=== PATIENT | female | born 1960 ===

== ENCOUNTER 2020-11-20 12:46 | Emergency (ER) | payer MEDICARE, OTHER, SELFPAY ==
[2020-11-20 12:55] VITALS: BP 138/43; PULSE 64; RESP 20; TEMP 36.6; O2SAT 98
--- NOTE | 2020-11-20 12:55 | ED.EXTPRO ---
HPI - Extremity Problem General Chief complaint: Extremity Problem,Nontraumatic Stated complaint: Left calf pain Time Seen by Provider: 11/20/20 12:56 Source: patient and RN notes reviewed Mode of arrival: ambulatory Limitations: no limitations History of Present Illness HPI Narrative: 60-year-old female presents to the [facility] with left calf pain for 3-4 days. Patient denies any injury. No swelling. No change in color. Tenderness to medial lower calf to palpation. No bony tenderness throughout the lower leg. Has been taking Ferguson for her chronic back pain and states not getting any better. Currently on Eliquis due to bypass surgery, states they changed her about a year ago off of Plavix. Walks with a limp favoring the left leg. Related Data Home Medications Medication Instructions Recorded Confirmed allopurinol 200 mg PO DAILY 11/20/20 11/20/20 amlodipine 5 mg PO DAILY 11/20/20 11/20/20 apixaban [Eliquis] 5 mg PO BID 11/20/20 11/20/20 ergocalciferol (vitamin D2) 1,250 mcg PO DAILY 11/20/20 11/20/20 ezetimibe 10 mg PO DAILY 11/20/20 11/20/20 furosemide 40 mg PO BID 11/20/20 11/20/20 gabapentin 300 mg PO BID 11/20/20 11/20/20 hydrocodone-acetaminophen 325 tablet PO DIRECTED 11/20/20 11/20/20 insulin lispro 100 unit SUBCUT DIRECTED 11/20/20 11/20/20 isosorbide mononitrate 120 mg PO DAILY 11/20/20 11/20/20 metoprolol tartrate 100 mg PO DAILY 11/20/20 11/20/20 ranolazine 1,000 mg PO DAILY 11/20/20 11/20/20 sertraline 100 mg PO DAILY 11/20/20 11/20/20 Allergies Allergy/AdvReac Type Severity Reaction Status Date / Time codeine Allergy Unknown Unknown Verified 11/20/20 13:02 meperidine AdvReac Mild NAUSEA/VOMI Verified 06/14/18 07:54 TING oxycodone AdvReac Mild Nausea and Verified 06/14/18 07:54 Vomiting Review of Systems Review of Systems: Narrative: CONSTITUTIONAL: Denies fever, chills, or sweats. CARDIOVASCULAR: Denies chest pain, palpitations, or edema. RESPIRATORY: Denies cough or dyspnea. SKIN: Denies rash or itching. No signs of infection MUSCULOSKELETAL: Denies new back pain or joint pain. Left calf pain. NEUROLOGIC: Denies headache, numbness, or weakness. PSYCHIATRIC: Denies anxiety or depression. All other systems reviewed are negative, except as documented in HPI. [facility] Family History Family History Sibling Family history of diabetes mellitus in first degree relative Social History Social History Smoking status: Never smoker Alcohol intake: never Gender identity (if verbalized by the patient): Female Comments At the time of my signature, I reviewed and agree with the nursing past medical, surgical, social, and family history. There is no relevant family history pertinent to the patient complaint. Exam Narrative: Exam Narrative: GENERAL: This is a well-nourished, well-developed patient, in no apparent distress. Morbidly obese HEAD: normocephalic, atraumatic. EYES: PERRL. Sclera clear/white. Vision is grossly intact. EARS: External ears normal CARDIOVASCULAR: Regular rate and rhythm without murmurs, gallops, or rubs. RESPIRATORY: Clear to auscultation. SKIN: warm, Dry, intact with no suspicious lesions or rash, good texture and turgor. NEURO: awake, alert, and oriented to person, place and time. There were no obvious focal neurologic abnormalities. EXTREMITIES: No joint tenderness, effusion, or edema noted. Left medial and posterior calf tenderness. Negative Homans sign bilaterally. Right lower leg measures 30 cm mid calf, left lower leg measures 27 cm mid calf. No edema noted. Course Course Emergency Course: Discussed with patient after exam of lower leg, no signs of a DVT, patient already on Eliquis and there is no edema, redness. Concern for electrolyte issues, patient states that she had blood drawn on 18 November with follow-up with her kidney doctor on the and
== END 2020-11-20 13:13 | disposition home or self-care (01) ==
PROVIDERS: Emergency Provider Nurse Practitioner; PCP Internal Medicine
DX: S86.112A Strain of other muscle(s) and tendon(s) of posterior muscle group at lower leg level, left leg, initial encounter (principal); X58.XXXA Exposure to other specified factors, initial encounter; I25.110 Atherosclerotic heart disease of native coronary artery with unstable angina pectoris; E11.42 Type 2 diabetes mellitus with diabetic polyneuropathy; I13.10 Hypertensive heart and chronic kidney disease without heart failure, with stage 1 through stage 4 chronic kidney disease, or unspecified chronic kidney disease; E11.22 Type 2 diabetes mellitus with diabetic chronic kidney disease; N18.4 Chronic kidney disease, stage 4 (severe); Z95.1 Presence of aortocoronary bypass graft; E78.00 Pure hypercholesterolemia, unspecified; F41.9 Anxiety disorder, unspecified; F32.9 Major depressive disorder, single episode, unspecified
CPT/HCPCS: 99213; G0463

== ENCOUNTER 2023-03-22 18:26 | Emergency (ER) | payer MEDICARE, OTHER, SELFPAY ==
[2023-03-22 18:32] VITALS: BP 155/45; PULSE 63; RESP 20; TEMP 36.4; O2SAT 96
--- NOTE | 2023-03-22 18:57 | ED.FEMALEGU ---
HPI - Female Genitourinary General Chief complaint: Urogenital-Female Stated complaint: Urinary Problem Time Seen by Provider: 03/22/23 18:58 Source: patient, RN notes reviewed and old records reviewed Mode of arrival: ambulatory Limitations: no limitations History of Present Illness HPI Narrative: 63 year old female who presents to express care with complaints of burning and pain with urination starting today with noted hematuria. Patient reports history of UTI's states urinary pressure and burning with urination, urgency and frequency, reports suprapubic pain/pressure, states some right flank discomfort also.. Patient reports that she had a dose of Bactrim at home and she took it before coming to clinic. Patient reports that she does not have history of kidney stones, has obvious blood visible in urine. Patient denies any fevers, chills or sweats, denies any nausea or vomiting.Patient is uncomfortable recommended going to ED for further evaluation reports that she does not want to go to ED if not better will go later this evening or tomorrow, adamant. MD elicited complaint: UTI Pertinent past history: recurrent UTIs Onset (ago): day(s) (1) Location of symptoms: perineum, suprapubic and flank (right) Severity scale (1-10): 9 Quality of pain: sharp and burning Urinary symptoms: Dysuria, Urgency, Frequency and Hematuria Related Data Home Medications Medication Instructions Recorded Confirmed allopurinol 100 mg tablet 200 mg PO DAILY 11/20/20 11/20/20 amlodipine 5 mg tablet 5 mg PO DAILY 11/20/20 11/20/20 apixaban 5 mg tablet (Eliquis) 5 mg PO BID 11/20/20 11/20/20 ergocalciferol (vitamin D2) 1,250 1,250 mcg PO DAILY 11/20/20 11/20/20 mcg (50,000 unit) capsule ezetimibe 10 mg tablet 10 mg PO DAILY 11/20/20 11/20/20 furosemide 40 mg tablet 40 mg PO BID 11/20/20 11/20/20 gabapentin 300 mg capsule 300 mg PO BID 11/20/20 11/20/20 hydrocodone 5 mg-acetaminophen 325 325 tablet PO DIRECTED 11/20/20 11/20/20 mg tablet insulin lispro 100 unit/mL 100 unit subcut DIRECTED 04/23/21 04/23/21 subcutaneous solution isosorbide mononitrate 120 mg 120 mg PO DAILY 11/20/20 11/20/20 tablet,extended release 24 hr metoprolol tartrate 100 mg tablet 100 mg PO DAILY 11/20/20 11/20/20 ranolazine 1,000 mg 1,000 mg PO DAILY 11/20/20 11/20/20 tablet,extended release,12 hr sertraline 100 mg tablet 100 mg PO DAILY 11/20/20 11/20/20 Allergies Allergy/AdvReac Type Severity Reaction Status Date / Time codeine Allergy Unknown Unknown Verified 11/20/20 13:02 meperidine AdvReac Mild NAUSEA/VOMI Verified 06/14/18 07:54 TING oxycodone AdvReac Mild Nausea and Verified 06/14/18 07:54 Vomiting Review of Systems Review of Systems: CONSTITUTIONAL: Denies fever, chills, or sweats. CARDIOVASCULAR: Denies chest pain, palpitations, or edema. RESPIRATORY: Denies cough or dyspnea. GASTROINTESTINAL: Reports suprapubic abdominal pain/pressure,denies nausea, vomiting, or diarrhea. GENITOURINARY: Reports dysuria, frequency, urgency. reports some right flank pain and hematuria. SKIN: Denies rash or itching. MUSCULOSKELETAL: Denies lower back pain or myalgia. Some right CVA tenderness NEUROLOGIC: Denies headache All systems reviewed & are unremarkable except as noted in HPI and below PMFSH Past Medical History Medical History Asthma Bronchitis Diabetes Heart attack Hyperlipidemia Hypertension Sleep apnea treated with continuous positive airway pressure (CPAP) Urinary tract infection Surgical History Surgical History (Updated 03/23/23 @ 15:40 by Imelda Gomes NP) History of bilateral carpal tunnel release History of cholecystectomy History of hysterectomy History of open heart surgery 5 vessel bypass S/P cubital tunnel release S/P trigger finger release Family History Family History Sibling Family history of diab
[2023-03-22] MEDS: cefTRIAXone 1 GM, LIDOCAINE HCL 1% LOCAL INJ 2.1 ML IM (19:13)
== END 2023-03-22 19:38 | disposition home or self-care (01) ==
PROVIDERS: Emergency Provider Registered Nurse
DX: N39.0 Urinary tract infection, site not specified (principal); R31.9 Hematuria, unspecified; J45.909 Unspecified asthma, uncomplicated; E11.9 Type 2 diabetes mellitus without complications; E78.5 Hyperlipidemia, unspecified; I10 Essential (primary) hypertension; I25.2 Old myocardial infarction; Z95.1 Presence of aortocoronary bypass graft; Z79.4 Long term (current) use of insulin; G47.30 Sleep apnea, unspecified
CPT/HCPCS: 81003; 87077; 87086; 87186; 96372; 99213; G0463; J0696

== ENCOUNTER 2023-07-09 10:14 | Emergency (ER) | payer MEDICARE, OTHER, SELFPAY ==
[2023-07-09 10:22] VITALS: BP 130/48; PULSE 63; RESP 16; TEMP 36.5; O2SAT 93
--- NOTE | 2023-07-09 10:35 | ED.FEMALEGU ---
HPI - Female Genitourinary General Chief complaint: Urogenital-Female Stated complaint: Urinary Problem History of Present Illness HPI Narrative: Patient presents for intermittent low abdominal pain. Patient denies with any burning with urination denies any flank pain no back pain no gross hematuria. Patient denies any vaginal discharge no concern for STIs. Related Data Home Medications Medication Instructions Recorded Confirmed allopurinol 100 mg tablet 200 mg PO DAILY 11/20/20 11/20/20 amlodipine 5 mg tablet 5 mg PO DAILY 11/20/20 11/20/20 apixaban 5 mg tablet (Eliquis) 5 mg PO BID 11/20/20 11/20/20 ergocalciferol (vitamin D2) 1,250 1,250 mcg PO DAILY 11/20/20 11/20/20 mcg (50,000 unit) capsule ezetimibe 10 mg tablet 10 mg PO DAILY 11/20/20 11/20/20 furosemide 40 mg tablet 40 mg PO BID 11/20/20 11/20/20 gabapentin 300 mg capsule 300 mg PO BID 11/20/20 11/20/20 hydrocodone 5 mg-acetaminophen 325 325 tablet PO DIRECTED 11/20/20 11/20/20 mg tablet insulin lispro 100 unit/mL 100 unit subcut DIRECTED 11/20/20 11/20/20 subcutaneous solution isosorbide mononitrate 120 mg 120 mg PO DAILY 11/20/20 11/20/20 tablet,extended release 24 hr metoprolol tartrate 100 mg tablet 100 mg PO DAILY 11/20/20 11/20/20 ranolazine 1,000 mg 1,000 mg PO DAILY 11/20/20 11/20/20 tablet,extended release,12 hr sertraline 100 mg tablet 100 mg PO DAILY 11/20/20 11/20/20 calcitriol 0.25 mcg capsule mcg 07/09/23 clopidogrel 75 mg tablet mg 07/09/23 fluticasone 250 mcg-salmeterol 50 inhalation 07/09/23 mcg/dose blistr powdr for inhalation (Advair Diskus) letrozole 2.5 mg tablet mg 07/09/23 losartan 25 mg tablet mg 07/09/23 tiotropium bromide 1.25 inhalation 07/09/23 mcg/actuation mist for inhalation (Spiriva Respimat) tobramycin 0.3 %-dexamethasone 0.1 drp 07/09/23 % eye drops,suspension trazodone 50 mg tablet mg 07/09/23 Allergies Allergy/AdvReac Type Severity Reaction Status Date / Time codeine Allergy Unknown Unknown Verified 07/09/23 10:30 meperidine AdvReac Mild NAUSEA/VOMI Verified 07/09/23 10:30 TING oxycodone AdvReac Mild Nausea and Verified 07/09/23 10:30 Vomiting Review of Systems Review of Systems: CONSTITUTIONAL: Denies fever, chills, or sweats. EYES: Denies visual changes, redness, or discharge. ENT: Denies rhinorrhea, congestion, sore throat, or otalgia. CARDIOVASCULAR: Denies chest pain, palpitations, or edema. RESPIRATORY: Denies cough or dyspnea. GASTROINTESTINAL: Denies abdominal pain, nausea, vomiting, or diarrhea. GENITOURINARY: Denies dysuria or hematuria. SKIN: Denies rash or itching. MUSCULOSKELETAL: Denies back pain, joint pain, or myalgia. NEUROLOGIC: Denies headache, numbness, or weakness. PSYCHIATRIC: Denies anxiety or depression. PMFSH Past Medical History Medical History Asthma Bronchitis Diabetes Heart attack Hyperlipidemia Hypertension Sleep apnea treated with continuous positive airway pressure (CPAP) Urinary tract infection Surgical History Surgical History (Updated 03/23/23 @ 15:40 by Imelda Gomes NP) History of bilateral carpal tunnel release History of cholecystectomy History of hysterectomy History of open heart surgery 5 vessel bypass S/P cubital tunnel release S/P trigger finger release Family History Family History Sibling Family history of diabetes mellitus in first degree relative Social History Social History Smoking status: Never smoker Alcohol intake: never Gender identity (if verbalized by the patient): Female Comments At time of signature, agree with nursing past medical, surgical, social and family history. There is no relevant family history pertinent to the presenting complaint Exam Narrative: GENERAL: Well-appearing, well-nourished, and i
== END 2023-07-09 10:48 | disposition home or self-care (01) ==
PROVIDERS: Emergency Provider Nurse Practitioner Family
DX: R10.30 Lower abdominal pain, unspecified (principal); J45.909 Unspecified asthma, uncomplicated; E11.9 Type 2 diabetes mellitus without complications; E78.5 Hyperlipidemia, unspecified; I10 Essential (primary) hypertension; G47.30 Sleep apnea, unspecified; I25.2 Old myocardial infarction; Z95.1 Presence of aortocoronary bypass graft
CPT/HCPCS: 81003; 87086; 87088; 99213; G0463

== ENCOUNTER 2023-12-13 14:05 | Emergency (ER) | payer MEDICARE, OTHER, SELFPAY ==
[2023-12-13 14:20] VITALS: BP 128/46; PULSE 61; RESP 16; TEMP 36.4; O2SAT 93
--- NOTE | 2023-12-13 14:35 | ED.ABDPAIN ---
HPI - Abdominal Pain General Chief Complaint: Abdominal Pain Stated Complaint: Abdominal Pain Source: patient and RN notes reviewed Mode of arrival: ambulatory Limitations: no limitations History of Present Illness HPI narrative: 63-year-old female with a history of diabetes and CAD presented for complaint right lower quadrant pain . Onset yesterday. She endorses pain is sharp and stabbing, worse with walking or bending. States she feels pressure sensation after urination. Rates pain 8/10. denies nausea, vomiting, diarrhea, constipation, decreased appetite, fevers or chills. History of cholecystectomy. Related Data Home Medications Medication Instructions Recorded Confirmed allopurinol 100 mg tablet 200 mg PO DAILY 11/20/20 12/13/23 amlodipine 5 mg tablet 5 mg PO DAILY 11/20/20 12/13/23 ergocalciferol (vitamin D2) 1,250 1,250 mcg PO DAILY 11/20/20 12/13/23 mcg (50,000 unit) capsule ezetimibe 10 mg tablet 10 mg PO DAILY 11/20/20 12/13/23 furosemide 40 mg tablet 40 mg PO BID 11/20/20 12/13/23 gabapentin 300 mg capsule 300 mg PO BID 11/20/20 12/13/23 hydrocodone 5 mg-acetaminophen 325 325 tablet PO DIRECTED 11/20/20 12/13/23 mg tablet insulin lispro 100 unit/mL 100 unit subcut DIRECTED 11/20/20 12/13/23 subcutaneous solution isosorbide mononitrate 120 mg 120 mg PO DAILY 11/20/20 12/13/23 tablet,extended release 24 hr metoprolol tartrate 100 mg tablet 100 mg PO DAILY 11/20/20 12/13/23 sertraline 100 mg tablet 100 mg PO DAILY 11/20/20 12/13/23 calcitriol 0.25 mcg capsule 0.25 mcg PO DAILY 07/09/23 12/13/23 clopidogrel 75 mg tablet 75 mg PO DAILY 07/09/23 12/13/23 fluticasone 250 mcg-salmeterol 50 2 inh inhalation DAILY 07/09/23 12/13/23 mcg/dose blistr powdr for inhalation (Advair Diskus) letrozole 2.5 mg tablet 2.5 mg PO DAILY 07/09/23 12/13/23 losartan 25 mg tablet 25 mg PO DAILY 07/09/23 12/13/23 tiotropium bromide 1.25 1.25 puff inhalation DAILY 07/09/23 12/13/23 mcg/actuation mist for inhalation (Spiriva Respimat) trazodone 50 mg tablet 50 mg PO PRN 07/09/23 12/13/23 Allergies Allergy/AdvReac Type Severity Reaction Status Date / Time codeine Allergy Unknown Unknown Verified 12/13/23 14:23 meperidine AdvReac Mild NAUSEA/VOMI Verified 12/13/23 14:23 TING oxycodone AdvReac Mild Nausea and Verified 12/13/23 14:23 Vomiting Review of Systems Review of Systems: CONSTITUTIONAL: Denies body aches, fever, chills ENT: Denies rhinorrhea, congestion CARDIOVASCULAR: Denies chest pain, palpitations, or edema. RESPIRATORY: Denies cough or dyspnea. GASTROINTESTINAL: Endorses RLQ abdominal pain, Denies nausea, vomiting, diarrhea, hematochezia, melena, hematemesis GENITOURINARY: Denies dysuria, hematuria, or CVA tenderness. SKIN: Denies rash, itching, or wounds. MUSCULOSKELETAL: Denies back pain, joint pain, or myalgia. NEUROLOGIC: Denies headache All systems reviewed & are unremarkable except as noted in HPI and below PMFSH Past Medical History Medical History Asthma Bronchitis Diabetes Heart attack Hyperlipidemia Hypertension Sleep apnea treated with continuous positive airway pressure (CPAP) Urinary tract infection Surgical History Surgical History History of bilateral carpal tunnel release History of cholecystectomy History of hysterectomy History of open heart surgery 5 vessel bypass S/P cubital tunnel release S/P trigger finger release Family History Family History Sibling Family history of diabetes mellitus in first degree relative Social History Social History Smoking status: Never smoker Alcohol intake: never Gender identity (if verbalized by the patient): Female Comments At time of signature, I have reviewed and agree with nursing p
== END 2023-12-13 14:45 | disposition short-term general hospital (02) ==
PROVIDERS: Emergency Provider Nurse Practitioner Family; PCP Family Medicine
DX: R10.31 Right lower quadrant pain (principal); J45.909 Unspecified asthma, uncomplicated; E11.9 Type 2 diabetes mellitus without complications; Z79.4 Long term (current) use of insulin; E78.5 Hyperlipidemia, unspecified; I10 Essential (primary) hypertension; G47.30 Sleep apnea, unspecified; I25.2 Old myocardial infarction; I25.10 Atherosclerotic heart disease of native coronary artery without angina pectoris; Z95.5 Presence of coronary angioplasty implant and graft
CPT/HCPCS: 81003; 87077; 87086; 87088; 87147; 87181; 87186; 99213; G0463

== ENCOUNTER 2025-03-09 13:04 | Emergency (ER) | payer OTHER, MEDICARE, SELFPAY ==
--- OUTSIDE RECORDS SUMMARY | 2025-03-09 13:06 | XMS_ITS | Continuity of Care Document ---
Author Organization [facility] Address [address] [place] [address] [address] [place] [address] Phone Care Team Providers Care Interface Developer Name Role Phone Alexander PT, LARISSAT, Leobardo [...] Diagnoses Date Provider Providers Copied on Encounter [facility], [id number], tel:[phone] Eduardo Pain in left shoulderStiffnes s of left shoulder, not elsewhere classifiedOther specified extrapyramidal and movement disordersOth specific arthropathies, NEC, left shoulder Apr-1 6-201 8 Alexander Booth. [address], [facility], [place]. tel:[phone] Referring Provider: Akin Baird, [address] [place] [address] [address] [place], [address]. tel:[phone] [facility], [id number], tel:[phone] Eduardo Pain in left shoulderStiffnes s of left shoulder, not elsewhere classifiedOther specified extrapyramidal and movement disordersOth specific arthropathies, NEC, left shoulder Apr-0 9-201 8 Alexander Booth. [address] [facility], [facility] [address], [place], [facility], [place]. tel:[phone] Referring Provider: Akin Baird, [address] [facility] [address] [facility], [place], [address]. tel:[phone] [facility] [address], [place], [place], [address], [place] tel:[phone] Eduardo Pain in left shoulderStiffnes s of left shoulder, not elsewhere classifiedOther specified extrapyramidal and movement disordersOth specific arthropathies, NEC, left shoulder Mar-2 6-201 8 Lujan-Downey Leobardo. [address] [facility], [address], [place], [place], [facility], [place]. tel:[phone] Referring Provider: Akin Baird, [address] [facility] [address] [facility] [place], [address]. tel:[phone] [facility] [address] [facility], [place], [place], [id number], [place] tel:[phone] [place] Pain in left shoulderStiffnes s of left shoulder, not elsewhere classifiedOther specified extrapyramidal and movement disordersOth specific arthropathies, NEC, left shoulder Mar-2 3-201 8 Lujan-Downey Leobardo. [address] [place] [address], [address], [place], [place], [facility], [place]. tel:[phone] Referring Provider: Akin Baird, [address] [facility] [address] [place], [address]. tel:[phone] [facility] [address] [facility], [place], [place], [id number], [place] tel:[phone] [place] Pain in left shoulderStiffnes s of left shoulder, not elsewhere classifiedOther specified extrapyramidal and movement disordersOth specific arthropathies, NEC, left shoulder Mar-1 9-201 8 Lujan-Downey Leobardo. [address] [facility], [address], [place], [address], [place]. tel:[phone] Referring Provider: Akin Baird, [address] [facility] [address] [facility] [address], [place], [address]. tel:[phone] [facility] [address], [place], [place], [address], [place] tel:[phone] [place] No Information 8 Tai-Shayan Leobardo. [address] [facility], [address], [place], [address], [place]. tel:[phone] Referring Provider: Akin Baird, [address] [place] [address] [address] [facility] [place], [address]. tel:[phone] [facility] [address] [place], [place] [address], [place], [place], [address], [place] tel:[phone] [place] No Information 8 Tai-Shayan Leobardo. [address] [place] [address], [address], [place], [facility], [place]. tel:[phone] Referring Provider: Akin Baird, [address] [place] [address] [address] [facility] [place], [address]. tel:[phone] [address], [place], [place], [address], [place] tel:[phone] [place] No Information 8 Tai-Shayan Leobardo. [address] [place] [address], [address], [place], [address], [place]. tel:[phone] Referring Provider: Akin Baird, [address] [place] [address] [address] [place], [address]. tel:[phone] [facility] [address] [place], [place] [address], [place], [place], [address], [place] tel:[phone] Eduardo No Information 8 Tai-Shayan Leobardo. [address] [place] [address], [address], [place], [address], [place]. tel:[phone] Referring Provider: Akin Baird, [address] [place] [address] [address], [place], [address]. tel:[phone] [facility] [address], [place], [place], [address], [place] tel:[phone] [place] No Information 8 Alexander Booth. [address] [facility], [address], [place], [address], [place]. tel:[phone] Referring Provider: Akin Baird, [address] [place] [address] [address], [place], [address]. tel:[phone] [facility], [id number], [place] tel:[phone] [place] No Information 8 Alexander Booth. [address] [place] [address], [address], [place], [address], [place]. tel:[phone] Referring Provider: Akin Baird, [address] [place] [address] [address], [place], [address]. tel:[phone] [facility] [address], [place], [place], [id number], [place] tel:[phone] [place] Pain in left shoulderStiffnes s of left shoulder, not elsewhere classifiedOther specified extrapyramidal and movement disordersOth specific arthropathies, NEC, left shoulder 8 Sandip Arora. . Referring Provider: Akin Baird, [address] [place] [address] [address], [place], [address]. tel:[phone] [facility] [address], [place], [place], [address], [place] tel:[phone] [place] No Information 8 Alexander Booth. [address] [facility], [address], [place], [address], [place]. tel:[phone] Referring Provider: Janice Goldsmith, [address] [facility] [address], [place], [address]. tel:[phone] [facility], [id number], tel:[phone] [place] No Information 8 Alexander Booth. [address] [place] [address], [address], [place], [facility], . tel:[phone] Referring Provider: Janice Goldsmith [facility] [address], [place], [address]. tel:[phone], [id number], tel:[phone] Eduardo No Information 8 Alexander Booth. [address] [place] [address], [address], [place], [facility], . tel:[phone] Referring Provider: Janice Goldsmith [address] [place] [address] [address], [place], [address]. tel:[phone], [id number], tel:[phone] [place] No Information 8 Alexander Booth. [address] [place] [address], [address], [place], [facility], . tel:[phone] Referring Provider: Janice Goldsmith [facility] [address], [place], [address]. tel:[phone], [address], tel:[phone] [place] No Information 7 Alexander Booth. [address] [place] [address], [address], [place], [facility], . tel:[phone] Referring Provider: Janice Goldsmith [facility] [address], [place], [address]. tel:[phone] [address], [place], [place], [address], tel:[phone] [place] No Information Alexander Booth. [address] [place] [address], [address], [place], [facility], . tel:[phone] Referring Provider: Janice Goldsmith [facility] [address], [place], [address]. tel:[phone] [facility] [address] [place] [address], [id number], tel:[phone] [place] No Information 7 Gary Gramajo. [address] [place] [address], [address], [place], [facility], . tel:[phone] Referring Provider: Janice Goldsmith [address] [place] [address] [address] [place], [address]. tel:[phone] [facility] [address], [id number], tel:[phone] [place] No Information Alexander Booth. [address] [place] [address], [address], [place], [facility], [place]. tel:[phone] Referring Provider: Janice Goldsmith [address] [place] [address] [address] [place], [address]. tel:[phone] [place] [address], [id number], tel:[phone] [place] Lumbago with sciatica, left sideStiffness of unspecified joint, not elsewhere classifiedMuscle weakness (generalized)Sti ffness of right hip, not elsewhere classifiedOther intervertebral disc degeneration, lumbar region Alexander Booth. [address] [place] [address], [address], [place], [facility], . tel:[phone] Referring Provider: Russel Eldridge1 [facility] [address], [place], [address]. tel:[phone] [address], [place], [place], [address], tel:[phone] [place] No Information 0 7 Alexander Booth. [address] [place] [address], [address], [place], [facility], . tel:[phone] Referring Provider: Austen Gannon, [address] [place] [address] [address], [place], [address]. tel:[phone] [address], [place], [place], [address], [place] tel:[phone] Eduardo No Information 7 Gary Gramajo. [address] [place] [address], [address], [place], [facility], [place]. tel:[phone] Referring Provider: Austen Gannon, [address] [place] [address] [address], [place], [address]. tel:[phone], [place], [address], [place] tel:[phone] [place] No Information 7 Gary Gramajo. [address] [place] [address], [address], [place], [address], [place]. tel:[phone] Referring Provider: Austen Gannon, [address] [facility] [address], [place], [address]. tel:[phone] [address], [place], [id number], [place] tel:[phone] Eduardo No Information 7 Gary Gramajo. [address] [place] [address], [address], [place], [address], [place]. tel:[phone] Referring Provider: Austen Gannon [address] [facility] [address], [place], [address]. tel:[phone], [id number], [place] tel:[phone] [place] No Information Sep-2 Alexander Booth. [address] [place] [address], [address], [facility], [place]. tel:[phone] Referring Provider: Corinna [place] [address], [address]. tel:[phone], [id number], tel:[phone] [place] No Information Sep- Alexander Booth. [address] [place] [address], [address], [facility], [place]. tel:[phone] Referring Provider: Corinna [place] [address], [address]. tel:[phone], [id number], [place] tel:[phone] Eduardo No Information Sep- Alexander Booth. [address] [place] [address], [address], [facility], [place]. tel:[phone] Referring Provider: Corinna [place] [address], [address]. tel:[phone], [id number], [place] tel:[phone] Eduardo Pain in left footOth symptoms and signs involving the musculoskeletal systemUnspecifie d abnormalities of gait and mobilityMyalgiaP lantar fascial fibromatosis Sep-1 Alexander Booth. [address] [place] [address], [facility] [address], [place], [facility], [place]. tel:[phone] Referring Provider: Corinna [place] [address], [address]. tel:[phone] Family History Family Member Type Diagnosis Age At Onset No Information Payers Payer name Insurance type Covered democrat ID Authoriza timichael(s) [place] [id number] [facility] [id number] Social History Type Description Quantity Date Captured [...]
--- OUTSIDE RECORDS SUMMARY | 2025-03-09 13:06 | XMS_ITS ---
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 :1960 A ge:64 Y S ex:Female Date:11/07/2024 Address:[address] [place] [address] Subjective: * Chief Complaints: Objective: Assessment: * [...] Plan: * Billing Information: * Visit Code: 21821 Office Visit, Est Pt., Level 5. * Procedure Codes: * Electronic signature of Raphael Avelar MD on 03/09/2025 at 01:06 PM CDT Sign off status: Pending * Provider: Rusty JIN MD, F.A.C.P, F.A.S.N. Date: 0 11/07/2024 Generated for Printing/Faxing/eTransmitting on: 0 03/09/2025 01:06 PM CDT
--- OUTSIDE RECORDS SUMMARY | 2025-03-09 13:07 | XMS_ITS | Clinical Summary ---
Author Organization [facility] Address [address], [place] [address] Phone Care Team Providers Care Risk Management Specialist Name Role Phone Unavailable Primary Care Provider Unavailabl e Medications HYDROcodone-judie taminophen (Kensett) 5-325 MG TabletIndicatio ns:Other chronic pain Take 1 Tablet by mouth every 12 hours as needed for Moderate or more severe pain or Severe pain. 60 Tablet 09/06/2023 Active Social History Tobacco Use Types Packs/Day Years Used Date Smoking Tobacco: Never Assessed Comments Unknown Sex and Gender Information Value Date Recorded Sex Assigned at Not on file Legal Sex Female 9:24 PM CDT Gender Identity Not on file Sexual Orientation Not on file Plan of Treatment Health Maintenance Due Date Last Done Comments Hepatitis C Virus (HCV) Screening 1960 Pap Smear 1982 Cervical Cancer Screening (CCS) 1991 HPV/Cotest 1991 Cologuard 2006 Colonoscopy 2006 Colorectal Cancer Screening 2006 Immunochemical Fecal Occult Blood 2006 Zoster Immunization (1 of 2) 2011 Mammogram 09/06/2023 09/06/2022, 09/01, 07/27/2020, Additional history exists SARS-COV-2 Immunization ( season) 2024 05/29/2021, 11/23/2020, 10/26/2020 Influenza Immunization (#1) 2025 10/0 08/2022, 04/26/2022, 05/18/2021, Additional history exists Respiratory Syncytial Virus (RSV) Immunization (Adult) (1 - 1-dose 75+ series) 01/12/2036 Pneumococcal Immunization (50+ years) Completed 04/19/2021, 04/03/2014, 02/16/2010, Additional history exists Pneumococcal Immunization Combined Discontinued 04/19/2021, 04/03/2014, 02/16/2010, Additional history exists DTaP/Tdap/Td Immunization Discontinued 2022, 12/13/2020, 09/02/2009 TdaP Immunization Completed 02/27/2023, , 09/02/2009 Hepatitis B Immunization Aged Out No longer eligible based on patient's age to complete this topic Human Papillomavirus (HPV) Immunization Aged Out No longer eligible based on patient's age to complete this topic Meningococcal Immunization (ACWY) Aged Out No longer eligible based on patient's age to complete this topic Rotavirus Immunization Aged Out No lo nger eligible based on patient's age to complete [place] [address] MEDICARE
--- OUTSIDE RECORDS SUMMARY | 2025-03-09 13:07 | XMS_ITS ---
Author Organization [facility] Address [address] [facility] [address] [facility] [address] [place] [address] Care Team Providers Care Field Laboratory Operator Name Role Phone Avelar Teo Unavailable [phone] Problems Problem Type SNOMED Code ICD Code Onset Dates Problem Status W/U Status Risk Notes Problem Hyperlipidemia (59591413) Hyperlipidemia, unspecified (E78.5) Active confirmed Problem CAD (coronary artery disease) (I25.10) Active confirmed Encounters Encounter Location Date Provider Diagnosis Nathan Sheppard [address] [place] [address] 01/16/2025 Teo Avelar Chronic kidney disea se, [...] Provider Name:Teo Avelar , 03/27/2025 03:00:00 PM, [id number] [place] [address], [place], [address], Progress Notes * JUDY TORIBIOIDOB:1960 (65 yo F)Acc No.[id number]:01/16/2025 Progress Notes Patient: LOU RINCON Provider: Rusty JIN MD, F.A.C.P, F.A.S.N. :1960 A ge:65 Y S ex:Female Date:01/16/2025 Address:[address] [place] [address] Subjective: * Chief Complaints: * * Medical [...] Treatment: * Billing Information: * Visit Code: 55314 Office Visit, Est Pt., Level 4. * Procedure Codes: * Electronic signature of Raphael Avelar MD on 03/09/2025 at 01:07 PM CDT Sign off status: Pending * Provider: Rusty JIN MD, F.A.C.P, F.A.S.N. Date: 0 01/16/2025 Generated for Printing/Faxing/eTransmitting on: 0 03/09/2025 01:07 PM CDT
--- OUTSIDE RECORDS SUMMARY | 2025-03-09 13:07 | XMS_ITS | Clinical Summary ---
Author Organization [facility] Address [address] [place] [address] Phone Care Team Providers Care Service Bar Cashier Name Role Phone Avila Torres MD Primary Care Provider Unavailabl e Allergies Active Allergy Reactions Criticality Noted Date Comments Oxycodone-Acetaminophen Nausea and Vomiting Low Medications clopidogrel (PLAVIX) 75 mg Oral Tab Take 75 mg by mouth daily. Active sertraline (ZOLOFT) 100 mg Oral tablet Take 150 mg by mouth daily. Active ranolazine SR 12 hour (RANEXA) 1,000 mg Oral tablet Take 1,000 mg by mouth every 12 hours. Active esomeprazole (NEXIUM) 20 mg Oral CpDR Take 40 mg by mouth Daily LATE. Active isosorbide mononitrate SR 24 hour (IMDUR) 120 mg Oral tablet Take 120 mg by mouth daily helpdesk analyst. Active amLODIPine (NORVASC) 10 mg Oral tablet Take 10 mg by mouth daily. Active atenolol (TENORMIN) 100 mg Oral tablet Take 100 mg by mouth 2 times daily. Active irbesartan (AVAPRO) 150 mg Oral tablet Take 150 mg by mouth daily. Active rosuvastatin (CRESTOR) 40 mg Oral tablet Take 40 mg by mouth daily at bedtime. Active ezetimibe (ZETIA) 10 mg Oral tablet Take 10 mg by mouth Daily LATE. Active fluticasone-papi meterol (ADVAIR DISKUS) 500-50 mcg/dose Inhalation DsDv Take 1 Puff by inhalation 2 times daily. Active aspirin (DOUG) 81 mg Oral Tab Take by mouth. Active insulin aspart (NOVOLOG) 100 unit/mL Injection Soln Inject by subcutaneous injection. Active COLESEVELAM HCL (WELCHOL ORAL) Take by mouth 2 times daily. Active albuterol 90 mcg/Actuation Inhalation HFAA inhaler Take 2 Puffs by inhalation every 6 hours as needed. Active HYDROcodone-judie taminophen (NORCO) 10-325 mg Oral Tab Take 1 Tab by mouth every 4 hours as needed for Pain, Severe (For Pain Scale 7-10). 30 Tab 0 3 Active traMADol (ULTRAM) 50 mg Oral tablet Take 2 Tabs by mouth every 6 hours as needed for Pain. 25 Tab 0 3 Active Active Problems Problem Noted Date Diagnosed Date Pain 01/23/2013 HTN (hypertension) 01/23/2013 JESSA (obstructive sleep apnea) 01/23/2013 Obesity 01/23/2013 Hyperglycemia 01/23/2013 Social History Tobacco Use Types Packs/Day Years Used Date Smoking Tobacco: Never Alcohol Use Standard Drinks/Week Comments No 0 (1 standard drink = 0.6 oz pur e alcohol) Comments No Sex and Gender Information Value Date Recorded Sex Assigned at Not on file Legal Sex Female 2:08 PM CDT Gender Identity Not on file Sexual Orientation Not on file Last Filed Vital Signs Vital Sign Reading Time Taken Comments Blood Pressure 138/68 01/24/2013 8:54 AM CDT Pulse 71 01/24/2013 8:09 AM CDT Temperature 36.6 C (97.8 F) 01/24/2013 8:09 AM CDT Respiratory Rate 18 01/24/2013 8:09 AM CDT Oxygen Saturation 93% 01/24/2013 8:09 AM CDT Inhaled Oxygen Concentration - - Weight 103.4 kg (228 lb) 01/22/2013 3:30 PM CDT Height 167.6 cm (5' 6) 01/22/2013 3:30 PM CDT Body Mass Index 36.8 01/22/2013 3:30 PM CDT Plan of Treatment Health Maintenance Due Date Last Done Comments DTAP/TDAP/TD VACCINES (1 - Tdap) 01/12/1980 BREAST CANCER SCREENING 2001 COLORECTAL SCREENING 2006 Colorectal Cancer Screening 2006 FIT-DNA Q 3 years 2006 FIT/FOBT Q 1 year 2006 Flex Sig/CT Colonography Q 5 years 2006 ZOSTER VACCINE (1 of 2) 2011 INFLUENZA VACCINE (#1) 2025 RSV VACCINE (60+ or ) (1 - 1-dose 75+ series) 01/12/[address] [place] [address] MEDICARE PART A AND B [facility] [employer] ACCESS O Advance Directives For more information, please contact: [phone] * Full Code (Latest Code Status on File) Date Activated Date Inactivated Comments 01/22/2013 10:23 AM 01/24/2013 3:17 PM * Full Code Date Activated Date Inactivated Comments 01/22/2013 6:04 AM 01/22/2013 10:23 AM Care Teams Service Bar Cashier Relationship Specialty Start Date End Date Avila Torres MD PCP - General Internal Medicine 12/20/12
--- OUTSIDE RECORDS SUMMARY | 2025-03-09 13:07 | XMS_ITS | Encounter Summary ---
Author Organization [facility] Address [address] [address] Phone Care Team Providers Care Coil Connector Repairer Name Role Phone Unavailable Primary Care Provider Unavailabl e Encounter Details Date Type Department Care Team (Late st Contact Info) Description 09/11/2023 Nursing Facility [facility] [address] [place] [phone] Jh Corral, PAC [address] [place] [address] Social History Tobacco Use Types Packs/Day Years Used Date Smoking Tobacco: Never Assessed Comments Unknown Sex and Gender Information Value Date Recorded Sex Assigned at Not on file Legal Sex Female 9:24 PM CDT Gender Identity Not on file Sexual Orientation Not on file documented as of this encounter Progress Notes * Jh Corral, MEGHA - 09/11/2023 2:25 PM CST [facility] PROGRESS NOTE Jennifer Howard is a 63 y.o. female at [facility] for rehabilitation. Prior to coming to rehabilitation facility patient was hospitalized at [facility] from09/01/2023 through 09/05/2023 for acute respiratory failure with hypoxia, GUZMAN, with numerous near syncopal events. Pacemaker interrogation to that show any abnormalities. It was thought that these near syncopal events could have been from deconditioning verses vasovagal versus falling asleep. Subjective: Interval History: I am seeing patient for a skilled encounter. She is sitting comfortably in her wheelchair. Says she feels ???alright. No acute symptoms or concerns. Currently not wearing oxygen at rest and oxygen level is 95% during my exam. During therapy oxygen level dropped to as low as 83%. Compliant with her BiPAP at night. Will check labs tomorrow. Review of Systems: A 14 point comprehensive review of systems was negative except what is documented in interval history above. Objective: Exam: Vital Signs: Recent vital signs were reviewed in the electronic medical records at nursing facility and are unremarkable. General: Well developed, well nourished, in no distress Skin: Normal appearance, normal turgor, no rashes HEENT: Normocephalic, atraumatic, no flaring - poor dentition, tooth # 9 Is broken Eyes: nonicteric, intact extra occular movement, PERRL Neck: normal, supple, no lymphadenopathy Heart: regular rate and rhythm, S1, S2 normal, no murmur, click, rub or gallop Lungs: clear to ausculation, normal respirations with no accessory muscle use, normal rate Abdominal: soft, non-tender; bowel sounds normal; no masses, no organomegaly Extremities: no deformities, joint mobility appears intact, no clubbing Neuro: Non-focal, CN intact, sensory and motor intact Psychological: alert and oriented X3, appropriate mood and affect, Intact judgement and memory Lab Results: 09/05/2023 upon discharge from hospital, CBC with WBC of 11.4, hemoglobin 10.5 otherwise unremarkable. CMP with creatinine 2.3, BUN 53, alk-phos 380, ALT 63, AST 54 otherwise unremarkable. Imaging: none Assessment/Plan: Generalized weakness and deconditioning Receiving retirement care and physical therapy rehabilitation 09/11/2023 improving Chronic kidney disease stage 3 Creatinine of 2.39 upon discharge from hospital. This may be due to baseline. Repeat BMP soon. Avoid nephrotoxic agents Acute respiratory failure Requiring some oxygen which is new since hospitalization Wean as tolerated. If not able to be weaned prior to discharge that will have to send home with oxygen. 09/11 - today requiring oxygen with exertion but not at rest. Type 1 diabetes mellitus on insulin pump A1c 7.2 on 07/14/2023 Chronic diastolic congestive heart failure Followed by cardiology at [facility] on 09/02/2023 with diastolic dysfunction grade 2 and ejection fraction of 62% Continue Lasix, metoprolol , Imdur 09/11/2023 well controlled Hypertension Continue current regimen Monitor blood pressures 09/11/2023 well controlled Diabetic gastroparesis and chronic constipation Continue scheduled MiraLax Had Reglan during hospitalization Dental pain Secondary to dental injury/dental david with resultant pulpitis Oragel ordered Halina p.r.n.. She has that follow-up with her dentist. Other chronic medical conditions include coronary artery disease status post CABG and stent placement, peripheral vascular disease, hyperlipidemia, sick sinus syndrome status post pacemaker implantation, previous TIA, diabetic peripheral neuropathy, history of breast cancer, obstructive sleep apnea VTE Prophylaxis: Activity I discussed advanced care planning with this patient. Disposition: Patient planning on going home where she lives with her blood completion of skilled therapy This note was dictated using [employer] fluency dictation system and there may be errors in block breaker operator. Despite proof reading the note, there may be mistakes and I apologize for those. By: Jh Corral, MEGHA, 09/11/2023 2:26 PM WEIGHER PACKING HER PACKING documented in this encounter Plan of Treatment Not on file documented as of this encounter Visit Diagnoses Not on filedocumented in this encounter
--- OUTSIDE RECORDS SUMMARY | 2025-03-09 13:07 | XMS_ITS | Encounter Summary ---
Author Organization [facility] Address [address] [place] [address] Phone Care Team Providers Care Templer Head Name Role Phone Unavailable Primary Care Provider Unavailabl e Encounter Details Date Type Department Care Team (Late st Contact Info) Description 09/14/2023 Nursing Facility [facility] [address] [place] [phone] Jh Corral, PAC [address] [place] [address] Social History Tobacco Use Types Packs/Day Years Used Date Smoking Tobacco: Never Assessed Comments Unknown Sex and Gender Information Value Date Recorded Sex Assigned at Not on file Legal Sex Female 9:24 PM CDT Gender Identity Not on file Sexual Orientation Not on file documented as of this encounter Progress Notes * Jh Corral, MEGHA - 09/14/2023 12:48 PM CST [facility] PROGRESS NOTE Jennifer Howard is a 63 y.o. female at [facility] for rehabilitation. Prior to coming to rehabilitation facility patient was hospitalized at [facility] from09/01/2023 through 09/05/2023 for acute respiratory failure with hypoxia, GUZMAN, with numerous near syncopal events. Pacemaker interrogation to that show any abnormalities. It was thought that these near syncopal events could have been from deconditioning verses vasovagal versus falling asleep. Subjective: Interval History: I am seeing patient for a skilled encounter. She is sitting comfortably in her chair. Says she feels ???good. No acute symptoms or concerns. Has not needed oxygen for the last couple days. Her O2 saturations have been above 90. Compliant with her BiPAP at night. Therapy is going well and she has regained a lot of strength. Planning for discharge on 07/19/2024 back to home. Review of Systems: A 14 point comprehensive [...] Receiving retirement care and physical therapy rehabilitation 09/14/2023 improving Chronic kidney disease stage 3 Creatinine of 2.39 upon discharge from hospital. This may be her new baseline. Avoid nephrotoxic agents Acute respiratory failure Requiring some oxygen which is new since hospitalization Wean as tolerated. If not able to be weaned prior to discharge that will have to send home with oxygen. 09/11 - today requiring oxygen with exertion but not at rest. 09/14: Has been successfully weaned off of oxygen over the last couple days Type 1 diabetes mellitus on insulin pump A1c 7.2 on 07/14/2023 Chronic diastolic congestive heart failure Followed by cardiology at [facility] on 09/02/2023 with diastolic dysfunction grade 2 and ejection fraction of 62% Continue Lasix, metoprolol , Imdur 09/14/2023 well controlled Hypertension Continue current regimen Monitor blood pressures 09/14/2023 well controlled Diabetic gastroparesis and chronic constipation Continue scheduled Alice Busch during hospitalization Dental pain Secondary to dental injury/dental david with resultant pulpitis Oragel ordered Perthes p.r.n.. She has that follow-up with her [...] lives with her blood completion of skilled therapy. Planning for discharge on 09/19/2023 This note was dictated using [employer] fluency dictation system and there may be errors in splunk consultant. Despite proof reading the note, there may be mistakes and I apologize for those. By: MEGHA Patel, 09/14/2023 12:48 PM INFORMATION TECH RMATION TECH documented in this encounter Plan of Treatment Not on file documented as of this encounter Visit Diagnoses Not on filedocumented in this encounter
--- OUTSIDE RECORDS SUMMARY | 2025-03-09 13:07 | XMS_ITS | Encounter Summary ---
Author Organization [facility] Address [address] [place] [address] Phone Care Team Providers Care Sack Department Supervisor Name Role Phone Unavailable Primary Care Provider Unavailabl e Encounter Details Date Type Department Care Team (Late st Contact Info) Description 09/06/2023 Nursing Facility [facility] [address] [place] [address] Jh Corral, PAC [address] [place] [address] Other chronic pain (Primary Dx) Social History Tobacco Use Types Packs/Day Years Used Date Smoking Tobacco: Never Assessed Comments Unknown Sex and Gender Information Value Date Recorded Sex Assigned at Not on file Legal Sex Female 9:24 PM CDT Gender Identity Not on file Sexual Orientation Not on file documented as of this encounter Progress Notes * Jh Corral, PAC - 09/06/2023 12:29 PM CST [facility] PROGRESS NOTE Jennifer Howard is a 63 y.o. female at [facility] for rehabilitation. Prior to coming to rehabilitation facility patient was hospitalized at [facility] from09/01/2023 through 09/05/2023 for acute respiratory failure with hypoxia, GUZMAN, with numerous near syncopal events. Pacemaker interrogation to that show any abnormalities. It was thought that these near syncopal events could have been from deconditioning verses vasovagal versus falling asleep. Subjective: Interval History: I am seeing patient for a skilled encounter/initial visit. Just admitted to the rehabilitation facility yesterday. See above for brief summarization. She is sitting comfortably on the edge of her bed. Says she feels ???alright. Makes note of a cough that has been present for about a week now that is nonproductive. Feels like her breathing is at his baseline. Wearing supplemental oxygen which is new since hospitalization. Also complaining of dental pain. Says that part of her front tooth broke off a while ago and she has been meaning to get into a dentist. This tooth is very sensitive and painful. No gingival edema. Review of Systems: A 14 point comprehensive [...] none Assessment/Plan: Generalized weakness and deconditioning Receiving residential care and physical therapy rehabilitation Chronic kidney disease stage 3 Creatinine of 2.39 upon discharge from hospital. This may be due to baseline. Repeat BMP soon. Avoid nephrotoxic agents Acute respiratory failure Requiring some oxygen which is new since hospitalization Wean as tolerated. If not able to be weaned prior to discharge that will have to send home with oxygen. Type 1 diabetes mellitus on insulin pump A1c 7.2 on 07/14/2023 Chronic diastolic congestive heart failure Followed by cardiology at [facility] on 09/02/2023 with diastolic dysfunction grade 2 and ejection fraction of 62% Continue Lasix, metoprolol , Imdur 09/06/2023 well controlled Hypertension Continue current regimen Monitor blood pressures Diabetic gastroparesis and chronic constipation Continue scheduled MiraLax Had Regmanuel during hospitalization Dental pain Secondary to dental [...] skilled therapy This note was dictated using [employer] fluency dictation system and there may be errors in environmental air specialist. Despite proof reading the note, there may be mistakes and I apologize for those. By: MEGHA Patel, 09/06/2023 12:45 PM PRINTING TABLE WORKER TING TABLE WORKER documented in this encounter Plan of Treatment Not on file documented as of this encounter Visit Diagnoses Diagnosis Other chronic pain- Primary documented in this encounter
--- OUTSIDE RECORDS SUMMARY | 2025-03-09 13:07 | XMS_ITS | Encounter Summary ---
Author Organization [facility] Address [address] [facility] [place] [address] Phone Care Team Providers Care Funeral Service Licensee Name Role Phone Unavailable Primary Care Provider Unavailabl e Encounter Details Date Type Department Care Team (Late st Contact Info) Description 09/08/2023 Nursing Facility [facility] [address] [place] [phone] Johnny Toth MD [address] [place] [address] Social History Tobacco Use Types Packs/Day Years Used Date Smoking Tobacco: Never Assessed Comments Unknown Sex and Gender Information Value Date Recorded Sex Assigned at Not on file Legal Sex Female 9:24 PM CDT Gender Identity Not on file Sexual Orientation Not on file documented as of this encounter Plan of Treatment Not on file documented as of this encounter Visit Diagnoses Not on filedocumented in this encounter
--- OUTSIDE RECORDS SUMMARY | 2025-03-09 13:07 | XMS_ITS ---
Author Organization [facility] Address [address] [place] [address] Care Team Providers Care Small Wind Energy Installer Name Role Phone Teo Avelar Unavailable [phone] Encounters Encounter [place] [address] [place] [address] 01/09/2025 Rusty Avelar Plan Of Treatment Next Appt Details Provider Name:Teo Valentino , 03/27/2025 03:00:00 PM, [address] , [place], [address], Progress Notes * JUDY TORIBIOYUEB:1960 (65 yo F)Acc No.[id number]:01/09/2025 Progress Notes Patient: LOU RINCON Provider: Rusty JIN MD, F.Ian.C.P, F.A.S.N. :1960 A ge:64 Y S ex:Female Date:01/09/2025 Address:[address] [place], [place] [id number] Subjective: * Chief Complaints: * * Medical History: Objective: * Vitals: Assessment: Plan: * Treatment: * Billing Information: * Visit Code: * Procedure Codes: * Electronic signature of Raphael Avelar MD on 03/09/2025 at 01:07 PM CDT Sign off status: Pending * Provider: Rusty JIN MD, F.Ian.C.P, F.A.S.N. Date: 01/09/2025 Generated for Printing/Faxing/eTransmitting on: 03/09/2025 01:07 PM CDT
--- OUTSIDE RECORDS SUMMARY | 2025-03-09 13:07 | XMS_ITS | Patient Health Record ---
Author Organization [facility] Office Address [address] [facility] [address] [place] [address] Care Team Providers Care Laser Printing Operator Name Role Phone Teo Avelar Unavailable [phone] Reason For Referral No Information Medications Medication SIG (Take, Route, Frequency, Duration) Notes Start Date End Date Status Allopurinol 200 MG 1 tablet Orally Once a day; Duration: 90 days 01/16/2025 2026 Active Farxiga 10 MG 1 tablet Orally Once a day; Duration: 90 days 01/16/2025 2026 Active Losartan Potassium 25 MG TAKE 1 TABLET B Y MOUTH EVERY DAY; Duration: 90 Active Allopurinol 100 MG 1 tablet Orally twic e a day; Duration: 90 days 01/16/2025 Active Vitamin D (Ergocalciferol) 1.25 MG (17433 UT) TAKE ONE CAPSULE BY MOUTH WEEKLY; Duration: 91 Active Calcitriol 0.25 MCG TAKE 1 CAPSULE BY MO UTH TWICE DAILY; Duration: 90 Active Problems Problem Type SNOMED Code ICD Code Onset Dates Problem Status W/U Status Risk Notes Problem Malignant neoplasm o f nipple and areola of female breast (924090225) Malignant neoplasm of nipple and areola, 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.019) Active confirmed Problem Hyperglycemia due to type 2 diabetes mellitus (396003913601060) Type 2 diabetes mellitus with hyperglycemia (E11.65) Active confirmed Problem Secondary hyperparathyroidism (25321873) Secondary hyperparathyroid ism, not elsewhere classified (E21.1) Active confirmed Problem Vitamin D deficiency (20299294) Vitamin D deficiency, unspecified (E55.9) Active confirmed Problem Hyperlipidemia (19197458) Hyperlipidemia, unspecified (E78.5) Active confirmed Problem Hyperuricemia withou t signs of inflammatory arthritis and tophaceous disease (512121136) Hyperuricemia without signs of inflammatory arthritis and tophaceous disease (E79.0) Active confirmed Problem Essential hypertension (95331891) Essential (primary) hypertension (I10) Active confirmed Problem Acute sinusitis (57801856) Acute sinusitis, unspecified (J01.90) Active confirmed Problem Gastro-esophageal reflux disease without esophagitis (916975801) Gastro-esophagea l reflux disease without esophagitis (K21.9) Active confirmed Problem Chronic kidney disease stage 4 (077253425) Chronic kidney disease, stage 4 (severe) (N18.4) Active confirmed Problem Renal osteodystrophy (56532487) Renal osteodystrophy (N25.0) Active confirmed Problem Proteinuria (04716360) Proteinuria, unspecified (R80.9) Active confirmed Problem Coronary artery disease (08238149) CAD (coronary artery disease) (I25.10) Active confirmed Encounters Encounter Location Date Provider Diagnosis [address] [place] [address] 05/16/2024 Teo Avelar Chronic kidney disea se, stage 3b N18.32 ; Essential (primary) hypertension I10 ; Renal osteodystrophy N25.0 ; Secondary hyperparathyroidism, not elsewhere classified E21.1 ; Type 2 diabetes mellitus with hyperglycemia E11.65 ; Vitamin D deficiency, unspecified E55.9 ; Acute sinusitis, unspecified J01.90 and Malignant neoplasm of nipple and areola, 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 C50.019 [address] [place] [address] 06/06/2024 Teo Avelar Chronic kidney disea se, stage 3b N18.32 ; Essential (primary) hypertension I10 ; Renal osteodystrophy N25.0 ; Secondary hyperparathyroidism, not elsewhere classified E21.1 ; Type 2 diabetes mellitus with hyperglycemia E11.65 ; Vitamin D deficiency, unspecified E55.9 ; Acute sinusitis, unspecified J01.90 and Malignant neoplasm of nipple and areola, 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 C50.019 [address] [address] [place] [address] 07/18/2024 Teo Avelar Chronic kidney disea se, stage 4 (severe) N18.4 ; Essential (primary) hypertension I10 ; Renal osteodystrophy N25.0 ; Secondary hyperparathyroidism, not elsewhere classified E21.1 ; Type 2 diabetes mellitus with hyperglycemia E11.65 ; Vitamin D deficiency, unspecified E55.9 ; Acute sinusitis, unspecified J01.90 and Malignant neoplasm of nipple and areola, 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 C50.019 Nathan [address]pp[address] [place] [address] 11/07/2024 Teo Avelar Chronic kidney disea se, [...] and Gastro-esophageal reflux disease without esophagitis K21.9 [address] [address] [place] [address] 01/16/2025 Teo Avelar Chronic kidney disea se, [...] E78.5 and CAD (coronary artery disease) I25.10 [facility] [address] [facility] [address] [place] [address] 09/05/2024 Teo Sheppard [address] [place] [address] 01/16/2025 To[address] [place] [address] 01/16/2025 Teo Avelar [facility] [place] [facility] [address] [place] [address] 05/30/2024 Teo Avelar Assessments Encounter Date Diagnosis (ICD Code) Assessment Notes Treatment Notes Treatment Clinical Notes Section Notes 05/16/2024 Chronic kidney disease, stage 3b (ICD-10 - N18.32) 06/06/2024 Chronic kidney disease, stage 3b (ICD-10 - N18.32) 07/18/2024 Chronic kidney disease, stage 4 (severe) (ICD-10 - N18.4) 11/07/2024 Chronic kidney disease, stage 4 (severe) (ICD-10 - N18.4) 01/16/2025 Chronic kidney disease, stage 4 (severe) (ICD-10 - N18.4) 11/07/2024 Essential (primary) hypertension (ICD-10 - I10) 07/18/2024 Essential (primary) hypertension (ICD-10 - I10) 06/06/2024 Essential (primary) hypertension (ICD-10 - I10) 05/16/2024 Essential (primary) hypertension (ICD-10 - I10) 01/16/2025 Essential (primary) hypertension (ICD-10 - I10) 05/16/2024 Renal osteodystrophy (ICD-10 - N25.0) 07/18/2024 Renal osteodystrophy (ICD-10 - N25.0) 06/06/2024 Renal osteodystrophy (ICD-10 - N25.0) 11/07/2024 Renal osteodystrophy (ICD-10 - N25.0) 01/16/2025 Renal osteodystrophy (ICD-10 - N25.0) 01/16/2025 Secondary hyperparathyroidism , not elsewhere classified (ICD-10 - E21.1) 11/07/2024 Secondary hyperparathyroidism , not elsewhere classified (ICD-10 - E21.1) 07/18/2024 Secondary hyperparathyroidism , not elsewhere classified (ICD-10 - E21.1) 06/06/2024 Secondary hyperparathyroidism , not elsewhere classified (ICD-10 - E21.1) 05/16/2024 Secondary hyperparathyroidism , not elsewhere classified (ICD-10 - E21.1) 05/16/2024 Type 2 diabetes mellitus with hyperglycemia (ICD-10 - E11.65) 06/06/2024 Type 2 diabetes mellitus with hyperglycemia (ICD-10 - E11.65) 07/18/2024 Type 2 diabetes mellitus with hyperglycemia (ICD-10 - E11.65) 11/07/2024 Type 2 diabetes mellitus with hyperglycemia (ICD-10 - E11.65) 01/16/2025 Type 2 diabetes mellitus with hyperglycemia (ICD-10 - E11.65) 01/16/2025 Vitamin D deficiency, unspecified (ICD-10 - E55.9) 11/07/2024 Vitamin D deficiency, unspecified (ICD-10 - E55.9) 07/18/2024 Vitamin D deficiency, unspecified (ICD-10 - E55.9) 06/06/2024 Vitamin D deficiency, unspecified (ICD-10 - E55.9) 05/16/2024 Vitamin D deficiency, unspecified (ICD-10 - E55.9) 05/16/2024 Acute sinusitis, unspecified (ICD-10 - J01.90) 06/06/2024 Acute sinusitis, unspecified (ICD-10 - J01.90) 07/18/2024 Acute sinusitis, unspecified (ICD-10 - J01.90) 11/07/2024 Acute sinusitis, unspecified (ICD-10 - J01.90) 01/16/2025 Acute sinusitis, unspecified (ICD-10 - J01.90) 01/16/2025 Malignant neoplasm of nipple and areola, 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) 11/07/2024 Malignant neoplasm of nipple and areola, 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) 07/18/2024 Malignant neoplasm of nipple and areola, 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) 06/06/2024 Malignant neoplasm of nipple and areola, 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) 05/16/2024 Malignant neoplasm of nipple and areola, 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) 11/07/2024 Proteinuria, unspecified (ICD-10 - R80.9) 01/16/2025 Proteinuria, unspecified (ICD-10 - R80.9) 01/16/2025 Hyperuricemia without signs of inflammatory arthritis and tophaceous disease (ICD-10 - E79.0) 11/07/2024 Hyperuricemia without signs of inflammatory arthritis and tophaceous disease (ICD-10 - E79.0) 11/07/2024 Gastro-esophageal reflux disease without esophagitis (ICD-10 - K21.9) 01/16/2025 Gastro-esophageal reflux disease without esophagitis (ICD-10 - K21.9) 01/16/2025 Hyperlipidemia, unspecified (ICD-10 - E78.5) 01/16/2025 CAD (coronary artery disease) (ICD-10 - I25.10) Plan Of Treatment Next Appt Details Provider Name:Teo Avelar , 03/27/2025 03:00:00 PM, [address] [facility], [place], [address],
--- OUTSIDE RECORDS SUMMARY | 2025-03-09 13:12 | XMS_ITS | Clinical Summary ---
Author Organization [facility] Address [address] [place] [address] Care Team Providers Care Sales Attendant Name Role Phone Servando Tsai MD Unavailable Zulema Soto MD Primary Care Provide r Dejan Beauchamp MD Unavailable Fernandez Garcia MD PhD Unavailable [phone] Akin Baird MD Unavailable Austen Gannon DPM Unavailable [phone] Shreyas Astorga MD Unavailable [phone] Felicia Vargas MD Unavailable [phone] Teo Avelar MD Unavailable [phone] Juliana King NP Unavailable Allergies Active Allergy Reactions Criticality Noted Date Comments Fentanyl Dizziness,Nausea only Low 01/24/2023 Medications aspirin 81 mg enteric coated tablet Take 1 tablet (81 mg total) by mouth daily Active subcutaneous insulin pump misc 3.95 Units/hr by subcutaneous (via wearable injector) route [id number]- 3.95units, 0249-1591-4.5uni ts, 4676-3068-5 units Sliding scale bolus 4times a day-100-200 blood sugar-3units bolus 200-300 blood sugar-5units bolus, 300 and over-10units bolus Active calcitRIOL (ROCALTROL) 0.25 mcg capsule Take 1 capsule (0.25 mcg total) by mouth 2 (two) times a day 11/21/19 20 Active fluticasone propion-salmeteroL (ADVAIR DISKUS) 250-50 mcg/dose diskus inhaler Inhale 1 puff 2 (two) times a day Active albuterol 2.5 mg /3 mL (0.083 %) nebulizer solution Take 3 mL (2.5 mg total) by nebulization as needed 02/18/20 23 Active losartan (COZAAR) 25 mg tablet Take 1 tablet (25 mg total) by mouth daily 09/20/19 24 Active ondansetron ODT (ZOFRAN-ODT) 8 mg disintegrating tablet Take 1 tablet (8 mg total) by mouth every 8 (eight) hours as needed for nausea or vomiting 12 tablet 1 11/14/19 24 Active ergocalciferol (VITAMIN D) 50,000 unit capsule Take 1 capsule (50,000 Units total) by mouth once a week Take on Mondays11/15/19 24 Active letrozole (FEMARA) 2.5 mg tabletIndications: Malignant neoplasm of breast in female, estrogen receptor positive, unspecified laterality, unspecified site of breast (HCC) Take 1 tablet (2.5 mg total) by mouth daily 90 tablet 3 02/05/20 24 Active cyclobenzaprine (FLEXERIL) 5 mg tablet Take 1 tablet (5 mg total) by mouth 3 (three) times a day as needed for muscle spasms 30 tablet 03/01/20 24 Active OneTouch Ultra Test strip USE TO TEST THREE TIMES DAILY 03/13/20 24 Active blood-glucose sensor (DEXCOM G7 SENSOR [facility]) Active nitroglycerin (NITROSTAT) 0.4 mg SL tablet DISSOLVE 1 TABLET UNDER THE TONGUE EVERY 5 MINUTES NEEDED FOR CHEST PAIN 100 tablet 1 04/22/20 24 Active metoprolol (LOPRESSOR) 100 mg tablet TAKE 1 TABLET(100 MG) BY MOUTH TWICE DAILY 180 tablet 3 06/24/20 24 Active insulin syringe-needle U-100 1 mL 31 gauge x 16 syringeIndications :Type 1 diabetes mellitus with hyperglycemia (HCC) Use up to 4 times daily if pump failure 50 each 11 07/17/20 24 Active ezetimibe (ZETIA) 10 mg tablet TAKE 1 TABLET(10 MG) BY MOUTH DAILY 100 tablet 1 08/05/19 25 Active Additional Information Patient taking differently: 10 mgoralNightly, Informant: Self, Reported on 02/04/2025 furosemide (LASIX) 80 mg tablet TAKE 1 TABLET(80 MG) BY MOUTH DAILY 90 tablet 1 10/03/19 25 Active amLODIPine (NORVASC) 10 mg tablet Take 1 tablet (10 mg total) by mouth daily 90 tablet 3 10/04/19 25 Active rosuvastatin (CRESTOR) 10 mg tablet TAKE 1 TABLET(10 MG) BY MOUTH EVERY NIGHT 90 tablet 3 10/16/19 25 Active traZODone (DESYREL) 100 mg tablet Take 1 tablet (100 mg total) by mouth nightly Active HYDROcodone-acetam inophen (NORCO) 5-325 mg per tabletIndications: Pain Take 1 tablet by mouth every 6 (six) hours as needed for pain 10 tablet 12/10/19 25 Active isosorbide mononitrate ER (IMDUR) 120 mg 24 hr tablet TAKE 1 TABLET(120 MG) BY MOUTH DAILY 90 tablet 3 12/12/19 25 Active sertraline (ZOLOFT) 100 mg tablet TAKE 1 TABLET(100 MG) BY MOUTH DAILY 90 tablet 1 12/25/19 25 Active clopidogreL (PLAVIX) 75 mg tablet TAKE 1 TABLET(75 MG) BY MOUTH DAILY 90 tablet 1 01/15/20 25 Active dapagliflozin propanediol (FARXIGA) 10 mg tablet Take 1 tablet (10 mg total) by mouth daily 01/22/20 25 Active allopurinoL 200 mg tablet daily 01/17/20 25 026 Active insulin lispro (HumaLOG) 100 unit/mL vial for injectionIndicatio ns:Type 1 diabetes mellitus with hyperglycemia (HCC) INJECT UP TO 200 UNITS VIA PUMP DAILY 200 mL 1 01/23/20 25 Active metoprolol tartrate (LOPRESSOR) 25 mg immediate release tablet TAKE 1 TABLET(25 MG) BY MOUTH TWICE DAILY 90 tablet 3 02/04/20 25 Active omeprazole (PriLOSEC) 40 mg capsule TAKE 1 CAPSULE(40 MG) BY MOUTH DAILY 90 capsule 3 02/05/20 25 Active gabapentin (NEURONTIN) 300 mg capsule Take 2 capsules (600 mg total) by mouth nightly 180 capsule 02/05/20 25 026 Active dulaglutide (TRULICITY) 0.75 mg/0.5 mL pen injectorIndication s:type 2 diabetes mellitus Inject 0.5 mL (0.75 mg total) under the skin every 7 days 2 mL 02/06/20 25 Active Active Problems Problem Noted Date Diagnosed Date Injury of collateral ligament of finger of right hand 11/11/2024 Closed injury of digital nerve of finger 025 Acute chest pain 10/19/2024 Assessment & Plan (10/31/2024 9:38 AM CDT): Admitted and recently treated for erosive gastritis Cont ppi bid for 1 month then daily for 6 months EKG in the office with not much change to previous EKG She refuses to go back to the ED but is willing to have her drive her to [place] where her websphere portal architect is located. She is also going to call her websphere portal architect after this visit as I recommend for further recommendation for possible cardiac cath Can consider adding pepcid to her regimen which she states she will get otc F/u at next appt Norovirus 10/17/2024 Assessment & Plan (10/17/2024 10:01 AM CDT): improved Gastroenteritis 10/08/2024 Assessment & Plan (10/08/2024 2:53 PM CDT): Patient presenting for acute nausea, vomiting, and diarrhea. Improved with Zofran. Seems most likely viral in nature. No sign of dehydration or electrolyte derangement. C diff negative, stool culture pending. CT CAP shows liquid stool in the colon. - Continue Zofran p.r.n. for symptomatic management - Starting loperamide for frequent diarrhea - Monitor electrolytes and replenish as necessary Chest pain, unspecified type 10/07/2024 Assessment & Plan (10/08/2024 2:52 PM CDT): CAD s/p stents SSS s/p pacemaker CHF HTN HLD Left-sided chest pain with no exacerbating or alleviating factors, feels similar to previous cardiac chest pain per patient. Differentials include unstable angina, costochondritis, pulled muscle secondary to vomiting. Previous stress test in 05/2024 was negative for ischemic changes. Echo in 05/2024 showed EF 60-65%, diastolic dysfunction of LV, and mild pulmonary HTN. EKG in the ED unchanged from previous. Troponins marginally elevated with insignificant delta. BNP mildly elevated at 336. Patient does not appear fluid overloaded on exam, does not seem like CHF exacerbation. Plan: - Cardiology consulted from ED, recommend repeat stress test, avoiding cardiac cath due to prevent worsening kidney function - Continuous telemetry - Continue nitroglycerin ointment for symptomatic management - Continue home BP meds (amlodipine, lasix, losartan, metoprolol), hold isosorbide while using nitroglycerin as above History of colon polyps 08/13/2024 CKD stage 4 due to type 1 diabetes mellitus 06/30 Assessment & Plan (01/22/2025 2:19 PM CDT): Chronic problem, managed by Dr Rusty Avelar TOBY 01/16/25. Dr Castro stopped her Farxiga, Allopurinol & decreased Gabapentin 300mg daily (from TID) while hospitalized 05/2024. Dr Rusty Avelar restarted her Farxiga, resumed allopurinol & increase Gabapentin from daily to BID. Saw Dr Rusty Avelar 01/16/25: increased gabapentin 300mg to BID Nephropathy: On DEEDEE-I / ARB s : Yes. Losartan 25mg. Last MA: 01/15/25 (118). Last creat/GFR: 01/15/25 GFR=25, CR=2.18. Assessment & Plan (07/17/2024 9:48 AM SOAKING ROOM OPERATOR): Chronic problem, managed by Dr Rusty Avelar. At [facility] 05/31/24-06/05/24: for CP but neg assessment. Found to be in kidney failure. Dr Castro took her off of farxiga & allopurinol. Gabapentin cut back to 300mg daily. Continues on lasix 80mg. Has appt w/her quiller runner (Dr Rusty Avelar) 07/18/24 at [facility]. Nephropathy: On DEEDEE-I / ARB s : Yes. Losartan 25mg. Last MA: 07/10/24 (159). Last creat/GFR: 07/10/24 GFR=26, CR=2.07. Chest pain 05/31/2024 Major depressive disorder in full remission, unspecified whether recurrent 05/12/2024 Flank pain, acute 02/29/2024 Assessment & Plan (03/01/2024 11:19 AM CDT): New concern Not at goal Muscle spasm Sent flexeril 5mg prn. Instructed not to operate heavy machinery Lidocaine patch sent Declines PT for now F/u prn RLQ abdominal pain 01/09/2024 Assessment & Plan (01/09/2024 11:55 AM CDT): Improving CT scan and urinalysis was unremarkable Will hold off on referral to GI given symptoms are improving F/u for worsening symptoms Hypoxemia 11/30/2023 Trigger finger, left index finger 11/19/2023 Angina pectoris 11/02/2023 Constipation 09/05/2023 Hepatic steatosis 09/03/2023 Normocytic anemia 09/03/2023 Diabetic gastroparesis assoc iated with type 2 diabetes mellitus 09/02/2023 Syncope, unspecified syncope type 09/01/2023 Assessment & Plan (09/27/2023 9:37 AM SOAKING ROOM OPERATOR): Possibly from malfunctioning pacemaker Saw cardio yesterday and they ordered V/Q scan and chest xray for the hypoxemia Pulse ox 92% in the office today Will hold off on pulmonary referral Neurology signed off in the hospital Continue with work up as per cardio Going for stress test as well Declines physical therapy Encourage to use walker as fall prevention Acute respiratory failure with hypoxia Trigger index finger of right hand 08/07/2023 Personal history of colonic polyps 07/11/2023 Diabetic peripheral neuropathy 06/29/2023 Assessment & Plan (01/22/2025 1:59 PM CDT): Chronic problem. Currently taking gabapentin 300mg daily. Reviewed foot care; needs to lotion daily. Aware to check feet nightly, not to go barefoot. Assessment & Plan (07/17/2024 8:48 AM SOAKING ROOM OPERATOR): Chronic problem. Currently taking gabapentin 300mg tid. Reviewed foot care; needs to lotion daily. Aware to check feet nightly, not to go barefoot. Assessment & Plan (04/03/2024 8:44 AM CDT): Chronic problem. Currently taking gabapentin 300mg tid. Reviewed foot care; needs to lotion daily. Aware to check feet nightly, not to go barefoot. Assessment & Plan (01/16/2024 9:32 AM CDT): Chronic problem. Currently taking gabapentin 300mg tid. Reviewed foot care; needs to lotion daily. Aware to check feet nightly, not to go barefoot. Assessment & Plan (10/17/2023 9:46 AM CDT): Chronic problem. Currently taking gabapentin 300mg tid. Reviewed foot care; needs to lotion daily. Aware to check feet nightly, not to go barefoot. Assessment & Plan (06/29/2023 10:16 AM SOAKING ROOM OPERATOR): Chronic problem. Currently taking Gabapentin 300mg tid. Aware to check feet & not go barefoot. Hypertension associated with type 1 diabetes keiko litus 06/28/2023 Assessment & Plan (02/04/2025 11:45 AM CDT): Bp in the office today BP Readings from Last 1 Encounters: 02/04/25 130/68 Continue current regimen of amlodipine 10mg daily losartan 25mg daily metoprolol 25mg bid Recommend DASH diet, heart-healthy lifestyle, exercise. Discussed the risks of hypertension. Assessment & Plan (01/22/2025 2:00 PM CDT): Chronic problem. Currently taking Losartan 25mg daily, metoprolol tartrate 125 mg bid, amlodipine 10mg daily, lasix 80mg bid. Assessment & Plan (07/18/2024 10:16 AM SOAKING ROOM OPERATOR): Bp in the office today BP Readings from Last 1 Encounters: 07/18/24 126/62 Continue current regimen of amlodipine 10mg daily losartan 25mg daily metoprolol 25mg bid Recommend DASH diet, heart-healthy lifestyle, exercise. Discussed the risks of hypertension. F/u in 6 months Assessment & Plan (07/17/2024 8:48 AM SOAKING ROOM OPERATOR): Chronic problem. Currently taking Losartan 25mg daily, metoprolol tartrate 125mg bid, amlodipine 10mg daily, lasix 80mg bid. Assessment & Plan (06/11/2024 12:38 PM SOAKING ROOM OPERATOR): Continue current regimen: Lasix 80 mg daily Losartan 25 mg daily Amlodipine 10 mg daily Assessment & Plan (04/03/2024 8:44 AM CDT): Chronic problem. Currently taking Losartan 25mg daily, metoprolol tartrate 125mg bid, amlodipine 10mg daily, lasix 80mg bid. Assessment & Plan (01/16/2024 9:32 AM CDT): Chronic problem. Currently taking Losartan 25mg daily, metoprolol tartrate 125mg bid, amlodipine 10mg daily, lasix 80mg bid. Assessment & Plan (10/17/2023 9:06 AM CDT): Chronic problem. Currently taking Losartan 25mg daily, metoprolol tartrate 125mg bid, amlodipine 10mg daily, lasix 80mg bid. Assessment & Plan (06/29/2023 9:53 AM SOAKING ROOM OPERATOR): Chronic problem. Not at goal upon arrival. Currently taking Losartan 25mg daily, metoprolol tartrate 125mg bid, amlodipine 10mg daily, lasix 80mg bid. Atrial tachycardia 06/13/2023 Dupuytren's contracture 05/03/2023 Knee pain, left 03/08/2023 Assessment & Plan (03/16/2023 1:55 PM CDT): Stable Saw ortho today and they started her on doxy She was referred to [facility] for drainage of the hematoma Continue with recommendations by ortho Assessment & Plan (03/08/2023 3:21 PM CDT): Pt fell prior to admission (02/27) -she presented to the ED after her fall due to left knee and right ankle pain. She was referred to ortho (Dr. Phillips). She did not have any fractures but had significant pain and a large left prepatellar hematoma. She was provided a right foot Aircast stirrup brace. Per ortho, she is to use the brace for the next couple weeks and then gradually wean out. She is encouraged to start gentle ankle range of motion and rehab exercises in the next 1-2 weeks as pain improves. -aspiration of the hematoma was not attempted by ortho due to the presence of significant abrasions and minimal liquid component on ultrasound. -She has a follow up appointment 03/29 -PT/OT Chronic musculoskeletal pain 03/04/2023 Assessment & Plan (12/08/2023 10:07 AM CDT): Chronic Referral to pain management given to take over the norco prescription Assessment & Plan (03/07/2023 3:07 PM CDT): Multiple joint pains including back pain, knee pain, hip pain. Continue home baclofen BID, gabapentin TID, [place] Assessment & Plan (03/04/2023 6:29 AM CDT): Multiple joint pains including back pain, knee pain, hip pain. Continue home baclofen BID, gabapentin TID, [place] Hospital discharge follow-up 02/20/2023 Assessment & Plan (10/31/2024 9:39 AM CDT): Med list reviewed and discussed Imaging reviewed Follow up appointments discussed Assessment & Plan (10/17/2024 10:01 AM CDT): Med list reviewed and discussed Imaging reviewed Follow up appointments discussed Assessment & Plan (09/27/2023 9:35 AM SOAKING ROOM OPERATOR): Med list reviewed and discussed Imaging reviewed Follow up appointments discussed Assessment & Plan (03/16/2023 8:58 AM CDT): Med list reviewed and discussed Imaging reviewed Follow up appointments discussed Assessment & Plan (02/20/2023 9:25 AM CDT): Med list reviewed and discussed Imaging reviewed Follow up appointments discussed Syncope and collapse 02/04/2023 Assessment & Plan (02/20/2023 9:24 AM CDT): No reoccurrence No clear etiology based on work up. Cardiac and neurology etiology ruled out Was not hypoglycemic during epsiode low suspicion for hypoglycemia as cause States was staying hydrated so dehydration as cause is less likely Labs were unremarkable Instructed to make the follow up appointment with websphere portal architect Trigger thumb of left hand 10/07/2022 Overview (10/07/2022): Added automatically from request for surgery [id number] CKD stage 3 due to type 1 diabetes mellitus 08/2022 Assessment & Plan (04/03/2024 8:45 AM CDT): Chronic problem, managed by Dr Rusty Avelar. Sees him q3 mos; next appt 02/06/24. Currently taking Losartan 25mg & Farxiga 10mg daily. Nephropathy: On DEEDEE-I / ARB s : Yes. Losartan 25mg. Last MA: 02/08/24 (141). Last creat/GFR: 02/08/24 GFR=23, CR=2.33. Assessment & Plan (01/16/2024 9:49 AM CDT): Chronic problem, managed by Dr Rusty Avelar. Sees him q3 mos; next appt 02/06/24. Currently taking Losartan 25mg & Farxiga 10mg daily. Nephropathy: On DEEDEE-I / ARB s : Yes. Losartan 25mg. Last MA: 10/16/23 (110). Last creat/GFR: 12/13/23 GFR=21, CR=2.56 Assessment & Plan (10/17/2023 9:37 AM CDT): Chronic problem, managed by Dr Rusty Avelar. Sees him q3 mos; has an appt tomorrow 10/18/23. Currently taking Losartan 25mg. Last MA: 07/12/23 (100). Improved from 05/09/23 (186). Last creat/GFR: 09/22/23 GFR=31, CR=1.82. improved from 05/09/23 GFR=24, CR=2.22. Assessment & Plan (06/29/2023 10:11 AM SOAKING ROOM OPERATOR): Chronic problem, managed by Dr Rusty Avelar. Sees him q3 mos. NOV 07/13/23. Currently taking Losartan 25mg. No longer taking Kerendia. Last MA: 05/09/23 (186). Last creat/GFR: 05/09/23 GFR=24, CR=2.22. Assessment & Plan (11/29/2022 9:56 AM CDT): Chronic problem, managed by Dr Rusty Avelar. Sees him q3 mos. New medication started recently: Kerendia 10mg daily. Component Latest Ref Rng & Units 06/22/2022 09/12/2022 09/23/2022 10/20/2022 eGFR mL/min/1.73 m2 31 26 33 37 Component Latest Ref Rng & Units 11/09/2022 eGFR mL/min/1.73 m2 37 Component Latest Ref Rng & Units 06/22/2022 09/12/2022 09/23/2022 10/20/2022 Creatinine 0.60 - 1.10 mg/dL 1.83 (H) 2.12 (H) 1.74 (H) 1.57 (H) Component Latest Ref Rng & Units 11/09/2022 Creatinine 0.60 - 1.10 mg/dL 1.57 (H) Assessment & Plan (09/01/2022 10:14 AM SOAKING ROOM OPERATOR): Chronic problem, managed by Dr Rusty Avelar. Sees him q3 mos. Component Latest Ref Rng & Units 03/03/2022 04/25/2022 06/22/2022 eGFR mL/min/1.73 m2 31 32 31 Component Latest Ref Rng & Units 03/03/2022 04/25/2022 06/22/2022 Creatinine 0.60 - 1.10 mg/dL 1.83 (H) 1.79 (H) 1.83 (H) Class 3 severe obesity due t o excess calories with serious comorbidity and body mass index (BMI) of 40.0 to 44.9 in adult 09/01/2022 Assessment & Plan (02/04/2025 11:45 AM CDT): Assessment & Plan (10/31/2024 9:39 AM CDT): She was counseled on the importance of maintaining a healthy weight and the risks of obesity. Weight loss recommended. Assessment & Plan (10/18/2024 8:43 AM CDT): She was counseled on the importance of maintaining a healthy weight and the risks of obesity. Weight loss recommended. Assessment & Plan (07/18/2024 11:10 AM SOAKING ROOM OPERATOR): She was counseled on the importance of maintaining a healthy weight and the risks of obesity. Weight loss recommended. Assessment & Plan (06/11/2024 12:37 PM SOAKING ROOM OPERATOR): Wt Readings from Last 3 Encounters: 06/11/24 115.2 kg (254 lb) 06/05/24 123.5 kg (272 lb 3.2 oz) 05/20/24 116.6 kg (257 lb) Body mass index is 41 kg/m . Not at goal BMI less than 30 although improving BMI plan includes nutrition and exercise as tolerated with hip pain Assessment & Plan (09/01/2022 9:46 AM SOAKING ROOM OPERATOR): Discussed healthy diet and importance of regular physical activity (20- 30min/day, 150min/wk). Medicare annual wellness visit, subsequent 02/10 Assessment & Plan (02/04/2025 11:45 AM CDT): Orders: CBC with auto differential; Future Comprehensive metabolic panel; Future Hemoglobin A1c; Future Lipid panel; Future Thyroid Function Winkler; Future Assessment & Plan (07/18/2024 10:27 AM SOAKING ROOM OPERATOR): Labs reviewed and discussed Vaccines up to date Colonoscopy:scheduled Pap smear:follows with ob Mammo: manage by oncology F/u in 1 year for annual Assessment & Plan (05/01/2023 11:14 AM CDT): Labs reviewed and discussed Flu:given today Colonoscopy;referral placed Pap smear:follows with ob Mammo: manage by oncology F/u in 1 year for annual Assessment & Plan (04/26/2022 9:58 AM CDT): Reviewed CBC, cmp, lipid, hgb a1c, HIV, hep c, TSH, and free t4 Flu:given Colonoscopy; up to date Pap smear:follows with ob Mammo: manage by oncology F/u in 1 year for annual Assessment & Plan (02/10/2022 9:43 AM CDT): Medications reviewed Problem list reviewed Follow-up in March for annual visit, labs ordered Cellulitis of chest wall 02/10/2022 Assessment & Plan (03/02/2022 8:50 AM CDT): Improved Continue with keflex F/u prn or worsening symptoms Assessment & Plan (02/10/2022 12:49 PM CDT): Progressively worsening Start keflex Continue cleaning with antibacterial soap and applying silvadene If no improvement will consider sending to wound care F/u in 1 week Bruising 02/10/2022 Assessment & Plan (02/10/2022 12:50 PM CDT): All over body 2/2 fall Continue to monitor Unstable angina 12/12/2021 Assessment & Plan (06/11/2024 12:36 PM SOAKING ROOM OPERATOR): Continue to follow with cardiology Currently on Plavix 75 mg daily Isosorbide 120 mg daily Metoprolol Assessment & Plan (12/13/2021 12:33 PM CDT): Hx of CABG and multiple prior coronary interventions. Last cardiac catheterization in 2018 showed patent JAMESON graft occluded LAD and patent stents. - hsTop > 300 at OSH, now stable - Positive inferolateral ischemia on MPI 1 week ago - chest pain free currently - continue heparin drip - continue asa, plavix - continue imdur - Will hydrate overnight and make NPO for [facility] tomorrow Malignant neoplasm of upper- outer quadrant of right breast in female, estrogen receptor positive 11/18/2021 Cancer Staging:Pathologic stage from 12/02/2021:Stage IA(pT2, pN0(sn), cM0, G2, ER+, LA+, HER2-, Oncotype DX score: 3) - Signed by Giancarlo West MD PhD on 12/02/2021 Assessment & Plan (10/08/2024 2:55 PM CDT): Right-sided, does not seem to be related to current left-sided chest pain. On letrozole maintenance therapy at home. - Substitute anastrozole while inpatient per hospital formulary Assessment & Plan (04/28/2023 12:45 PM CDT): Stable Continue following with specialist for management Trigger ring finger of right hand 06/27/2021 Carpal tunnel syndrome on left 04/24/2021 Closed displaced fracture of pisiform bone of le ft wrist 03/31/2021 Prepatellar bursitis of left knee 01/21/2021 Sick sinus syndrome 01/22/2020 Assessment & Plan (04/28/2023 12:42 PM CDT): stable Continue pacemaker Continue following with cardiology Assessment & Plan (03/07/2023 3:10 PM CDT): S/p dual chamber pacemaker. Interrogated at outside hospital after her recent episode of loss of consciousness reportedly without significant events. Assessment & Plan (03/04/2023 6:28 AM CDT): S/p dual chamber pacemaker. Interrogated at outside hospital after her recent episode of loss of consciousness reportedly without significant events. Bilateral hip pain 08/31/2019 Assessment & Plan (02/04/2025 11:45 AM CDT): Orders: XR Spine Lumbar 2 Or 3 Vw; Future XR Hips Bilateral 3 or 4 Views; Future Painful orthopaedic hardware 06/13/2019 Overview (06/13/2019): Added automatically from request for surgery [id number] Assessment & Plan (05/01/2023 12:31 PM CDT): Referral to pain management given to take over the norco medication Chronic diastolic congestive heart failure 05/09 Assessment & Plan (07/17/2024 9:29 PM SOAKING ROOM OPERATOR): Stable Continue blood pressure control Continue medical management Follow up with cardiology Assessment & Plan (04/28/2023 12:40 PM CDT): Stable Continue blood pressure control Continue medical management Follow up with cardiology Assessment & Plan (11/01/2020 6:15 AM CDT): Patient worsening edema she in her legs with shortness of breath with activity along with periorbital edema. She denies missing any doses of her Lasix. She is feeling a little better but not at baseline. Will consult Cardiology. Continue beta- david. Will hold Arb until we can repeat renal function.? Related to renal function as patient has no obvious cause for her fluid overload. Assessment & Plan (10/09/2019 12:00 PM CDT): We will continue Lasix 80mg daily as patient received 1000mL NS in ED. Patient instructed to continue until Monday. Labs on Monday to evaluate kidney function and WBC's r/o infection. In addition, patient scheduled for follow up on Monday for reevaluation. Instructed to go to ED with absolutely any worsening symptoms for reevaluation. Patient verbalized understanding and agreed to plan of care at this time. History of pulmonary embolus (PE) 05/07/2019 Assessment & Plan (07/17/2024 9:33 PM SOAKING ROOM OPERATOR): stable Continue Eliquis Assessment & Plan (04/28/2023 12:42 PM CDT): stable Continue Eliquis Assessment & Plan (11/01/2020 6:18 AM CDT): Continue Eliquis Assessment & Plan (05/07/2019 6:01 AM CDT): Suspected as patient had a V/Q scan that had intermediate probability last month. Continue Eliquis. Anemia of chronic disease 04/10/2019 Assessment & Plan (05/07/2019 6:09 AM CDT): Hemoglobin stable. Continue to monitor. Assessment & Plan (04/10/2019 4:55 AM CDT): Secondary to CKD stage 4. Stable Continue monitoring Mechanical complication of i nternal fixation device such as nail, plate or domenic 04/08/2019 Overview (04/08/2019): Added automatically from request for surgery [id number] Closed bimalleolar fracture of left ankle 2018 Sprain of anterior talofibular ligament of right ankle 01/20/2019 Pacemaker 08/31/2018 Assessment & Plan (09/27/2023 9:33 AM SOAKING ROOM OPERATOR): Possibly malfunctioning as per cardiology Recommend following up with EP She has an appt Depression 08/20/2018 Assessment & Plan (04/28/2023 12:46 PM CDT): Stable -si/-hi Continue sertraline 100mg daily Report to Er for suicidal ideation Assessment & Plan (03/07/2023 3:07 PM CDT): Continue home sertraline, trazodone Assessment & Plan (03/04/2023 6:26 AM CDT): Continue home sertraline, trazodone Assessment & Plan (11/01/2020 6:19 AM CDT): Continue home medications Assessment & Plan (08/20/2018 8:43 PM SOAKING ROOM OPERATOR): Continue home regimen: Zoloft 100mg QD, trazodone 50mg QHS for sleep. 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 Last lipid panel 07/10/24 LDL=72, OT=354. No changes at this time. Assessment & Plan (07/17/2024 9:31 PM SOAKING ROOM OPERATOR): Lab Results Component Value Date LDLCALC 72 07/10/2024 Chronic, well-controlled continue rosuvastatin Assessment & Plan (07/17/2024 8:48 AM SOAKING ROOM OPERATOR): Chronic problem, well controlled with current rosuvastatin 10mg daily & Zetia 10mg. Last lipid panel 07/10/24 LDL=72, ZL=828. No changes at this time. Assessment & Plan (04/03/2024 8:44 AM CDT): Chronic problem, well controlled with current rosuvastatin 10mg daily & Zetia 10mg. Last lipid panel 09/22/23 LDL=49, EF=149. No changes at this time. Assessment & Plan (01/16/2024 9:32 AM CDT): Chronic problem, well controlled with current rosuvastatin 10mg daily & Zetia 10mg. Last lipid panel 09/22/23 LDL=49, YA=245. No changes at this time. Assessment & Plan (10/17/2023 9:45 AM CDT): Chronic problem, well controlled with current rosuvastatin 10mg daily. [employer] changed rosuvastatin from 20 to 10mg daily after 08/2023 lab work. Last lipid panel 09/22/23 LDL=49, ZB=743. No changes at this time. Assessment & Plan (06/29/2023 9:55 AM SOAKING ROOM OPERATOR): Chronic problem, well controlled with current rosuvastatin 20mg daily. Last lipid panel 04/24/23 LDL=49, MV=408. No changes at this time. Assessment & Plan (04/28/2023 12:41 PM CDT): Chronic, well-controlled continue rosuvastatin Assessment & Plan (03/16/2023 4:57 PM CDT): Chronic, well-controlled\\ continue rosuvastatin Assessment & Plan (11/29/2022 9:41 AM CDT): Chronic problem, well controlled with current rosuvastatin 20mg daily. Last lipid panel 09/12/22 LDL=35, PN=672 No changes at this time. Assessment & Plan (09/01/2022 8:48 AM SOAKING ROOM OPERATOR): Chronic problem, well controlled with current rosuvastatin 20mg daily. Last lipid 04/25/22: LDL=45, TG elevated at 220. No changes at this time. Assessment & Plan (05/19/2022 10:53 AM CDT): Chronic problem. On statin therapy, no changes. Assessment & Plan (02/15/2022 11:18 AM CDT): Chronic, well controlled Low fat Low cholesterol diet Exercise Continue statin therapy with Crestor Assessment & Plan (10/28/2021 9:04 AM CDT): Chronic problem. On statin therapy, no changes. Assessment & Plan (03/18/2021 3:41 PM CDT): At goal on current medications. Continue statin therapy. Assessment & Plan (02/03/2021 12:52 PM CDT): LDL at goal. Continue current medication and follow up with cardiology as scheduled Assessment & Plan (12/10/2020 4:07 PM CDT): Continue statin and follow up with cardiology Assessment & Plan (09/17/2020 4:08 PM SOAKING ROOM OPERATOR): Goal of treatment , LDL cholesterol less than 100 ( less than 70 in patients with history of heart attacks and / or strokes ) NonHDL cholesterol ( total cholesterol minus HDL cholesterol ) goal less than 130 ( less than 100 in patients with history of heart attacks and / or strokes ) Low cholesterol, low fat diet was discussed and advised. Daily exercise On statin therapy with Crestor Assessment & Plan (06/11/2020 3:37 PM SOAKING ROOM OPERATOR): At goal on current medications. Continue statin therapy. Assessment & Plan (03/12/2020 9:04 AM CDT): Historically elevated LDL being managed by cardiology. Lipid panel recently ordered by PCP. Advised to have this done Assessment & Plan (12/19/2019 9:53 AM CDT): Goal of treatment , LDL cholesterol less than 100 ( less than 70 in patients with history of heart attacks and / or strokes ) NonHDL cholesterol ( total cholesterol minus HDL cholesterol ) goal less than 130 ( less than 100 in patients with history of heart attacks and / or strokes ) Low cholesterol, low fat diet was discussed and advised. Daily exercise On statin therapy Assessment & Plan (08/31/2019 5:48 PM SOAKING ROOM OPERATOR): LDL elevated and managed by cardiology Assessment & Plan (05/16/2019 9:39 AM CDT): Continue follow up with cardiology Assessment & Plan (01/10/2019 4:58 PM CDT): Follow up with cardiology Assessment & Plan (09/27/2018 10:25 AM SOAKING ROOM OPERATOR): LDL at goal for DM and CAD. Continue current medications and follow up with cardiology Assessment & Plan (06/28/2018 9:59 AM SOAKING ROOM OPERATOR): Goal of treatment , LDL cholesterol less than 100 ( less than 70 in patients with history of heart attacks and / or strokes ) NonHDL cholesterol ( total cholesterol minus HDL cholesterol ) goal less than 130 ( less than 100 in patients with history of heart attacks and / or strokes ) Low cholesterol, low fat diet was discussed and advised. Daily exercise On statin therapy Coronary artery disease of b ypass graft of [place] heart with stable angina pectoris 03/28/2018 History of TIA (transient ischemic attack) 03/02 Assessment & Plan (04/28/2023 12:47 PM CDT): Stable Continue statin and asa Insulin pump in place 09/26/2017 Assessment & Plan (01/22/2025 2:28 PM CDT): Pump Setting changes: -decrease 12a from 4.5 to 4.3 units/hr -add 8p 4.4 units/hr -increase 10a from 4.8 to 4.9 units/hr -increase 12p from 5.1 to 5.2 units/hr Current medications: Farxiga 10mg daily Humalog via [employer] t-slim insulin pump, control IQ Basal 12a 4.3, 10a 4.9, 12p 5.2, 5p 4.5, 8p 4.4 CR 5 CF 20 Target 110 AIT 5 hours Assessment & Plan (07/17/2024 10:15 AM SOAKING ROOM OPERATOR): No pump setting changes. Able to get her connected back to our practice. Current medications: Humalog via [employer] t-slim insulin pump, control IQ Basal 12a 4.5, 10a 4.8, 12p 5.1, 5p 4.5 CR 5 CF 20 Target 110 AIT 5 hours Assessment & Plan (01/16/2024 9:50 AM CDT): Pump setting changes: -added 10am basal rate at 4.7 units/hr -increased 12p from 5.0 to 5.1 units/hr Humalog via [employer] t-slim insulin pump, control IQ Basal 12a 4.5, 10a 4.7, 12p 5.1, 5p 4.5 CR 5 CF 20 Target 110 AIT 5 hours Assessment & Plan (10/17/2023 9:43 AM CDT): Increased basal rate from 4.5 units/hr to 5 units/hr from noon to 5p (will go back to 4.5 units/hr at 5p). Current medications: Humalog via [employer] t-slim insulin pump - started on in 05/20 ; control IQ Basal 12a 4.5, 12p 5, 5p 4.5 CR 5 CF 20 Target 110 AIT 3 Assessment & Plan (06/29/2023 10:12 AM SOAKING ROOM OPERATOR): No pump setting changes. Assessment & Plan (11/29/2022 9:53 AM CDT): No pump setting changes. Assessment & Plan (09/01/2022 10:11 AM SOAKING ROOM OPERATOR): Add new basal rate 9a to cover high readings from 9a. Tandem t-slim insulin pump - started on in 05/20 Basal 12a 3.8, 9a 4.5 530p 5.0 IC 5 SF 20 T 110 AI 3 Assessment & Plan (05/19/2022 10:53 AM CDT): No setting changes. I reprogrammed the surgery profile for her. Assessment & Plan (10/28/2021 9:40 AM CDT): Lower 12a BR to 3.8 in her typical Lou profile. Set new surgery profile with target of 150 and BR pattern 12a 2.2, 530p 2.8, 9p 2.8. Assessment & Plan (08/19/2021 9:39 AM SOAKING ROOM OPERATOR): Have long acting , basal insulin ( e.g. Lantus, , ) and insulin syringes as back up in case of pump failure Pt has been instructed on how to take them Assessment & Plan (03/18/2021 3:44 PM CDT): Lower MN basal to 4.0. Order T Slim CIQ Assessment & Plan (02/03/2021 12:55 PM CDT): Increase MN Basal to 4.1, add 2 pm 5.15, 6 pm 5.2 + TDB 109.2 Lower IC to 5 Assessment & Plan (12/10/2020 3:57 PM CDT): Increase MN basal to 4.0, 530 pm to 5.0, 9 pm to 5.1 Assessment & Plan (12/19/2019 9:54 AM CDT): Have long acting , basal insulin ( e.g. Lantus, Levemir, NPH, ) and insulin syringes as back up in case of pump failure If you have to take your insulin pump off for more than 12 h, start taking basal insulin, every 24 h ( take 80 % of the 24 h insulin delivered to you via insulin pump as calculated based on your basal rates ) and inject meal time insulin by injections, calculating the same way you do with your pump bolus ( according with carb intake and blood sugar readings ) Sample of Lantus vial and insulin syringes provided. Assessment & Plan (05/16/2019 9:39 AM CDT): No change today Assessment & Plan (01/10/2019 4:46 PM CDT): No change to current settings. BG goals reviewed. Assessment & Plan (09/27/2018 10:30 AM SOAKING ROOM OPERATOR): Increase basals to MN 3.9, 0500 4.05, 9 pm 5.7. May need to reduce basals and increase IC to redistribute basal to bolus. Advised to call if BG patterns trend < 100. Assessment & Plan (06/28/2018 10:02 AM SOAKING ROOM OPERATOR): Have long acting , basal insulin ( e.g. Lantus, Levemir, NPH, ) and insulin syringes as back up in case of pump failure If you have to take your insulin pump off for more than 12 h, start taking basal insulin, every 24 h ( take 80 % of the 24 h insulin delivered to you via insulin pump as calculated based on your basal rates ) and inject meal time insulin by injections, calculating the same way you do with your pump bolus ( according with carb intake and blood sugar readings ) Assessment & Plan (12/05/2017 9:25 AM CDT): Instructed on temp basal increase for 24 hours with pred. She will check on eligibility for 670. Advised decrease temp basal to 80% will doing prep for colonoscopy. Atherosclerosis of [place] artery of extremity Morbid obesity with BMI of 40.0-44.9, adult /02/2017 Assessment & Plan (12/13/2021 12:31 PM CDT): Encourage weight loss Assessment & Plan (03/18/2021 3:42 PM CDT): Importance of following diet and exercising discussed. Assessment & Plan (02/03/2021 12:53 PM CDT): Continue focus on diet and exercise as recommened by cardiology Assessment & Plan (12/10/2020 3:57 PM CDT): Importance of following diet and exercising discussed. Assessment & Plan (06/11/2020 3:37 PM SOAKING ROOM OPERATOR): Importance of following diet and exercising discussed. Assessment & Plan (01/10/2019 4:58 PM CDT): Wt down 3# Assessment & Plan (12/05/2017 9:25 AM CDT): Importance of following diet and exercising discussed. Chronic coronary artery disease 02/23/2017 Assessment & Plan (07/17/2024 9:29 PM SOAKING ROOM OPERATOR): Status post CABG x5 Continue following with Cardiology and medical management Assessment & Plan (04/28/2023 12:39 PM CDT): Status post CABG x5 Continue following with Cardiology and medical management Assessment & Plan (04/26/2022 9:04 AM CDT): Status post CABG x5 Continue following with Cardiology and medical management Assessment & Plan (02/10/2022 12:45 PM CDT): Status post CABG x5 Continue following with Cardiology and medical management Assessment & Plan (05/07/2019 5:58 AM CDT): Patient was having some chest tightness that seem to improve with nitro. She states she has been having this chest discomfort on and off since presentation. Troponins negative x3. EKG showed normal sinus rhythm. Likely angina. Will resume home medications with hold parameters. Assessment & Plan (04/10/2019 4:50 AM CDT): Pressure-like chest pain at the time presentation. Troponins borderline elevated. Start on telemetry monitoring Trend troponins Continue with Crestor, metoprolol, amlodipine, aspirin and Plavix roglycerin as needed GERD (gastroesophageal reflux disease) 7 Assessment & Plan (03/01/2024 11:19 AM CDT): Worsening Sent omeprazole to the pharmacy F/u prn Assessment & Plan (05/07/2019 6:09 AM CDT): Continue PPI Dizziness 09/14/2015 Overview (11/10/2017): Description: Possible migraine related (w/ROJAS) Assessment & Plan (05/01/2023 12:28 PM CDT): Work up so far negative She has been seen by cardiology Had eeg Will do meclizine prn Referral to physical therapy She declines ENT referral for now but if no improvement can reconsider 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 Education provided on the diagnosis and risks of the disease. We will continue to monitor routine labs. Additionally, She was counseled on routine diabetic eye exams, foot exams, and other preventive care. Most recent A1c on file: Lab Results Component Value Date HGBA1C 5.9 (H) 11/07/2024 Continue following with endocrinology Assessment & Plan (01/22/2025 2:26 PM CDT): Chronic problem, A1c 6.6% 07/10/24 & improved 11/07/24 at 5.9%. persistent upper limits normal/hyperglycemia during day time, low normal overnoc. Pump Setting changes: -decrease 12a from 4.5 to 4.3 units/hr -add 8p 4.4 units/hr -increase 10a from 4.8 to 4.9 units/hr -increase 12p from 5.1 to 5.2 units/hr Current medications: Farxiga 10mg daily Humalog via [employer] t-slim insulin pump, control IQ Basal 12a 4.3, 10a 4.9, 12p 5.2, 5p 4.5, 8p 4.4 CR 5 CF 20 Target 110 AIT 5 hours UTD DM eye exam (12/20/24 +PDR [facility] [place]). UTD on labs. Strive for regular exercise (30min most days) and diet (get at least 4-5 servings of fruit and veggies daily, avoid processed foods, increase lean protein intake and decrease carb portions as well as fruit juices, regular soda & desserts). Watch carbs and simple sugars. Check blood sugars: Dexcom G6. Check the feet daily for skin breakdown and infection. Assessment & Plan (10/08/2024 2:54 PM CDT): Blood sugar reviewed, has been WNL. - Continue home insulin pump - Consult clinical document improvement educator for pump management Assessment & Plan (07/17/2024 9:34 PM SOAKING ROOM OPERATOR): The patient was counseled on a heart-healthy, diabetic-friendly diet, as well as life-style modification. Education provided on the diagnosis and risks of the disease. We will continue to monitor routine labs. Additionally, She was counseled on routine diabetic eye exams, foot exams, and other preventive care. Most recent A1c on file: Lab Results Component Value Date HGBA1C 6.6 (H) 07/10/2024 Continue following with endocrinology F/u in 6 months Assessment & Plan (07/17/2024 10:05 AM SOAKING ROOM OPERATOR): Chronic problem, A1c 6.9% 02/08/24 & improved 07/10/24 at 6.6%. no changes at this time. Current medications: Farxiga 10mg daily Humalog via [employer] t-slim insulin pump, control IQ Basal 12a 4.5, 10a 4.8, 12p 5.1, 5p 4.5 CR 5 CF 20 Target 110 UTD DM eye exam (05/22/24). UTD on labs. Strive for regular exercise (30min most days) and diet (get at least 4-5 servings of fruit and veggies daily, avoid processed foods, increase lean protein intake and decrease carb portions as well as fruit juices, regular soda & desserts). Watch carbs and simple sugars. Check blood sugars: Dexcom G6. Check the feet daily for skin breakdown and infection. Assessment & Plan (06/11/2024 12:30 PM SOAKING ROOM OPERATOR): Follows with endocrinology: Next appointment 07/17/24 A1c at goal. Assessment & Plan (04/03/2024 9:45 AM CDT): Chronic problem, A1c 6.9% 02/08/24. Still running borderline upper limits in daytime hours. Pump setting changes: -10a increased from 4.7 to 4.8 units/hr Current medications: Farxiga 10mg daily Humalog via [employer] t-slim insulin pump, control IQ Basal 12a 4.5, 10a 4.8, 12p 5.1, 5p 4.5 CR 5 CF 20 Target 110 UTD DM eye exam (01/23/24). UTD on labs. Strive for regular exercise (30min most days) and diet (get at least 4-5 servings of fruit and veggies daily, avoid processed foods, increase lean protein intake and decrease carb portions as well as fruit juices, regular soda & desserts). Watch carbs and simple sugars. Check blood sugars: Dexcom G6. Check the feet daily for skin breakdown and infection. Assessment & Plan (01/16/2024 9:50 AM CDT): Chronic problem, A1c near goal; 7.1%. Still having persistent highs from noon to 5p. Bolusing appropriately. Pump setting changes: -added 10am basal rate at 4.7 units/hr -increased 12p from 5.0 to 5.1 units/hr Current medications: Farxiga 10mg daily Humalog via [employer] t-slim insulin pump, control IQ Basal 12a 4.5, 10a 4.7, 12p 5.1, 5p 4.5 CR 5 CF 20 Target 110 AIT 5 hours UTD DM eye exam (11/17/23). UTD on labs. Strive for regular exercise (30min most days) and diet (get at least 4-5 servings of fruit and veggies daily, avoid processed foods, increase lean protein intake and decrease carb portions as well as fruit juices, regular soda & desserts). Watch carbs and simple sugars. Check blood sugars: Dexcom G6. Check the feet daily for skin breakdown and infection. Assessment & Plan (11/02/2023 9:13 AM CDT): The patient was counseled on a heart-healthy, diabetic-friendly diet, as well as life-style modification. Education provided on the diagnosis and risks of the disease. We will continue to monitor routine labs. Additionally, She was counseled on routine diabetic eye exams, foot exams, and other preventive care. Most recent A1c on file: Lab Results Component Value Date HGBA1C 6.9 (H) 10/16/2023 Continue following with endocrinology F/u in 6 months Assessment & Plan (10/17/2023 9:54 AM CDT): Chronic problem, A1c at goal; 6.9%. having persistent highs from noon to 5p. Increased basal rate for that time period from 4.5 to 5 units/hr. Aware to monitor blood sugars closer at that time frame--especially when she becomes more active as weather is improving. Current medications: Humalog via [employer] t-slim insulin pump - started on in 05/20 ; control IQ Basal 12a 4.5, 12p 5, 5p 4.5 CR 5 CF 20 Target 110 AIT 3 UTD DM eye exam (06/19/23). UTD on labs. Strive for regular exercise (30min most days) and diet (get at least 4-5 servings of fruit and veggies daily, avoid processed foods, increase lean protein intake and decrease carb portions as well as fruit juices, regular soda & desserts). Watch carbs and simple sugars. Check the feet daily for skin breakdown and infection. Assessment & Plan (06/29/2023 10:15 AM SOAKING ROOM OPERATOR): Chronic problem, A1c at goal; 6.6%. no pump setting changes. Humalog via [employer] t-slim insulin pump; control IQ BR 12a 4.5 IC 5 SF 20 T 110 AI 3 UTD DM eye exam 05/2023. Sent letter to [facility] in [place]. UTD on labs. Strive for regular exercise (30min most days) and diet (get at least 4-5 servings of fruit and veggies daily, avoid processed foods, increase lean protein intake and decrease carb portions as well as fruit juices, regular soda & desserts). Watch carbs and simple sugars. Check the feet daily for skin breakdown and infection. Information with how to set up T-connect again given to Mrs Howard. Contact info for Latosha at [facility] if she is unable to do it on her own). Assessment & Plan (04/28/2023 12:43 PM CDT): The patient was counseled on a heart-healthy, diabetic-friendly diet, as well as life-style modification. Education provided on the diagnosis and risks of the disease. We will continue to monitor routine labs. Additionally, She was counseled on routine diabetic eye exams, foot exams, and other preventive care. Most recent A1c on file: Lab Results Component Value Date HGBA1C 6.4 (H) 04/24/2023 Continue following with endocrinology F/u in 6 months Assessment & Plan (03/16/2023 10:26 AM CDT): Hba1c was Lab Results Component Value Date HGBA1C 6.3 03/16/2023 today, indicating adequate DM control Goal Hba1c and blood glucose explained Diet and exercise were advised Prevention and treatment of hyypoglcyemia were discussed with the patient Blood glucose monitoring : continue CGM with DEXCOM Adjustment to medications: Continue pump at current setting. Assessment & Plan (03/07/2023 3:08 PM CDT): On insulin pump at home with good control. -endocrinology following for insulin pump management -blood glucose currently controlled Assessment & Plan (03/06/2023 4:17 PM CDT): On insulin pump at home with good control. -endocrinology following for insulin pump management -blood glucose currently controlled Assessment & Plan (11/29/2022 10:11 AM CDT): Chronic problem, A1c at goal. Tandem t-slim insulin pump - started on in 05/20 Basal 12a 4.5, 9a 4.5, 530p 4.5 IC 5 SF 20 T 110 AI 3 Has eye appt at [email or web address] 12/09/22. Will have copy of report sent to our office. Strive for regular exercise (30min most days) and diet (get at least 4-5 servings of fruit and veggies daily, avoid processed foods, increase lean protein intake and decrease carb portions as well as fruit juices, regular soda & desserts). Watch carbs and simple sugars. Check the feet daily for skin breakdown and infection. Information with how to set up T-connect again given to Mrs Howard. Contact info for Latosha at [employer] if she is unable to do it on her own). Assessment & Plan (10/24/2022 7:10 AM CDT): The patient was counseled on a heart-healthy, diabetic-friendly diet, as well as life-style modification. Education provided on the diagnosis and risks of the disease. We will continue to monitor routine labs. Additionally, She was counseled on routine diabetic eye exams, foot exams, and other preventive care. Most recent A1c on file: Lab Results Component Value Date HGBA1C 7.0 (H) 10/20/2022 Continue following with endocrinology F/u in 6 months Assessment & Plan (09/01/2022 10:14 AM SOAKING ROOM OPERATOR): Chronic problem, Running high from 9a-12p and 615-745p. Adjusted basal rates and added 9a basal rate. Mrs Howard feels comfortable changing basal rates. Asked her to [employer] message me with how new pump setting are going. Tandem t-slim insulin pump - started on in 05/20 Basal 12a 3.8, 9a 4.5 530p 5.0 IC 5 SF 20 T 110 AI 3 Has eye appt at [email or web address] 09/16/22. Will have copy of report sent to our office. Assessment & Plan (05/19/2022 11:32 AM CDT): Chronic problem, overall stable. We reviewed protocol in case of pump failure and I gave her set doses based on below. She is not comfortable doing carb calculations if pump fails. No medication changes today. Based on your regular setting profile, if your pump breaks: Tresiba 100 units once a day (or 50 units twice a day) Humalog before meals: If blood sugar is <150, take 12 units. If blood sugar is between 150-200, take 14 units. If blood sugar is between 200-250, take 16 units. If blood sugar is between 250-300, take 18 units. If blood sugar is between 300-350, take 20 units. If blood sugar is between >350, take 22 units. Assessment & Plan (02/15/2022 11:17 AM CDT): Hba1c was Lab Results Component Value Date HGBA1C 6.5 02/15/2022 today, indicating adequate DM control Goal Hba1c and blood glucose explained Diet and exercise were advised Prevention and treatment of hyypoglcyemia were discussed with the patient Blood glucose monitoring : Adjustment to medications: Continue you pump with your current settings: These are your insulin pump settings: T Slim insulin pump : Start time Basal CF AC TBG 12a 2.2 20 5 150 530p 2.8 20 5 150 9p 2.8 20 5 150 Assessment & Plan (12/13/2021 12:32 PM CDT): With inuslin pump -last Hgb A1c 6.7 -continue insulin pump -endocrine consulted Assessment & Plan (10/28/2021 9:39 AM CDT): Chronic problem, overall stable. Lowered daytime BR given typical insulin use and CIQ adjustments in the background. In terms of surgery tomorrow, she is NPO after 12a and procedure is not until 10a. She is more comfortable controlling her own settings vs CIQ as this is what she has done in the past, and she historically tends to drop low on procedure days so has to decrease her BR by up to 50%. I programmed a new BR profile that she can switch to (see below) called surgery that she can switch to and adjust as needed. She can turn CIQ off as well from this. Discussed possible effects of XRT, let us know if any issues. Assessment & Plan (08/19/2021 9:42 AM SOAKING ROOM OPERATOR): Hba1c was Lab Results Component Value Date HGBA1C 6.4 08/19/2021 today, indicating adequate DM control Goal Hba1c and blood glucose explained Diet and exercise were advised Prevention and treatment of hyypoglcyemia were discussed with the patient Blood glucose monitoring :DEXCOM Adjustment to medications: continue pump at current settings. Assessment & Plan (05/19/2021 2:30 PM CDT): Chronic problem, stable. She had questions about different features of Control IQ functions that we reviewed at length. No changes to settings, review at routine f/u visit. Assessment & Plan (03/18/2021 3:46 PM CDT): Will lower MN basal d/t reported downward trends in early am. Since she has Dexcom and is out of warranty with current pump, she wants to change to T Slim CIQ. Provided with Basaglar pen in event current pump breaks down prior to upgrade. Wound care reviewed. To contact PCP with increase in area of erythema, drainage or fever. Assessment & Plan (02/03/2021 12:57 PM CDT): Basal pattern above goal. PC excursions above goal. Will adjust basal rates and intensify IC Assessment & Plan (12/10/2020 4:01 PM CDT): Recent A1c 6.5 and pt denies hypoglycemia. BG pattern has been higher past 2 weeks so will adjust basal rates. Pump out of warranty end of month. She will call to initiate ordering T Slim CIQ. Will also order Dexcom today. Adjust basal settings today. Assessment & Plan (05/07/2019 5:58 AM CDT): Patient has an insulin pump and is managing her own insulin and blood sugars Assessment & Plan (04/10/2019 4:47 AM CDT): Patient on insulin pump. Most recent blood sugars were low. Will hold the insulin pump for now. Start on hourly blood sugar checks. Restart a bump when blood sugars above 140. Assessment & Plan (08/25/2018 4:20 PM SOAKING ROOM OPERATOR): 58-year-old female with history of type 1 diabetes admitted for symptomatic bradycardia s/p PPM 08/24/2018 Blood sugars well controlled at home, A1c 7.1%. She is on basal heavy regimen at home. BS at goal while in hospital. Can continue current pump settings. Plan: Basal [id number]- 3.4 u/hr [id number]- 3.2 u/hr Continue carb ratio 7 Sensitivity 20 Target 100-120 Active insulin time 3hrs. Monitor blood sugar a.c. + hs +0200 Resume home settings back at discharge. (basal set as 'standard pattern') She is comfortable making the changes on her pump prior to discharge. Assessment & Plan (08/24/2018 10:13 PM SOAKING ROOM OPERATOR): 58-year-old female with history of type 1 diabetes admitted for symptomatic bradycardia. Blood sugars well controlled at home, A1c 7.1%. She is on basal heavy regimen at home. PPM placement on 08/24/2018. Blood sugars have been under acceptable control however Ms Howard has been taking intermittent square boluses- 10 units after lunch yesterday, BS down from 180 to 103. Plan: Basal [id number]- 3.4 u/hr [id number]- 3.2 u/hr Continue carb ratio 7 Sensitivity 20 Target 100-120 Active insulin time 3hrs. Site last changed on 08/19/18 Monitor blood sugar a.c. + hs +0200 Resume home settings back at discharge. (basal set as 'standard pattern') Assessment & Plan (08/23/2018 2:55 PM SOAKING ROOM OPERATOR): 58-year-old female with history of type 1 diabetes admitted for symptomatic bradycardia. Blood sugars well controlled at home, A1c 7.1%. She is on basal heavy regimen at home. Plan: Current basal settin.4 units/hr. Blood sugar trended down overnight. 245 at bedtime and 135 in morning. No correction bolus. Last food bolus + correction at 5.30 pm. Basal rate decreased to 3 units/hr from 2200 to 0600. Continue carb ratio at 6-->7 Sensitivity 15-->25 Target 100-120 Active insulin time 3hrs. Site last changed on 08/19/18 Monitor blood sugar a.c. + hs +0200 Assessment & Plan (08/22/2018 7:56 AM SOAKING ROOM OPERATOR): 58-year-old female with history of type 1 diabetes admitted for symptomatic bradycardia. Blood sugars well controlled at home, A1c 7.1%. She is on basal heavy regimen at home. Plan: Basal rate decreased last night after patient had a low of 49. Current basal settin units/hr--> trended up overnight--> increase back to 3.4 units/hr. Continue carb ratio at 6-->8 Sensitivity 15-->25 Target 100-120 Active insulin time 3hrs. Site last changed on 08/19/18 Monitor blood sugar a.c. + hs +0200 Assessment & Plan (08/22/2018 4:07 PM SOAKING ROOM OPERATOR): On insulin pump, well controlled with last A1C 7.3 (06/2018). - Endocrinology consulted, appreciate recommendations for pump mangagement Assessment & Plan (08/20/2018 7:09 PM SOAKING ROOM OPERATOR): 58-year-old female with history of type 1 diabetes admitted for symptomatic bradycardia. Blood sugars well controlled at home, A1c 7.1%. She is on basal heavy regimen at home. Plan: New pattern set with decreased basal rate by about 10%. Midnight-3.4 units/hr 5:00 a.m. -4 units/hour 9:00 p.m.-5 units/hour Total basal 96 units Continue carb ratio at 6 Sensitivity 15 Target 100-120 Active insulin time 3hrs. Site last changed on 08/19/18 Monitor blood sugar a.c. + hs +0200 Assessment & Plan (08/20/2018 3:56 AM SOAKING ROOM OPERATOR): Will continue with insulin pump Assessment & Plan (01/30/2017 11:16 AM CDT): A1c 7.1. Due to active current illness, will only adjust 0600 basal today however advised to call if steroids again prescribed. BG goals reiewed. Assessment & Plan (01/26/2017 8:54 AM CDT): Glucose readings at home range from 200-270, possibly due to acute infection. She was advised we need to keep around 140s or lower. She will turn her basal rate back up as she previously decreased when she was vomiting. Cont to monitor and f/u with divisional storekeeper if hyperglycemia persist Lumbago 07/09/2013 Assessment & Plan (02/04/2025 11:45 AM CDT): Orders: XR Spine Lumbar 2 Or 3 Vw; Future XR Hips Bilateral 3 or 4 Views; Future Peripheral vascular disease 04/29/2013 Assessment & Plan (05/29/2018 3:42 AM CDT): Patient currently denies any leg cramps Continue with cardiac pertinent home medications. Sleep apnea 10/15/2012 Assessment & Plan (10/08/2024 5:08 PM CDT): Continue home CPAP while inpatient. Assessment & Plan (04/28/2023 12:47 PM CDT): Stable Continue with cpap machine Assessment & Plan (03/07/2023 3:10 PM CDT): Continue home CPAP Assessment & Plan (03/04/2023 6:28 AM CDT): Continue home CPAP Assessment & Plan (04/26/2022 9:07 AM CDT): Stable Continue with cpap machine Assessment & Plan (12/13/2021 12:38 PM CDT): -compliant with cpap Assessment & Plan (11/01/2020 6:17 AM CDT): NPPV nightly has been ordered Assessment & Plan (05/07/2019 6:10 AM CDT): Patient has home CPAP at bedside Assessment & Plan (04/10/2019 4:51 AM CDT): Continue with CPAP Assessment & Plan (08/20/2018 3:54 AM SOAKING ROOM OPERATOR): Restart CPAP COPD (chronic obstructive pulmonary disease) Assessment & Plan (10/08/2024 5:07 PM CDT): Chronic, no sign of acute exacerbation. - Continue home Symbicort Assessment & Plan (04/28/2023 12:47 PM CDT): Stable Continue with breathing treatments Assessment & Plan (04/26/2022 9:07 AM CDT): Stable Continue with breathing treatments Assessment & Plan (11/01/2020 6:17 AM CDT): Continue breathing treatments Assessment & Plan (10/09/2019 12:00 PM CDT): Continue with use of spiriva daily and albuterol PRN. Patient should report to ED with absolutely any worsening symptoms. Patient verbalized understanding and agreed to plan of care at this time. Will be following up in clinic on Monday for reevaluation. Assessment & Plan (10/03/2019 3:44 PM SOAKING ROOM OPERATOR): Inspiratory and expiratory wheeze upon auscultation as well as diminished lung sounds in bases. Instructed patient to have chest x-ray completed today will notify patient once those results are received. In addition I have started her on doxycycline 100 mg by mouth b.i.d. for 10 days due to possibility of pneumonia. Unable to rule out COPD exacerbation as well. Will notify patient once those results are received. Patient verbalized understanding agreed to plan of care she understands if her shortness of breath worsens with any new symptoms she should report to the emergency department for further evaluation. Patient verbalized understanding agreed to plan of care at this time will notify office with absolutely any changes. Addendum: X-ray results noted increased vascular distribution consistent with pulmonary edema I spoke with patient regarding worsening congestive heart failure and instructed her to increase her Lasix to 80 mg by mouth daily for the next 7 days. Patient should continue with follow-up as previously scheduled next . In addition I have ordered a CBC and CMP to be completed at [facility] tomorrow. Patient instructed to report to emergency department if her symptoms worsening she verbalized understanding agreed to plan. Will notify office with absolutely any changes. Assessment & Plan (05/07/2019 6:10 AM CDT): Continue p.r.n. Albuterol Assessment & Plan (08/20/2018 3:53 AM SOAKING ROOM OPERATOR): Stable, Continue with home inhalers S/P ORIF (open reduction internal fixation) diana ovalle Stage 4 chronic kidney disease Assessment & Plan (06/11/2024 12:35 PM SOAKING ROOM OPERATOR): Continue follow with Dr. Avelar, quiller runner Due for repeat BMP in 1 week Chemistry Lab Results Component Value Date SODIUM 136 06/05/2024 POTASSIUM 4.6 06/05/2024 CHLORIDE 100 06/05/2024 CO2 24 06/05/2024 ANIONGAP 12 06/05/2024 BUNSER 75 (H) 06/05/2024 CREATININE 2.61 (H) 06/05/2024 GLUCOSE 131 06/05/2024 URICACID 6.6 05/15/2024 CALCIUM 9.6 06/05/2024 BILITOT 0.3 06/01/2024 PROTEIN 7.6 03/14/2019 ALBUMIN 3.6 06/05/2024 GFRNAA 20 (L) 06/05/2024 GFRAA 32.5 (L) 06/08/2018 ALKPHOS 119 06/01/2024 AST 17 06/01/2024 ALT 20 06/01/2024 PHOS 5.2 (H) 06/05/2024 MAGNESIUM 2.3 05/31/2024 Avoid nephrotoxic meds and continue renal dosing of medications Assessment & Plan (04/28/2023 12:45 PM CDT): Stable Continue following with nephrology for management Continue blood pressure control Assessment & Plan (03/08/2023 3:03 PM CDT): Creatinine on admission 1.99, around her baseline. -now w/ GUZMAN, cr 2.66 -lisinopril started 03/07, now stopped -BMP qd Assessment & Plan (03/04/2023 6:30 AM CDT): Creatinine on admission 1.99, around her baseline. -continue supplements -BMP qd Assessment & Plan (11/01/2020 6:18 AM CDT): Patient follows with Dr[facility] Avelar at [facility]. She states she has an appointment with him on the 8th of this month. Patient is fluid overloaded including periorbital edema with no obvious etiology. Patient is also had hyperkalemia and poor appetite for the last month. Unsure if patient has fluid overload is related to her renal function. Will consult Nephrology. Continue to monitor. Avoid any unnecessary nephrotoxins as we diurese. Will hold Arb until we can repeat renal function this morning. Assessment & Plan (05/07/2019 6:18 AM CDT): Creatinine seems to vary between about 1.6-2.0. Creatinine is within patient's baseline. Continue to monitor. Atypical chest pain Resolved Problems Problem Noted Date Diagnosed Date Resolved Date Encounter for completion of form with patient 01/09/20 24 07/17/2024 Assessment & Plan (01/09/2024 11:58 AM CDT): Once forms are completed will create a copy to be scanned and return to the patient Nausea 09/01/2023 01/09/2024 Chest pain, unspecified type 03/04/2023 12/07/2023 Assessment & Plan (11/02/2023 3:58 PM CDT): Worsening with associated hypoxia of 89% in office EKG in office showed some st changes Offered to call ambulance but patient was adament about driving herself to the ED. She is not in any acute distress currently. Instructed to go to the ED Sign out given the SHANTHI Miner in the ED F/u in 1 month Assessment & Plan (03/08/2023 3:02 PM CDT): Patient presents with several days of on and off chest pain with negative troponins. She has a longstanding history of coronary artery disease and her most recent cath about 1 year ago showed patent JAMESON grafts to LAD and diagonal, touch down radial graft to the ramus, and RCA and left circumflex stents. She has a known occluded graft to her RCA. She has significant, diffuse [place] disease with a focal area of progression in the proximal RPLV deemed appropriate for medical management. LVEDP 24 at that time. -NM MPI spect negative 03/06 -symptoms may be due to poorly controlled bp, chest pain resolved with improved bp -cont ASA/plavix, rosuva 20, zetia -continue imdur 120 every day -finerenone not on formulary -continue Lasix 80 mg daily and consider increasing finerenone to 20 mg on discharge given elevated LVEDP and diastolic dysfunction -tele Assessment & Plan (03/06/2023 4:16 PM CDT): Patient presents with several days of on and off chest pain with negative troponins. She has a longstanding history of coronary artery disease and her most recent cath about 1 year ago showed patent JAMESON grafts to LAD and diagonal, touch down radial graft to the ramus, and RCA and left circumflex stents. She has a known occluded graft to her RCA. She has significant, diffuse [place] disease with a focal area of progression in the proximal RPLV deemed appropriate for medical management. LVEDP 24 at that time. -NM MPI spect today negative -symptoms may be due to poorly controlled bp -amlodipine 10mg daily started on 03/04 -continue metoprolol 100mg bid -adding hydralazine 25mg tid -cont ASA/plavix, rosuva 20, zetia -continued imdur 120 every day - dilt stopped in favor of amlodipine for HTN -finerenone not on formulary -does not appear significantly volume overloaded at this time, continue Lasix 80 mg daily and consider increasing finerenone to 20 mg on discharge given elevated LVEDP and diastolic dysfunction -tele Acute chest pain 03/01/2023 12/07/2023 Assessment & Plan (03/16/2023 8:57 AM CDT): MPI as noted above Continue with current medication regimen Follow up with websphere portal architect Hypoglycemia due to insulin 02/04/2023 01/09/2024 Unstable angina pectoris 02/03/202302/2023 Viral upper respiratory tract infection 06/30/2022 08/31/2022 Assessment & Plan (06/30/2022 5:35 PM SOAKING ROOM OPERATOR): Recommend fluids, rest, humidification if needed. She was instructed to call back if symptoms do not improved in a week, or if worsening ones arise. Education provided. If no improvement by Monday, will send amoxicillin covid and flu swab negative F/u prn Urinary tract infection symptoms 03/23/2022 08/31/2022 Assessment & Plan (03/23/2022 12:09 PM CDT): Push fluids, cranberry juice. Patient was instructed to contact us in 2 days for results of urine culture. Bactrim ordered UA negative Breast cancer 12/13/2021 12/28/2021 Assessment & Plan (12/13/2021 12:45 PM CDT): 10/29/2021, partial R mastectomy and sentinel lymph node biopsy and pathology confirmed invasive ductal carcinoma, grade 2, lymph nodes were negative -she is scheduled for simulation for radiation 12/16 -she will start letrozole after completing 16 fractions of radiation -continue vitamin D/calcium Mass of right breast 10/13/2021 022 Overview (10/13/2021): Added automatically from request for surgery [id number] Abnormal mammogram 10/13/2021 Overview (10/13/2021): Added automatically from request for surgery [id number] Dysuria 08/19/2021 02/03/2023 Assessment & Plan (08/19/2021 9:40 AM SOAKING ROOM OPERATOR): rx for cipro sent ( pt has used it before, successfully ) Essential hypertension 01/27/202101/08 Assessment & Plan (12/08/2023 10:06 AM CDT): Bp in the office today BP Readings from Last 1 Encounters: 11/22/23 129/61 Continue current regimen of amlodipine 10mg daily metoprolol 100mg bid hydralazine 50mg tid Recommend DASH diet, heart-healthy lifestyle, exercise. Discussed the risks of hypertension. F/u in 6 months for annual Assessment & Plan (11/02/2023 3:59 PM CDT): Bp in the office today BP Readings from Last 1 Encounters: 10/17/23 138/88 Continue current regimen of amlodipine 10mg daily metoprolol 100mg bid hydralazine 50mg tid Recommend DASH diet, heart-healthy lifestyle, exercise. Discussed the risks of hypertension. F/u in 1 month Assessment & Plan (09/27/2023 9:33 AM SOAKING ROOM OPERATOR): Bp in the office today BP Readings from Last 1 Encounters: 09/27/23 122/50 Continue current regimen of amlodipine 10mg daily metoprolol 100mg bid hydralazine 50mg tid Recommend DASH diet, heart-healthy lifestyle, exercise. Discussed the risks of hypertension. F/u Assessment & Plan (05/01/2023 11:13 AM CDT): Bp in the office today BP Readings from Last 1 Encounters: 05/01/23 130/60 Continue current regimen of amlodipine 10mg daily metoprolol 100mg bid hydralazine 50mg tid Recommend DASH diet, heart-healthy lifestyle, exercise. Discussed the risks of hypertension. F/u Assessment & Plan (03/16/2023 1:56 PM CDT): Bp in the office today BP Readings from Last 1 Encounters: 03/16/23 134/60 Continue current regimen of amlodipine 10mg daily metoprolol 100mg bid hydralazine 50mg tid Recommend DASH diet, heart-healthy lifestyle, exercise. Discussed the risks of hypertension. F/u at next office visit Assessment & Plan (03/08/2023 3:06 PM CDT): -sbp now 100-140 -amlodipine 10mg daily started on 03/04 -continue metoprolol 100mg bid -started hydralazine 25mg tid and increased to 50mg tid, may need to decrease -added lisinopril 10mg 03/07, now stopped -dilt stopped in favor of starting amlodipine Assessment & Plan (03/06/2023 4:18 PM CDT): Up titration of home medications as above -start hydral 25mg TID as still hypertensive today and may be contributing to her chest pain -continue amlodpine 10mg daily -metoprolol 100mg bid Assessment & Plan (02/10/2022 10:35 AM CDT): Bp in the office today BP Readings from Last 1 Encounters: 02/10/22 136/72 Continue current regimen of amlodipine 10mg daily metoprolol 150mg bid Recommend DASH diet, heart-healthy lifestyle, exercise. Discussed the risks of hypertension. F/u in 2 months at wellness visit Assessment & Plan (12/13/2021 12:37 PM CDT): -continue amlodipine, imdur, metoprolol Shortness of breath 10/14/2020 02/04/20 23 Viral gastroenteritis 09/02/20192019 Acute cystitis without hematuria 08/31/2019 09/05/2019 Myalgia 08/31/2019 02/03/2023 Wide-complex tachycardia 05/07/201912/2019 Assessment & Plan (05/07/2019 5:59 AM CDT): Noted on tele in the ED. Patient was asymptomatic at the time. Patient has a pacemaker, will interrogated. Cardiology has been consulted, will await their evaluation. Elevated d-dimer 04/10/2019 09/05/2019 Assessment & Plan (04/10/2019 4:57 AM CDT): D-dimers were elevated. Concern for pulmonary embolus. Started on therapeutic dose of heparin. Will obtain V/Q scan in a.m.. Further recommendations to follow pending his V/Q scan results. Symptomatic bradycardia 08/20/201812/2019 Assessment & Plan (08/20/2018 3:56 AM SOAKING ROOM OPERATOR): Patient presented with complains of palpitations and sensation of heart stopping in the chest. Likely multifactorial due to hyperkalemia, acute kidney injury superimposed to CKD stage 4, and beta-blockers Found to be bradycardic. Admitted to the ICU. Hold beta-blockers Telemetry monitoring Cardiology consult GUZMAN (acute kidney injury) 08/20/2018 Assessment & Plan (08/20/2018 3:44 AM SOAKING ROOM OPERATOR): Patient with a history of CKD stage III-IV Noted progressive worsening of the kidney function currently with elevation p.o. Neck creatinine levels from baseline. Also associated with hyperkalemia. She is not following up with Nephrology. Urinalysis was unremarkable. Suspect this is secondary to combination of the recent diuretics and ARB Will hold irbesartan, continue with Lasix for now. Monitor kidney function closely with daily BMP. Replete electrolytes as needed. Will get Nephrology consult. Hyperkalemia 08/20/2018 02/03/2023 Assessment & Plan (04/10/2019 5:00 AM CDT): Currently on insulin pump. Will continue with insulin Continue with IV Lasix. Monitor with daily BMP. Assessment & Plan (08/22/2018 4:08 PM SOAKING ROOM OPERATOR): Potassium peak level at 6.1 on BMP at [facility]. Given insulin, dextrose and albuterol with improvement to 5.0, currently stable at 5.0. - will continue to monitor with daily BMP, continues to be stable. Assessment & Plan (08/20/2018 3:50 AM SOAKING ROOM OPERATOR): Patient was treated with insulin, albuterol, calcium gluconate. Will give 1 dose of Kayexalate. Repeat electrolytes in a.m.. Telemetry monitoring Cardiology consult Nephrology consult Insulin pump fitting or adjustment 08/20/2018 05/17/2022 Assessment & Plan (06/11/2020 3:44 PM SOAKING ROOM OPERATOR): No change to current settings Assessment & Plan (08/25/2018 4:18 PM SOAKING ROOM OPERATOR): Pt is denies any suicidal ideation, is alert and oriented and may continue to the insulin pump while hospitalization. The patient will fill the insulin log form for the daily boluses. The above was communicated to the patient as a criteria to maintain an insulin pump while hospitalized. The patient notes understanding. Assessment & Plan (08/24/2018 10:08 PM SOAKING ROOM OPERATOR): Pt is denies any suicidal ideation, is alert and oriented and may continue to the insulin pump while hospitalization. The patient will fill the insulin log form for the daily boluses. The above was communicated to the patient as a criteria to maintain an insulin pump while hospitalized. The patient notes understanding. Assessment & Plan (08/23/2018 2:55 PM SOAKING ROOM OPERATOR): Pt is denies any suicidal ideation, is alert and oriented and may continue to the insulin pump while hospitalization. The patient will fill the insulin log form for the daily boluses. The above was communicated to the patient as a criteria to maintain an insulin pump while hospitalized. The patient notes understanding. Assessment & Plan (08/21/2018 11:36 AM SOAKING ROOM OPERATOR): Pt is denies any suicidal ideation, is alert and oriented and may continue to the insulin pump while hospitalization. The patient will fill the insulin log form for the daily boluses. The above was communicated to the patient as a criteria to maintain an insulin pump while hospitalized. The patient notes understanding. Assessment & Plan (08/20/2018 7:05 PM SOAKING ROOM OPERATOR): Pt is denies any suicidal ideation, is alert and oriented and may continue to the insulin pump while hospitalization. The patient will fill the insulin log form for the daily boluses. The above was communicated to the patient as a criteria to maintain an insulin pump while hospitalized. The patient notes understanding. High risk medication use 08/20/201812/2019 Assessment & Plan (08/25/2018 4:18 PM SOAKING ROOM OPERATOR): Continue intensive monitoring of blood sugar QID, patient at risk of hypoglycemia in the setting of intensive insulin regimen, advanced age, restricted diet, CKD Assessment & Plan (08/24/2018 10:08 PM SOAKING ROOM OPERATOR): Continue intensive monitoring of blood sugar QID, patient at risk of hypoglycemia in the setting of intensive insulin regimen, advanced age, restricted diet, CKD Assessment & Plan (08/23/2018 2:55 PM SOAKING ROOM OPERATOR): Continue intensive monitoring of blood sugar QID, patient at risk of hypoglycemia in the setting of intensive insulin regimen, advanced age, restricted diet, CKD Assessment & Plan (08/21/2018 11:37 AM SOAKING ROOM OPERATOR): Continue intensive monitoring of blood sugar QID, patient at risk of hypoglycemia in the setting of intensive insulin regimen, advanced age, restricted diet, CKD Assessment & Plan (08/20/2018 7:05 PM SOAKING ROOM OPERATOR): Continue intensive monitoring of blood sugar QID, patient at risk of hypoglycemia in the setting of intensive insulin regimen, advanced age, restricted diet, CKD Symptomatic bradycardia 08/20/201812/2019 Assessment & Plan (08/24/2018 1:23 PM SOAKING ROOM OPERATOR): Endorsed palpitations, felt heart skipping beat, dizziness, weakness with HR undetectable by BP cuff at home. History of bradycardia in 04/2018, but EKG at that time did not appear junctional, patient denies any previous symptoms like those prior to presentation. Initially felt to be likely 2/2 to hyperkalemia, however bradycardia persist with appearance of a junctional rhythm in the setting of normal potassium levels. - EKG at [facility] with rate 41 and junctional rhythm, improved to 71 after correction of hyperkalemia and holding metoprolol. - EP consulted, pacemaker placed 08/24, bed rest for 8 hours with arm immobilization - Metoprolol 50 BID Stage 3 chronic kidney disease 08/20/2018 06/28/2023 Assessment & Plan (12/13/2021 12:31 PM CDT): -cr stable at baseline -will hydrate prior to [facility] Assessment & Plan (08/25/2018 8:49 AM SOAKING ROOM OPERATOR): History of CKD III-IV, peak Cr 2.69 at OSH, with baseline Cr of 1.3-1.8. - No intervention at [facility] to improve creatinine, unknown if initial injury was pre-renal or cardiorenal in etiology, less likely cardiorenal given HFpEF history. - Cr 1.72 on admission to [facility]. FeUrea 28.6% suggesting pre-renal etiology. Renal u/s with no hydronephrosis, not likely obstruction. - Holding Irbesartan 300mg daily and lasix 40mg MWF, 20mg , for acute renal failure. - Nephrology c/s for recommendations on acute on chronic renal failure and for establishing care as outpatient after discharge. - Cr bumped today to 2.24, decreased urine output yesterday, gave 500cc bolus in addition to 600cc patient received while in OR, Cr improved and now close to previous baseline Bradycardia 08/20/2018 09/05/2019 Overview (08/23/2018): Added automatically from request for surgery [id number] Acute on chronic systolic co ngestive heart failure 05/29/2018 09/05/2019 Assessment & Plan (05/29/2018 4:03 AM CDT): Patient presented with dyspnea on exertion and some PND. BNP is elevated. On physical exam patient has significant peripheral edema Started on IV Lasix. Home monitor closely kidney function. Cardiology consult CPAP/BiPAP (continuous or bi phasic positive airway pressure) dependent 03/28/2018 02/03/2023 History of colon polyps 11/06/2017 080 09/2017 Overview (11/06/2017): Added automatically from request for surgery [id number] Lower respiratory infection 08/30/2017 09/26/2017 Assessment & Plan (08/30/2017 1:17 PM SOAKING ROOM OPERATOR): Recommended Z-Christopher to take as prescribed taking 2 tablets x1 day then 1 tablet x4 days also advised patient just take plain Mucinex or guaifenesin [id number] to assist productivity and cough along with increased fluids as well. Emphasized the importance of following up in our office if there is any worsening or certainly little to no improvement symptoms and close monitoring of glucose levels well acutely ill as well. BMI 40.0-44.9, adult 06/27/2017 021 Assessment & Plan (04/02/2020 4:00 PM CDT): Importance of following diet and exercising discussed. Assessment & Plan (10/09/2019 11:58 AM CDT): Benefits of weight loss discussed. Reviewed recommendations for daily intake & activity 20-30 minutes/day. She was counseled on the importance of maintaining a healthy weight and the risks of obesity. Weight loss recommended. I have recommended beginning daily aerobic activity. Patient was encouraged to start at a comfortable pace and distance and increase as tolerated. I encouraged decrease caloric restriction in order to promote weight loss. I recommended calorie tracking rajan, [employer], which is a free download on a smart phone. Assessment & Plan (10/03/2019 3:45 PM SOAKING ROOM OPERATOR): Benefits of weight loss discussed. Reviewed recommendations for daily intake & activity 20-30 minutes/day. She was counseled on the importance of maintaining a healthy weight and the risks of obesity. Weight loss recommended. I have recommended beginning daily aerobic activity. Patient was encouraged to start at a comfortable pace and distance and increase as tolerated. I encouraged decrease caloric restriction in order to promote weight loss. I recommended calorie tracking rajan, [employer], which is a free download on a smart phone. Assessment & Plan (05/16/2019 9:40 AM CDT): No wt bearing and unable to exercise so needs to rely on diet to address wt reduction goal Assessment & Plan (09/27/2018 10:28 AM SOAKING ROOM OPERATOR): Eliminating high K+ carbs but total grams per day is above goal. Advised to reduce portions. Assessment & Plan (08/20/2018 3:47 AM SOAKING ROOM OPERATOR): Weight loss encouraged Assessment & Plan (08/30/2017 1:16 PM SOAKING ROOM OPERATOR): Recommended patient to continue to increase heart healthy diet with adequate fruits, vegetables, and plenty of water along with mild-moderate daily exercise as tolerated. Class 2 obesity due to exces s calories with body mass index (BMI) of 38.0 to 38.9 in adult 05/10/2017 08/30/2017 Assessment & Plan (05/10/2017 4:04 PM CDT): Importance of following diet and exercising discussed. Mixed hyperlipidemia 02/23/2017 024 Assessment & Plan (08/20/2018 8:42 PM SOAKING ROOM OPERATOR): Continue home regimen: colesevelam 625mg BID, Ezetimibe 10mg QD Assessment & Plan (05/29/2018 4:04 AM CDT): Patient currently on Welchol, Zetia, Crestor. Continue current medication Assessment & Plan (03/18/2018 10:58 AM CDT): LDL at goal on current therapy Assessment & Plan (05/10/2017 4:04 PM CDT): Continue statin therapy. Insulin pump status 01/30/2017 09/05/19 20 Assessment & Plan (08/31/2019 5:53 PM SOAKING ROOM OPERATOR): Recommend upgrade to pump/sensor therapy. Would need T Slim/Dexcom with medicare benefits. Assessment & Plan (01/30/2017 11:15 AM CDT): Increase 0600 basal to 3.9. Will advise use of temp basal if steroids prescribed for pneumonia. Type 1 diabetes mellitus with hypoglycemia 01/30/2017 02/03/2023 Assessment & Plan (05/19/2022 10:54 AM CDT): Chronic problem, overall stable. Assessment & Plan (04/26/2022 9:06 AM CDT): The patient was counseled on a heart-healthy, diabetic-friendly diet, as well as life-style modification. Education provided on the diagnosis and risks of the disease. We will continue to monitor routine labs. Additionally, She was counseled on routine diabetic eye exams, foot exams, and other preventive care. Most recent A1c on file:6.7 Continue insulin pump Continue following with endocrinology Continue following with endocrinology F/u in 6 months Assessment & Plan (08/19/2021 9:38 AM SOAKING ROOM OPERATOR): Hba1c was Lab Results Component Value Date HGBA1C 6.4 08/19/2021 today, indicating adequate DM control Goal Hba1c and blood glucose explained Diet and exercise were advised Prevention and treatment of hyypoglcyemia were discussed with the patient Blood glucose monitoring : DEXCOM Adjustment to medications: Continue pump with current settings: Assessment & Plan (11/01/2020 6:16 AM CDT): Patient has been having hypoglycemia episodes since presentation. She wears an insulin pump that she is adamant about keeping on. She follows with Dr. Beauchamp. Will continue with snacks for hypoglycemia. Patient was advised to call Dr. Beauchamp's office early this week to notify him of hypoglycemic episodes. Assessment & Plan (09/17/2020 4:07 PM SOAKING ROOM OPERATOR): Hba1c was Lab Results Component Value Date HGBA1C 6.1 (H) 08/19/2020 today, indicating adequate DM control Goal blood sugars in the 120-150 range , with Hb1c under 7.0 % was explained 1800 calorie, consistent carb diet recommended. No more than 30-45 grams of carbs per meal recommended, as well as avoiding high concentrated sweet drinks . 25-45 min daily exercise, combining both aerobic and resistance exercise recommended. The need to monitor blood glucose before meals and bedtime was discussed. Prevention and treatment of hyypoglcyemia discussed. Continue insulin pump at current settings Assessment & Plan (06/11/2020 3:45 PM SOAKING ROOM OPERATOR): BG pattern acceptable at this time. Would benefit from pump/sensor integration once current pump out of warranty. Provided with Leonora 2 sensor to try. Assessment & Plan (04/02/2020 4:10 PM CDT): A1c 6.7 without reported hypoglycemia. I see no hypoglycemia on pump review. Continue current settings. She will consider CGM and call back after vacation if interested. Recommend she change to pump/sensor therapy in Aug once out of warranty. Assessment & Plan (12/19/2019 9:53 AM CDT): Hba1c was Lab Results Component Value Date HGBA1C 8.4 12/19/2019 today, indicating inadequate DM control 1800 calorie, consistent carb diet recommended. No more than 30-45 grams of carbs per meal recommended, as well as avoiding high concentrated sweet drinks . 25-45 min daily exercise, combining both aerobic and resistance exercise recommended. The need to monitor blood glucose before meals and bedtime was discussed. Prevention and treatment of hyypoglcyemia discussed. Pump settings adjusted Basals 00: 4.0 5 4.55 2100 50 IC 6.0 S 20 T 100-120 Assessment & Plan (08/31/2019 5:51 PM SOAKING ROOM OPERATOR): A1c 7.7. BG pattern stable throughout the day. No change to current pump settings. Assessment & Plan (05/16/2019 9:38 AM CDT): Recent A1c 7.0 without hypoglycemia. Pattern is stable. No change to settings today. Advised to call if there is a change to pattern as she undergoes concurrent treatment for fx, cardiac and renal issues. Assessment & Plan (01/10/2019 4:46 PM CDT): From diabetes perspective, BG pattern acceptable and pump settings appropriate. Pt questions answered about recent lab result and advised to follow up with PCP and renal regarding results, vitamin D, GFR, PTH. Provided with list of high potasium foods. Assessment & Plan (09/27/2018 10:30 AM SOAKING ROOM OPERATOR): A1c increased from 7.1 to 7.9. BG pattern stable but elevated. Will gently adjust basal rates. Assessment & Plan (06/28/2018 10:02 AM SOAKING ROOM OPERATOR): Hba1c was Lab Results Component Value Date HGBA1C 7.1 06/28/2018 today, indicating 150 . DM control 1800 calorie, consistent carb diet recommended 25-45 min daily exercise, combining both aerobic and resistance exercise recommended. The need to monitor blood glucose before meals and bedtime was discussed. Dose of basal and prandial insulin adjusted as follows: Continue pump on current settings. Prevention and treatment of hyypoglcyemia discussed. Assessment & Plan (03/18/2018 10:56 AM CDT): BG pattern stable and on target. No change to current insulin pump settings. BG goals reviewed. Assessment & Plan (12/05/2017 9:23 AM CDT): Will not make changes to pump settings since she recently completed steroid burst for pneumonia. BG goals reviewed. If notices continued elevated trend in upcoming weeks of hyperglycemia, call to schedule pump download. Will reassess settings. Assessment & Plan (08/29/2017 10:15 AM SOAKING ROOM OPERATOR): Hba1c was 7.5 today, indicating 164 DM control 1800 calorie, consistent carb diet recommended 30 min daily exercise, combining both aerobic and resistance exercise is strongly recommended and needed as part of diabetes management plan. The need to monitor blood glucose before meals and bedtime was discussed. Take prandial insulin before meals based on carb intake and blood glucose readings. Prevention and treatment of hyypoglcyemia discussed. Basals adjusted: 12a 3.7 5a 4.35 9 5 ic 6 s 15 t 100-120 Assessment & Plan (05/10/2017 1:53 PM CDT): Most BG are in 100-180 range, Typically > 150. Will adjust basal rates accordingly. Reviewed sick day rules and how to use temp basal. Non morbid obesity due to excess calories 01/30/2017 02/23/2017 Assessment & Plan (01/30/2017 9:09 AM CDT): Diet and exercise discussed Acute bronchitis 01/26/2017 02/03/2023 Assessment & Plan (01/02/2023 3:10 PM CDT): Encouraged to continue to use inhalers as needed Resent doxycycline to pharmacy F/u in 1 week if no improvement Will consider steroid if no improvement Assessment & Plan (01/26/2017 8:52 AM CDT): Will cover for pneumonia at this time changing antibiotics to levaquin 500mg Qday x 10 days along with use of proair. Advsied pt steriod pack maybe of use, but she declined at this time. Will f/u regarding results of CXR once dictated by radiology and in office next week, or certainly sooner as needed Acute URI 01/24/2017 02/23/2017 Heart failure 03/11/2016 11/15/2017 Shortness of breath 03/01/2016 05/20/20 19 Assessment & Plan (05/07/2019 6:12 AM CDT): Exact etiology unclear. Patient noted shortness of breath for the last few days at rest and with activity. Denies any palpitations. She is slightly fluid overloaded on exam as she has edema in her legs. Chest x-ray showed improved vascular congestion. Patient did have an episode of wide complex tachycardia in the ED. Will interrogate ppm. Exomphalos 02/16/2016 02/23/2017 Overview (11/03/2016): Umbilical hernia Swelling of extremity 11/09/20152017 Paresthesia of upper extremity 08/12/2015 03/02/2018 Angina pectoris 02/27/2015 09/05/2019 Chronic bronchitis 10/06/2014 7 Overview (11/03/2016): Chronic bronchitis Pain of lower extremity 08/05/201409/2017 Atherosclerosis of coronary artery 12/14/2013 02/23/2017 Overview (11/03/2016): COR ATH UNSP VSL NTV/GFT Benign hypertension 12/14/2013 09/03/19 Overview (11/04/2016): BENIGN HYPERTENSION Assessment & Plan (10/09/2019 11:58 AM CDT): Hypertension, Medical treament revolves around weight control, salt management, and meds when necessary. long as weight loss is necessary and you are able to drop weight we can cont to monitor the blood pressure and not add meds. Once the weight is not changing then it becomes nesessary to add meds to be able to reach the goal bp. Assessment & Plan (08/22/2018 4:07 PM SOAKING ROOM OPERATOR): Systolic pressures wnl, however diastolic pressures fairly low. -Will continue amlodipine 10mg, will decrease hydral to 10mg bid Assessment & Plan (08/20/2018 3:47 AM SOAKING ROOM OPERATOR): Blood pressures she is elevated Continue with amlodipine, furosemide, hydralazine. Telemetry monitoring Multiple-type hyperlipidemia 12/14/2013 02/23/2017 Overview (11/04/2016): MIXED HYPERLIPIDEMIA Type 2 diabetes mellitus wit h hyperglycemia, with long-term current use of insulin ([facility]) 12/14/2013 04/20/2021 Overview (11/04/2016): DMII WO CMP NT ST UNCNTR Pure hypercholesterolemia 06/25/2013 Overview (11/04/2016): PURE HYPERCHOLESTEROLEM History of insertion of insulin pump 06/25/2013 09/26/2017 Overview (11/04/2016): INSULIN PUMP STATUS Assessment & Plan (05/10/2017 1:55 PM CDT): No change to MN basal. Increase 0600 to 4.1 and 1000 to 4.95 Acute chest pain 04/24/2013 05/20/2019 Diabetic neuropathy 03/28/2012 02/24/20 17 Overview (11/04/2016): NEUROPATHY IN DIABETES Hyperlipidemia 06/21/2011 02/03/2023 Assessment & Plan (04/26/2022 9:04 AM CDT): Stable / clinically quiescent. Will continue to monitor. Continue rosuvastatin 20mg daily Assessment & Plan (11/01/2020 6:12 AM CDT): Continue home medications Assessment & Plan (05/07/2019 6:10 AM CDT): Continue home medication Assessment & Plan (04/10/2019 4:56 AM CDT): On statin and aspirin, continue Plavix Assessment & Plan (08/20/2018 3:51 AM SOAKING ROOM OPERATOR): On statin and Zetia Assessment & Plan (12/05/2017 9:21 AM CDT): Continue statin therapy Hypertension, essential 06/21/201104/01 Assessment & Plan (12/30/2022 12:41 PM CDT): Recommend DASH diet, heart-healthy lifestyle, exercise. Discussed the risks of hypertension. Assessment & Plan (11/29/2022 10:13 AM CDT): Chronic problem, BP elevated initially. Came into range on recheck. Currently taking: metoprolol 100mg bid, diltiazem XR 180mg daily & lasix 80mg daily. No changes at this time. Assessment & Plan (10/25/2022 8:57 AM CDT): Bp in the office today BP Readings from Last 1 Encounters: 10/25/22 130/70 Continue current regimen of metoprolol 100mg bid, diltiazem 180mg daily, and lasix 80mg daily Recommend DASH diet, heart-healthy lifestyle, exercise. Discussed the risks of hypertension. F/u in 6 months Assessment & Plan (09/01/2022 8:49 AM SOAKING ROOM OPERATOR): Chronic problem, well controlled on curent metoprolol 100mg bid, diltiazem XR 180mg daily & lasix 80mg daily. No changes at this time. Assessment & Plan (05/19/2022 10:53 AM CDT): Controlled on current medications, no changes. Assessment & Plan (04/26/2022 9:05 AM CDT): Bp in the office today BP Readings from Last 1 Encounters: 04/26/22 122/60 Continue current regimen Recommend DASH diet, heart-healthy lifestyle, exercise. Discussed the risks of hypertension. F/u in 1 year Assessment & Plan (02/15/2022 11:17 AM CDT): Chronic, well controlled Continue current meds Assessment & Plan (02/10/2022 12:46 PM CDT): Bp in the office today BP Readings from Last 1 Encounters: 02/10/22 136/72 Continue current regimen Recommend DASH diet, heart-healthy lifestyle, exercise. Discussed the risks of hypertension. Assessment & Plan (10/28/2021 9:04 AM CDT): Controlled on current medications, no changes. Assessment & Plan (03/18/2021 3:41 PM CDT): Controlled on current medications. Continue plan. Assessment & Plan (02/03/2021 12:53 PM CDT): Controlled on current medications. Continue plan. Continue follow up with nephrology Assessment & Plan (12/21/2020 7:53 AM CDT): Recommend DASH diet, heart healthy lifestyle, exercise. Discussed the risks of hypertension. Assessment & Plan (12/10/2020 4:02 PM CDT): Controlled on current medications. Continue plan. Assessment & Plan (09/17/2020 4:08 PM SOAKING ROOM OPERATOR): Goal blood pressure is less than 140/85 Low salt diet was discussed andd recommended The importance of daily aerobic exercise was also emphasized. Continue current meds, including DEEDEE-I or ARB, e.g. irbesartan Assessment & Plan (06/11/2020 3:38 PM SOAKING ROOM OPERATOR): Controlled on current medications. Continue plan. Assessment & Plan (03/12/2020 9:03 AM CDT): Controlled on current medications. Continue plan. Assessment & Plan (08/31/2019 5:45 PM SOAKING ROOM OPERATOR): Continue follow up with cardiology and nephrology Assessment & Plan (05/16/2019 9:39 AM CDT): Continue follow up with cardiology and renal Assessment & Plan (04/10/2019 4:56 AM CDT): Continue cardiac pertinent home medications Assessment & Plan (01/10/2019 4:58 PM CDT): Continue current medications Assessment & Plan (09/27/2018 10:24 AM SOAKING ROOM OPERATOR): Controlled on current medications. Continue follow up with cardiology Assessment & Plan (06/28/2018 10:00 AM SOAKING ROOM OPERATOR): Goal blood pressure is less than 140/85 Low salt diet recommended Daily aerobic exercise Continue current meds, including DEEDEE-I or ARB Assessment & Plan (05/29/2018 3:43 AM CDT): Stable. Will continue home medications Assessment & Plan (03/18/2018 10:59 AM CDT): BP elevated on current therapy. Managed by cardiology. Continue with home BP and follow up as scheduled. Follow up with PCP re: recent lab results. Consider referral to nephrology. Acute on chronic diastolic HF (heart failure) 09/05/2019 Assessment & Plan (04/10/2019 4:52 AM CDT): Continue cardiac pertinent home medications. Telemetry monitoring Start diuresis on IV Lasix. Monitor strict I&Os Monitor kidney function with daily BMP. Assessment & Plan (08/24/2018 1:16 PM SOAKING ROOM OPERATOR): TTE (05/30/2018) EF 70-75%, RVSP 33mmHg, limited study. [facility] CXR with signs of mild pulmonary vascular congestion - BNP 1K on arrival, however patient appears euvolemic. - Metoprolol decreased for symptomatic bradycardia will uptitrate now PM in place and lasix held in setting of acute renal failure. Assessment & Plan (08/20/2018 3:48 AM SOAKING ROOM OPERATOR): Clinically not fluid overloaded. Continue monitoring. Strict I&Os Monitor kidney function with daily BMP Replete electrolytes as needed Acute pulmonary embolism wit hout acute cor pulmonale 09/05/2019 Other fatigue 02/03/2023 Chest pain 12/08/2023 Encounters Date Type Department Care Team Description 03/07/2025 Telephone [facility] [id number] [place] [address] [address] [address] Juliana King NP [employer] [facility] 03/03/2025 Telephone [facility] Diabetes [facility] Endocrinology [address] [place] [address] Juliana King NP Prior Auth (Trulicity) 02/26/2025 10:30 AM CDT Therapy [facility] [address] [place] [id number] Rose Canas COTA Injury of collateral ligament of finger of right hand, subsequent encounter (Primary Dx); Closed injury of digital nerve of finger; Dupuytren contracture; Trigger finger, right middle finger 02/24/2025 9:15 AM CDT Therapy [facility] [address] [place] [id number] Rose Canas, MACK Injury of collateral ligament of finger of right hand, subsequent encounter (Primary Dx); Closed injury of digital nerve of finger; Dupuytren contracture; Trigger finger, right middle finger 02/19/2025 9:15 AM CDT Therapy [facility] [address] [place] [phone] Rose Canas, MACK Injury of collateral ligament of finger of right hand, subsequent encounter (Primary Dx); Closed injury of digital nerve of finger; Dupuytren contracture; Trigger finger, right middle finger 02/17/2025 Orders Only [facility] [address] [facility] [address] [place] [address] Praful Camacho MD PhD 02/12/2025 11:15 AM CDT Therapy [facility] [address] [place] [phone] Rose Canas, MACK Injury of collateral ligament of finger of right hand, subsequent encounter (Primary Dx); Closed injury of digital nerve of finger; Dupuytren contracture; Trigger finger, right middle finger 02/06/2025 Results Follow-Up [facility] Primary Care at [address] [place] [phone] Zulema Sarmiento MD XR Hips Bilateral 3 or 4 Views 02/05/2025 9:23 AM CDT - 02/05/2025 11:59 PM CDT Hospital Encounter [facility] [address] [place] [phone] Bilateral hip pain; Acute bilateral low back pain with bilateral sciatica Discharge Disposition: Discharge to home or self care 02/05/2025 Orders Only [facility] Diabetes and Endocrinology [address] [place] [phone] Juliana King NP Type 1 diabetes mellitus with hyperglycemia (HCC) (Primary Dx); CKD stage 4 due to type 1 diabetes mellitus (HCC); Class 3 severe obesity with serious comorbidity and body mass index (BMI) of 40.0 to 44.9 in adult, unspecified obesity type 02/04/2025 9:30 AM CDT Office Visit [facility] Primary Care at [address] [place] [phone] Zulema Sarmiento MD Hypertension associated with type 1 diabetes mellitus (HCC) (Primary Dx); Type 1 diabetes mellitus with hyperglycemia (HCC); Class 3 severe obesity due to excess calories with serious comorbidity and body mass index (BMI) of 40.0 to 44.9 in adult; Medicare annual wellness visit, subsequent; Bilateral hip pain; Acute bilateral low back pain with bilateral sciatica 02/04/2025 Orders Only [facility] at [facility] [address] [facility] [address] [place] [address] Zulema Sarmiento MD Acute bilateral low back pain with bilateral sciatica (Primary Dx) 02/03/2025 9:45 AM CDT Therapy [facility] [address] [place] [address] Belia Malcolm OT Injury of collateral ligament of finger of right hand, subsequent encounter (Primary Dx) 01/29/2025 10:30 AM CDT Therapy [facility] Therapy [address] [place] [address] Rose Canas COTA Injury of collateral ligament of finger of right hand, subsequent encounter (Primary Dx); Closed injury of digital nerve of finger; Dupuytren contracture; Trigger finger, right middle finger 01/28/2025 2:45 PM CDT Office Visit [facility] Orthopedics and Sports Medicine [address] [place] [address] [address] [place] [phone] Praful Greene NP Left ankle pain, unspecified chronicity (Primary Dx); Peroneal tendinitis of left lower extremity; Plantar fasciitis 01/28/2025 7:46 AM CDT - 01/28/2025 11:59 PM CDT Hospital Encounter [facility] Orthopedics and Sports Medicine [address] [place] [address] [address] [place] [phone] Discharge Disposition: Discharge to home or self care 01/23/2025 10:00 AM CDT Office Visit [facility] Surgery [address] [place] [address] [address] [place] [address] Randall Kaplan PA Injury of collateral ligament of finger of right hand, subsequent encounter (Primary Dx); Closed injury of digital nerve of finger 01/22/2025 1:30 PM CDT Office Visit [facility] Diabetes and Endocrinology [address] [place] [phone] Juliana King NP Type 1 diabetes mellitus with hyperglycemia (HCC) (Primary Dx); Hypertension associated with type 1 diabetes mellitus (HCC); Mixed diabetic hyperlipidemia associated with type 1 diabetes mellitus (HCC); CKD stage 4 due to type 1 diabetes mellitus (HCC); Diabetic peripheral neuropathy (HCC); Insulin pump in place 01/22/2025 Telephone [facility] Diabetes and Endocrinology [address] [place] [phone] Juliana King NP ptient question 01/21/2025 11:00 AM CDT Office Visit [facility] Cardiology [address] [place] [address] 8th [place] [address] [place] [address] Servando Tsai MD Chronic diastolic congestive heart failure (HCC) (Primary Dx); Chronic coronary artery disease; Hypertension associated with type 1 diabetes mellitus (HCC); Pacemaker; Mixed diabetic hyperlipidemia associated with type 1 diabetes mellitus (HCC) 01/15/2025 8:10 AM CDT Lab [facility] Laboratory [address] [place] [address] 01/13/2025 9:45 AM CDT Therapy [facility] Occupational Therapy [address] [place] [address] Belia Malcolm, RAMIRO Injury of collateral ligament of finger of right hand, subsequent encounter (Primary Dx) 01/07/2025 8:30 AM CDT Therapy [facility] Occupational Therapy [address] [place] [phone] Belia Malcolm, RAMIRO Injury of collateral ligament of finger of right hand, subsequent encounter (Primary Dx); Closed injury of digital nerve of finger 12/31/2024 10:45 AM CDT Therapy [facility] Occupational Therapy [address] [place] [address] Belia Malcolm OT Injury of collateral ligament of finger of right hand, subsequent encounter (Primary Dx) 12/27/2024 9:30 AM CDT Therapy [facility] Occupational Therapy [address] [place] [address] Lauren Dawn, RAMIRO Injury of collateral ligament of finger of right hand, subsequent encounter (Primary Dx) 12/24/2024 1:30 PM CDT Office Visit [facility] Surgery [address] Medical Office Building [address] [place] [phone] Randall Kaplan PA Injury of collateral ligament of finger of right hand, subsequent encounter (Primary Dx); Closed injury of digital nerve of finger 12/20/2024 8:10 AM CDT - 12/20/2024 11:59 PM CDT Hospital Encounter [facility] Imaging Center [address] [place] [phone] Malignant neoplasm of upper-outer quadrant of right breast in female, estrogen receptor positive (HCC); Malignant neoplasm of breast in female, estrogen receptor positive, unspecified laterality, unspecified site of breast (HCC); Hypothyroidism, unspecified type; senior care (current) use of aromatase inhibitors Discharge Disposition: Discharge to home or self care 12/19/2024 9:00 AM CDT Therapy [facility] Occupational Therapy [address] [place] [phone] Belia Malcolm, OT Injury of collateral ligament of finger of right hand, subsequent encounter; Closed injury of digital nerve of finger 12/19/2024 Plan of Care Documentation [facility] Occupational Therapy [address] [place] [id number] 12/09/2024 9:39 AM CDT Anesthesia Event [facility] Operating Room [address] [place] [address] Kash Muller MD Vuong, Peter Thuan, MD 12/09/2024 9:00 AM CDT - 12/09/2024 11:00 AM CDT Surgery [facility] Operating Room [address] [place] [address] Jolly Fry MD REPAIR RIGHT RING PROXIMAL INTERPHALANGEAL JOINT RADIAL COLLATERAL LIGAMENT REPAIR 12/09/2024 6:26 AM CDT - 12/09/2024 1:42 PM CDT Hospital Encounter [facility] Operating Room [address] [place] [address] Jolly Fry MD Injury of collateral ligament of finger of right hand, subsequent encounter (Primary Dx); Closed injury of digital nerve of finger Discharge Disposition: Discharge to home or self care from Last 3 Months Immunizations Immunization Administration Dates Next Due Influenza, Quadrivalent, Spl it, Preservative Free, Intramuscular 05/01/2023,04/26/2022,05/18/2021,04/21,04/17/2019,06/04/2018,04/03/2014 Influenza, Split 07/08/2010 Influenza, Trivalent, Cell Culture-based MDCK, Preservative Free, Antibiotic Free, Intramuscular 05/10/2024 Influenza, Trivalent, High D ose, Split, Preservative Free, Intramuscular 05/10/2016 Influenza, Trivalent, IM (MDV) 5,04/22/2015,05/17/2012,04/28,04/24/2008 Influenza, Trivalent, Preser vative Free, Intramuscular 04/21/2020,05/09/2016 Influenza, Trivalent, Recomb inant, Egg Free, Preservative Free, Antibiotic Free, IM (FLUBLOK) 04/10/2017 Influenza, Unspecified 05/28/2018,04/24/2013 [employer] SARS-CoV-2 Monovalent Vaccination (12+ Yrs) PURPLE 11/23/2020,10/26/2020 Pneumococcal Conjugate PCV 13 04/03/2014 Pneumococcal Polysaccharide PPV23 2020,02/16/2010,09/17/2003,07/31 RSV, Bivalent, Protein Subun it Rsvpref, Diluent (Abrysvo) 05/23/2024 Tdap 02/27/2023,12/13/2020,09/02/2009 Surgical History Surgery Date Site/Laterality Comments CHOLECYSTECTOMY Cholecystectomy OTHER SURGICAL HISTORY Left lens implant OTHER SURGICAL HISTORY 07/31/2013 - 07/30/2014 Heart stents: Medical Management 5 or more stents CARPAL TUNNEL RELEASE Bilateral Carpal tunnel release OTHER SURGICAL HISTORY 07/31/2007 - 07/30/2008 Bilateral ulnar nerve surgery / elbow surgery OTHER SURGICAL HISTORY Bilateral rotator cuff surgery / shoulder surgery 1979, 1989 OTHER SURGICAL HISTORY 07/31/2002 - 07/30/2003 leg surgery bilat / popliteal artery entrapment HYSTERECTOMY OOPHORECTOMY CORONARY ARTERY BYPASS GRAFT 07/31/1998 - 07/30/1999 CABG 5 vessels HERNIA REPAIR open repair of umbilical hernia FRACTURE SURGERY 12/29/2018 - 01/27/2019 Left Fractured malleolus CARDIAC PACEMAKER PLACEMENT [employer] BREAST BIOPSY 10/06/2021 Right BREAST LUMPECTOMY Right BREAST BIOPSY 11/22/2023 Right Medical History Medical History Date Comments Hx Other Medical chronic back pa in Hypertension Hypertension Sleep apnea 2011 Sleep apnea Hx Other Medical PT IS CLAUSTROP HOBIC; Comments: [facility] 04/03/2014 - Hx Other Medical left foot surge ry Asthma Chronic bronchitis (HCC) GERD (gastroesophageal reflu x disease) Diabetes mellitus type I (HCC) I nsulin Pump Type 1 diabetes mellitus wit h hyperglycemia (HCC) 01/30/2017 History of colon polyps 11/06/2017 Added au tomatically from request for surgery [id number] Chronic coronary artery disease CHF (congestive heart failure) (HCC) COPD (chronic obstructive pu lmonary disease) Obstructive sleep apnea on CPAP History of transfusion Chronic kidney disease CKD stage 3 Gout HLD (hyperlipidemia) Cancer (HCC) breast cancer ri ght Depression Arrhythmia a fib according to patient PONV (postoperative nausea a nd vomiting) Chronic pain disorder Breast cancer (HCC) Nausea 09/01/2023 Chest pain Hypoglycemia due to insulin 02/04/2023 Injury of collateral ligamen t of finger of right hand COPD (chronic obstructive pu lmonary disease) Family History Medical History Relation Name Comments Diabetes Brother 1 Hypertension Brother 1 Hypertension; Coronary artery disease Brother 2 Diabetes Brother 2 Hypertension Brother 2 Hypertension; Depression Father Depression; Diabetes Father Diabetes mellit us; Heart disease Father Heart disease; Hypertension Father Hypertension; Melanoma Father Melanoma; Breast cancer Mother Cancer -breast ; /Cancer, breast; Coronary artery disease Mother Iliana nary artery disease; Dementia Mother Depression Mother Depression; Diabetes Mother Diabetes mellit us; Diabetes type II Mother Diabetes me llitus type 2; Heart disease Mother Heart disease; Gout Other Depression Sister 1 Depression; Diabetes Sister 1 Heart disease Sister 1 Hypertension Sister 1 Diabetes Sister 2 Diabetes mellit us; Relation Name Status Comments Brother 1 Brother 2 Father Mother Other Sister 1 Sister 2 Social History Tobacco Use Types Packs/Day Years Used Date Smoking Tobacco: Never Passive Smoke Exposure: Never Smokeless Tobacco: Never Comments:not needed Alcohol Use Standard Drinks/Week Comments No 0 (1 standard drink = 0.6 oz pur e alcohol) [facility] Utilities Answer Date Recorded In the past 12 months has th e electric, gas, oil, or water company threatened to shut off services in your home? No 10/21/2024 Humiliation, Afraid, Rape, and Kick questionnair e Answer Date Recorded Within the last year, have y ou been afraid of your partner or ex-partner? No 03/02/2023 Within the last year, have y ou been humiliated or emotionally abused in other ways by your partner or ex-partner? No Within the last year, have y ou been kicked, hit, slapped, or otherwise physically hurt by your partner or ex-partner? No 03/02/2023 Within the last year, have y ou been raped or forced to have any kind of sexual activity by your partner or ex-partner? No 03/02/2023 Social Connection and Isolation Panel Answer Date Recorded In a typical week, how many times do you talk on the phone with family, friends, or neighbors? More than three times a week 10/21/2024 How often do you get togethe r with friends or relatives? More than three times a week 10/21/2024 How often do you attend chur or jewish services? Never 10/21/2024 Do you belong to any clubs o r organizations such as gnosticism groups, unions, fraternal or athletic groups, or school groups? No 10/21/2024 How often do you attend meet ings of the clubs or organizations you belong to? Never 10/21/2024 Are you , , di vorced, , never , or living with a partner? 10/21/2024 AUDIT-C Answer Date Recorded Q1: How often do you have a drink containing alcohol? Never 01/28/2025 Q2: How many drinks containi ng alcohol do you have on a typical day when you are drinking? Patient does not drink Q3: How often do you have si x or more drinks on one occasion? Never 01/28/2025 Overall Financial Resource Strain (CARDIA) Answe r Date Recorded How hard is it for you to pa y for the very basics like food, housing, medical care, and heating? Not very hard 10/21/2024 PHQ-2 Answer Date Recorded PHQ-2 Total Score (If total score is 3 or more points, staff should administer the PHQ-9) 0 02/04/2025 [facility] - Occupational Stress Questionnaire Answer Date Recorded Do you feel stress - tense, restless, nervous, or anxious, or unable to sleep at night because your mind is troubled all the time - these days? To some extent 03/02/2023 Hunger Vital Sign Answer Date Recorded Within the past 12 months, y ou worried that your food would run out before you got the money to buy more. Never true 10/22/19 25 Within the past 12 months, t he food you bought just didn't last and you didn't have money to get more. Never true 10/21/2024 PRAPARE - Transportation Answer Date Re corded In the past 12 months, has l ack of transportation kept you from medical appointments or from getting medications? No 09/29 In the past 12 months, has l ack of transportation kept you from meetings, work, or from getting things needed for daily living? No 10/21/2024 Housing Stability Vital Sign Answer Johan e Recorded In the last 12 months, was t here a time when you were not able to pay the mortgage or rent on time? No 09/05/2023 In the last 12 months, how many places have you lived? 1 09/05/2023 In the last 12 months, was t here a time when you did not have a steady place to sleep or slept in a mcc (including now)? No 09/05/2023 Housing Stability Vital Sign Answer Johan e Recorded In the last 12 months, was t here a time when you were not able to pay the mortgage or rent on time? No 10/21/2024 In the past 12 months, how m any times have you moved where you were living? 0 10/21/2024 At any time in the past 12 m [facility], were you homeless or living in a mcc (including now)? No 10/21/2024 Personal Safety Answer Date Recorded Have you ever been in or are you currently in a harmful physical or emotional relationship or is someone making you feel afraid or unsafe? Denies 12/09/2024 Education Answer Date Recorded What is the highest level of school you have completed or the highest degree you have received? 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 Sexual Orientation Not on file Obstetrics History Para Term AB IAB SAB Ectopic Multiple Livin g Live Births 0 0 0 0 0 0 0 0 0 0 0 Last Filed Vital Signs Vital Sign Reading Time Taken Comments Blood Pressure 130/68 02/04/2025 9:15 AM CDT Pulse 59 02/04/2025 9:15 AM CDT Temperature 36.7 C (98.1 F) 02/04/2025 9:15 AM CDT Respiratory Rate 18 02/04/2025 9:15 AM CDT Oxygen Saturation 98% 02/04/2025 9:15 AM CDT Inhaled Oxygen Concentration - - Weight 119.3 kg (263 lb) 02/04/2025 9:15 AM CDT Height 165.1 cm (5' 5) 02/04/2025 9:15 AM CDT Body Mass Index 43.77 02/04/2025 9:15 AM CDT Plan of Treatment Health Maintenance Due Date Last Done Comments Influenza Vaccine (#1) 2025 , 05/01/2023, 04/26/2022, Additional history exists Hemoglobin A1C 05/09/2025 11/07/2024, 06/30, 02/08/2024, Additional history exists Lipid Panel 07/10/2025 07/10/2024, 09/01, 04/24/2023, Additional history exists Regular Well Visit/Exam 18-64 07/18/2025 07/18/2024, 05/01/2023, 04/26/2022, Additional history exists Zoster Vaccine (1 of 2) 07/18/2025 Post poned from 01/12/1980 (Patient declined, but will receive in the future) Covid-19 Vaccine ( season) 2025 05/29/2021, 11/23/2020, 10/26/2020 Postponed from 03/31/2024 (Patient declined, but will receive in the future) TSH Level 11/07/2025 11/07/2024, 04/0 01/2025, 07/10/2024, Additional history exists Breast Cancer Screening-Mammogram 11/13/2025 11/13/2024, 11/13/2023, 09/06/2022, Additional history exists Dilated Eye Exam 12/20/2025 12/20/2024, , 01/23/2024, Additional history exists Albumin Creatinine Ratio, Urine 01/15/2026 01/15/2025, 11/07/2024, 07/10/2024, Additional history exists eGFR 01/15/2026 01/15/2025, 10/29, 11/04/2024, Additional history exists Foot Exam 01/22/2026 01/22/2025, 12/29, 11/29/2022, Additional history exists Depression Screening 02/04/2026 02/04/2025, 10/31/2024, 10/18/2024, Additional history exists Pneumococcal vaccine <65 (4 of 4 - PCV20 or PCV21) 04/19/2026 04/19/2021, 04/03/2014, 02/16/2010, Additional history exists Colon Cancer Screening-Colonoscopy 08/13/2026 08/13/2024, 09/11/2012, 09/11/2012 Osteoporosis Screening-Bone Density Scan 12/20/2026 12/20/2024, 06/17/2021, 03/19/2012, Additional history exists DTaP/Tdap/Td Vaccine (4 - Td or Tdap) 02/27/2033 02/27/2023, 12/13/2020, 09/02/2009 Hepatitis C Screening Completed 04/24/2023 , 04/25/2022, 08/18/2016, Additional history exists Hepatitis B Screening Completed 07/10/2024 Colon Cancer Screening-CT Colonography Discontinued 08/13/2024, 09/11/2012, 09/11/2012 Colon Cancer Screening-DNA Stool Discontinued 08/13/2024, 09/11/2012, 09/11/2012 Colon Cancer Screening-FIT Discontinued 08/13, 09/11/2012, 09/11/2012 Colon Cancer Screening-Sigmoidoscopy Discontinued 08/13/2024, 09/11/2012, 09/11/2012 Medical Devices Implanted Type Area Optical Engineering Technician Device Identifier Shelf Expiration Date Model / Serial / Lot Bard Peripheral Vascular [id number] Ultraclip Bard 17ga 10cm 2 Trigger Permanent Ultrasound - [id number] - [id number] Implanted:Qty: 1 on 10/06/2021 by Rhys Dutta MD at [facility] Breast Right: Breast Bard Peripheral Vascular 04/27/2024 [id number] / [id number] / Description:Implanted Right Breast 10:00 area 9cmfn Bard Peripheral Vascular Ultraclip Bard 17ga 10cm 2 Trigger Permanent Ultrasound [id number] - [id number] - [id number] Implanted:Qty: 1 on 11/22/2023 by Rabia Singleton MD at [facility] Breast Right: Breast Bard Peripheral Vascular 05/27/2026 [id number] / [id number])[id number] / [id number] Description:Implanted Right Breast 11:00 area 4 cmfn Angio-Seal Evolution 6fr Vascular Closure [id number] - [id number] - [id number] Implanted:Qty: 1 on 12/14/2021 by Kehinde Robles MD at [facility] Collagen Terumo Medical Lyndon 06/29/2022 [id number] / [id number] / [id number] Wall [employer] C.R.M. 7740 Ingevity 6fr 45cm Bipolar Active Fixation Radiopaque Is-1 - [id number] - [id number] Implanted:Qty: 1 on 08/24/2018 by Praful Camacho MD PhD at [facility] Lead Left: Chest [employer] C.R.M. 11/21/2019 7740 / [id number] / Wall [employer] C.R.M. 7741 Ingevity 6fr 52cm Bipolar Active Fixation Radiopaque Is-1 - [id number] - [id number] Implanted:Qty: 1 on 08/24/2018 by Praful Camacho MD PhD at [facility] Lead Left: Chest [employer] C.R.M. 04/25/2020 7741 / [id number] / Wall [employer] C.R.M. L111 Essentio 4.45x5.02cm 2 Chamber Is1 Connector .75cm Pacemaker 13.7 - [id number] - [id number] Implanted:Qty: 1 on 08/24/2018 by Praful Camacho MD PhD at [facility] Pacemaker Left: Chest [employer] C.R.M. 06/27/2020 L111 / [id number] / Graft Soft Tissue Epifix 12sq Cm Dehydrated Human Amnion - [id number] - [id number] Implanted:Qty: 1 on 10/06/2017 by Austen Gannon DPM at [facility] Left: Foot Mimedex [employer] Inc 07/31/2022 ES-4400 / [id number] / Small Bone Intermedullary Domenic System Implanted:Qty: 1 on 01/20/2019 by Akin Baird MD at [facility] Left: Ankle Acumed Inc C1713 02/15/2025 40-0026- S / / [id number] Acumed Inc Co-3450-S 3.5mm 45mm Nonlock Cortical Screw Bone Titanium Sterile - [id number] Implanted:Qty: 1 on 01/20/2019 by Akin Baird MD at [facility] Left: Ankle [employer]umed Inc 12/06/2024 CO-3450- S / / [id number] Trilliant Screw Implanted:Qty: 1 on 01/20/2019 by Akin Baird MD at [facility] Left: Ankle Trilliant Surgical Ltd C1713 01/27/2019 200-40-0 40 / / Axogen Inc [id number] Axoguard 10mm 40mm Multilaminar Protector Nerve Extracellular - [id number] Implanted:Qty: 1 on 09/16/2021 by Felicia Vargas MD at [facility] Left: Wrist Axogen Inc 07/11/2022 [id number] / / [id number] Arthrex Inc Suture Opp Full Thread Knotless Twist In Swivelock 2.5x7mm Titanium Ar-8998t - [id number] Implanted:Qty: 1 on 12/09/2024 by Jolly Fry MD at [facility] Right: Ring Finger Arthrex Inc [id number] 01/28/2028 AR-8998T / / [id number] Arthrex Inc Suture Opp Full Thread Knotless Twist In Swivelock 2.5x7mm Titanium Ar-8998t - [id number] Implanted:Qty: 1 on 12/09/2024 by Jolly Fry MD at [facility] Right: Ring Finger Arthrex Inc [id number] 01/28/2028 AR-8998T / / [id number] Explanted Type Area Optical Engineering Technician Device Identifier Shelf Expiration Date Model / Serial / Lot Izi Medical Inc Kopans 20ga 7cm Spring Hook Wire Standard Needle Localization [id number] - [id number] - [id number] Explanted:Qty: 1 on 10/29/2021 at [facility] Breast Right: Breast Izi Medical Inc 07/19/2024 [id number] / [id number] / Acumed Inc Co-3220-S 3.5mm 22mm Nonlock Cortical Screw Bone Titanium Sterile - [id number] Implanted:Qty: 1 on 01/20/2019 by Akin Baidr MD at [facility] Explanted:Qty: 1 on 07/02/2019 by Akin Baird MD Left: Ankle Acumed Inc 07/02/2025 CO-3220-S / / [id number] Procedures Procedure Name Priority Date/Time Associated Diagnosis Comments DEVICE CHECK - REMOTE Routine 02/17/2025 2:31 AM CDT XR SPINE LUMBAR 2 OR 3 VIEWS Schedule Routine, Read Routine (OP Routine) 02/05/2025 9:40 AM CDT Bilateral hip pain Acute bilateral low back pain with bilateral sciatica XR HIPS BILATERAL 3 OR 4 VW Schedule Routine, Read Routine (OP Routine) 02/05/2025 9:40 AM CDT Bilateral hip pain Acute bilateral low back pain with bilateral sciatica XR ANKLE LEFT 3 OR MORE VIEWS Schedule Routine, Read Routine (OP Routine) 01/28/2025 2:13 PM CDT Left ankle pain, unspecified chronicity POCT GLUCOSE Routine 01/22/2025 1:36 PM CDT Type 1 diabetes mellitus with hyperglycemia (HCC) EGFR Routine 01/15/2025 8:12 AM CDT DIFFERENTIAL AUTO Routine 01/15/2025 8:1 2 AM CDT OSMOLALITY, URINE Routine 01/15/2025 8:1 2 AM CDT POTASSIUM, URINE, RANDOM Routine 01/15/2025 8:12 AM CDT CHLORIDE, URINE, RANDOM Routine 01/15/2025 8:12 AM CDT SODIUM, URINE, RANDOM Routine 01/15/2025 8:12 AM CDT PROTEIN / CREATININE RATIO, URINE, RANDOM Routine 01/15/2025 8:12 AM CDT ALBUMIN CREATININE RATIO, URINE Routine 01/15/2025 8:12 AM CDT VITAMIN D 25 HYDROXY Routine 01/15/2025 8:12 AM CDT PTH Routine 01/15/2025 8:12 AM CDT CBC WITH AUTO DIFFERENTIAL Routine 01/15/2025 8:12 AM CDT ERYTHROCYTE SEDIMENTATION RATE Routine 01/15/2025 8:12 AM CDT URIC ACID Routine 01/15/2025 8:12 AM CDT COMPREHENSIVE METABOLIC PANEL Routine 01/15/2025 8:12 AM CDT URINALYSIS AND REFLEX TO MICROSCOPIC AND CULTURE Routine 01/15/2025 8:12 AM CDT DEXA AXIAL SKELETON BONE DENSITY 1 OR MORE SITES Schedule LESLY, Read LESLY (Appt Today, Awaiting Results) 12/20/2024 8:21 AM CDT Malignant neoplasm of upper-outer quadrant of right breast in female, estrogen receptor positive (HCC) Malignant neoplasm of breast in female, estrogen receptor positive, unspecified laterality, unspecified site of breast (HCC) Hypothyroidism, unspecified type 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 DIABETIC EYE EXAM Routine 12/20/2024 POCT GLUCOSE DEVICE Routine 12/09/2024 12:46 PM CDT XR HAND RIGHT 2 VIEWS IP Routine 12/09/2024 12:17 PM CDT FL FLUOROSCOPY < 1 HOUR IP Routine 12/09/2024 12:17 PM CDT POCT GLUCOSE DEVICE Routine 12/09/2024 12:06 PM CDT POCT GLUCOSE DEVICE Routine 12/09/2024 11:44 AM CDT POCT GLUCOSE DEVICE Routine 12/09/2024 11:08 AM CDT LA AN ELECTIVE SUPRAGLOTTIC AIRWAY Routine 12/09/2024 9:54 AM CDT EXCISION SOFT TISSUE MASS 12/09/2024 9:39 AM CDT Injury of collateral ligament of finger of right hand, initial encounter Closed injury of digital nerve of finger Special Needs HAND SET, MINI C-ARM, ARTHREX INTERNAL BRACE REPAIR LIGAMENT 12/09/2024 9:39 AM CDT Injury of collateral ligament of finger of right hand, initial encounter Closed injury of digital nerve of finger Special Needs HAND SET, MINI C-ARM, ARTHREX INTERNAL BRACE POCT GLUCOSE DEVICE Routine 12/09/2024 8 :34 AM CDT POTASSIUM, WHOLE BLOOD STAT 12/09/2024 7:20 AM CDT POCT GLUCOSE DEVICE Routine 12/09/2024 7 :09 AM CDT SCREENING MAMMOGRAM BILATERAL W CHARANJIT Schedule Routine, Read Routine (OP Routine) 11/13/2024 8:48 AM CDT Screening mammogram, encounter for HEMOGLOBIN A1C Routine 11/07/2024 8:09 AM CDT TSH Routine 11/07/2024 8:09 AM CDT COLONOSCOPY 08/13/2024 12:14 PM SOAKING ROOM OPERATOR LIPID PANEL Routine 07/10/2024 8:28 AM SOAKING ROOM OPERATOR Essential hypertension Mixed diabetic hyperlipidemia associated with type 1 diabetes mellitus (HCC) HEPATITIS C ANTIBODY Routine 04/24/2023 9:59 AM CDT Need for hepatitis C screening test HM DIABETES FOOT EXAM Routine 08/30/2017 from Last 3 Months or Most Recently Relevant to Health Maintenance Results * DEVICE CHECK - REMOTE (02/17/2025 2:31 AM CDT) Anatomical Region Laterality Modality Other 02/17/2025 2:31 AM CDT Narrative 02/25/2025 8:39 PM CDT Interpretation Summary: Battery and Leads (BL) Normal parameters noted on battery and lead(s) --- 2.5 years remaining (this is an estimate based on prior usage) Presenting Rhythm (LA) Atrial Pacing-Ventricular Sensing (AP-VS) Arrhythmic events (AE) No new arrhythmic events in monitoring period Anticoagulation (AC) Patient is not on anticoagulant therapy Patient on antiplatelet therapy Transmission Information (TI) Device Summary Report Procedure Note Praful Camacho MD PhD - 02/25/2025 Interpretation Summary: Battery and Leads (BL) Normal parameters noted on battery and lead(s) --- 2.5 years remaining(this is an estimate based on prior usage) Presenting Rhythm (LA) Atrial Pacing-Ventricular Sensing (AP-VS) Arrhythmic events (AE) No new arrhythmic events in monitoring period Anticoagulation (AC) Patient is not on anticoagulant therapy Patient on antiplatelet therapy Transmission Information (TI) Device Summary Report Praful Camacho MD PhD [facility] PROCEDURES Final Result * XR Hips Bilateral 3 or 4 Views (02/05/2025 9:40 AM CDT) Anatomical Region Laterality Modality Lower Extremities, Hip, Pelvis Bilateral C omputed Radiography 02/06/2025 1:34 PM CDT Narrative 02/06/2025 1:35 PM CDT EXAM DESCRIPTION: 1. XR HIPS BILATERAL 3 OR 4 VW; 2. XR SPINE LUMBAR 2 OR 3 VIEWS REASON FOR STUDY: hip pain back pain Pt complains of bilateral leg pain at night Sciatica pain that radiates down the right leg No known injury No surgeries FINDINGS: Four views hips and three views lumbar spine submitted with comparison 06/12/2024, 10/07/2024. Lumbar spine: No acute fracture. Mild L1-L5 degenerative disc disease with pwbx-ui-tzldtiti multilevel lumbar facet osteoarthritis. Arterial atherosclerosis is present. Hips: No acute fracture. Alignment is normal. Mild bilateral hip osteoarthritis. IMPRESSION: 1. Mild L1-L5 degenerative disc disease with gqhj-el-apngmrfu multilevel lumbar facet osteoarthritis. 2. Mild bilateral hip osteoarthritis. THIS IS AN ELECTRONICALLY VERIFIED FINAL REPORT 02/06/2025 1:35 PM - Electronically signed by Clarence Cortes M.D. MF: RICHIE Report ID: [id number] Reading Location: [id number] Procedure Note Clarence Cortes MD - 02/06/2025 EXAM DESCRIPTION: 1. XR HIPS BILATERAL 3 OR 4 VW; 2. XR SPINE LUMBAR 2 OR 3 VIEWS REASON FOR STUDY: hip pain back pain Pt complains of bilateral leg pain at night Sciatica pain that radiatesdown the right leg No known injury No surgeries FINDINGS: Four views hips and three views lumbar spine submitted with comparison 06/12/2024, 10/07/2024. Lumbar spine: No acute fracture. Mild L1-L5 degenerative disc disease dylmpogd-sv-zudrsqsf multilevel lumbar facet osteoarthritis. Arterial atherosclerosis ispresent. Hips: No acute fracture. Alignment is normal. Mild bilateral hiposteoarthritis. IMPRESSION: 1. Mild L1-L5 degenerative disc disease with crws-qv-jhyovbuq multilevel lumbar facet osteoarthritis. 2. Mild bilateral hip osteoarthritis. THIS IS AN ELECTRONICALLY VERIFIED FINAL REPORT 02/06/2025 1:35 PM - Electronically signed by Clarence Cortes M.D. MF: RICHIE Report ID: [id number] Reading Location: [place] [address] Zulema Soto MD IMG XR PROCEDURES Fin al Result * XR Spine Lumbar 2 Or 3 Vw (02/05/2025 9:40 AM CDT) Anatomical Region Laterality Modality Spine N/A Computed Radiogr aphy 02/06/2025 1:34 PM CDT Narrative 02/06/2025 1:35 PM CDT EXAM DESCRIPTION: 1. XR HIPS BILATERAL 3 OR 4 VW; 2. XR SPINE LUMBAR 2 OR 3 VIEWS REASON FOR STUDY: hip pain back pain Pt complains of bilateral leg pain at night Sciatica pain that radiates down the right leg No known injury No surgeries FINDINGS: Four views hips and three views lumbar spine submitted with comparison 06/12/2024, 10/07/2024. Lumbar spine: No acute fracture. Mild L1-L5 degenerative disc disease with cnke-hv-eghhkfht multilevel lumbar facet osteoarthritis. Arterial atherosclerosis is present. Hips: No acute fracture. Alignment is normal. Mild bilateral hip osteoarthritis. IMPRESSION: 1. Mild L1-L5 degenerative disc disease with qsnm-ja-nwpuctql multilevel lumbar facet osteoarthritis. 2. Mild bilateral hip osteoarthritis. THIS IS AN ELECTRONICALLY VERIFIED FINAL REPORT 02/06/2025 1:35 PM - Electronically signed by Clarence Cortes M.D. MF: RICHIE Report ID: [id number] Reading Location: [id number] Procedure Note Clarence Cortes MD - 02/06/2025 EXAM DESCRIPTION: 1. XR HIPS BILATERAL 3 OR 4 VW; 2. XR SPINE LUMBAR 2 OR 3 VIEWS REASON FOR STUDY: hip pain back pain Pt complains of bilateral leg pain at night Sciatica pain that radiatesdown the right leg No known injury No surgeries FINDINGS: Four views hips and three views lumbar spine submitted with comparison 06/12/2024, 10/07/2024. Lumbar spine: No acute fracture. Mild L1-L5 degenerative disc disease vhozmfix-jy-ptwvswoi multilevel lumbar facet osteoarthritis. Arterial atherosclerosis ispresent. Hips: No acute fracture. Alignment is normal. Mild bilateral hiposteoarthritis. IMPRESSION: 1. Mild L1-L5 degenerative disc disease with uofh-da-bkjpvinp multilevel lumbar facet osteoarthritis. 2. Mild bilateral hip osteoarthritis. THIS IS AN ELECTRONICALLY VERIFIED FINAL REPORT 02/06/2025 1:35 PM - Electronically signed by Clarence Cortes M.D. MF: RICHIE Report ID: [id number] Reading Location: [id number] Zulema Soto MD IMG XR PROCEDURES [facility] al Result * XR Ankle Left 3 or More Views (01/28/2025 2:13 PM CDT) Anatomical Region Laterality Modality Lower Extremities, Ankle Left Digital Radiography Narrative 01/28/2025 2:47 PM CDT X-ray of the left ankle viewed and interpreted. Status post ORIF changes are noted with plate and screws in acceptable position. Posttraumatic osteoarthritic changes are noted. Praful Greene NP IMG XR PROCEDURES Final Result * POCT glucose (01/22/2025 1:36 PM CDT) Glucose Blood, POC 86 Normal Fasting 70 - 100, Random <200 mg/dL Blood 01/22/2025 1:36 PM CDT us Juliana King NP POINT OF CARE TEST ORDERA BLES Final Result * (ABNORMAL) eGFR (01/15/2025 8:12 AM CDT) eGFR 25(L) >=60 mL/min/1. 73 m2 Comment: Interpretive Data Reference Interval Normal >/= 90 mL/min/1.73m2 Mildly decreased* 60 - 89 mL/min/1.73m2 Mildly to moderately decreased 45 - 59 mL/min/1.73m2 Moderately to severely decreased 30 - 44 mL/min/1.73m2 Severely decreased 15 - 29 mL/min/1.73m2 Kidney Failure < 15 mL/min/1.73m2 *Relative to young adult level Estimated glomerular filtration rate is determined by the 2020 CKD-EPI equation recommended by the National Kid[employer] (A Unifying Approach to GFR Estimation: Recommendations of the NKF-ASK Task Force on Reassessing the Inclusion of Race in Diagnosing Kidney Disease, JASN 2020). The CKD-EPI equation should not be used for patients with unstable renal function and has not been validated in children and those over 70. Current interpretive data was last reviewed 2021. Testing performed by: [address] [address] Blood 01/15/2025 8:12 AM CDT 01/15/2025 3:33 PM CDT us Teo Avelar MD LAB BLOOD ORDERABLES Final Res ult JOSE MARIA ALMEIDA (UNITY) 1 [facility] [place] [address] * Differential, auto (01/15/2025 8:12 AM CDT) Pathologist [facility] Neutrophil abs 4.94 1.50 - 6.50 K/cumm Comment:Testing performed by : [address] [address] Imm gran abs 0.02 0.00 - 0.10 K/cumm JOSE MARIA ALMEIDA (UNITY) Comment:Testing performed by : [address], [place]., [address] Lymphocyte abs 1.02 0.80 - 3.30 K/cumm [facility] ([place]) Comment:Testing performed by : [address] [address] Monocyte abs 0.38 0.20 - 0.80 K/cumm [facility] ([place]) Comment:Testing performed by : [facility], [address] [place] [address]., [address] Eosinophil abs 0.12 0.00 - 0.50 K/cumm [facility] ([place]) Comment:Testing performed by : [facility], [address] [place] [address]., [address] Basophil abs 0.07 0.00 - 0.10 K/cumm [facility] ([place]) Comment:Testing performed by : [address] [address] Neutrophil pct 75.4 % [facility] ([place]) Comment: Interpretive Data Percent cell count reference ranges are not reported, since discordance with absolute values may lead to misinterpretation of CBC data. Current Interpretive Data was last revised on 2017. Testing performed by: [address] [address] Imm gran pct 0.3 % [facility] ([place]) Comment: Interpretive Data Percent cell count reference ranges are not reported, since discordance with absolute values may lead to misinterpretation of CBC data. Current Interpretive Data was last revised on 2017. Testing performed by: [address] [address] Lymphocyte pct 15.6 % [facility] ([place]) Comment: Interpretive Data Percent cell count reference ranges are not reported, since discordance with absolute values may lead to misinterpretation of CBC data. Current Interpretive Data was last revised on 2017. Testing performed by: [address] [address] Monocyte pct 5.8 % [facility] ([place]) Comment: Interpretive Data Percent cell count reference ranges are not reported, since discordance with absolute values may lead to misinterpretation of CBC data. Current Interpretive Data was last revised on 2017. Testing performed by: [facility] [address] [place] [address]., [address] Eosinophil pct 1.8 % JAZLYN ALMEIDA (UNITY) Comment: Interpretive Data Percent cell count reference ranges are not reported, since discordance with absolute values may lead to misinterpretation of CBC data. Current Interpretive Data was last revised on 2017. Testing performed by: [facility], [address] [place] [address]., [address] Basophil pct 1.1 % JOSE MARIA ALMEIDA ([place]) Comment: Interpretive Data Percent cell count reference ranges are not reported, since discordance with absolute values may lead to misinterpretation of CBC data. Current Interpretive Data was last revised on 2017. Testing performed by: [address] [address] Blood 01/15/2025 8:12 AM CDT 01/15/2025 3:17 PM CDT us Teo Avelar MD LAB BLOOD ORDERABLES Final Res ult JOSE MARIA ALMEIDA (UNITY) 1 [facility] Department [place] [address] * Urinalysis reflex to microscopic and culture Urine, clean voided (01/15/2025 8:12 AM CDT) Color, ur Straw Yellow Comment:Testing performed by : [address] [address] Clarity, ur Clear Clear JOSE MARIA Sosa (UNITY) Comment:Testing performed by : [address] [address] Specific gravity, ur 1.011 1.003 - 1.030 JOSE MARIA ALMEIDA ([place]) Comment:Testing performed by : [address] [address] pH, urine 6.0 JOSE MARIA ALMEIDA ([place]) Comment: Interpretive Data U rine pH is affected by diet, medications, systemic acid-base disturbances, and renal tubular function. pH may affect urinary stone formation. For example, urine pH below 6.0 may help reduce the tendency for calcium phosphate stones and pH greater than 6.0 may reduce the tendency for uric acid stone formation. Source: [facility] Current Interpretive Data was last revised on 2017 Testing performed by: [facility], [address] [place] [address]., [address] Protein, ur ql Negative Negative [facility] ([place]) Comment:Testing performed by : [facility], [address] [place] [address], [address] Glucose, ur ql Negative Negative [facility] ([place]) Comment:Testing performed by : [facility], [address] [place] [address]., [address] Ketones, ur Negative Negative [facility] ([place]) Comment:Testing performed by : [address], [address] Bilirubin, ur Negative Negative [facility] ([place]) Comment:Testing performed by : [address], [address] Blood, ur Negative Negative [facility] ([place]) Comment:Testing performed by : [address], [address] Urobilinogen, ur <2.0 <2.0 mg/dL [facility] ([place]) Comment:Testing performed by : [address], [address] Nitrite, ur Negative Negative [facility] ([place]) Comment:Testing performed by : [address], [address] Leukocyte esterase, ur Negative Negative [facility] ([place]) Comment:Testing performed by : [address], [address] UA reflex comment Reflex conditions for microscopic UA and culture not met. [facility] ([place]) Comment:Testing performed by : [address], [address] Urine, clean voided 01/15/2025 8:12 AM CDT 01/15/2025 3:17 PM CDT us Teo Avelar MD LAB MICROBIOLOGY - GENERAL ORD ERABLES Final Result JOSE MARIA ALMEIDA ([place]) 1 [facility] Department [place] [address] * CBC with auto differential (01/15/2025 8:12 AM CDT) WBC 6.55 3.80 - 9.90 K/cumm Comment:Testing performed by : [address], [address] Hgb 13.0 11.9 - 15.5 g/dL [facility] ([place]) Comment:Testing performed by : [address], [address] Hct 40.1 35.6 - 45.5 % [facility] ([place]) Comment:Testing performed by : [address], [address] Plt 188 150 - 400 K/cumm [facility] ([place]) Comment:Testing performed by : [address], [address] MPV 10.2 9.1 - 12.3 fL [facility] ([place]) Comment:Testing performed by : [address], [address] RBC 4.52 3.90 - 5.20 M/cumm [facility] ([place]) Comment:Testing performed by : [address], [address] MCV 88.7 81.3 - 96.4 fL [facility] ([place]) Comment:Testing performed by : [address], [address] MCH 28.8 27.1 - 33.3 pg [facility] ([place]) Comment:Testing performed by : [address], [address] MCHC 32.4 32.3 - 35.7 g/dL [facility] ([place]) Comment:Testing performed by : [address], [address] RDW CV 13.0 11.1 - 14.9 % [facility] ([place]) Comment:Testing performed by : [address], [address] RDW SD 42.6 35.7 - 48.1 fL [facility] ([place]) Comment:Testing performed by : [facility], [address] [place] [address]., [address] NRBC abs 0.00 0.00 - 0.01 K/cumm JOSE MARIA ALMEIDA ([place]) Comment:Testing performed by : [facility], [address] [place] [address]., [address] Blood 01/15/2025 8:12 AM CDT 01/15/2025 3:17 PM CDT Teo Avelar MD LAB BLOOD ORDERABLES Final Res ult Performing Organization Address [facility]/ZIP Co de Phone Number JOSE MARIA ALMEIDA ([place]) 1 [facility] [place] [address] * (ABNORMAL) Protein / creatinine ratio, urine, random (01/15/2025 8:12 AM CDT) Protein, ur, quant 12.6 mg/dL Comment: Interpretive Data No reference range established. Current interpretive data was last revised 2018. Testing performed by: [facility], [address] [place] [address], [address] Creatinine Ur 51.3 mg/dL JOSE MARIA ALMEIDA ([place]) Comment: Interpretive Data No reference range established. Current interpretive data was last revised 2018. Testing performed by: [address] [address] Protein/creatinin e ratio 245.6(H) 0.0 - 180.0 mg/g CR JOSE MARIA ALMEIDA ([place]) Comment:Testing performed by : [address] [address] Urine 01/15/2025 8:12 AM CDT 01/15/2025 3:17 PM CDT Teo Avelar MD LAB URINE ORDERABLES Final Res ult Performing Organization Address [facility]/ZIP Co de Phone Number JOSE MARIA ALMEIDA ([place]) 1 [facility] [place] [address] * (ABNORMAL) Albumin Creatinine Ratio, Urine (01/15/2025 8:12 AM CDT) Albumin Ur 60.6 mg/L Comment: Interpretive Data No reference range established. Current interpretive data was last revised 2018. Testing performed by: [facility], [address] [place] [address]., [address] Creatinine Ur 51.3 mg/dL JOSE MARIA ALMEIDA ([place]) Comment: Interpretive Data No reference range established. Current interpretive data was last revised 2018. Testing performed by: [facility], [address] [place] [address]., [address] Albumin Creatinine Ratio, Ur 118(H) 1 - 29 mg/g JOSE MARIA ALMEIDA ([place]) Comment:Testing performed by : [facility], [address] [place] [address]., [address] Urine 01/15/2025 8:12 AM CDT 01/15/2025 3:17 PM CDT Teo Avelar MD LAB URINE ORDERABLES Final Res ult Performing Organization Address [facility]/ZIP Co de Phone Number JOSE MARIA ALMEIDA ([place]) 1 [facility] [place] [address] * Sodium, urine, random (01/15/2025 8:12 AM CDT) Sodium, ur 96 mmol/L Comment: Interpretive Data No reference range established. Current interpretive data was last revised 2018. Testing performed by: [facility], [address] [place] [address]., [address] Urine 01/15/2025 8:12 AM CDT 01/15/2025 3:17 PM CDT Narrative JOSE MARIA ALMEIDA ([place]) - 01/15/2025 4:02 PM CDT No normal range Teo Avelar MD LAB URINE ORDERABLES Final Res ult Performing Organization Address City/[facility]/ZIP Co de Phone Number JOSE MARIA ALMEIDA ([place]) 1 [facility] [place] [address] * Potassium, urine, random (01/15/2025 8:12 AM CDT) Potassium conc, ur 29.7 mmol/L Comment: Interpretive Data No reference range established. Current interpretive data was last revised 2018. Testing performed by: [facility], [address] [place] [address]., [address] Urine 01/15/2025 8:12 AM CDT 01/15/2025 3:17 PM CDT Teo Avelar MD LAB URINE ORDERABLES Final Res ult Performing Organization Address City/[facility]/ZIP Co de Phone Number MARGARETTEMIKE ALMEIDA (UNITY) 1 [facility] [place] [address] * Osmolality, urine (01/15/2025 8:12 AM CDT) Osmo, ur 395 mOsm/kg Comment:Testing performed by : [facility], [address] [place] [address], [address] Urine 01/15/2025 8:12 AM CDT 01/15/2025 5:37 PM CDT Teo Avelar MD LAB URINE ORDERABLES Final Res ult Performing Organization Address City/[facility]/ZIP Co de Phone Number MARGARETTEMIKE ALMEIDA ([place]) 1 [place] [address] * Chloride, urine, random (01/15/2025 8:12 AM CDT) Chloride, ur 84 mmol/L Comment: Interpretive Data No reference range established. Current interpretive data was last revised 2018. Testing performed by: [facility], [address] [place] [address], [place]., [address] Urine 01/15/2025 8:12 AM CDT 01/15/2025 3:17 PM CDT Narrative JOSE MARIA ALMEIDA (UNITY) - 01/15/2025 4:02 PM CDT No normal range Teo Avelar MD LAB URINE ORDERABLES Final Res ult Performing Organization Address [facility]/ZIP Co de Phone Number JOSE MARIA ALMEIDA ([place]) 1 [place] [address] * Vitamin D 25 hydroxy (01/15/2025 8:12 AM CDT) Vitamin D 25-OH 48 30 - 80 ng/mL Comment:Testing performed by : [facility], [address] [place] [address], [address] Blood 01/15/2025 8:12 AM CDT 01/15/2025 3:17 PM CDT Teo Avelar MD LAB BLOOD ORDERABLES Final Res ult Performing Organization Address [facility] Co de Phone Number JOSE MARIA ALMEIDA (UNITY) 1 [place] [address] * (ABNORMAL) Erythrocyte sedimentation rate (01/15/2025 8:12 AM CDT) Erythrocyte sedimentation rate 60(H) 1 - 30 mm/hr Comment:Testing performed by : [facility], [address] [place] [address], [place]., [address] Blood 01/15/2025 8:12 AM CDT 01/15/2025 3:17 PM CDT Teo Avelar MD LAB BLOOD ORDERABLES Final Res ult Performing Organization Address [facility] Co de Phone Number JOSE MARIA ALMEIDA (UNITY) 1 [place] [address] * (ABNORMAL) Uric acid (01/15/2025 8:12 AM CDT) Uric acid 10.2(H) 2.5 - 7.0 mg/dL Comment:Testing performed by : [address] [place] [address] Blood 01/15/2025 8:12 AM CDT 01/15/2025 3:17 PM CDT us Teo Avelar MD LAB BLOOD ORDERABLES Final Res ult JOSE MARIA ALMEIDA (UNITY) 1 [facility] [place] [address] * PTH (01/15/2025 8:12 AM CDT) PTH 43 15 - 65 pg/mL Comment:Testing performed by : [facility], [address] [place] [address], [address] Blood 01/15/2025 8:12 AM CDT 01/15/2025 3:17 PM CDT us Teo Avelar MD LAB BLOOD ORDERABLES Final Res ult Performing Organization Address [facility] Co de Phone Number JOSE MARIA ALMEIDA (UNITY) 1 [facility] [place] [address] * (ABNORMAL) Comprehensive metabolic panel (01/15/2025 8:12 AM CDT) Pathologist [facility] Sodium 140 135 - 145 mmol/L Comment:Testing performed by : [facility], [address] [place] [address]., [address] Potassium, pl 4.5 3.3 - 4.9 mmol/L [facility] ([place]) Comment:Testing performed by : [facility], [address] [place] [address], [address] Chloride 103 97 - 110 mmol/L [facility] ([place]) Comment:Testing performed by : [address], [address] CO2 25 22 - 32 mmol/L [facility] ([place]) Comment:Testing performed by : [address], [address] Anion gap 12 2 - 15 mmol/L [facility] ([place]) Comment:Testing performed by : [address], [address] BUN 48(H) 6 - 25 mg/dL [facility] ([place]) Comment:Testing performed by : [address] [address] Creatinine 2.18(H) 0.60 - 1.10 mg/dL [facility] ([place]) Comment:Testing performed by : [address] [address] Glucose 92 70 - 199 mg/dL [facility] ([place]) Comment: Interpretive Data Fasting glucose >/= 126 mg/dl is diagnostic for diabetes. Fasting is defined as no caloric intake for at least 8 hours. Fasting glucose between 100 mg/dl to 125 mg/dl is diagnostic of prediabetes. In a patient with classic symptoms of hyperglycemia or hyperglycemic crisis, a random glucose >/= 200 mg/dl is diagnostic for diabetes. In the absence of unequivocal hyperglycemia, results should be confirmed by repeat testing. The classification and Diagnosis of Diabetes Diabetes Care 2021; 46: S19-S40. Current interpretive data was last revised 2022. Testing performed by: [address], [address] Calcium 10.0 8.5 - 10.3 mg/dL [facility] ([place]) Comment:Testing performed by : [address], [address] Bilirubin, total 0.4 0.1 - 1.2 mg/dL [facility] ([place]) Comment:Testing performed by : [address], [address] Protein, pl 7.4 6.5 - 8.5 g/dL [facility] ([place]) Comment:Testing performed by : [address], [address] Albumin 4.2 3.5 - 5.0 g/dL [facility] ([place]) Comment:Testing performed by : [address], [address] Alk phos 127 40 - 130 Units/L [facility] ([place]) Comment:Testing performed by : [address], [address] ALT 18 7 - 45 Units/L [facility] ([place]) Comment:Testing performed by : [address], [address] AST 22 10 - 45 Units/L [facility] ([place]) Comment:Testing performed by : [facility], [id number] [place] [address], [place]., [address] Blood 01/15/2025 8:12 AM CDT 01/15/2025 3:17 PM CDT us Teo Avelar MD LAB BLOOD ORDERABLES Final Res ult JOSE MARIA ELLE (UNITY) 1 [facility] [place] [address] * Dexa Axial Skeleton Bone Density 1 or 2 Site (12/20/2024 8:21 AM CDT) Anatomical Region Laterality Modality Body N/A Other 12/20/2024 2:49 PM CDT Narrative 12/20/2024 4:52 PM CDT EXAM DESCRIPTION: DEXA AXIAL SKELETON BONE DENSITY 1 OR MORE SITES REASON FOR STUDY: 64 y/o year old F with given history of: routine screening, pt. 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 CLINICAL INFORMATION: Current height: 65 inches Maximum height: 66 inches Weight: 260 pounds Risk factors: Postmenopausal, parental hip fracture, cancer, end-stage renal disease, asthma or emphysema COMPARISON: 06/17/2021 Dissimilar scan types or analysis methods precludes assessment for calculating a significant change. FINDINGS: AP LUMBAR SPINE L1-L4: Total BMD is 1.113 g/cm2 T-score is 0.6 LEFT HIP: Total BMD is 0.914 g/cm2 T-score is -0.2 Femoral neck BMD is 0.719 g/cm2 T-score is -1.2 FRAX: 10 year risk for a major osteoporotic fracture is 14 %, 10 year risk for a hip fracture is 0.5 % Per National [employer]oporosis Foundation guidelines, this patient does not meet the criteria for pharmacological treatment of patients with FRAX 10 year major osteoporotic fracture risk scores of = or greater than 20% or a 10 year probability of a hip fracture = or greater than 3%, to reduce fracture risk. Additional factors such as frequent falls are not represented in FRAX and warrant individual clinical judgment. IMPRESSION: Low Bone Mass. REFERENCE: Bone mineral density: T-Score: Normal (T-score above or = -1.0) Low bone mass (T-score between -1.0 and -2.5) replaces the previously used term osteopenia Osteoporosis (T-score = or below -2.5) Z-Score: Within the expected range for age (Z-score above -2.0) Below the expected range for age (Z-score is -2.0 or below) Please see below follow up recommendations. Medical evaluation for secondary causes of low bone mineral density may be appropriate. FRAX is a World Health Organization validated fracture risk assessment tool that calculates a person's 10 year probability of a major osteoporosis related fracture and hip fracture. According to the National Osteoporosis Foundation guidelines, postmenopausal women and men age 50 or older with low bone mass and a 10 year probability of a major osteoporosis related fracture = or greater than 20% or a 10 year probability of a hip fracture = or greater than 3% should be considered for pharmacological treatment for the prevention of osteoporosis. For further information, including treatment recommendations, please refer to the 2019 ISCD Official Positions (http://www.iscd.org) and the NOF's Clinician's Guide to Prevention and Treatment of Osteoporosis (http://www.nof.org/professionals/clinical-guidelines) THIS IS AN ELECTRONICALLY VERIFIED FINAL REPORT 12/20/2024 4:52 PM - Electronically signed by Clarence Cortes M.D. MF: RICHIE Report ID: [id number] Reading Location: [id number] Procedure Note Clarence Cortes MD - 12/20/2024 EXAM DESCRIPTION: DEXA AXIAL SKELETON BONE DENSITY 1 OR MORE SITES REASON FOR STUDY: 64 y/o year old F with given history of: routine screening, pt. 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 CLINICAL INFORMATION: Current height: 65 inches Maximum height: 66 inches Weight: 260 pounds Risk factors: Postmenopausal, parental hip fracture, cancer, end-stagerenal disease, asthma or emphysema COMPARISON: 06/17/2021 Dissimilar scan types or analysis methods precludes assessment for calculating a significant change. FINDINGS: AP LUMBAR SPINE L1-L4: Total BMD is 1.113 g/cm2 T-score is 0.6 LEFT HIP: Total BMD is 0.914 g/cm2 T-score is -0.2 Femoral neck BMD is 0.719 g/cm2 T-score is -1.2 FRAX: 10 year risk for a major osteoporotic fracture is 14 %, 10 year risk for ahip fracture is 0.5 % Per National Osteoporosis Foundation guidelines, this patient does notmeet the criteria for pharmacological treatment of patients with FRAX 10 yearmajor osteoporotic fracture risk scores of = or greater than 20% or a 10 year probability of a hip fracture = or greater than 3%, to reduce fracturerisk. Additional factors such as frequent falls are not represented in FRAX and warrant individual clinical judgment. IMPRESSION: Low Bone Mass. REFERENCE: Bone mineral density: T-Score: Normal (T-score above or = -1.0) Low bone mass (T-score between -1.0 and -2.5) replaces thepreviously used term osteopenia Osteoporosis (T-score = or below -2.5) Z-Score: Within the expected range for age (Z-score above -2.0) Below the expected range for age (Z-score is -2.0 or below) Please see below follow up recommendations. Medical evaluation forsecondary causes of low bone mineral density may be appropriate. FRAX is a World Health Organization validated fracture risk assessmenttool that calculates a person's 10 year probability of a major osteoporosisrelated fracture and hip fracture. According to the National OsteoporosisFoundation guidelines, postmenopausal women and men age 50 or older with low bonemass and a 10 year probability of a major osteoporosis related fracture = or greater than 20% or a 10 year probability of a hip fracture = or greaterthan 3% should be considered for pharmacological treatment for the preventionof osteoporosis. For further information, including treatment recommendations, please referto the 2019 ISCD Official Positions (http://www.iscd.org) and the NOF's Clinician's Guide to Prevention and Treatment of Osteoporosis (http://www.nof.org/professionals/clinical-guidelines) THIS IS AN ELECTRONICALLY VERIFIED FINAL REPORT 12/20/2024 4:52 PM - Electronically signed by Clarence Cortes M.D. MF: RICHIE Report ID: [id number] Reading Location: [id number] us Manuel Desai MD IMG DXA PROCEDURES Final Result * (ABNORMAL) Diabetic Eye Exam (12/20/2024) us Generic External Data Provider HEALTH MAINTENANC E Final Result * (ABNORMAL) POCT glucose (12/09/2024 12:46 PM CDT) Glucose, POC 236(H) 70 - 199 mg/dL POC Performer [id number] JOSE MARIA DIZA Blood 12/09/2024 12:4 6 PM CDT 12/09/2024 12:46 PM CDT us Jolly Fry MD LAB POCT ORDERABLES - DE VICE Final Result Performing Organization Address [facility] Co de Phone Number JOSE MARIA [address] Department [place] [address] * FL Fluoroscopy < 1 Hour (12/09/2024 12:17 PM CDT) Narrative RAD_PACS_CH - 12/09/2024 12:17 PM CDT The images from this study are not interpreted by Radiology. Please refer to the physician's procedure / OR operative note. Jolly Fry MD IMG FLUOROSCOPY PROCEDUR ES Final Result Performing Organization Address [facility] Co de Phone Number RAD_PACS_CH * XR Hand Right 2 Views (12/09/2024 12:17 PM CDT) Anatomical Region Laterality Modality Upper Extremities, Hand Right Computed Radiography 12/09/2024 1:23 PM CDT Impressions 12/09/2024 1:23 PM CDT Intraoperative fluoroscopy. Electronically signed by: Vladmiir Felix M.D. Narrative 12/09/2024 1:23 PM CDT EXAMINATION: XR HAND RIGHT 2 VIEWS DATE: 12/09/2024 9:30 AM HISTORY: REPAIR RIGHT PROXIMAL INTERPHALANGEAL JOINT RADIAL LIGAMENT REPAIR FINDINGS: Fluoroscopy was provided without radiologist supervision. Images demonstrate postoperative changes at the 4th proximal interphalangeal joint. Procedure Note Vladimir Felix MD - 12/09/2024 EXAMINATION: XR HAND RIGHT 2 VIEWS DATE: 12/09/2024 9:30 AM HISTORY: REPAIR RIGHT PROXIMAL INTERPHALANGEAL JOINT RADIAL LIGAMENT REPAIR FINDINGS: Fluoroscopy was provided without radiologist supervision. Images demonstrate postoperative changes at the 4th proximal interphalangeal joint. IMPRESSION: Intraoperative fluoroscopy. Electronically signed by: Vladimir Felix M.D. us Jolly Fry MD IMG XR PROCEDURES Final Result * (ABNORMAL) POCT glucose (12/09/2024 12:06 PM CDT) Glucose, POC 244(H) 70 - 199 mg/dL POC Performer [id number] JOSE MARIA Blood 12/09/2024 12:0 6 PM CDT 12/09/2024 12:06 PM CDT us Jolly Fry MD LAB POCT ORDERABLES - DE VICE Final Result JOSE MARIA [address] Department [place] [address] * (ABNORMAL) POCT glucose (12/09/2024 11:44 AM CDT) Glucose, POC 214(H) 70 - 199 mg/dL POC Performer [id number] JOSE MARIA Blood 12/09/2024 11:4 4 AM CDT 12/09/2024 11:44 AM CDT us Jolly Fry MD LAB POCT ORDERABLES - DE VICE Final Result Performing Organization Address [facility] Co de Phone Number JOSE MARIA DIAZ [address] [facility] [place] [address] * (ABNORMAL) POCT glucose (12/09/2024 11:08 AM CDT) Glucose, POC 201(H) 70 - 199 mg/dL POC Performer [id number] [facility] Blood 12/09/2024 11:0 8 AM CDT 12/09/2024 11:08 AM CDT us Jolly Fry MD LAB POCT ORDERABLES - DE VICE Final Result Performing Organization Address [facility] Phone Number JOSE MARIA DIAZ [address] [facility] [place] [address] * LA AN ELECTIVE SUPRAGLOTTIC AIRWAY (12/09/2024 9:54 AM CDT) Narrative Rebecca Nuñez AA - 12/09/2024 9:54 AM CDT Rebecca Nuñez AA 12/09/2024 9:54 AM Airway Patient location: OR Urgency: elective Date/time: 12/09/2024 9:47 AM Indications for airway management: anesthesia Difficult airway: no Staff: Supervising provider: Kash Muller MD Placed by: AA: Rebecca Nuñez AA Emergent airway documentation: Risks and benefits discussed: yes Consent obtained: yes Consent given by: patient Airway prep: Preoxygenated: yes Patient position: sniffing Mask difficulty assessment: 1 - vent by mask Spontaneous ventilation during airway: absent Sedation level during airway: GA Final airway details: Final airway type: supraglottic airway Final supraglottic airway: classic SGA size: 4 Number of attempts: 1 Additional comments: LMA 4 placed easily and atraumatically with cuff to MOP. Dentition intact as preop. us Kash Muller MD ANESTHESIA ORDERABLES Final Result * POCT glucose (12/09/2024 8:34 AM CDT) Glucose, POC 126 70 - 199 mg/dL POC Performer [id number] [facility] Blood 12/09/2024 8:34 AM CDT 12/09/2024 8:34 AM CDT us Jolly Fry MD LAB POCT ORDERABLES - DE VICE Final Result Performing Organization Address [facility] Co de Phone Number [facility] [address] [address] [facility] [place] [address] * Potassium, whole blood (12/09/2024 7:20 AM CDT) Potassium, bld 4.3 3.3 - 4.9 mmol/L Comment: Interpretive Data This method is not able to assess for hemolysis, which may falsely increase potassium concentrations. If further testing is needed to evaluate this result, consider in-laboratory plasma potassium. Current Interpretive Data was last revised on 2022. Blood 12/09/2024 7:20 AM CDT 12/09/2024 7:20 AM CDT us Ap Jones MD LAB BLOOD ORDERABLES Final Result Performing Organization Address [facility] Co de Phone Number [facility] [address] [address] [facility] [place] [address] * POCT glucose (12/09/2024 7:09 AM CDT) Glucose, POC 77 70 - 199 mg/dL POC Performer [id number] [facility] Blood 12/09/2024 7:09 AM CDT 12/09/2024 7:09 AM CDT us Jolly Fry MD LAB POCT ORDERABLES - DE VICE Final Result Performing Organization Address [facility] Co de Phone Number [facility] [address] [address] [facility] [place] [address] * Screening Mammogram Bilateral W Charanjit (11/13/2024 8:48 AM CDT) Anatomical Region Laterality Modality Breast Bilateral Mammography Impressions 11/13/2024 12:17 PM CDT Bilateral No evidence of malignancy in either breast. OVERALL BI-RADS FINAL ASSESSMENT: 2 - Benign RECOMMENDATION: Recommend bilateral annual screening mammography. Narrative 11/13/2024 12:17 PM CDT EXAMINATION: Screening Mammogram Bilateral W Charanjit: 11/13/2024 History: Right lumpectomy/partial mastectomy. IDC. COMPARISON: Relevant prior studies available at the time of interpretation were reviewed. TECHNIQUE: Mammography was performed with 2D and digital breast tomosynthesis (DBT) images. CAD was utilized. BREAST PARENCHYMAL COMPOSITION: The breasts are heterogeneously dense, which may obscure small masses. FINDINGS: Bilateral There are no suspicious masses or calcifications. On the right, there is post-op distortion, skin thickening, and a mass in the surgical bed, which is a complex fluid collection, decreased in size over time. us Radha Nobles NP IMG MAMMO PROCEDURES Final Result * TSH (11/07/2024 8:09 AM CDT) Thyroid Stimulating Hormone 2.06 0.30 - 4.20 mcIUnit/mL Comment:Testing performed by : [facility], [address] [place] [address]., [id number] Blood 11/07/2024 8:09 AM CDT 11/07/2024 2:16 PM CDT us Teo Avelar MD LAB BLOOD ORDERABLES Final Res ult JOSE MARIA ALMEIDA [facility] [address] [facility] Department [place] [address] * (ABNORMAL) Hemoglobin A1c (11/07/2024 8:09 AM CDT) Hgb A1C 5.9(H) 4.0 - 5.6 % Comment:Testing performed by : [address] [address] Estimated Average Glucose 123 mg/dL JOSE MARIA ALMEIDA (UNITY) Comment: The ADA recommends reporting an estimated Average Glucose (eAG) with all Hemoglobin A1c results using the equation derived from a study of 507 normal and diabetic adults. Minority populations were underrepresented and children were not included. (Diabetes Care 31:8479-3850, 2008). The eAG is not equivalent to a fasting glucose. Testing performed by: [address] [address] Blood 11/07/2024 8:09 AM CDT 11/07/2024 2:16 PM CDT us Teo Avelar MD LAB BLOOD ORDERABLES Final Res ult JOSE MARIA ELLE (UNITY) [address] [facility] Department [place] [address] * Colonoscopy (08/13/2024 12:14 PM SOAKING ROOM OPERATOR) Anatomical Region Laterality Modality Other Narrative Procedure Note Hubert Holcomb MD - 08/13/2024 12:14 PM CST [facility] Patient Name: Lou Howard Procedure Date: 08/13/2024 12:14 PM Date of : 1960 Admit Type: Outpatient Age: 64 Gender: Female Attending MD: Hubert Holcomb M.D. Note Status: Finalized Patient Profile: This is a 64 year old female. History of colonpolyps. No family history of colon cancer Procedure: Colonoscopy Indications: High risk colon cancer surveillance: Personalhistory of colonic polyps, Last colonoscopy: August2012 Referring MD: Zulema Soto M.D. Providers: Hubert Holcomb M.D. Impression: - Five 3 to 4 mm polyps in the descending colon andin the ascending colon, removed with a jumbo cold forceps. Resected and retrieved. - Three 8 to 9 mm polyps in the sigmoid colon,removed with a cold snare. Resected and retrieved. - Three 3 to 4 mm polyps in the sigmoid colon andin the descending colon, removed with a jumbo cold forceps. Resected and retrieved. - Internal hemorrhoids. Recommendation: - Await pathology results. - Repeat colonoscopy in 2 years for surveillance. - Continue present medications. Medicines: Monitored Anesthesia Care Complications: No immediate complications. Estimated Blood Loss: Estimated blood loss: none. Procedure: Pre-Anesthesia Assessment: - Prior to the procedure, a History and Physicalwas performed, and patient medications and allergieswere reviewed. The patient's tolerance of previous anesthesia was also reviewed. The risks andbenefits of the procedure and the sedation options and risks were discussed with the patient. All questions were answered, and informed consent was obtained. Prior Anticoagulants: The patient has taken noanticoagulant or antiplatelet agents. ASA Grade Assessment: Per anesthesia note and evaluation. After reviewing the risks and benefits, the patient was deemed in satisfactory condition to undergo the procedure. The benefits, risks and alternatives of theprocedure and sedation were discussed and informed consentwas obtained. All questions were answered. Please referto the signed informed consent document in the medical record. The bowel preparation used was Miralax and bisacodyl tablets via extended prep with split dose instruction. The scope was passed under directvision. The Pediatric Colonoscope [id number]-[id number] was introduced through the anus and advanced to the the cecum, identified by appendiceal orifice andileocecal valve. The quality of the bowel preparation wasgood. Bowel prep was administered using a split dose. Findings: The perianal and digital rectal examinations were normal. The cecum appeared normal. Five semi-sessile polyps were found in the descending colon and ascending colon. The polyps were 3 to 4 mm in size. These polyps were removed with a jumbo cold forceps. Resection and retrieval werecomplete. Three sessile polyps were found in the sigmoid colon. The polyps were8 to 9 mm in size. These polyps were removed with a cold snare.Resection and retrieval were complete. Three semi-sessile polyps were found in the sigmoid colon anddescending colon. The polyps were 3 to 4 mm in size. These polyps were removedwith a jumbo cold forceps. Resection and retrieval were complete. Internal hemorrhoids were found during retroflexion. The hemorrhoids were medium-sized. Electronically signed by Hubert Holcomb M.D. Hubert Holcomb M.D. 08/13/2024 1:14:27 PM Number of Addenda: 0 Note Initiated On: 08/13/2024 12:14 PM Procedure Code(s): --- Professional --- 92792, Colonoscopy, flexible; with removal of tumor(s), polyp(s), or other lesion(s) by snare technique 98099, 59, Colonoscopy, flexible; with biopsy, single or multiple Diagnosis Code(s): --- Professional --- Z86.010, Personal history of colonic polyps K64.8, Other hemorrhoids D12.2, Benign neoplasm of ascending colon D12.5, Benign neoplasm of sigmoid colon D12.4, Benign neoplasm of descending colon CPT copyright 2020 [employer]. All rights reserved. The codes documented in this report are preliminary and upon administrative officer reviewmay be revised to meet current compliance requirements. Recognized by the [employer] [employer] for promoting quality in endoscopy Hubert Holcomb MD ENDOSCOPY PROCEDURES Final Result * (ABNORMAL) Lipid panel (07/10/2024 8:28 AM SOAKING ROOM OPERATOR) Cholesterol 141 30 - 199 mg/dL Comment: Interpretive Data Ages < or = 19 years Acceptable: <170 mg/dL Borderline high: 170-199 mg/dL High: >or= 200 mg/dL Ages > or = 20 years Desirable: <200 mg/dL Borderline high: 200-239 mg/dL High: >or= 240 mg/dL Literature References: 1. Expert Panel on Integrated Guidelines for Cardiovascular Health and Risk Reduction in Children and Adolescents. Pediatrics 2011;128:S213 2. NCEP Expert Panel. Circulation 2004;110:227 Current Interpretive Data was last revised on 2018. Testing performed by: [facility], [address] [place] [address]., [address] Triglycerides 201(H) <=149 mg/dL JOSE MARIA ALMEIDA ([place]) Comment: Interpretive Data Ages < or = 9 years Acceptable: <75 mg/dL Borderline high: 75-99 mg/dL High: >or= 100 mg/dL Ages 10 to 20 years Acceptable: <90 mg/dL Borderline high: 90-129 mg/dL High: >or= 130 mg/dL Ages > or = 20 years Desirable: <150 mg/dL Borderline high: 150-199 mg/dL High: 200-499 mg/dL Very high: >or= 499 mg/dL Literature References: 1. Expert Panel on Integrated Guidelines for Cardiovascular Health and Risk Reduction in Children and Adolescents. Pediatrics 2011;128:S213 2. NCEP Expert Panel. Circulation 2004;110:227 Current Interpretive Data was last revised on 2018. Testing performed by: [facility], [address] [place] [address], [place]., [address] HDL 35(L) >=40 mg/dL JOSE MARIA ALMEIDA ([place]) Comment: Interpretive Data Ages < or = 19 years Acceptable: >45 mg/dL Borderline low: 40-45 mg/dL Low: <40 mg/dL Ages > or = 20 years Desirable: >or= 60 mg/dL Low: <40 mg/dL Literature References: 1. Expert Panel on Integrated Guidelines for Cardiovascular Health and Risk Reduction in Children and Adolescents. Pediatrics 2011;128:S213 2. NCEP Expert Panel. Circulation 2004;110:227 Current Interpretive Data was last revised on 2018. Testing performed by: [address] [address] LDL, calculated 72 <=129 mg/dL JOSE MARIA ALMEIDA ([place]) Comment: Interpretive Data Ages < or = 19 years Acceptable: <110 mg/dL Borderline high: 110-129 mg/dL High: >or= 130 mg/dL Ages > or = 20 years Optimal: <100 mg/dL Near optimal: 100-129 mg/dL Borderline high: 130-159 mg/dL High: >160 mg/dL Calculated using the Chandan LDL-C estimating equation. This equation was implemented on 2024. Prior to this date LDL-C was estimated using the Friedewald equation. Literature References: 1. Expert Panel on Integrated Guidelines for Cardiovascular Health and Risk Reduction in Children and Adolescents. Pediatrics 2011;128:S213 2. NCEP Expert Panel. Circulation 2004;110:227 3. Chandan Galvez et al. MASSIEL Cardiol. 2019November 28;5(5):540-548. doi: 10.1001/[email or web address].2020.0013 Current Interpretive Data was last revised on 2024. Testing performed by: [address] [address] Non-HDL Cholesterol 106 mg/dL JOSE MARIA ALMEIDA ([place]) Comment: Interpretive Data Ages < or = 19 years Acceptable: <120 mg/dL Borderline high: 120-144 mg/dL High: >145 mg/dL Ages > or = 20 years When triglycerides are >200 mg/dL, Non-HDL cholesterol is a secondary target of therapy with treatment goals that are 30 mg/dL greater than the LDL cholesterol target. Literature References: 1. Expert Panel on Integrated Guidelines for Cardiovascular Health and Risk Reduction in Children and Adolescents. Pediatrics 2011;128:S213 2. NCEP Expert Panel. Circulation 2004;110:227 Current Interpretive Data was last revised on 2018. Testing performed by: [address] [address] Chol/HDL ratio 4 JAZLYN ALMEIDA (KE[place]ON) Comment:Testing performed by : [facility], [address] [place] [address]., [address] Blood 07/10/2024 8:28 AM SOAKING ROOM OPERATOR 07/10/2024 12:43 PM SOAKING ROOM OPERATOR Zulema Soto MD LAB BLOOD ORDERABLES Final Result Performing Organization Address [facility]/ZIP Co de Phone Number JOSE MARIA ALMEIDA (UNITY) [address] [facility] [place] [address] * Hepatitis C antibody Blood (04/24/2023 9:59 AM CDT) Pathologist [facility] Hep C Ab Nonreactive Nonreactive Comment: Interpretive Data Nonreactive: Antibodies to HCV not detected. Does NOT exclude the possibility of recent exposure to HCV. Equivocal: Equivocal for HCV antibodies. Supplemental molecular testing will be automatically performed to determine infection status in accordance with current CDC screening recommendations. Reactive: Positive for HCV antibodies. This may represent current or past HCV infection. Supplemental molecular testing will be automatically performed to determine current infection status in accordance with current CDC screening recommendations. Interpretive data was last revised on 2019. Testing performed by: [facility], [address] [place] [address], [place]., [address] Blood 04/24/2023 9:59 AM CDT 04/24/2023 2:17 PM CDT Narrative JOSE MARIA ALMEIDA ([place]) - 04/24/2023 3:06 PM CDT fasting fasting Zulema Soto MD LAB MICROBIOL OGY - GENERAL ORDERABLES Edited Result - Final Performing Organization Address [facility]/ZIP Co de Phone Number JOSE MARIA ALMEIDA ([place]) [address] [facility] [place] [address] * DIABETES FOOT EXAM (08/30/2017) Pathologist [facility] Diabetic Foot Exam Normal Jean-Claude Chao MD HEALTH MAINTENANCE Final Result from Last 3 Months or Most Recently Relevant to Health Maintenance Insurance MEDICARE [employer] OPEN ACCESS MEDICARE CIG[employer] OPEN ACCESS Advance Directives For more information, please contact: [phone] Documents on File Type Date Recorded Patient Wool Dyer Expl anation ADVANCE DIRECTIVE 03/13/2018 8:04 PM * Full Code (Latest Code Status on File) Date Activated Date Inactivated Comments 10/22/2024 7:44 AM 10/23/2024 4:39 PM * Full Code Date Activated Date Inactivated Comments 10/19/2024 2:40 PM 10/22/2024 7:44 AM * Full Code Date Activated Date Inactivated Comments 10/07/2024 8:15 PM 10/09/2024 6:05 PM * Full Code Date Activated Date Inactivated Comments 08/13/2024 11:48 AM 08/13/2024 6:15 PM * Full Code Date Activated Date Inactivated Comments 08/13/2024 11:48 AM 08/13/2024 11:48 AM Healthcare Agents on File Name Relationship Healthcare Agent Relationshi p Communication Hugh Howard Spouse Health Care Agent Care Teams Sales Attendant Relationship Specialty Start Date End Date Zulema Soto MD 2 [facility] [address] [address] PCP - General Family Medicine 01/11/22 Servando Tsai MD Referring Physician Cardiology 01/21/19 [place] [address] [facility] [address] [address] Consulting Physician Endocrinology Diabetes & Metabolism 04/26/22 Fernandez Garcia MD PhD [address] [facility] [address] [address] Registered Nurse Vascular Surgery 04/26/22 Akin Baird MD [address] [place] [address] DR [address] [address] Surgeon Orthopedic Surgery 04/26/22 Austen Gannon, JACQUELINEM [address] [place] [address] Consulting Physician Foot and Ankle Surg 04/26/22 Shreyas Astorga MD [address] [place] [address] Consulting Physician Pulmonary Disease 04/26/22 Felicia Vargas MD [address] [place] [address] Consulting Physician Plastic Surgery 04/26/22 [place] [address] [facility] [address] [place] [address] Consulting Physician Nephrology 04/26/22 [place] [address] [facility] [address] [place] [address] Nurse Practitioner Endocrinology Diabetes & Metabolism 07/18/24
--- OUTSIDE RECORDS SUMMARY | 2025-03-09 13:12 | XMS_ITS | Encounter Summary ---
Author Organization [facility] Healthcare Address [address] [place] [address] Care Team Providers Care Pre Press Operator Name Role Phone Avila Torres MD Primary Care Provider [phone] Servando Tsai MD Unavailable [phone] Aj Pedroza RN Unavailable [phone] Rowena Gabriel MA Unavailable Giancarlo West MD PhD Unavailable [phone] Jason Diallo MD Unavailable [phone] Erik Hillman MD Unavailable [phone] Zulema Soto MD Primary Care Provide r Amado Saunders MD Unavailable [phone] Belia Malcolm OT Unavailable [phone] Dejan Beauchamp MD Unavailable Fernandez Garcia MD PhD Unavailable [phone] Akin Baird MD Unavailable [phone] Austen GannonM Unavailable [phone] Shreyas Astorga MD Unavailable Felicia Vargas MD Unavailable [phone] Teo Avelar MD Unavailable [phone] Juliana King NP Unavailable [phone] Encounter Details Date Type Department Care Team (Late st Contact Info) Description 01/19/2021 Telephone [facility] Radiology 1 [place] [address] Avila Torres MD [address] [facility] [address] [address] Social History Tobacco Use Types Packs/Day Years Used Date Smoking Tobacco: Never Smokeless Tobacco: Never Comments:not needed Alcohol Use Standard Drinks/Week Comments No 0 (1 standard drink = 0.6 oz pur e alcohol) Social Connection and Isolation Panel Answer Date Recorded In a typical week, how many times do you talk on the phone with family, friends, or neighbors? Twice a week 01/20/2021 How often do you get together with friends or re latives? Twice a week 01/20/2021 How often do you attend moravian or bahai serv ices? Never 01/20/2021 Do you belong to any clubs o r organizations such as moravian groups, unions, fraternal or athletic groups, or school groups? No 01/20/2021 How often do you attend meet ings of the clubs or organizations you belong to? Never 01/20/2021 Are you , , di vorced, , never , or living with a partner? 01/20/2021 AUDIT-C Answer Date Recorded Q1: How often do you have a drink containing alc ohol? Never 01/19/2021 Average Number of Drinks Not on file 021 Frequency of Binge Drinking Not on file 12/30 Overall Financial Resource Strain (CARDIA) Answe r Date Recorded How hard is it for you to pa y for the very basics like food, housing, medical care, and heating? Not very hard 01/20/2021 PHQ-2 Answer Date Recorded PHQ-2 Total Score (If total score is 3 or more points, staff should administer the PHQ-9) 0 12/23/2020 PRAPARE - Transportation Answer Date Re corded In the past 12 months, has l ack of transportation kept you from medical appointments or from getting medications? No 12/30 In the past 12 months, has l ack of transportation kept you from meetings, work, or from getting things needed for daily living? No 01/20/2021 Comments No Sex and Gender Information Value Date Recorded Sex Assigned at Not on file Legal Sex Female 3:19 PM ESTIMATOR PROJECT MANAGER Gender Identity Female 09/03/2023 6:15 PM ESTIMATOR PROJECT MANAGER Sexual Orientation Not on file documented as of this encounter Functional Status documented as of this encounter Plan of Treatment Not on file documented as of this encounter Visit Diagnoses Not on filedocumented in this encounter Additional Health Concerns Infection Onset Date Last Indicated Resolved Time COVID: Suspected 12/24/2021 12/24/2021 12/24/2021 2:28 PM CDT COVID: Suspected 12/25/2021 12/25/2021 12/25/2021 1:27 PM CDT COVID: Suspected 01/29/2022 01/29/2022 01/29/2022 2:16 PM CDT COVID: Suspected 06/30/2022 06/30/2022 07/01/2022 3:05 AM ESTIMATOR PROJECT MANAGER COVID: Suspected 12/30/2022 12/30/2022 12/31/2022 3:05 AM CDT COVID: Suspected 11/02/2023 11/02/2023 11/02/2023 9:21 PM CDT COVID: Suspected 04/08/2024 04/08/2024 04/08/2024 2:32 PM CDT COVID19 04/08/2024 04/08/2024 04/18/2024 3:05 AM CDT COVID: Recovered Comment:Added based on recent COVID infection. 04/18/2024 04/22/2024 07/17/2024 3:[address] C. difficile suspected 10/07/2024 10/08/202410/08 3:07 AM CDT COVID: Suspected 10/19/2024 10/19/2024 10/19/2024 9:25 PM CDT documented as of this encounter Care Teams Pre Press Operator Relationship Specialty Start Date End Date Avila Torres MD PCP - General 10/28/16 01/10/22 Zulema Soto MD [address] [address] PCP - General Family Medicine 01/11/22 Servando Tsai MD Referring Physician Cardiology 01/21/19 Aj Pedroza RN [address] [place] [address] [address] [place], [place] [id number] Biologics Specialist 01/25/21 02/03/21 Rowena Gabriel MA [address] [place] [address] [address] [place], [place] [id number] ACO Care Calcine Furnace Loader 03/16/21 03/23/21 Giancarlo West MD PhD [address] [place] [address] Radiation Oncologist Radiation Oncology 12/02/[address] MD [address] [place] [address] Consulting Physician Medical Oncology 12/02/21 12/29/22 Erik Hillman MD [address] [place] [address] Referring Physician General Surgery 12/02/21 11/03/24 Amado Saunders MD [address] [facility] [place] [address] Medical Oncologist/Hematologis t Hematology and Oncology 03/03/22 11/03/24 Belia Malcolm OT [address] [facility] [place] [address] Occupational Therapist Occupational Therapy 03/29/22 [place] [address] [address] Consulting Physician Endocrinology Diabetes & Metabolism 04/26/22 Fernandez Garcia MD PhD [address] [address] Registered Nurse Vascular Surgery 04/26/22 Akin Baird MD [address] [facility] [address] TOAN [place] [address] [address] Surgeon Orthopedic Surgery 04/26/22 Austen Gannon DPM [address] [facility] [place] [address] Consulting Physician Foot and Ankle Surg 04/26/22 Shreyas Astorga MD [address] [facility] [place] [address] Consulting Physician Pulmonary Disease 04/26/22 Felicia Vargas MD [address] [facility] [place] [address] Consulting Physician Plastic Surgery 04/26/22 [place] [address] [facility] [address] [place] [address] Consulting Physician Nephrology 04/26/22 [place] [address] [facility] [address] [place] [address] Nurse Practitioner Endocrinology Diabetes & Metabolism 07/18/24 documented as of this encounter
--- OUTSIDE RECORDS SUMMARY | 2025-03-09 13:12 | XMS_ITS | Encounter Summary ---
Author Organization [facility] Address [address] [place] [address] Phone Care Team Providers Care Towel Sorter Name Role Phone Avila Torres MD Primary Care Provider [phone] Richard Dallas LPN Unavailable Unavail able Aquiles Wilder NUCLEAR SECURITY OFFICER Unavailable UnavailMonica Davalos RN Unavailable Monica Rouse RN Unavailable [phone] Servando Tsai MD Unavailable [phone] Fer Matos RN Unavailable [phone] Aquiles Wilder NUCLEAR SECURITY OFFICER Unavailable UnavailDebbie PowersW Unavailable [phone] Yanna Bates Unavailable [phone] Pooja Menard RN Unavailable Dayana Guerrero RN Unavailable Aj Pedroza RN Unavailable Rowena Gabriel MA Unavailable [phone] Giancarlo West MD PhD Unavailable [phone] Jason Diallo MD Unavailable [phone] Erik Hillman MD Unavailable [phone] Zulema Soto MD Primary Care Provide r Amado Saunders MD Unavailable [phone] Belia Malcolm OT Unavailable [phone] Dejan Beauchamp MD Unavailable Fernandez Garcia MD PhD Unavailable [phone] Akin Baird MD Unavailable [phone] Austen Gannon DPM Unavailable [phone] Shreyas Astorga MD Unavailable [phone] Felicia Vargas MD Unavailable + [phone] Teo Avelar MD Unavailable [phone] Juliana King NP Unavailable [phone] Encounter Details Date Type Department Care Team (Late st Contact Info) Description 10/27/2017 Orders Only [facility] Provider, MD Jean-Claude [address] [place] [address] Social History Tobacco Use Types Packs/Day Years Used Date Smoking Tobacco: Never Smokeless Tobacco: Never Alcohol Use Standard Drinks/Week Comments No 0 (1 standard drink = 0.6 oz pur e alcohol) Comments Unknown Sex and Gender Information Value Date Recorded Sex Assigned at Not on file Legal Sex Female 3:19 PM DESIGN TECHNICIAN Gender Identity Female 09/03/2023 6:15 PM DESIGN TECHNICIAN Sexual Orientation Not on file documented as of this encounter Plan of Treatment Not on file documented as of this encounter Procedures Procedure Name Priority Date/Time Associated Diagnosis Comments DISCHARGE LABORATORY CUMULATIVE REPORT 10/27/2017 12:00 AM CDT documented in this encounter Results * DISCHARGE LABORATORY CUMULATIVE REPORT (10/27/2017 12:00 AM CDT) Narrative 10/27/2017 12:00 AM CDT Ordered by an unspecified provider. 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 Original site (urine) is negative for VRE. Mamadou Boudreaux, IP 05/19/15 Urine VRENegative 10/29/13 Urine VRE+ 11/01/2013 11/01/2013 11/03/2020 3:48 PM C DT COVID: Suspected 12/24/2021 12/24/2021 12/24/2021 2:28 PM CDT COVID: Suspected 12/25/2021 12/25/2021 12/25/2021 1:27 PM CDT COVID: Suspected 01/29/2022 01/29/2022 01/29/2022 2:16 PM CDT COVID: Suspected 06/30/2022 06/30/2022 07/01/2022 3:05 AM DESIGN TECHNICIAN COVID: Suspected 12/30/2022 12/30/2022 12/31/2022 3:05 AM [...] documented as of this encounter Care Teams Towel Sorter Relationship Specialty Start Date End Date Avila Torres MD PCP - General 10/28/16 01/10/22 Zulema Soto MD [address] [place] [address] [address] DIAZ [address] [place] [address] PCP - General Family Medicine 01/11/22 Richard Dallas LPN Care Manager 10/24/17 12/18/17 Aquiles Wilder LCSW Harness Cleaner 05/14/18 08/08/18 Monica Rouse, SHANTHI [address] [place] [address] [address] [place] [address] Side Stitcher 06/01/18 06/25/18 Monica Rouse, SHANTHI [address] [place] [address] [address] [place] [address] Side Stitcher 08/27/18 10/20/19 Servando Tsai MD [address] [place] [address] [address] [place] [address] Referring Physician Cardiology 01/21/19 Fer Matos, SHANTHI [address] [place] [address] [address] [place] [address] Side Stitcher 06/01/20 06/17/20 Aquiles Wilder LCSW [address] [place] [address] [address] [place] [address] Harness Cleaner 08/31/20 09/08/20 Debbie Krueger LCSW [address] [place] [address] [address] [place] [address] Harness Cleaner 10/08/20 10/27/20 Yanna Bates [address] [place] [address] [address] [place] [address] ACO Care Closer On 10/16/20 10/16/20 Pooja Menard, SHANTHI [address] [place] [address] [address] [place] [address] Side Stitcher 11/05/20 11/18/20 Dayana Guerrero RN [address] [place] [address] [address] [place] [address] Side Stitcher 12/15/20 01/03/21 Aj Pedroza RN [address] [place] [address] [address] [place] [address] Side Stitcher 01/25/21 02/03/21 Rowena Gabriel MA [address] [place] [address] [address]IAZ [address] [place] [address] ACO Care Closer On 03/16/21 03/23/21 Giancarlo West MD PhD 6 [facility] [place] [address] Radiation Oncologist Radiation Oncology 12/02/[address] MD [address] [place] [address] Consulting Physician Medical Oncology 12/02/21 12/29/22 Erik Hillman MD 6 [place] [address] Referring Physician General Surgery 12/02/21 11/03/24 Amado Saunders MD 2 [facility] [address] [address] Medical Oncologist/Hematologis t Hematology and Oncology 03/03/22 11/03/24 Belia Malcolm OT [address] [place] [address] Occupational Therapist Occupational Therapy 03/29/22 [place] [address] [facility] [address], [place] [address] Consulting Physician Endocrinology Diabetes & Metabolism 04/26/22 Fernandez Garcia [place] PhD [address] [facility] [address], [place] [address] Registered Nurse Vascular Surgery 04/26/22 Akin Baird MD [address] [facility] [address] TOAN Milan [address] [place] [address] Surgeon Orthopedic Surgery 04/26/22 Austen Gannon DPM [address] [facility] [place] [address] Consulting Physician Foot and Ankle Surg 04/26/22 Shreyas Astorga MD [address] [facility] [place] [address] Consulting Physician Pulmonary Disease 04/26/22 Felicia Vargas MD 350[address] [facility] [place] [address] Consulting Physician Plastic Surgery 04/26/22 [place] [address] [facility] [address] [place], [place] [address] Consulting Physician Nephrology 04/26/22 [place] [address] [address] Nurse Practitioner Endocrinology Diabetes & Metabolism 07/18/24 documented as of this encounter
--- OUTSIDE RECORDS SUMMARY | 2025-03-09 13:12 | XMS_ITS | Encounter Summary ---
Author Organization [facility] Healthcare Address [address] [place] [address] Care Team Providers Care Sales Director Name Role Phone Servando Tsai MD Unavailable [phone] Giancarlo West MD PhD Unavailable [phone] Erik Hillman MD Unavailable Zulema Soto MD Primary Care Provide r Amado Saunders MD Unavailable [phone] Belia Malcolm OT Unavailable [phone] Dejan Beauchamp MD Unavailable Fernandez Garcia MD PhD Unavailable [phone] Akin Baird MD Unavailable Austen Gannon DPM Unavailable [phone] Shreyas Astorga MD Unavailable [phone] Felicia Vargas MD Unavailable [phone] Teo Avelar MD Unavailable [phone] Juliana King NP Unavailable Encounter Details Date Type Department Care Team (Late st Contact Info) Description 11/17/2023 Telephone [facility] [address] [place] [address] Nancy Sanches, RN Social History Tobacco Use Types Packs/Day Years Used Date Smoking Tobacco: Never Smokeless Tobacco: Never Comments:not needed Alcohol Use Standard Drinks/Week Comments No 0 (1 standard drink = 0.6 oz pur e alcohol) [facility] Utilities Answer Date Recorded In the past 12 months has e electric, gas, oil, or water company threatened to shut off services in your home? No 09/05/2023 Humiliation, Afraid, Rape, and Kick questionnair e [...] neighbors? More than three times a week 09/05/2023 How often do you get togethe r with friends or relatives? Once a week 09/05/2023 How often do you attend chur ch or jew services? Never 09/05/2023 Do you belong to any clubs o r organizations such as voodoo groups, unions, fraternal or athletic groups, or school groups? No 09/05/2023 How often do you attend meet ings of the clubs or organizations you belong to? Never 09/05/2023 Are you , , di vorced, , never , or living with a partner? 09/05/2023 AUDIT-C Answer Date Recorded Q1: How often do you have a drink containing alcohol? Never 11/14/2023 Q2: How many drinks containi ng alcohol do you have on a typical day when you are drinking? Patient does not drink Q3: How often do you have si x or more drinks on one occasion? Never 11/14/2023 Overall Financial Resource Strain (CARDIA) Answe r Date Recorded How hard is it for you to pa y for the very basics like food, housing, medical care, and heating? Not hard at all 09/05/2023 PHQ-2 Answer Date Recorded PHQ-2 Total Score (If total score is 3 or more points, staff should administer the PHQ-9) 0 11/02/2023 [facility] - Occupational Stress Questionnaire Answer Date Recorded [...] the money to buy more. Never true 09/05/19 24 Within the past 12 months, t he food you bought just didn't last and you didn't have money to get more. Never true 09/05/2023 PRAPARE - Transportation Answer Date Re corded In the past 12 months, has l ack of transportation kept you from medical appointments or from getting medications? No 12/2023 In the past 12 months, has l ack of transportation kept you from meetings, work, or from getting things needed for daily living? No 09/05/2023 Housing Stability Vital Sign Answer [...] place to sleep or slept in a fpc (including now)? No 09/05/2023 Personal Safety Answer Date Recorded Have you ever been in or are you currently in a harmful physical or emotional relationship or is someone making you feel afraid or unsafe? Denies 11/14/2023 Education Answer Date Recorded What is the highest level of school you have completed or the highest degree you have received? High school graduate 09/05/2023 Comments No Sex and Gender Information Value Date Recorded Sex Assigned at Not on file Legal Sex Female 3:19 PM PETROLEUM BLENDING PLANT OPERATOR Gender Identity Female 09/03/2023 6:15 PM PETROLEUM BLENDING PLANT OPERATOR Sexual Orientation Not on file documented as of this encounter Plan of Treatment Not on file documented as of this encounter Visit Diagnoses Not on filedocumented in this encounter Additional Health Concerns Infection Onset Date Last Indicated Resolved Time COVID: Suspected 04/08/2024 04/08/2024 04/08/2024 2:32 PM CDT COVID19 04/08/2024 04/08/2024 04/18/2024 3:05 AM CDT COVID: Recovered Comment:Added based on recent COVID infection. 04/18/2024 04/22/2024 07/17/2024 3:[address] C. difficile suspected 10/07/2024 10/08/202410/08 3:07 AM CDT COVID: Suspected 10/19/2024 10/19/2024 10/19/2024 9:25 PM CDT documented as of this encounter Care Teams Sales Director Relationship Specialty Start Date End Date Zulema Soto MD [address] [address] PCP - General Family Medicine 01/11/22 Servando Tsai MD Referring Physician Cardiology 01/21/19 Giancarlo West MD PhD [address] [place] [address] Radiation Oncologist Radiation Oncology 12/02/21 5 Erik Hillman MD [address] [place] [address] Referring Physician General Surgery 12/02/21 11/03/24 Amado Saunders MD [address] [facility] [address] DIAZ [address] [place] [address] Medical Oncologist/Hematologis t Hematology and Oncology 03/03/22 11/03/24 Belia Malcolm OT 1 [facility] [place] [address] Occupational Therapist Occupational Therapy 03/29/22 [place] [address] [address] Consulting Physician Endocrinology Diabetes & Metabolism 04/26/22 Fernandez Garcia [place] PhD [address] [address] Registered Nurse Vascular Surgery 04/26/22 Akin Baird MD [address] [facility] [address] JOYA [address] [address] Surgeon Orthopedic Surgery 04/26/22 Austen Gannon DPM [address] [place] [address] Consulting Physician Foot and Ankle Surg 04/26/22 Shreyas Astorga MD [address] [place] [address] Consulting Physician Pulmonary Disease 04/26/22 Felicia Vargas MD [address] [place] [address] Consulting Physician Plastic Surgery 04/26/22 [place] [address] [facility] [address] [place] [address] Consulting Physician Nephrology 04/26/22 [place] [address] [facility] [address] [place] [address] Nurse Practitioner Endocrinology Diabetes & Metabolism 07/18/24 documented as of this encounter
--- OUTSIDE RECORDS SUMMARY | 2025-03-09 13:12 | XMS_ITS | Encounter Summary ---
Author Organization [facility] Address [address] [place] [address] Phone Care Team Providers Care Alberene Stone Setter Name Role Phone Avila Torres MD Primary Care Provider [phone] Aquiles Wilder ELECTRIC CRANE OPERATOR Unavailable UnavailMonica Davalos RN Unavailable [phone] Monica Rouse RN Unavailable Servando Tsai MD Unavailable Fer Matos RN Unavailable [phone] Aquiles Wilder ELECTRIC CRANE OPERATOR Unavailable Unavailabl Debbie CastleW Unavailable Yanna Bates Unavailable [phone] Pooja Menard RN Unavailable Dayana Guerrero RN Unavailable [phone] Aj Pedroza RN Unavailable [phone] Rowena Gabriel MA Unavailable Giancarlo West MD PhD Unavailable [phone] Jason Diallo MD Unavailable [phone] Erik Hillman MD Unavailable [phone] Zulema Soto MD Primary Care Provide r Amado Saunders MD Unavailable [phone] Belia Malcolm OT Unavailable [phone] Dejan Beauchamp MD Unavailable Fernandez Garcia MD PhD Unavailable [phone] Akin Baird MD Unavailable Austen Gannon DPM Unavailable [phone] Shreyas Astorga MD Unavailable Felicia Vargas MD Unavailable [phone] Teo Avelar MD Unavailable [phone] Juliana King NP Unavailable Encounter Details Date Type Department Care Team (Late st Contact Info) Description 01/08/2018 Telephone [facility] Cardiology [address] [facility] [address] Medicine [address]th [place] [address] [place] [address] Servando Tsai MD [address] [facility] [address] [place] [address] Social History Tobacco Use Types Packs/Day Years Used Date Smoking Tobacco: Never Smokeless Tobacco: Never Alcohol Use Standard Drinks/Week Comments No 0 (1 standard drink = 0.6 oz pur e alcohol) Comments No Sex and Gender Information Value Date Recorded Sex Assigned at Not on file Legal Sex Female 3:19 PM DIRECTOR PHARMACY SERVICES Gender Identity Female 09/03/2023 6:15 PM DIRECTOR PHARMACY SERVICES Sexual Orientation Not on file documented as of this encounter Plan of Treatment Not on file documented as of this encounter Visit Diagnoses Not on filedocumented in this encounter Additional Health Concerns Infection Onset Date Last Indicated 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 Original site (urine) is negative for VRE. BENITO Montesinos 05/19/15 Urine VRENegative 10/29/13 Urine VRE+ 11/01/2013 11/01/2013 11/03/2020 3:48 PM C DT COVID: Suspected 12/24/2021 12/24/2021 12/24/2021 2:28 PM CDT COVID: Suspected 12/25/2021 12/25/2021 12/25/2021 1:27 PM CDT COVID: Suspected 01/29/2022 01/29/2022 01/29/2022 2:16 PM CDT COVID: Suspected 06/30/2022 06/30/2022 07/01/2022 3:05 AM DIRECTOR PHARMACY SERVICES COVID: Suspected 12/30/2022 12/30/2022 12/31/2022 3:05 AM [...] documented as of this encounter Care Teams Alberene Stone Setter Relationship Specialty Start Date End Date Avila Torres MD PCP - General 10/28/16 01/10/22 Zulema Soto MD [address] [place] [address] [address] [place] [address] PCP - General Family Medicine 01/11/22 Aquiles Wilder LCSW Car Porter 05/14/18 08/08/18 Monica Rouse, RN [address] [place] [address] Game Warden 06/01/18 06/25/18 Monica Rouse, SHANTHI [address] [place] [address] Game Warden 08/27/18 10/20/19 Servando Tsai MD [address] [place] [address] [address] [place] [address] Referring Physician Cardiology 01/21/19 Fer Matos, SHANTHI [address] [place] [address] [address] [place] [address] Game Warden 06/01/20 06/17/20 Aquiles Wilder LCSW [address] [place] [address] [address] [place] [address] Car Porter 08/31/20 09/08/20 Debbie Krueger LCSW [address] [place] [address] [address] [place] [address] Car Porter 10/08/20 10/27/20 Yanna Bates [address] [place] [address] [address] [place] [address] ACO Care Manager Programming 10/16/20 10/16/20 Pooja Menard, SHANTHI [address] [place] [address] [address] [place] [address] Game Warden 11/05/20 11/18/20 Dayana Guerrero, RN [address] [place] [address] [address] [place] [address] Game Warden 12/15/20 01/03/21 Aj Pedroza RN [address] [place] [address] [address] [place] [address] Game Warden 01/25/21 02/03/21 Rowena Gabriel MA [address] [place] [address] [address] [place] [address] ACO Care Manager Programming 03/16/21 03/23/21 Giancarlo West MD PhD [address] [place] [address] Radiation Oncologist Radiation Oncology 12/02/21 Jason Diallo MD [address] [place] [address] Consulting Physician Medical Oncology 12/02/21 12/29/22 Erik Hillman MD [address] [place] [address] Referring Physician General Surgery 12/02/21 11/03/24 Amado Saunders MD [address] [address] Medical Oncologist/Hematologis t Hematology and Oncology 03/03/22 11/03/24 Belia Malcolm OT [address] [place] [address] Occupational Therapist Occupational Therapy 03/29/22 [place] [address] [address] [place] [address] Consulting Physician Endocrinology Diabetes & Metabolism 04/26/22 Fernandez Garcia [place] PhD [address] [facility] [address] [place] [address] Registered Nurse Vascular Surgery 04/26/22 Akin Baird MD [address] [place] [address] [address] [address] Surgeon Orthopedic Surgery 04/26/22 Austen Gannon DPM [address] [place] [address] Consulting Physician Foot and Ankle Surg 04/26/22 Shreyas Astorga MD [address] [place] [address] Consulting Physician Pulmonary Disease 04/26/22 Felicia Vargas MD [address] [place] [address] Consulting Physician Plastic Surgery 04/26/22 [place] [address] [facility] [address] [place] [address] Consulting Physician Nephrology 04/26/22 Juliana King APICULTURE TEACHER [address] [facility] [address] [place] [address] Nurse Practitioner Endocrinology Diabetes & Metabolism 07/18/24 documented as of this encounter
--- OUTSIDE RECORDS SUMMARY | 2025-03-09 13:12 | XMS_ITS | Encounter Summary ---
Author Organization [facility] Address [address] [place] [address] Phone Care Team Providers Care Group Counselor Name Role Phone Avila Torres MD Primary Care Provider [phone] Ruthy Cuenca PHARMACY TECHNICIAN PER DIEM Unavailable Unavailabl lisa CelenaRichard PHARMACY TECHNICIAN PER DIEM Unavailable Unavail able CelenaRichardna PHARMACY TECHNICIAN PER DIEM Unavailable Unavail able Aquiles Wilder SCALE AND SKIP CAR OPERATOR Unavailable Unavailabl Monica Neff RN Unavailable Monica Rouse RN Unavailable Servando Tsai MD Unavailable [phone] Fer Matos RN Unavailable Aquiles Wilder SCALE AND SKIP CAR OPERATOR Unavailable Unavailabl Debbie Castle SCALE AND SKIP CAR OPERATOR Unavailable Yanna Bates Unavailable [phone] Pooja Menard RN Unavailable Dayana Guerrero RN Unavailable Aj Pedroza RN Unavailable [phone] Rowena Gabriel MA Unavailable Giancarlo West MD PhD Unavailable Jason Diallo MD Unavailable [phone] Erik Hillman MD Unavailable [phone] Zulema Soto MD Primary Care Provide r Amado Saunders MD Unavailable Belia Malcolm OT Unavailable [phone] Dejan Beauchamp MD Unavailable Fernandez Garcia MD PhD Unavailable [phone] Akin Baird MD Unavailable Austen GannonM Unavailable [phone] Shreyas Astorga MD Unavailable Felicia Vargas MD Unavailable [phone] Teo Avelar MD Unavailable [phone] Juliana King RESERVATIONS CLERK Unavailable Encounter Details Date Type Department Care Team (Late st Contact Info) Description 09/11/[address] [facility] Provider, MD Jean-Claude [address] [place] [address] Social History Tobacco Use Types Packs/Day Years Used Date Smoking Tobacco: Never Smokeless Tobacco: Never Alcohol Use Standard Drinks/Week Comments No 0 (1 standard drink = 0.6 oz pur e alcohol) Comments Unknown Sex and Gender Information Value Date Recorded Sex Assigned at Not on file Legal Sex Female 3:19 PM WRAPPER DIPPER Gender Identity Female 09/03/2023 6:15 PM WRAPPER DIPPER Sexual Orientation Not on file documented as of this encounter Plan of Treatment Not on file documented as of this encounter Procedures Procedure Name Priority Date/Time Associated Diagnosis Comments DISCHARGE LABORATORY CUMULATIVE REPORT 09/11/2017 12:00 AM WRAPPER DIPPER documented in this encounter Results * DISCHARGE LABORATORY CUMULATIVE REPORT (09/11/2017 12:00 AM WRAPPER DIPPER) Narrative 09/11/2017 12:00 AM WRAPPER DIPPER Ordered by an unspecified provider. us Historical [...] COVID: Suspected 06/30/2022 06/30/2022 07/01/2022 3:05 AM WRAPPER DIPPER COVID: Suspected 12/30/2022 12/30/2022 12/31/2022 3:05 AM [...] documented as of this encounter Care Teams Group Counselor Relationship Specialty Start Date End Date Avila Torres MD PCP - General 10/28/16 01/10/22 uZlema Soto MD [address] [place] [address] [address] [place] [address] PCP - General Family Medicine 01/11/22 Ruthy Cuenca LPN Care Manager 10/10/17 10/10/17 Richard Dallas LPN Care Manager 10/16/17 10/23/17 Richard Dallas LPN Care Manager 10/24/17 12/18/17 Aquiles Wilder LCSW Vamp Liner 05/14/18 08/08/18 Monica Rouse RN [address] [facility] [address] [place], [place] [phone] Ornamental Iron Worker Apprentice 06/01/18 06/25/18 Monica Rouse RN [address] [facility] [address] [place], [place] [id number] Ornamental Iron Worker Apprentice 08/27/18 10/20/19 Servando Tsai MD [address] [place] [address] [address] [place] [address] Referring Physician Cardiology 01/21/19 Fer Matos, SHANTHI [address] [facility] [address] [place] [address] Ornamental Iron Worker Apprentice 06/01/20 06/17/20 Aquiles Wilder LCSW [address] [place] [address] [address] [place] [address] Vamp Liner 08/31/20 09/08/20 Debbie Krueger LCSW [address] [place] [address] [address] [place] [address] Vamp Liner 10/08/20 10/27/20 Yanna Bates [address] [place] [address] [address] [place] [address] ACO Care Gas Pumping Station Supervisor 10/16/20 10/16/20 Pooja Menard, SHANTHI [address] [place] [address] [address] [place] [address] Ornamental Iron Worker Apprentice 11/05/20 11/18/20 Dayana Guerrero RN [address] [place] [address] [address] [place] [address] Ornamental Iron Worker Apprentice 12/15/20 01/03/21 Aj Pedroza RN [address] [place] [address] [address] [place] [address] Ornamental Iron Worker Apprentice 01/25/21 02/03/21 Rowena Gabriel MA [address] [place] [address] [address] [place] [address] ACO Care Gas Pumping Station Supervisor 03/16/21 03/23/21 Giancarlo West MD PhD [address] [place] [address] Radiation Oncologist Radiation Oncology 12/02/[address] MD [address] [place] [place] [address] Consulting Physician Medical Oncology 12/02/21 12/29/22 Erik Hillman MD [address] [place] [address] Referring Physician General Surgery 12/02/21 11/03/24 Amado Saunders MD [address] [facility] [address] [place] [address] Medical Oncologist/Hematologis t Hematology and Oncology 03/03/22 11/03/24 Belia Malcolm OT [address] [facility] [place] [address] Occupational Therapist Occupational Therapy 03/29/22 [place] [address] [address] Consulting Physician Endocrinology Diabetes & Metabolism 04/26/22 Fernandez Garcia [place] PhD [address] [address] Registered Nurse Vascular Surgery 04/26/22 Akin Baird MD [address] [facility] [address] [place] [address] [address] Surgeon Orthopedic Surgery 04/26/22 Austen Gannon DPM [address] [facility] [place] [address] Consulting Physician Foot and Ankle Surg 04/26/22 Shreyas Astorga MD [address] [facility] [place] [address] Consulting Physician Pulmonary Disease 04/26/22 Felicia Vargas MD [address] [facility] [place] [address] Consulting Physician Plastic Surgery 04/26/22 [place] [address] [address] [facility] [address] [place] [address] Consulting Physician Nephrology 04/26/22 [place] [address] [address] [facility] [address] [place] [address] Nurse Practitioner Endocrinology Diabetes & Metabolism 07/18/24 documented as of this encounter
[2025-03-09 13:13] VITALS: BP 135/43; PULSE 59; RESP 20; TEMP 36.6; O2SAT 96
--- OUTSIDE RECORDS SUMMARY | 2025-03-09 13:13 | XMS_ITS ---
Author Organization [facility] Address [address] [place] [address] Care Team Providers Care Crematory Operator Name Role Phone Servando Tsai MD Unavailable [phone] Zulema Soto MD Primary Care Provide r Dejan Beauchamp MD Unavailable Fernandez Garcia MD PhD Unavailable [phone] Akin Baird MD Unavailable [phone] Austen Gannon DPM Unavailable [phone] Shreyas Astorga MD Unavailable Felicia Vargas MD Unavailable [phone] Teo Avelar MD Unavailable [phone] Juliana King NP Unavailable [phone] Active Problems Problem Noted Date Diagnosed Date [...] willing to have her drive her to [place] where her hospital intern is located. She is also going to call her hospital intern after this visit as I recommend for [...] CR=2.18. Assessment & Plan (07/17/2024 9:48 AM YOUNG ADULT LIBRARIAN): Chronic problem, managed by Dr Rusty Avelar. At [facility] 05/31/24-06/05/24: for CP but neg assessment. Found to be in kidney failure. Dr Castro took her off of farxiga & allopurinol. Gabapentin cut back to 300mg daily. Continues on lasix 80mg. Has appt w/her sole polisher (Dr Rusty Avelar) 07/18/24 at [facility]. Nephropathy: On DEEDEE-I / ARB s [...] 09/01/2023 Assessment & Plan (09/27/2023 9:37 AM YOUNG ADULT LIBRARIAN): Possibly from malfunctioning pacemaker Saw cardio yesterday [...] barefoot. Assessment & Plan (07/17/2024 8:48 AM YOUNG ADULT LIBRARIAN): Chronic problem. Currently taking gabapentin 300mg tid. [...] barefoot. Assessment & Plan (06/29/2023 10:16 AM YOUNG ADULT LIBRARIAN): Chronic problem. Currently taking Gabapentin 300mg tid. [...] bid. Assessment & Plan (07/18/2024 10:16 AM YOUNG ADULT LIBRARIAN): Bp in the office today BP Readings from Last 1 Encounters: 07/18/24 126/62 Continue current regimen of amlodipine 10mg daily losartan 25mg daily metoprolol 25mg bid Recommend DASH diet, heart-healthy lifestyle, exercise. Discussed the risks of hypertension. F/u in 6 months Assessment & Plan (07/17/2024 8:48 AM YOUNG ADULT LIBRARIAN): Chronic problem. Currently taking Losartan 25mg daily, metoprolol tartrate 125mg bid, amlodipine 10mg daily, lasix 80mg bid. Assessment & Plan (06/11/2024 12:38 PM YOUNG ADULT LIBRARIAN): Continue current regimen: Lasix 80 mg daily [...] bid. Assessment & Plan (06/29/2023 9:53 AM YOUNG ADULT LIBRARIAN): Chronic problem. Not at goal upon arrival. Currently taking Losartan 25mg daily, metoprolol tartrate 125mg bid, amlodipine 10mg daily, lasix 80mg bid. Atrial tachycardia 06/13/2023 Dupuytren's contracture 05/03/2023 Knee pain, left 03/08/2023 Assessment & Plan (03/16/2023 1:55 PM CDT): Stable Saw ortho today and they started her on doxy She was referred to [facility] for drainage of the hematoma Continue with [...] pain. Continue home baclofen BID, gabapentin TID, [place] Assessment & Plan (03/04/2023 6:29 AM CDT): Multiple joint pains including back pain, knee pain, hip pain. Continue home baclofen BID, gabapentin TID, [place] [facility] discharge follow-up 02/20/2023 Assessment & Plan (10/31/2024 9:39 AM CDT): Med list reviewed and discussed Imaging reviewed Follow up appointments discussed Assessment & Plan (10/17/2024 10:01 AM CDT): Med list reviewed and discussed Imaging reviewed Follow up appointments discussed Assessment & Plan (09/27/2023 9:35 AM YOUNG ADULT LIBRARIAN): Med list reviewed and discussed Imaging reviewed [...] to make the follow up appointment with hospital intern Trigger thumb of left hand 10/07/2022 Overview (10/07/2022): Added automatically from request for surgery [id number] CKD stage 3 due to type 1 [...] CR=2.22. Assessment & Plan (06/29/2023 10:11 AM YOUNG ADULT LIBRARIAN): Chronic problem, managed by Dr Rusty Avelar. [...] (H) Assessment & Plan (09/01/2022 10:14 AM YOUNG ADULT LIBRARIAN): Chronic problem, managed by Dr Rusty Avelar. [...] recommended. Assessment & Plan (07/18/2024 11:10 AM YOUNG ADULT LIBRARIAN): She was counseled on the importance of maintaining a healthy weight and the risks of obesity. Weight loss recommended. Assessment & Plan (06/11/2024 12:37 PM YOUNG ADULT LIBRARIAN): Wt Readings from Last 3 Encounters: 06/11/24 115.2 kg (254 lb) 06/05/24 123.5 kg (272 lb 3.2 oz) 05/20/24 116.6 kg (257 lb) Body mass index is 41 kg/m . Not at goal BMI less than 30 although improving BMI plan includes nutrition and exercise as tolerated with hip pain Assessment & Plan (09/01/2022 9:46 AM YOUNG ADULT LIBRARIAN): Discussed healthy diet and importance of regular physical activity (20- 30min/day, 150min/wk). Medicare annual wellness visit, subsequent 02/10 Assessment & Plan (02/04/2025 11:45 AM CDT): Orders: CBC with auto differential; Future Comprehensive metabolic panel; Future Hemoglobin A1c; Future Lipid panel; Future Thyroid Function Bryan; Future Assessment & Plan (07/18/2024 10:27 AM YOUNG ADULT LIBRARIAN): Labs reviewed and discussed Vaccines up to [...] 12/12/2021 Assessment & Plan (06/11/2024 12:36 PM YOUNG ADULT LIBRARIAN): Continue to follow with cardiology Currently on [...] Will hydrate overnight and make NPO for [facility] tomorrow Malignant neoplasm of upper- outer quadrant of right breast in female, estrogen receptor positive 11/18/2021 Cancer Staging:Pathologic stage from 12/02/2021:Stage IA(pT2, pN0(sn), cM0, G2, ER+, TN+, HER2-, Oncotype DX score: 3) - Signed [...] (06/13/2019): Added automatically from request for surgery [id number] Assessment & Plan (05/01/2023 12:31 PM CDT): Referral to pain management given to take over the norco medication Chronic diastolic congestive heart failure 05/09 Assessment & Plan (07/17/2024 9:29 PM YOUNG ADULT LIBRARIAN): Stable Continue blood pressure control Continue medical [...] 05/07/2019 Assessment & Plan (07/17/2024 9:33 PM YOUNG ADULT LIBRARIAN): stable Continue Eliquis Assessment & Plan (04/28/2023 [...] fixation device such as nail, plate or charisse 04/08/2019 Overview (04/08/2019): Added automatically from request for surgery [id number] Closed bimalleolar fracture of left ankle 2018 Sprain of anterior talofibular ligament of right ankle 01/20/2019 Pacemaker 08/31/2018 Assessment & Plan (09/27/2023 9:33 AM YOUNG ADULT LIBRARIAN): Possibly malfunctioning as per cardiology Recommend following [...] medications Assessment & Plan (08/20/2018 8:43 PM YOUNG ADULT LIBRARIAN): Continue home regimen: Zoloft 100mg QD, trazodone 50mg QHS for sleep. 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 Last lipid panel 07/10/24 LDL=72, EU=021. No changes at this time. Assessment & Plan (07/17/2024 9:31 PM YOUNG ADULT LIBRARIAN): Lab Results Component Value Date LDLCALC 72 07/10/2024 Chronic, well-controlled continue rosuvastatin Assessment & Plan (07/17/2024 8:48 AM YOUNG ADULT LIBRARIAN): Chronic problem, well controlled with current rosuvastatin 10mg daily & Zetia 10mg. Last lipid panel 07/10/24 LDL=72, XI=659. No changes at this time. Assessment & Plan (04/03/2024 8:44 AM CDT): Chronic problem, well controlled with current rosuvastatin 10mg daily & Zetia 10mg. Last lipid panel 09/22/23 LDL=49, PE=507. No changes at this time. Assessment & Plan (01/16/2024 9:32 AM CDT): Chronic problem, well controlled with current rosuvastatin 10mg daily & Zetia 10mg. Last lipid panel 09/22/23 LDL=49, LM=429. No changes at this time. Assessment & Plan (10/17/2023 9:45 AM CDT): Chronic problem, well controlled with current rosuvastatin 10mg daily. 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 Last lipid panel 09/22/23 LDL=49, WL=338. No changes at this time. Assessment & Plan (06/29/2023 9:55 AM YOUNG ADULT LIBRARIAN): Chronic problem, well controlled with current rosuvastatin 20mg daily. Last lipid panel 04/24/23 LDL=49, HK=599. No changes at this time. Assessment & Plan (04/28/2023 12:41 PM CDT): Chronic, well-controlled continue rosuvastatin Assessment & Plan (03/16/2023 4:57 PM CDT): Chronic, well-controlled\\ continue rosuvastatin Assessment & Plan (11/29/2022 9:41 AM CDT): Chronic problem, well controlled with current rosuvastatin 20mg daily. Last lipid panel 09/12/22 LDL=35, VW=163 No changes at this time. Assessment & Plan (09/01/2022 8:48 AM YOUNG ADULT LIBRARIAN): Chronic problem, well controlled with current rosuvastatin [...] cardiology Assessment & Plan (09/17/2020 4:08 PM YOUNG ADULT LIBRARIAN): Goal of treatment , LDL cholesterol less [...] Crestor Assessment & Plan (06/11/2020 3:37 PM YOUNG ADULT LIBRARIAN): At goal on current medications. Continue statin [...] therapy Assessment & Plan (08/31/2019 5:48 PM YOUNG ADULT LIBRARIAN): LDL elevated and managed by cardiology Assessment & Plan (05/16/2019 9:39 AM CDT): Continue follow up with cardiology Assessment & Plan (01/10/2019 4:58 PM CDT): Follow up with cardiology Assessment & Plan (09/27/2018 10:25 AM YOUNG ADULT LIBRARIAN): LDL at goal for DM and CAD. Continue current medications and follow up with cardiology Assessment & Plan (06/28/2018 9:59 AM YOUNG ADULT LIBRARIAN): Goal of treatment , LDL cholesterol less [...] artery disease of b ypass graft of [place] heart with stable angina pectoris 03/28/2018 History [...] hours Assessment & Plan (07/17/2024 10:15 AM YOUNG ADULT LIBRARIAN): No pump setting changes. Able to get [...] 3 Assessment & Plan (06/29/2023 10:12 AM YOUNG ADULT LIBRARIAN): No pump setting changes. Assessment & Plan (11/29/2022 9:53 AM CDT): No pump setting changes. Assessment & Plan (09/01/2022 10:11 AM YOUNG ADULT LIBRARIAN): Add new basal rate 9a to cover [...] 12a BR to 3.8 in her typical Jennifer profile. Set new surgery profile with target of 150 and BR pattern 12a 2.2, 530p 2.8, 9p 2.8. Assessment & Plan (08/19/2021 9:39 AM YOUNG ADULT LIBRARIAN): Have long acting , basal insulin ( [...] reviewed. Assessment & Plan (09/27/2018 10:30 AM YOUNG ADULT LIBRARIAN): Increase basals to MN 3.9, 0500 4.05, 9 pm 5.7. May need to reduce basals and increase IC to redistribute basal to bolus. Advised to call if BG patterns trend < 100. Assessment & Plan (06/28/2018 10:02 AM YOUNG ADULT LIBRARIAN): Have long acting , basal insulin ( [...] will doing prep for colonoscopy. Atherosclerosis of [place] artery of extremity Morbid obesity with BMI of 40.0-44.9, adult 06/01 Assessment & Plan (12/13/2021 12:31 PM CDT): Encourage weight loss Assessment & Plan (03/18/2021 3:42 PM CDT): Importance of following diet and exercising discussed. Assessment & Plan (02/03/2021 12:53 PM CDT): Continue focus on diet and exercise as recommened by cardiology Assessment & Plan (12/10/2020 3:57 PM CDT): Importance of following diet and exercising discussed. Assessment & Plan (06/11/2020 3:37 PM YOUNG ADULT LIBRARIAN): Importance of following diet and exercising discussed. Assessment & Plan (01/10/2019 4:58 PM CDT): Wt down 3# Assessment & Plan (12/05/2017 9:25 AM CDT): Importance of following diet and exercising discussed. Chronic coronary artery disease 02/23/2017 Assessment & Plan (07/17/2024 9:29 PM YOUNG ADULT LIBRARIAN): Status post CABG x5 Continue following with [...] roglycerin as needed GERD (gastroesophageal reflux disease) 07/27/201 7 Assessment & Plan (03/01/2024 11:19 AM [...] - Continue home insulin pump - Consult senior health educator for pump management Assessment & Plan (07/17/2024 9:34 PM YOUNG ADULT LIBRARIAN): The patient was counseled on a heart-healthy, [...] months Assessment & Plan (07/17/2024 10:05 AM YOUNG ADULT LIBRARIAN): Chronic problem, A1c 6.9% 02/08/24 & improved [...] infection. Assessment & Plan (06/11/2024 12:30 PM YOUNG ADULT LIBRARIAN): Follows with endocrinology: Next appointment 07/17/24 A1c [...] infection. Assessment & Plan (06/29/2023 10:15 AM YOUNG ADULT LIBRARIAN): Chronic problem, A1c at goal; 6.6%. no pump setting changes. Humalog via Tandem t-slim insulin pump; control IQ BR 12a 4.5 IC 5 SF 20 T 110 AI 3 UTD DM eye exam 05/2023. Sent letter to [facility] in [place]. UTD on labs. Strive for regular exercise [...] 110 AI 3 Has eye appt at [facility] 12/09/22. Will have copy of report sent [...] Mrs Howard. Contact info for Latosha at [facility] if she is unable to do it [...] months Assessment & Plan (09/01/2022 10:14 AM YOUNG ADULT LIBRARIAN): Chronic problem, Running high from 9a-12p and 615-745p. Adjusted basal rates and added 9a basal rate. Mrs Howard feels comfortable changing basal rates. Asked her to mobiliThink message me with how new pump setting are going. Tandem t-slim insulin pump - started on in 05/20 Basal 12a 3.8, 9a 4.5 530p 5.0 IC 5 SF 20 T 110 AI 3 Has eye appt at [facility] 09/16/22. Will have copy of report sent [...] issues. Assessment & Plan (08/19/2021 9:42 AM YOUNG ADULT LIBRARIAN): Hba1c was Lab Results Component Value Date [...] 140. Assessment & Plan (08/25/2018 4:20 PM YOUNG ADULT LIBRARIAN): 58-year-old female with history of type 1 diabetes admitted for symptomatic bradycardia s/p PPM 08/24/2018 Blood sugars well controlled at home, A1c 7.1%. She is on basal heavy regimen at home. BS at goal while in hospital. Can continue current pump settings. Plan: Basal settin6288-1403- 3.4 u/hr 5896-1649- 3.2 u/hr Continue carb ratio 7 Sensitivity 20 Target 100-120 Active insulin time 3hrs. Monitor blood sugar a.c. + hs +0200 Resume home settings back at discharge. (basal set as 'standard pattern') She is comfortable making the changes on her pump prior to discharge. Assessment & Plan (08/24/2018 10:13 PM YOUNG ADULT LIBRARIAN): 58-year-old female with history of type 1 diabetes admitted for symptomatic bradycardia. Blood sugars well controlled at home, A1c 7.1%. She is on basal heavy regimen at home. PPM placement on 08/24/2018. Blood sugars have been under acceptable control however Ms Howard has been taking intermittent square boluses- 10 units after lunch yesterday, BS down from 180 to 103. Plan: Basal settin4567-9723- 3.4 u/hr 1649-3362- 3.2 u/hr Continue carb ratio 7 Sensitivity 20 Target 100-120 Active insulin time 3hrs. Site last changed on 08/19/18 Monitor blood sugar a.c. + hs +0200 Resume home settings back at discharge. (basal set as 'standard pattern') Assessment & Plan (08/23/2018 2:55 PM YOUNG ADULT LIBRARIAN): 58-year-old female with history of type 1 [...] +0200 Assessment & Plan (08/22/2018 7:56 AM YOUNG ADULT LIBRARIAN): 58-year-old female with history of type 1 [...] +0200 Assessment & Plan (08/22/2018 4:07 PM YOUNG ADULT LIBRARIAN): On insulin pump, well controlled with last A1C 7.3 (06/2018). - Endocrinology consulted, appreciate recommendations for pump mangagement Assessment & Plan (08/20/2018 7:09 PM YOUNG ADULT LIBRARIAN): 58-year-old female with history of type 1 [...] +0200 Assessment & Plan (08/20/2018 3:56 AM YOUNG ADULT LIBRARIAN): Will continue with insulin pump Assessment & [...] vomiting. Cont to monitor and f/u with junior systems engineer if hyperglycemia persist Lumbago 07/09/2013 Assessment & [...] CPAP Assessment & Plan (08/20/2018 3:54 AM YOUNG ADULT LIBRARIAN): Restart CPAP COPD (chronic obstructive pulmonary disease) [...] reevaluation. Assessment & Plan (10/03/2019 3:44 PM YOUNG ADULT LIBRARIAN): Inspiratory and expiratory wheeze upon auscultation as [...] CBC and CMP to be completed at [facility] tomorrow. Patient instructed to report to emergency department if her symptoms worsening she verbalized understanding agreed to plan. Will notify office with absolutely any changes. Assessment & Plan (05/07/2019 6:10 AM CDT): Continue p.r.n. Albuterol Assessment & Plan (08/20/2018 3:53 AM YOUNG ADULT LIBRARIAN): Stable, Continue with home inhalers S/P ORIF (open reduction internal fixation) fra ture Stage 4 chronic kidney disease Assessment & Plan (06/11/2024 12:35 PM YOUNG ADULT LIBRARIAN): Continue follow with Dr. Avelar, sole polisher Due for repeat BMP in 1 week [...] CDT): Patient follows with Dr. Avelar at [facility]. She states she has an appointment with him on the of this month. Patient is fluid overloaded [...] baseline. Continue to monitor. Atypical chest pain Current Treatment and Therapy Plans No current plan information found. Past Treatment and Therapy Plans No past plan information found. Radiation Treatments * Course C1_RT_BRST_202112/23/2021 - 01/24/2022 Treatment Period Energy Fraction Dose Fractions Total Dose Plans Planned PRNE_RBRSTBST 01/19/2022 - 01/24/2022 250 4 / 1,000 PRNE_RT BRST 12/23/2021 - 01/18/2022 266 16 / 4,256 Reference Points Delivered PRNE_RT BRST BST 01/19/2022 - 01/24/2022 1,000 PRNE_RT BREAST 12/23/2021 - 01/18/2022 4,256 Lifetime Dose Tracking * Chemical Lifetime Dose Automatic Entry Manual Entr y Fluoro Time 3.676 minutes 3.676 minutes 0 minutes Air kerma at the reference point (Ka,r) 480.623 mGy 8 .223 mGy 472.4 mGy DLP 958 mGycm 958 mGycm 0 mGycm Resolved Problems Problem Noted Date Diagnosed Date [...] to her RCA. She has significant, diffuse [place] disease with a focal area of progression [...] to her RCA. She has significant, diffuse [place] disease with a focal area of progression [...] with current medication regimen Follow up with hospital intern Hypoglycemia due to insulin 02/04/2023 01/09/2024 Unstable angina pectoris 02/03/202302/2023 Viral upper respiratory tract infection 06/30/2022 08/31/2022 Assessment & Plan (06/30/2022 5:35 PM YOUNG ADULT LIBRARIAN): Recommend fluids, rest, humidification if needed. She [...] (10/13/2021): Added automatically from request for surgery [id number] Abnormal mammogram 10/13/2021 Overview (10/13/2021): Added automatically from request for surgery [id number] Dysuria 08/19/2021 02/03/2023 Assessment & Plan (08/19/2021 9:40 AM YOUNG ADULT LIBRARIAN): rx for cipro sent ( pt has [...] month Assessment & Plan (09/27/2023 9:33 AM YOUNG ADULT LIBRARIAN): Bp in the office today BP Readings [...] imdur, metoprolol Shortness of breath 10/14/2020 02/04/20 Viral gastroenteritis 09/02/20192019 Acute cystitis without hematuria [...] pending his V/Q scan results. Symptomatic bradycardia 08/20/2018 02/0 12/2019 Assessment & Plan (08/20/2018 3:56 AM YOUNG ADULT LIBRARIAN): Patient presented with complains of palpitations and sensation of heart stopping in the chest. Likely multifactorial due to hyperkalemia, acute kidney injury superimposed to CKD stage 4, and beta-blockers Found to be bradycardic. Admitted to the ICU. Hold beta-blockers Telemetry monitoring Cardiology consult GUZMAN (acute kidney injury) 08/20/2018 Assessment & Plan (08/20/2018 3:44 AM YOUNG ADULT LIBRARIAN): Patient with a history of CKD stage [...] BMP. Assessment & Plan (08/22/2018 4:08 PM YOUNG ADULT LIBRARIAN): Potassium peak level at 6.1 on BMP at [facility]. Given insulin, dextrose and albuterol with improvement to 5.0, currently stable at 5.0. - will continue to monitor with daily BMP, continues to be stable. Assessment & Plan (08/20/2018 3:50 AM YOUNG ADULT LIBRARIAN): Patient was treated with insulin, albuterol, calcium gluconate. Will give 1 dose of Kayexalate. Repeat electrolytes in a.m.. Telemetry monitoring Cardiology consult Nephrology consult Insulin pump fitting or adjustment 08/20/2018 05/17/2022 Assessment & Plan (06/11/2020 3:44 PM YOUNG ADULT LIBRARIAN): No change to current settings Assessment & Plan (08/25/2018 4:18 PM YOUNG ADULT LIBRARIAN): Pt is denies any suicidal ideation, is alert and oriented and may continue to the insulin pump while hospitalization. The patient will fill the insulin log form for the daily boluses. The above was communicated to the patient as a criteria to maintain an insulin pump while hospitalized. The patient notes understanding. Assessment & Plan (08/24/2018 10:08 PM YOUNG ADULT LIBRARIAN): Pt is denies any suicidal ideation, is alert and oriented and may continue to the insulin pump while hospitalization. The patient will fill the insulin log form for the daily boluses. The above was communicated to the patient as a criteria to maintain an insulin pump while hospitalized. The patient notes understanding. Assessment & Plan (08/23/2018 2:55 PM YOUNG ADULT LIBRARIAN): Pt is denies any suicidal ideation, is alert and oriented and may continue to the insulin pump while hospitalization. The patient will fill the insulin log form for the daily boluses. The above was communicated to the patient as a criteria to maintain an insulin pump while hospitalized. The patient notes understanding. Assessment & Plan (08/21/2018 11:36 AM YOUNG ADULT LIBRARIAN): Pt is denies any suicidal ideation, is alert and oriented and may continue to the insulin pump while hospitalization. The patient will fill the insulin log form for the daily boluses. The above was communicated to the patient as a criteria to maintain an insulin pump while hospitalized. The patient notes understanding. Assessment & Plan (08/20/2018 7:05 PM YOUNG ADULT LIBRARIAN): Pt is denies any suicidal ideation, is alert and oriented and may continue to the insulin pump while hospitalization. The patient will fill the insulin log form for the daily boluses. The above was communicated to the patient as a criteria to maintain an insulin pump while hospitalized. The patient notes understanding. High risk medication use 08/20/201812/2019 Assessment & Plan (08/25/2018 4:18 PM YOUNG ADULT LIBRARIAN): Continue intensive monitoring of blood sugar QID, patient at risk of hypoglycemia in the setting of intensive insulin regimen, advanced age, restricted diet, CKD Assessment & Plan (08/24/2018 10:08 PM YOUNG ADULT LIBRARIAN): Continue intensive monitoring of blood sugar QID, patient at risk of hypoglycemia in the setting of intensive insulin regimen, advanced age, restricted diet, CKD Assessment & Plan (08/23/2018 2:55 PM YOUNG ADULT LIBRARIAN): Continue intensive monitoring of blood sugar QID, patient at risk of hypoglycemia in the setting of intensive insulin regimen, advanced age, restricted diet, CKD Assessment & Plan (08/21/2018 11:37 AM YOUNG ADULT LIBRARIAN): Continue intensive monitoring of blood sugar QID, patient at risk of hypoglycemia in the setting of intensive insulin regimen, advanced age, restricted diet, CKD Assessment & Plan (08/20/2018 7:05 PM YOUNG ADULT LIBRARIAN): Continue intensive monitoring of blood sugar QID, patient at risk of hypoglycemia in the setting of intensive insulin regimen, advanced age, restricted diet, CKD Symptomatic bradycardia 08/20/2018 02/12/2019 Assessment & Plan (08/24/2018 1:23 PM YOUNG ADULT LIBRARIAN): Endorsed palpitations, felt heart skipping beat, dizziness, [...] of normal potassium levels. - EKG at [facility] with rate 41 and junctional rhythm, improved to 71 after correction of hyperkalemia and holding metoprolol. - EP consulted, pacemaker placed 08/24, bed rest for 8 hours with arm immobilization - Metoprolol 50 BID Stage 3 chronic kidney disease 08/20/2018 06/28/2023 Assessment & Plan (12/13/2021 12:31 PM CDT): -cr stable at baseline -will hydrate prior to [facility] Assessment & Plan (08/25/2018 8:49 AM YOUNG ADULT LIBRARIAN): History of CKD III-IV, peak Cr 2.69 at OSH, with baseline Cr of 1.3-1.8. - No intervention at [facility] to improve creatinine, unknown if initial injury was pre-renal or cardiorenal in etiology, less likely cardiorenal given HFpEF history. - Cr 1.72 on admission to [facility]. FeUrea 28.6% suggesting pre-renal etiology. Renal u/s with no hydronephrosis, not likely obstruction. - Holding Irbesartan 300mg daily and lasix 40mg MWF, 20mg T,,,[place] for acute renal failure. - Nephrology c/s [...] (08/23/2018): Added automatically from request for surgery [id number] Acute on chronic systolic co ngestive heart failure 05/29/2018 09/05/2019 Assessment & Plan (05/29/2018 4:03 AM CDT): Patient presented with dyspnea on exertion and some PND. BNP is elevated. On physical exam patient has significant peripheral edema Started on IV Lasix. Home monitor closely kidney function. Cardiology consult CPAP/BiPAP (continuous or bi phasic positive airway pressure) dependent 03/28/2018 02/03/2023 History of colon polyps 11/06/201709/2017 Overview (11/06/2017): Added automatically from request for surgery [id number] Lower respiratory infection 08/30/2017 09/26/2017 Assessment & Plan (08/30/2017 1:17 PM YOUNG ADULT LIBRARIAN): Recommended Z-Christopher to take as prescribed taking 2 tablets x1 day then 1 tablet x4 days also advised patient just take plain Mucinex or guaifenesin [id number] to assist productivity and cough along with [...] weight loss. I recommended calorie tracking rajan, [employer], which is a free download on a smart phone. Assessment & Plan (10/03/2019 3:45 PM YOUNG ADULT LIBRARIAN): Benefits of weight loss discussed. Reviewed recommendations [...] weight loss. I recommended calorie tracking rajan, [employer], which is a free download on a smart phone. Assessment & Plan (05/16/2019 9:40 AM CDT): No wt bearing and unable to exercise so needs to rely on diet to address wt reduction goal Assessment & Plan (09/27/2018 10:28 AM YOUNG ADULT LIBRARIAN): Eliminating high K+ carbs but total grams per day is above goal. Advised to reduce portions. Assessment & Plan (08/20/2018 3:47 AM YOUNG ADULT LIBRARIAN): Weight loss encouraged Assessment & Plan (08/30/2017 1:16 PM YOUNG ADULT LIBRARIAN): Recommended patient to continue to increase heart [...] 024 Assessment & Plan (08/20/2018 8:42 PM YOUNG ADULT LIBRARIAN): Continue home regimen: colesevelam 625mg BID, Ezetimibe 10mg QD Assessment & Plan (05/29/2018 4:04 AM CDT): Patient currently on Welchol, Zetia, Crestor. Continue current medication Assessment & Plan (03/18/2018 10:58 AM CDT): LDL at goal on current therapy Assessment & Plan (05/10/2017 4:04 PM CDT): Continue statin therapy. Insulin pump status 01/30/2017 09/05/19 20 Assessment & Plan (08/31/2019 5:53 PM YOUNG ADULT LIBRARIAN): Recommend upgrade to pump/sensor therapy. Would need [...] months Assessment & Plan (08/19/2021 9:38 AM YOUNG ADULT LIBRARIAN): Hba1c was Lab Results Component Value Date [...] episodes. Assessment & Plan (09/17/2020 4:07 PM YOUNG ADULT LIBRARIAN): Hba1c was Lab Results Component Value Date [...] settings Assessment & Plan (06/11/2020 3:45 PM YOUNG ADULT LIBRARIAN): BG pattern acceptable at this time. Would [...] 100-120 Assessment & Plan (08/31/2019 5:51 PM YOUNG ADULT LIBRARIAN): A1c 7.7. BG pattern stable throughout the [...] foods. Assessment & Plan (09/27/2018 10:30 AM YOUNG ADULT LIBRARIAN): A1c increased from 7.1 to 7.9. BG pattern stable but elevated. Will gently adjust basal rates. Assessment & Plan (06/28/2018 10:02 AM YOUNG ADULT LIBRARIAN): Hba1c was Lab Results Component Value Date [...] settings. Assessment & Plan (08/29/2017 10:15 AM YOUNG ADULT LIBRARIAN): Hba1c was 7.5 today, indicating 164 DM [...] bp. Assessment & Plan (08/22/2018 4:07 PM YOUNG ADULT LIBRARIAN): Systolic pressures wnl, however diastolic pressures fairly low. -Will continue amlodipine 10mg, will decrease hydral to 10mg bid Assessment & Plan (08/20/2018 3:47 AM YOUNG ADULT LIBRARIAN): Blood pressures she is elevated Continue with amlodipine, furosemide, hydralazine. Telemetry monitoring Multiple-type hyperlipidemia 12/14/2013 02/23/2017 Overview (11/04/2016): MIXED HYPERLIPIDEMIA Type 2 diabetes mellitus wit h hyperglycemia, with long-term current use of insulin ([facility]) 12/14/2013 04/20/2021 Overview (11/04/2016): DMII WO CMP [...] Plavix Assessment & Plan (08/20/2018 3:51 AM YOUNG ADULT LIBRARIAN): On statin and Zetia Assessment & Plan [...] months Assessment & Plan (09/01/2022 8:49 AM YOUNG ADULT LIBRARIAN): Chronic problem, well controlled on curent metoprolol [...] plan. Assessment & Plan (09/17/2020 4:08 PM YOUNG ADULT LIBRARIAN): Goal blood pressure is less than 140/85 Low salt diet was discussed andd recommended The importance of daily aerobic exercise was also emphasized. Continue current meds, including DEEDEE-I or ARB, e.g. irbesartan Assessment & Plan (06/11/2020 3:38 PM YOUNG ADULT LIBRARIAN): Controlled on current medications. Continue plan. Assessment & Plan (03/12/2020 9:03 AM CDT): Controlled on current medications. Continue plan. Assessment & Plan (08/31/2019 5:45 PM YOUNG ADULT LIBRARIAN): Continue follow up with cardiology and nephrology Assessment & Plan (05/16/2019 9:39 AM CDT): Continue follow up with cardiology and renal Assessment & Plan (04/10/2019 4:56 AM CDT): Continue cardiac pertinent home medications Assessment & Plan (01/10/2019 4:58 PM CDT): Continue current medications Assessment & Plan (09/27/2018 10:24 AM YOUNG ADULT LIBRARIAN): Controlled on current medications. Continue follow up with cardiology Assessment & Plan (06/28/2018 10:00 AM YOUNG ADULT LIBRARIAN): Goal blood pressure is less than 140/85 [...] BMP. Assessment & Plan (08/24/2018 1:16 PM YOUNG ADULT LIBRARIAN): TTE (05/30/2018) EF 70-75%, RVSP 33mmHg, limited study. [place] CXR with signs of mild pulmonary vascular congestion - BNP 1K on arrival, however patient appears euvolemic. - Metoprolol decreased for symptomatic bradycardia will uptitrate now PM in place and lasix held in setting of acute renal failure. Assessment & Plan (08/20/2018 3:48 AM YOUNG ADULT LIBRARIAN): Clinically not fluid overloaded. Continue monitoring. Strict I&Os Monitor kidney function with daily BMP Replete electrolytes as needed Acute pulmonary embolism wit hout acute cor pulmonale 09/05/2019 Other fatigue 02/03/2023 Chest pain 12/08/2023
--- OUTSIDE RECORDS SUMMARY | 2025-03-09 13:13 | XMS_ITS | Continuity of Care Document ---
Author Organization [facility] Address [address] [place] [address] [address] [place] [address] Phone Care Team Providers Care Dead Mail Checker Name Role Phone Alexander PT, LARISSAT, Leobardo [...] Diagnoses Date Provider Providers Copied on Encounter [facility], [id number], tel:[phone] Eduardo Pain in left shoulderStiffnes s of left shoulder, not elsewhere classifiedOther specified extrapyramidal and movement disordersOth specific arthropathies, NEC, left shoulder Apr-1 6-201 8 Alexander Booth. [address], [facility], [place]. tel:[phone] Referring Provider: Akin Baird, [address] [place] [address] [address] [place], [address]. tel:[phone] [facility], [id number], tel:[phone] Eduardo Pain in left shoulderStiffnes s of left shoulder, not elsewhere classifiedOther specified extrapyramidal and movement disordersOth specific arthropathies, NEC, left shoulder Apr-0 9-201 8 Alexander Booth. [address] [facility], [facility] [address], [place], [facility], [place]. tel:[phone] Referring Provider: Akin Baird, [address] [facility] [address] [facility], [place], [address]. tel:[phone] [facility] [address], [place], [place], [id number], [place] tel:[phone] Eduardo Pain in left shoulderStiffnes s of left shoulder, not elsewhere classifiedOther specified extrapyramidal and movement disordersOth specific arthropathies, NEC, left shoulder Mar-2 6-201 8 Lujan-Downey Leobardo. [address] [facility], [address], [place], [place], [facility], [place]. tel:[phone] Referring Provider: Akin Baird, [address] [facility] [address] [facility], [address]. tel:[phone] [facility] [address] [facility], [place], [place], [id number], [place] tel:[phone] [place] Pain in left shoulderStiffnes s of left shoulder, not elsewhere classifiedOther specified extrapyramidal and movement disordersOth specific arthropathies, NEC, left shoulder Mar-2 3-201 8 Lujan-Downey Leobardo. [address] [place] [address], [address], [place], [facility], [place]. tel:[phone] Referring Provider: Akin Baird, [address] [facility] [address] [place], [address]. tel:[phone] [facility] [address] [facility], [place], [place], [id number], [place] tel:[phone] [place] Pain in left shoulderStiffnes s of left shoulder, not elsewhere classifiedOther specified extrapyramidal and movement disordersOth specific arthropathies, NEC, left shoulder Mar-1 9-201 8 Lujan-Downey Leobardo. [address] [facility], [address], [place], [address], [place]. tel:[phone] Referring Provider: Akin Baird, [address] [facility] [address] [facility], [place], [address]. tel:[phone] [facility] [address], [place], [place], [id number], [place] tel:[phone] [place] No Information 8 Tai-Shayan Leobardo. [address] [facility], [address], [place], [address], [place]. tel:[phone] Referring Provider: Akin Baird, [address] [place] [address] [address] [facility], [address]. tel:[phone] [facility] [address] [place], [place] [address], [place], [place], [id number], [place] tel:[phone] [place] No Information 8 Tai-Shayan Leobardo. [address] [place] [address], [address], [place], [facility], [place]. tel:[phone] Referring Provider: Akin Baird, [address] [place] [address] [address] [facility], [address]. tel:[phone] [address], [place], [place], [id number], [place] tel:[phone] [place] No Information 8 Tai-Shayan Leobardo. [address] [place] [address], [address], [place], [address], [place]. tel:[phone] Referring Provider: Akin Baird, [address] [place] [address] [address] [place], [address]. tel:[phone] [facility] [address] [place], [place] [address], [place], [place], [id number], [place] tel:[phone] Eduardo No Information 8 Tai-Shayan Leobarod. [address] [place] [address], [address], [place], [address], [place]. tel:[phone] Referring Provider: Akin Baird, [address] [place] [address] [address], [place], [address]. tel:[phone] [facility] [address], [place], [place], [id number], [place] tel:[phone] [place] No Information 8 Alexander Booth. [address] [facility], [address], [place], [address], [place]. tel:[phone] Referring Provider: Akin Baird, [address] [place] [address] [address], [place], [address]. tel:[phone] [facility], [id number], [place] tel:[phone] [place] No Information 8 Alexander Booth. [address] [place] [address], [address], [place], [address], [place]. tel:[phone] Referring Provider: Akin Baird, [address] [place] [address] [address], [place], [address]. tel:[phone] [facility] [place] [address], [place], [place], [id number], [place] tel:[phone] [place] Pain in left shoulderStiffnes s of left shoulder, not elsewhere classifiedOther specified extrapyramidal and movement disordersOth specific arthropathies, NEC, left shoulder 8 Sandip Arora. . Referring Provider: Akin Baird, [address] [place] [address] [address], [place], [address]. tel:[phone] [facility] [place] [address], [place], [place], [id number], [place] tel:[phone] [place] No Information 8 Alexander Booth. [address] [facility], [address], [place], [address], [place]. tel:[phone] Referring Provider: Janice Goldsmith, [address] [facility] [address], [place], [address]. tel:[phone] [facility], [id number], tel:[phone] [place] No Information 8 Alexander Booth. [address] [place] [address], [address], [place], [facility], . tel:[phone] Referring Provider: Janice Goldsmith [facility] [address], [place], [address]. tel:[phone], [id number], tel:[phone] Eduardo No Information 8 Alexander Booth. [address] [place] [address], [address], [facility], . tel:[phone] Referring Provider: Janice Goldsmith [address] [place] [address] [address], [place], [address]. tel:[phone], [id number], tel:[phone] [place] No Information 8 Alexander Booth. [address] [place] [address], [address], [facility], . tel:[phone] Referring Provider: Janice Goldsmith [facility]1 [facility] [address], [place], [address]. tel:[phone], [id number], tel:[phone] [place] No Information 7 Alexander Booth. [address] [place] [address], [address], [facility], . tel:[phone] Referring Provider: Janice Goldsmith [facility]1 [facility] [address], [place], [address]. tel:[phone] [address], [place], [place], [id number], tel:[phone] [place] No Information Alexander Booth. [address] [place] [address], [address], [facility], . tel:[phone] Referring Provider: Janice Goldsmith [facility]1 [facility] [address], [place], [address]. tel:[phone] [facility] [address] [place] [address], [id number], tel:[phone] [place] No Information 7 Gary Gramajo. [address] [place] [address], [address], [facility], . tel:[phone] Referring Provider: Janice Goldsmith [address] [place] [address] [address] [place], [address]. tel:[phone] [facility] [address], [id number], tel:[phone] [place] No Information Alexander Booth. [address] [place] [address], [address], [facility], [place]. tel:[phone] Referring Provider: Janice Goldsmith [address] [place] [address] [address] [place], [address]. tel:[phone] [place] [address], [id number], tel:[phone] [place] Lumbago with sciatica, left sideStiffness of unspecified joint, not elsewhere classifiedMuscle weakness (generalized)Sti ffness of right hip, not elsewhere classifiedOther intervertebral disc degeneration, lumbar region Alexander Booth. [address] [place] [address], [address], [facility], . tel:[phone] Referring Provider: Russel Eldridge1 [facility] [address], [place], [address]. tel:[phone] [address], [place], [place], [id number], tel:[phone] [place] No Information 0 7 Alexander Booth. [address] [place] [address], [address], [place], [facility], . tel:[phone] Referring Provider: Austen Gannon, [address] [place] [address] [address], [place], [address]. tel:[phone] [address], [place], [place], [address], [place] tel:[phone] Eduardo No Information 7 Gary Gramajo. [address] [place] [address], [address], [place], [facility], [place]. tel:[phone] Referring Provider: Austen Gannon, [address] [place] [address] [address], [place], [address]. tel:[phone], [place], [id number], [place] tel:[phone] [place] No Information 7 Gary Gramajo. [address] [place] [address], [address], [place], [address], [place]. tel:[phone] Referring Provider: Austen Gannon, [address] [facility] [address], [place], [address]. tel:[phone] [address], [place], [id number], [place] tel:[phone] Eduardo No Information 7 Gary Gramajo. [address] [place] [address], [address], [place], [address], [place]. tel:[phone] Referring Provider: Austen Gannon [address] [facility] [address], [place], [address]. tel:[phone], [id number], [place] tel:[phone] [place] No Information Sep-2 Alexander Booth. [address] [place] [address], [address], [facility], [place]. tel:[phone] Referring Provider: Corinna Lancaster [address], [address]. tel:[phone], [id number], tel:[phone] Eduardo No Information Sep- Alexander Booth. [address] [place] [address], [address], [facility], [place]. tel:[phone] Referring Provider: Corinna Lancaster [address], [address]. tel:[phone], [id number], [place] tel:[phone] Eduardo No Information Sep- Alexander Booth. [address] [place] [address], [address], [facility], [place]. tel:[phone] Referring Provider: Corinna Lancaster [address], [address]. tel:[phone], [id number], [place] tel:[phone] Eduardo Pain in left footOth symptoms and signs involving the musculoskeletal systemUnspecifie d abnormalities of gait and mobilityMyalgiaP lantar fascial fibromatosis Sep-1 Alexander Booth. [address] [place] [address], [facility] [address], [place], [facility], [place]. tel:[phone] Referring Provider: Corinna Lancaster [address], [address]. tel:[phone] Family History Family Member Type Diagnosis Age At Onset No Information Payers Payer name Insurance type Covered constitution party ID Authoriza timichael(s) [place] [id number] [facility] [id number] Social History Type Description Quantity Date Captured [...]
--- OUTSIDE RECORDS SUMMARY | 2025-03-09 13:13 | XMS_ITS | Encounter Summary ---
Author Organization [facility] Address [address] [facility] [address] [place] [address] Care Team Providers Care Loom Fixer Supervisor Name Role Phone Avila Torres MD Primary Care Provider [phone] Avila Torres MD Primary Care Provider Avila Torres MD Primary Care Provider [phone] Avila Torres MD Primary Care Provider [phone] Tawkoyty, Ruthy TRIM DIE MAKER Unavailable Unavailabl e Tawkoyty, Ruthy TRIM DIE MAKER Unavailable Unavailabl e Tawkoyty, Ruthy TRIM DIE MAKER Unavailable Unavailabl e Celena, Tinika Manju TRIM DIE MAKER Unavailable Unavail able CelenaTroy genaoika Manju TRIM DIE MAKER Unavailable Unavail able Aquiles Wilder LCSW Unavailable Unavailabl e Monica Rouse RN Unavailable [phone] Monica Rouse RN Unavailable [phone] Servando Tsai MD Unavailable [phone] Fer Matos RN Unavailable [phone] Aquiles Wilder TEST ADMINISTRATOR Unavailable Unavailabl e Debbie Krueger TEST ADMINISTRATOR Unavailable JanaYanna Unavailable [phone] Pooja Menard RN Unavailable Dayana Guerrero RN Unavailable Aj Pedroza RN Unavailable [phone] Rowena Gabriel MA Unavailable Giancarlo West MD PhD Unavailable Jason Diallo MD Unavailable [phone] Erik Hillman MD Unavailable [phone] Zulema Soto MD Primary Care Provide r Amado Saunders MD Unavailable Belia Malcolm OT Unavailable Dejan Beauchamp MD Unavailable Fernandez Garcia MD PhD Unavailable [phone] Akin Baird MD Unavailable Austen Gannon DPM Unavailable [phone] Shreyas Astorga MD Unavailable Felicia Vargas MD Unavailable [phone] Teo Avelar MD Unavailable [phone] Juliana King SPOUT POSITIONER Unavailable Encounter Details Date Type Department Care Team (Late st Contact Info) Description 02/16/2010 Orders Only [facility] 2 [facility] [address] [place] [address] Avila Torres MD [address] [place] [address] [address] [place] [address] Social History Tobacco Use Types Packs/Day Years Used Date Smoking Tobacco: Never Assessed Comments Unknown Sex and Gender Information Value Date Recorded Sex Assigned at Not on file Legal Sex Female 3:19 PM IRRIGATION DISTRICT MANAGER Gender Identity Female 09/03/2023 6:15 PM IRRIGATION DISTRICT MANAGER Sexual Orientation Not on file documented as of this encounter Plan of Treatment Not on file documented as of this encounter Procedures Procedure Name Priority Date/Time Associated Diagnosis Comments SCAN - RADIOLOGY/IMAGING Routine 02/16/2010 documented in this encounter Results * SCAN - RADIOLOGY/IMAGING (02/16/2010) Anatomical Region Laterality Modality Other us Historical Provider Final Res ult documented in this encounter Visit Diagnoses Not [...] COVID: Suspected 06/30/2022 06/30/2022 07/01/2022 3:05 AM IRRIGATION DISTRICT MANAGER COVID: Suspected 12/30/2022 12/30/2022 12/31/2022 3:05 [...] documented as of this encounter Care Teams Loom Fixer Supervisor Relationship Specialty Start Date End Date Avila Torres MD PCP - General 10/28/16 01/10/22 Avila Torres MD PCP - General 09/13/16 10/27/16 Avila Torres MD PCP - General 05/28/12 09/12/16 Avila Torres MD PCP - General 09/05/08 05/27/12 Zulema Soto MD [address] [place] [address] [address] PCP - General Family Medicine 01/11/22 Ruthy Cuenca LPN Care Manager 06/21/17 06/26/17 Ruthy Cuenca LPN Care Manager 09/04/17 09/05/17 Ruthy Cuenca LPN Care Manager 10/10/17 10/10/17 Richard Dallas LPN Care Manager 10/16/17 10/23/17 Richard Dallas LPN Care Manager 10/24/17 12/18/17 Aquiles Wilder LCSW Director Software Quality Assurance 05/14/18 08/08/18 Monica Rouse, SHANTHI [address] [facility] [address] [place] [address] Rn Provider Relations 06/01/18 06/25/18 Monica Rouse, SHANTHI [address] [place] [address] [address] [place] [address] Rn Provider Relations 08/27/18 10/20/19 Servando Tsai MD [address] [place] [address] [address] [place] [address] Referring Physician Cardiology 01/21/19 Fer Matos, SHANTHI [address] [place] [address] [address] [place] [address] Rn Provider Relations 06/01/20 06/17/20 Aquiles Wilder, [address] [place] [address] Director Software Quality Assurance 08/31/20 09/08/20 Debbie Krueger, [address] [place] [address] Director Software Quality Assurance 10/08/20 10/27/20 Yanna Bates [address] [place] [address] [address] [place] [address] ACO Care Labor Arbitrator Hearing Office 10/16/20 10/16/20 Pooja Menard, SHANTHI [address] [place] [address] [address] [place] [address] Rn Provider Relations 11/05/20 11/18/20 Dayana Guerrero RN [address] [place] [address] [address] [place] [address] Rn Provider Relations 12/15/20 01/03/21 Aj Pedroza RN [address] [place] [address] [address] [place] [address] Rn Provider Relations 01/25/21 02/03/21 Rowena Gabriel MA [address] [place] [address] [address] [place] [address] ACO Care Labor Arbitrator Hearing Office 03/16/21 03/23/21 Giancarlo West MD PhD 6 [facility] [place] [address] Radiation Oncologist Radiation Oncology 12/02/21 5 Jason Diallo MD 6 [place] [address] Consulting Physician Medical Oncology 12/02/21 12/29/22 Erik Hillman MD 6 [place] [address] Referring Physician General Surgery 12/02/21 11/03/24 Amado Saunders MD [address] [facility] [address] [place] [address] Medical Oncologist/Hematologis t Hematology and Oncology 03/03/22 11/03/24 Belia Malcolm OT 1 [place] [address] Occupational Therapist Occupational Therapy 03/29/22 [place] [address] [address] [address] Consulting Physician Endocrinology Diabetes & Metabolism 04/26/22 Fernandez Garcia [place] PhD [address] [address] [id number] Registered Nurse Vascular Surgery 04/26/22 Akin Baird MD [address] [place] [address] [address] [address] Surgeon Orthopedic Surgery 04/26/22 Austen Gannon DPM [address] [place] [address] Consulting Physician Foot and Ankle Surg 04/26/22 Shreyas Astorga MD [address] [place] [address] Consulting Physician Pulmonary Disease 04/26/22 Felicia Vargas MD [address] [place] [address] Consulting Physician Plastic Surgery 04/26/22 [place] [address] [address] [facility] [address] [place] [address] Consulting Physician Nephrology 04/26/22 [place] [address] [address] [facility] [address] [place] [address] Nurse Practitioner Endocrinology Diabetes & Metabolism 07/18/24 documented as of this encounter
--- OUTSIDE RECORDS SUMMARY | 2025-03-09 13:13 | XMS_ITS | Encounter Summary ---
Author Organization [facility] Healthcare Address [address] [place] [address] Care Team Providers Care Manager It Training Name Role Phone Avila Torres MD Primary Care Provider Monica Rouse RN Unavailable [phone] Servando Tsai MD Unavailable Fer Matos RN Unavailable [phone] Aquiles Wilder TOP INVENTORY CONTROL EXECUTIVE Unavailable Unavailabl Debbie Castle TOP INVENTORY CONTROL EXECUTIVE Unavailable [phone] Yanna Bates Unavailable [phone] Pooja Menard RN Unavailable Dayana Guerrero RN Unavailable Aj Pedroza RN Unavailable Rowena Gabriel MA Unavailable Giancarlo West MD PhD Unavailable [phone] Jason Diallo MD Unavailable Erik Hillman MD Unavailable [phone] Zulema Soto MD Primary Care Provide r Amado Saunders MD Unavailable Belia Malcolm OT Unavailable Dejan Beauchamp MD Unavailable Fernandez Garcia MD PhD Unavailable Akin Baird MD Unavailable Austen Gannon DPM Unavailable [phone] Shreyas Astorga MD Unavailable [phone] Felicia Vargas MD Unavailable [phone] Teo Avelar MD Unavailable [phone] Juliana King FOLDER MACHINE Unavailable Encounter Details Date Type Department Care Team (Late st Contact Info) Description 01/27/2019 [facility] Only [place] [id number] Khang Devlin MD [address] [facility] [place] [address] Social History Tobacco Use Types Packs/Day Years Used Date Smoking Tobacco: Never Smokeless Tobacco: Never Alcohol Use Standard Drinks/Week Comments No 0 (1 standard drink = 0.6 oz pur e alcohol) Comments No Sex and Gender Information Value Date Recorded Sex Assigned at Not on file Legal Sex Female 3:19 PM PRE PAROLE COUNSELING AIDE Gender Identity Female 09/03/2023 6:15 PM PRE PAROLE COUNSELING AIDE Sexual Orientation Not on file documented as of this encounter Plan of Treatment Not on file documented as of this encounter Visit Diagnoses Not on filedocumented in this encounter Additional Health Concerns Infection Onset Date Last Indicated 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 Original site (urine) is negative for VRE. Mamadou Boudreaux, BENITO 05/19/15 Urine VRENegative 10/29/13 Urine VRE+ 11/01/2013 11/01/2013 11/03/2020 3:48 PM C DT COVID: Suspected 12/24/2021 12/24/2021 12/24/2021 2:28 PM CDT COVID: Suspected 12/25/2021 12/25/2021 12/25/2021 1:27 PM CDT COVID: Suspected 01/29/2022 01/29/2022 01/29/2022 2:16 PM CDT COVID: Suspected 06/30/2022 06/30/2022 07/01/2022 3:05 AM PRE PAROLE COUNSELING AIDE COVID: Suspected 12/30/2022 12/30/2022 12/31/2022 3:05 AM [...] documented as of this encounter Care Teams Manager It Training Relationship Specialty Start Date End Date Avila Torres MD PCP - General 10/28/16 01/10/22 Zulema Soto MD [address] [place] [address] [place] [address] PCP - General Family Medicine 01/11/22 Monica Rouse, SHANTHI [address] [place] [address] [address] [place] [address] Imager 08/27/18 10/20/19 Servando Tsai MD [address] [place] [address] [place] [address] Referring Physician Cardiology 01/21/19 Fer Matos, SHANTHI [address] [place] [address] [address] [place] [address] Imager 06/01/20 06/17/20 Aquiles Wilder, [address] [place] [address] Train Gate Attendant 08/31/20 09/08/20 Debbie Krueger, [address] [place] [address] Train Gate Attendant 10/08/20 10/27/20 Yanna Bates [address] [place] [address] [address] [place] [address] ACO Care Manager Supply 10/16/20 10/16/20 Pooja Menard, SHANTHI [address] [place] [address] [address] [place] [address] Imager 11/05/20 11/18/20 Dayana Guerrero RN [address] [place] [address] [address] [place] [address] Imager 12/15/20 01/03/21 Aj Pedroza, SHANTHI [address] [place] [address] [address] [place] [address] Imager 01/25/21 02/03/21 Rowena Gabriel MA [address] [place] [address] [address] [place] [address] ACO Care Manager Supply 03/16/21 03/23/21 Giancarlo West MD PhD 6 [place] [address] Radiation Oncologist Radiation Oncology 12/02/21 5 Jason Diallo MD 6 [place] [address] Consulting Physician Medical Oncology 12/02/21 12/29/22 Erik Hillman MD 6 [place] [address] Referring Physician General Surgery 12/02/21 11/03/24 Amado Saunders MD [address] [address] [address] Medical Oncologist/Hematologis t Hematology and Oncology 03/03/22 11/03/24 Belia Malcolm OT 1 [place] [address] Occupational Therapist Occupational Therapy 03/29/22 [place] [address] [address] Consulting Physician Endocrinology Diabetes & Metabolism 04/26/22 [place] Garcia [place] PhD [address] [address] Registered Nurse Vascular Surgery 04/26/22 Akin Baird MD 4 [facility] [address] [address] Surgeon Orthopedic Surgery 04/26/22 Austen Gannon DPM [address] [place] [address] Consulting Physician Foot and Ankle Surg 04/26/22 Shreyas Astorga MD [address] [place] [address] Consulting Physician Pulmonary Disease 04/26/22 Felicia Vargas MD [address] [place] [address] Consulting Physician Plastic Surgery 04/26/22 [place] [address] [address] [facility] [address], [place] [address] Consulting Physician Nephrology 04/26/22 [place] [address] [address] [facility] [address] [place] [address] Nurse Practitioner Endocrinology Diabetes & Metabolism 07/18/24 documented as of this encounter
--- OUTSIDE RECORDS SUMMARY | 2025-03-09 13:13 | XMS_ITS | Encounter Summary ---
Author Organization [facility] Address [address] [facility] [address] [place] [address] Care Team Providers Care Continuity Reader Name Role Phone Avila Torres MD Primary Care Provider [phone] Avila Torres MD Primary Care Provider [phone] Avila Torres MD Primary Care Provider [phone] Avila Torres MD Primary Care Provider [phone] Tawkoyty, Ruthy DEFENSIVE SECONDARY COACH Unavailable Unavailabl e Tawkoyty, Ruthy DEFENSIVE SECONDARY COACH Unavailable Unavailabl e Tawkoyty, Ruthy DEFENSIVE SECONDARY COACH Unavailable Unavailabl e Celena, Tinika Manju DEFENSIVE SECONDARY COACH Unavailable Unavail able CelenaTroy genaoika Manju DEFENSIVE SECONDARY COACH Unavailable Unavail able Aquiles Wilder LCSW Unavailable Unavailabl e Monica Rouse RN Unavailable [phone] Monica Rouse RN Unavailable [phone] Servando Tsai MD Unavailable [phone] Fer Matos RN Unavailable [phone] Aquiles Wilder ALLOCATIONS CLERK Unavailable Unavailabl Debbie Castle ALLOCATIONS CLERK Unavailable JanaYanna Unavailable [phone] Pooja Menard RN Unavailable Dayana Guerrero RN Unavailable Aj Pedroza RN Unavailable [phone] Rowena Gabriel MA Unavailable [phone] Giancarlo West MD PhD Unavailable [phone] Jason Diallo MD Unavailable [phone] Erik Hillman MD Unavailable [phone] Zulema Soto MD Primary Care Provide r Amado Saunders MD Unavailable [phone] Belia Malcolm OT Unavailable [phone] Dejan Beauchamp MD Unavailable Fernandez Garcia MD PhD Unavailable [phone] Akin Baird MD Unavailable [phone] Austen Gannon DPM Unavailable [phone] Shreyas Astorga MD Unavailable [phone] Felicia Vargas MD Unavailable [phone] Teo Avelar MD Unavailable [phone] Juliana King NP Unavailable [phone] Reason for Referral * Diagnostic Imaging (Routine) - Closed Specialty Diagnoses / Procedures Referred By Contmaury t Referred To Contact Procedures Dexa Axial Skeleton Bone Density 1 or 2 Site [facility] Health Information Management [address] [place] [address] Phone: tel: fax: [facility] Referral ID Status Reason Start Date Expiration Date Visits Re quested Visits Authorized [id number] Closed 03/05/2019 09/13/2020 1 1 Encounter Details Date Type Department Care Team (Late st Contact Info) Description 03/19/2010 [facility] [address] [place] [address] Avila Torres MD [address] [place] [address] Social History Tobacco Use Types Packs/Day Years Used Date Smoking Tobacco: Never Assessed Comments Unknown Sex and Gender Information Value Date Recorded Sex Assigned at Not on file Legal Sex Female 3:19 PM INTERNIST Gender Identity Female 09/03/2023 6:15 PM INTERNIST Sexual Orientation Not on file documented as of this encounter Plan of Treatment Not on file documented as of this encounter Procedures Procedure Name Priority Date/Time Associated Diagnosis Comments DEXA AXIAL SKELETON BONE DENSITY 1 OR MORE SITES Schedule Routine, Read Routine (OP Routine) 03/19/2010 documented in this encounter Results * Dexa Axial Skeleton Bone Density 1 or 2 Site (03/19/2010) Anatomical Region Laterality Modality Body N/A Radiographic Tanisha ging Jean-Claude Provider MD KAY DXA PROCEDURES Final Result documented in this encounter Visit Diagnoses [...] COVID: Suspected 06/30/2022 06/30/2022 07/01/2022 3:05 AM INTERNIST COVID: Suspected 12/30/2022 12/30/2022 12/31/2022 3:05 AM [...] documented as of this encounter Care Teams Continuity Reader Relationship Specialty Start Date End Date Avila Torres MD PCP - General 10/28/16 01/10/22 Avila Torres MD PCP - General 09/13/16 10/27/16 Avila Torres MD PCP - General 05/28/12 09/12/16 Avila Torres MD PCP - General 09/05/08 05/27/12 Zulema Soto MD [address] [place] [address] [place] [address] PCP - General Family Medicine 01/11/22 Ruthy Cuenca LPN Care Manager 06/21/17 06/26/17 Ruthy Cuenca LPN Care Manager 09/04/17 09/05/17 Ruthy Cuenca LPN Care Manager 10/10/17 10/10/17 Richard Dallas LPN Care Manager 10/16/17 10/23/17 Richard Dallas LPN Care Manager 10/24/17 12/18/17 Aquiles Wilder LCSW Top Spotter 05/14/18 08/08/18 Monica Rouse, SHANTHI [address] [facility] [address] [place], [place] [address] Regulator Pin Inserter 06/01/18 06/25/18 Monica Rouse, SHANTHI [address] [facility] [address] [place], [place] [id number] Regulator Pin Inserter 08/27/18 10/20/19 Servando Tsai MD [address] [facility] [address] [place], [place] [address] Referring Physician Cardiology 01/21/19 Fer Matos, SHATNHI [address] [facility] [address] [place] [address] Regulator Pin Inserter 06/01/20 06/17/20 Aquiles Wilder LCSW [address] [place] [address] [address] [place] [address] Top Spotter 08/31/20 09/08/20 Debbie Krueger LCSW [address] [facility] [address] [place] [address] Top Spotter 10/08/20 10/27/20 Yanna Bates [address] [facility] [address] [place] [address] ACO Care Planning Rn 10/16/20 10/16/20 Pooja Menard, SHANTHI [address] [place] [address] [address] [place] [address] Regulator Pin Inserter 11/05/20 11/18/20 Dayana Guerrero RN [address] [place] [address] [address] [place] [address] Regulator Pin Inserter 12/15/20 01/03/21 Aj Pedroza, SHANTHI [address] [place] [address] [address] [place], [place] [id number] Regulator Pin Inserter 01/25/21 02/03/21 Rowena Gabriel MA [address] [place] [address] [address] [place] [address] ACO Care Planning Rn 03/16/21 03/23/21 Giancarlo West MD PhD 6 [place] [address] Radiation Oncologist Radiation Oncology 12/02/[address] MD 6 [place] [address] Consulting Physician Medical Oncology 12/02/21 12/29/22 Erik Hillman MD 6 [place] [address] Referring Physician General Surgery 12/02/21 11/03/24 Amado Saunders MD [address] [address] Medical Oncologist/Hematologis t Hematology and Oncology 03/03/22 11/03/24 Belia Malcolm OT [address] [facility] [place] [address] Occupational Therapist Occupational Therapy 03/29/22 [place] [address] [facility] [address] [place] [address] Consulting Physician Endocrinology Diabetes & Metabolism 04/26/22 Fernandez Garcia [place] PhD [address] [facility] [address] [place], [place] [id number] Registered Nurse Vascular Surgery 04/26/22 Akin Baird MD 4 [facility] [address] [place] [facility] [address] [place] [address] Surgeon Orthopedic Surgery 04/26/22 Austen Gannon DPM [address] [facility] [place] [address] Consulting Physician Foot and Ankle Surg 04/26/22 Shreyas Astorga MD [address] [facility] [place] [address] Consulting Physician Pulmonary Disease 04/26/22 Felicia Vargas MD [address] [facility] [place] [address] Consulting Physician Plastic Surgery 04/26/22 [place] [address] [facility] [address] [place] [address] Consulting Physician Nephrology 04/26/22 Juliana King, OFFICE MACHINERY OR EQUIPMENT INSTALLER [address] [place] [address] Nurse Practitioner Endocrinology Diabetes & Metabolism 07/18/24 documented as of this encounter
--- OUTSIDE RECORDS SUMMARY | 2025-03-09 13:13 | XMS_ITS | Encounter Summary ---
Author Organization [facility] Address [address] [place] [address] Phone Care Team Providers Care State Federal Relations Deputy Director Name Role Phone Avila Torres MD Primary Care Provider [phone] Servando Tsai MD Unavailable [phone] Giancarlo West MD PhD Unavailable [phone] Jason Diallo MD Unavailable [phone] Erik Hillman MD Unavailable [phone] Zulema Soto MD Primary Care Provide r Amado Saunders MD Unavailable +[phone] Belia Malcolm OT Unavailable [phone] Dejan Beauchamp MD Unavailable Fernandez Garcia MD PhD Unavailable [phone] Akin Baird MD Unavailable [phone] Austen Gannon DPM Unavailable [phone] Shreyas Astorga MD Unavailable [phone] Felicia Vargas MD Unavailable [phone] Teo Avelar MD Unavailable [phone] Juliana King CORRESPONDENCE SECTION SUPERVISOR Unavailable [phone] Encounter Details Date Type Department Care Team (Latest Contact Info) Description 10/15/2021 Orders Only [facility] Scanning, Provider Social History Tobacco Use Types Packs/Day Years [...] week 01/20/2021 How often do you attend confucianism or jewish serv ices? Never 01/20/2021 Do you belong to any clubs o r organizations such as confucianism groups, unions, fraternal or athletic groups, or school groups? No 01/20/2021 How often do you attend meet ings of the clubs or organizations you belong to? Never 01/20/2021 Are you , , di vorced, , never , or living with a partner? 01/20/2021 AUDIT-C Answer Date Recorded Q1: How often do you have a drink containing alc ohol? Never 09/10/2021 Average Number of Drinks Not on file 022 Frequency of Binge Drinking Not on file 08/31 Overall Financial Resource Strain (CARDIA) Answe r Date Recorded How hard is it for you to pa y for the very basics like food, housing, medical care, and heating? Not very hard 01/20/2021 PHQ-2 Answer Date Recorded PHQ-2 Total Score (If total score is 3 or more points, staff should administer the PHQ-9) 2 10/11/2021 PRAPARE - Transportation Answer Date Re corded [...] on file Legal Sex Female 3:19 PM HUMAN FACTORS SCIENTIST Gender Identity Female 09/03/2023 6:15 PM HUMAN FACTORS SCIENTIST Sexual Orientation Not on file documented as of this encounter Plan of Treatment Not on file documented as of this encounter Procedures Procedure Name Priority Date/Time Associated Diagnosis Comments SCAN - LABS 10/15/2021 documented in this encounter Results * SCAN - LABS (10/15/2021) us Provider Scanning Final Result documented in this encounter Visit Diagnoses Not on filedocumented in this encounter Additional Health Concerns Infection Onset Date Last Indicated Resolved Time COVID: Suspected 12/24/2021 12/24/2021 12/24/2021 2:28 PM CDT COVID: Suspected 12/25/2021 12/25/2021 12/25/2021 1:27 PM CDT COVID: Suspected 01/29/2022 01/29/2022 01/29/2022 2:16 PM CDT COVID: Suspected 06/30/2022 06/30/2022 07/01/2022 3:05 AM HUMAN FACTORS SCIENTIST COVID: Suspected 12/30/2022 12/30/2022 12/31/2022 3:05 AM [...] documented as of this encounter Care Teams State Federal Relations Deputy Director Relationship Specialty Start Date End Date Avila Torres MD PCP - General 10/28/16 01/10/22 Zulema Soto MD 2 [facility] [address] [place] [address] PCP - General Family Medicine 01/11/22 Servando Tsai MD Referring Physician Cardiology 01/21/19 Giancarlo West MD PhD 6 [facility] [place] [address] Radiation Oncologist Radiation Oncology 12/02/21 5 Jason Diallo MD 6 [facility] [place] [address] Consulting Physician Medical Oncology 12/02/21 12/29/22 Erik Hillman MD 6 [facility] [place] [address] Referring Physician General Surgery 12/02/21 11/03/24 Amado Saunders MD 2 [facility] [address] [place] [address] Medical Oncologist/Hematologis t Hematology and Oncology 03/03/22 11/03/24 Belia Malcolm OT [address] [facility] [place] [address] Occupational Therapist Occupational Therapy 03/29/22 [place] [address] [facility] [address], [place] [id number] Consulting Physician Endocrinology Diabetes & Metabolism 04/26/22 Fernandez Garcia MD PhD [address] [facility] [address], [place] [id number] Registered Nurse Vascular Surgery 04/26/22 Akin Baird MD [address] [place] [address] [address] JOYA [address] [address] Surgeon Orthopedic Surgery 04/26/22 Austen Gannon DPM [address] [place] [address] Consulting Physician Foot and Ankle Surg 04/26/22 Shreyas Astorga MD [address] [place], [place] [id number] Consulting Physician Pulmonary Disease 04/26/22 Felicia Vargas MD [address] [place] [address] Consulting Physician Plastic Surgery 04/26/22 [place] [address] [facility] [address] [place], [place] [id number] Consulting Physician Nephrology 04/26/22 [place] [address] [facility] [address] [address] Nurse Practitioner Endocrinology Diabetes & Metabolism 07/18/24 documented as of this encounter
--- OUTSIDE RECORDS SUMMARY | 2025-03-09 13:13 | XMS_ITS | Encounter Summary ---
Author Organization [facility] Healthcare Address [address] [place] [address] Care Team Providers Care Boat Canvas Maker And Installer Name Role Phone Avila Torres MD Primary Care Provider [phone] Servando Tsai MD Unavailable [phone] Giancarlo West MD PhD Unavailable + [phone] Jason Diallo MD Unavailable [phone] Erik Hillman MD Unavailable [phone] Zulema Soto MD Primary Care Provide r Amado Saunders MD Unavailable [phone] Belia Malcolm OT Unavailable [phone] Dejan Beauchamp MD Unavailable Fernandez Garcia MD PhD Unavailable [phone] Akin Baird MD Unavailable [phone] Austen Gannon DPM Unavailable [phone] Shreyas Astorga MD Unavailable [phone] Felicia Vargas MD Unavailable [phone] Teo Avelar MD Unavailable [phone] Juliana King NP Unavailable [phone] Reason for Visit * Reason Onset Date Comments Scheduling Appointments 06/16/2021 no answe r Encounter Details Date Type Department Care Team (Late st Contact Info) Description 06/16/2021 Telephone [facility] [address] [place] [id number] Bianca Garrett RT Scheduling Appointments (no answer) Social History Tobacco Use Types Packs/Day Years [...] week 01/20/2021 How often do you attend advent or adventism serv ices? Never 01/20/2021 Do you belong to any clubs o r organizations such as advent groups, unions, fraternal or athletic groups, or [...] points, staff should administer the PHQ-9) 0 05/19/2021 PRAPARE - Transportation Answer Date Re corded [...] on file Legal Sex Female 3:19 PM SITE LEAD Gender Identity Female 09/03/2023 6:15 PM SITE LEAD Sexual Orientation Not on file documented as [...] COVID: Suspected 06/30/2022 06/30/2022 07/01/2022 3:05 AM SITE LEAD COVID: Suspected 12/30/2022 12/30/2022 12/31/2022 3:05 AM [...] documented as of this encounter Care Teams Boat Canvas Maker And Installer Relationship Specialty Start Date End Date Avila Torres MD PCP - General 10/28/16 01/10/22 Zulema Soto MD [address] [address] PCP - General Family Medicine 01/11/22 Servando Tsai MD Referring Physician Cardiology 01/21/19 Giancarlo West MD PhD 6 [place] [address] Radiation Oncologist Radiation Oncology 12/02/21 Jason Diallo MD 6 [place] [address] Consulting Physician Medical Oncology 12/02/21 12/29/22 Erik Hillman MD [address] [place] [address] Referring Physician General Surgery 12/02/21 11/03/24 Amado Saunders MD [address] [address] Medical Oncologist/Hematologis t Hematology and Oncology 03/03/22 11/03/24 Belia Malcolm OT 1 [facility] [place] [address] Occupational Therapist Occupational Therapy 03/29/22 [place] [address] [facility] [address], [place] [address] Consulting Physician Endocrinology Diabetes & Metabolism 04/26/22 Fernandez Garcia MD PhD [address] [facility] [address], [place] [address] Registered Nurse Vascular Surgery 04/26/22 Akin Baird MD [address] [place] [address] [address] JOYA [address] [address] Surgeon Orthopedic Surgery 04/26/22 Austen Gannon DPM [address] [place] [address] Consulting Physician Foot and Ankle Surg 04/26/22 Shreyas Astorga MD [address] [place] [address] Consulting Physician Pulmonary Disease 04/26/22 Felicia Vargas MD [address] [place] [address] Consulting Physician Plastic Surgery 04/26/22 [place] [address] [facility] [address] [place] [address] Consulting Physician Nephrology 04/26/22 Juliana King SENIOR SAFETY SUPPORT MANAGER [address] [facility] [address], [place] [address] Nurse Practitioner Endocrinology Diabetes & Metabolism 07/18/24 documented as of this encounter
--- OUTSIDE RECORDS SUMMARY | 2025-03-09 13:13 | XMS_ITS | Encounter Summary ---
Author Organization [facility] Healthcare Address [address] [place] [address] Care Team Providers Care Coil Repair Technician Name Role Phone Avila Torres MD Primary Care Provider [phone] Servando Tsai MD Unavailable [phone] Giancarlo West MD PhD Unavailable + [phone] Jason Diallo MD Unavailable [phone] Erik Hillman MD Unavailable [phone] Zulema Soto MD Primary Care Provide r Amado Saunders MD Unavailable [phone] Belia Malcolm OT Unavailable [phone] Dejan Beauchamp MD Unavailable Fernandez Garcia MD PhD Unavailable [phone] Akin Baird MD Unavailable [phone] Austen Gannon DPM Unavailable [phone] Shreyas Astorga MD Unavailable [phone] Felicia Vargas MD Unavailable [phone] eTo Avelar MD Unavailable [phone] Juliana King NP Unavailable [phone] Encounter Details Date Type Department Care Team (Late st Contact Info) Description 05/11/2021 Telephone [facility] [address] [place] [address] Avila Torres MD 2 [facility] [address] [address] Social History Tobacco Use Types Packs/Day Years [...] week 01/20/2021 How often do you attend faith or sabianist serv ices? Never 01/20/2021 Do you belong to any clubs o r organizations such as faith groups, unions, fraternal or athletic groups, or [...] points, staff should administer the PHQ-9) 0 04/19/2021 PRAPARE - Transportation Answer Date Re corded [...] on file Legal Sex Female 3:19 PM MOCCASIN SEWER Gender Identity Female 09/03/2023 6:15 PM MOCCASIN SEWER Sexual Orientation Not on file documented as [...] COVID: Suspected 06/30/2022 06/30/2022 07/01/2022 3:05 AM MOCCASIN SEWER COVID: Suspected 12/30/2022 12/30/2022 12/31/2022 3:05 AM [...] documented as of this encounter Care Teams Coil Repair Technician Relationship Specialty Start Date End Date Avila Torres MD PCP - General 10/28/16 01/10/22 Zulema Soto MD [address] [address] PCP - General Family Medicine 01/11/22 Servando Tsai MD Referring Physician Cardiology 01/21/19 Giancarlo West MD PhD 6 [place] [address] Radiation Oncologist Radiation Oncology 12/02/[address] MD 6 [place] [address] Consulting Physician Medical Oncology 12/02/21 12/29/22 Erik Hillman MD 6 [place] [address] Referring Physician General Surgery 12/02/21 11/03/24 Amado Saunders MD [address] [address] Medical Oncologist/Hematologis t Hematology and Oncology 03/03/22 11/03/24 Belia Malcolm OT [address] [facility] [place] [address] Occupational Therapist Occupational Therapy 03/29/22 [place] [address] [facility] [address] [place] [address] Consulting Physician Endocrinology Diabetes & Metabolism 04/26/22 Fernandez Garcia MD PhD [address] [facility] [address] [place], [place] [id number] Registered Nurse Vascular Surgery 04/26/22 Akin Baird MD [address] [place] [address] DR TOAN [facility] [address] [place] [address] Surgeon Orthopedic Surgery 04/26/22 Austen Gannon DPM [address] [place] [address] Consulting Physician Foot and Ankle Surg 04/26/22 Shreays Astorga MD [address] [place] [address] Consulting Physician Pulmonary Disease 04/26/22 Felicia Vargas MD [address] [place] [address] Consulting Physician Plastic Surgery 04/26/22 [place] [address] [facility] [address] [place] [address] Consulting Physician Nephrology 04/26/22 Juliana King SALES REVIEW CLERK [address] [facility] [address] [place] [address] Nurse Practitioner Endocrinology Diabetes & Metabolism 07/18/24 documented as of this encounter
[2025-03-09 13:24] LABS: EDUAAPPEAR Cloudy; EDUABILI Negative (Negative); EDUABLOOD Trace (Negative); EDUACOLOR1 Light/Pale; EDUAGLUCOSE Trace (Negative); EDUAKETONE Negative (Negative); EDUALEUKO 1+ (Negative); EDUANITRATE Negative (Negative); EDUAPH 6.0; EDUAPROTEIN Negative (Negative); EDUASPGRAVITY 1.020; EDUAUROBILI 0.2
--- NOTE | 2025-03-09 13:45 | ED_ITS ---
HPI - Female Genitourinary General Chief complaint: Urogenital-Female Stated complaint: UTI Time Seen by Provider: 03/09/25 13:40 Source: patient and RN notes reviewed Mode of arrival: ambulatory Limitations: no limitations History of Present Illness HPI Narrative: Patient presents today complaining of a suprapubic pressure and dysuria since yesterday, worse this morning. Denies frequency or hematuria. She took 1 dose of Bactrim this morning from a leftover prescription. Related Data Home Medications ?Medication ?Instructions ?Recorded ?Confirmed ?Last Taken ?Type allopurinol 100 mg tablet 200 mg PO DAILY 11/20/20 12/13/23 Unknown History amlodipine 5 mg tablet 5 mg PO DAILY 11/20/20 12/13/23 Unknown History ergocalciferol (vitamin D2) 1,250 1,250 mcg PO DAILY 11/20/20 12/13/23 Unknown History mcg (50,000 unit) capsule ezetimibe 10 mg tablet 10 mg PO DAILY 11/20/20 12/13/23 Unknown History furosemide 40 mg tablet 40 mg PO BID 11/20/20 12/13/23 Unknown History gabapentin 300 mg capsule 300 mg PO BID 11/20/20 12/13/23 Unknown History insulin lispro 100 unit/mL 100 unit subcut DIRECTED 11/20/20 12/13/23 Unknown History subcutaneous solution isosorbide mononitrate 120 mg 120 mg PO DAILY 11/20/20 12/13/23 Unknown History tablet,extended release 24 hr metoprolol tartrate 100 mg tablet 100 mg PO DAILY 11/20/20 12/13/23 Unknown History sertraline 100 mg tablet 100 mg PO DAILY 11/20/20 12/13/23 Unknown History calcitriol 0.25 mcg capsule 0.25 mcg PO DAILY 07/09/23 12/13/23 Unknown History clopidogrel 75 mg tablet 75 mg PO DAILY 07/09/23 12/13/23 Unknown History letrozole 2.5 mg tablet 2.5 mg PO DAILY 07/09/23 12/13/23 Unknown History losartan 25 mg tablet 25 mg PO DAILY 07/09/23 12/13/23 Unknown History tiotropium bromide 1.25 1.25 puff inhalation DAILY 07/09/23 12/13/23 Unknown History mcg/actuation mist for inhalation (Spiriva Respimat) trazodone 50 mg tablet 50 mg PO PRN 12/10/23 05/15/24 Unknown History dapagliflozin propanediol 10 mg mg 03/09/25 Unknown History tablet (Farxiga) dulaglutide 0.75 mg/0.5 mL mg subcut 03/09/25 Unknown History subcutaneous pen injector ([facility]) omeprazole 40 mg capsule,delayed mg 03/09/25 Unknown History release Allergies Allergy/AdvReac Type Severity Reaction Status Date / Time codeine Allergy Unknown Unknown Verified 03/09/25 13:27 meperidine AdvReac Mild NAUSEA/VOMI Verified 03/09/25 13:27 TING oxycodone AdvReac Mild Nausea and Verified 03/09/25 13:27 Vomiting PMFSH Past Medical History Medical History Bronchitis Asthma Sleep apnea treated with continuous positive airway pressure (CPAP) Hyperlipidemia Hypertension Heart attack Diabetes Urinary tract infection Surgical History Surgical History S/P cubital tunnel release S/P trigger finger release History of bilateral carpal tunnel release History of cholecystectomy History of hysterectomy History of open heart surgery 5 vessel bypass Family History Family History Sibling Family history of diabetes mellitus in first degree relative Social History Social History Smoking status: Never smoker Alcohol intake: never Gender identity (if verbalized by the patient): Female Comments At time of signature, I have reviewed and agree with nursing past medical, surgical, social and family history unless otherwise noted. Please see nursing chart for further information. There is no relevant family history pertinent to the presenting complaint Exam Narrative: GENERAL: Well-appearing, well-nourished, and in no acute distress. HEAD: Normocephalic, atraumatic. EYES: EOMI. No redness or drainage. Conjunctivae normal. ENT: Mucous membranes pink and moist. NECK: Normal AROM. CHEST: No respiratory distress. Clear to auscultation. HEART: Regular rate and rhythm. No murmur appreciated. ABDOMEN: Soft,, nondistended, normal active bowel sounds.+ tender suprapubic area EXTREMITIES: Normal range of motion. No edema. SKIN: Warm, dry, no rash. Capillary refill normal. Normal skin turgor. NEURO: No focal deficits. Alert and oriented x3. Gait steady. PSYCH: Normal affect. No signs of depression or anxiety. Course Course Level of Care: Express Care Visit Vital Signs Vital signs: Vital Signs Temperature 97.8 F 03/09/25 13:13 Pulse Rate 59 L 03/09/25 13:13 Respiratory Rate 20 03/09/25 13:13 Blood Pressure 135/43 L 03/09/25 13:13 Pulse Oximetry 96 03/09/25 13:13 Oxygen Delivery Room Air 03/09/25 13:13 Temperature 97.8 F 03/09/25 13:13 Pulse Rate 59 L 03/09/25 13:13 Respiratory Rate 20 03/09/25 13:13 Blood Pressure 135/43 L 03/09/25 13:13 Pulse Oximetry 96 03/09/25 13:13 Oxygen Delivery Room Air 03/09/25 13:13 Review MDM - Female Genitourinary MDM Narrative Medical decision making narrative: 65-year-old female patient presents today complaining of suprapubic pressure and dysuria since yesterday. She took 1 dose of Bactrim from a leftover prescription this morning. Upon exam, patient has a mildly tender suprapubic area, but remainder of exam is benign. Urinalysis shows 1+ leukocytes, trace blood, and trace glucose. Culture pending. Patient states Bactrim has worked well for her in the past, but his has an interaction with her hypertension medication so prescription for cephalexin will be sent. Anticipatory guidance given. Differential Diagnosis Differential diagnosis: Likely urinary tract infection, vaginitis and cystitis Lab Data Attestation: I reviewed the patient's lab results. Labs: Lab Results 03/09/25 Range/Units 13:16 POC Urine Color Light/pale POC Urine Clarity Cloudy POC Urine pH 6.0 POC Ur Specif Salters 1.020 POC Urine Protein Negative (Negative) POC Ur Glucose (UA) Trace (Negative) POC Urine Ketones Negative (Negative) POC Urine Blood Trace (Negative) POC Urine Nitrite Negative (Negative) POC Urine Bilirubin Negative (Negative) POC Urine Urobilinogen 0.2 POC U Leukocyte Esteras 1+ (Negative) Critical Care Time Critical Care Time Critical Care Time: No Discharge Plan Discharge Clinical Impression: Urinary tract infection Qualifiers: Urinary tract infection type: acute cystitis Hematuria presence: with hematuria Qualified Code(s): N30.01 - Acute cystitis with hematuria Patient Disposition: Home Condition: Stable Instructions: Antibiotic Form, Urinary Tract Infection in Women (DC) Additional Instructions: Your urine shows infection today. Take cephalexin as prescribed until gone. Your urine will be sent of for a culture to identify what type of bacteria is causing your infection. If the culture shows that your medication will not get rid of your infection, you will be notified and a new antibiotic will be called in for you. If your symptoms worsen to include fever, sweats, chills, nausea, vomiting, severe abdominal or back pain, please go to the ER for further evaluation. Your blood pressure was elevated above 120/80 today at Urgent Care. This puts you above the threshold for follow up. Please schedule a followup visit with your personal physician as soon as possible, for further evaluation and treatment. Even blood pressure exceeding 120/80 may indicate pre-hypertension. Patient Language: Kyrgyz Prescriptions: New cephalexin 500 mg capsule 500 mg PO BID 7 Days Qty: 14 0RF No Action trazodone 50 mg tablet 50 mg PO PRN clopidogrel 75 mg tablet 75 mg PO DAILY losartan 25 mg tablet 25 mg PO DAILY letrozole 2.5 mg tablet 2.5 mg PO DAILY calcitriol 0.25 mcg capsule 0.25 mcg PO DAILY Spiriva Respimat 1.25 mcg/actuation mist 1.25 puff INHALATION DAILY omeprazole 40 mg capsule,delayed release(DR/EC) dapagliflozin propanediol [Farxiga] 10 mg tablet Trulicity 0.75 mg/0.5 mL pen injector SUBCUT isosorbide mononitrate 120 mg tablet extended release 24 hr 120 mg PO DAILY ergocalciferol (vitamin D2) 1,250 mcg (50,000 unit) capsule 1,250 mcg PO DAILY furosemide 40 mg tablet 40 mg PO BID gabapentin 300 mg capsule 300 mg PO BID metoprolol tartrate 100 mg tablet 100 mg PO DAILY sertraline 100 mg tablet 100 mg PO DAILY allopurinol 100 mg tablet 200 mg PO DAILY insulin lispro 100 unit/mL solution 100 unit subcut DIRECTED ezetimibe 10 mg tablet 10 mg PO DAILY amlodipine 5 mg tablet 5 mg PO DAILY Follow-up/Referrals: Brittany,MD Zulema [Primary Care Provider] - Time of Disposition: 13:52
== END 2025-03-09 13:55 | disposition home or self-care (01) ==
PROVIDERS: Emergency Provider Nurse Practitioner; PCP Family Medicine
DX: N30.01 Acute cystitis with hematuria (principal); J45.909 Unspecified asthma, uncomplicated; I10 Essential (primary) hypertension; E78.5 Hyperlipidemia, unspecified; E11.9 Type 2 diabetes mellitus without complications; Z79.4 Long term (current) use of insulin; I25.2 Old myocardial infarction; Z95.1 Presence of aortocoronary bypass graft
CPT/HCPCS: 81003; 87086; 99213; G0463

== ENCOUNTER 2025-07-12 09:40 | Emergency (ER) | payer MEDICARE, OTHER, SELFPAY ==
--- OUTSIDE RECORDS SUMMARY | 2017-11-13 05:00 | XMS_ITS | Continuity of Care Document ---
Author Organization [facility] Address [address] [place] [address] [address] [place] [address] Phone Care Team Providers Care Project Management Name Role Phone Alexander PT, LARISSAT, Leobardo Unavailable Kim vailable Procedures Procedure Date Progress Note Therapeutic Exercise Manual Therapy Hot or Cold Pack Carrying, Moving And Handling Objects-Cu rrent Carrying, Moving And Handling Objects-Go al Therapeutic Exercise Manual Therapy Hot or Cold Pack Therapeutic Exercise Manual Therapy Hot or Cold Pack Therapeutic Exercise Manual Therapy Hot or Cold Pack Progress Note Therapeutic Exercise Manual Therapy Hot or Cold Pack Carrying, Moving And Handling Objects-Cu rrent Carrying, Moving And Handling Objects-Go al Therapeutic Exercise Manual Therapy Hot or Cold Pack Therapeutic Exercise Manual Therapy Hot or Cold Pack Therapeutic Exercise Manual Therapy Hot or Cold Pack Therapeutic Exercise Manual Therapy Hot or Cold Pack Therapeutic Exercise Manual Therapy Hot or Cold Pack Therapeutic Exercise Manual Therapy Hot or Cold Pack PT Evaluation Moderate Complexity Therapeutic Exercise Manual Therapy Carrying, Moving And Handling Objects-Cu rrent Carrying, Moving And Handling Objects-Go al Progress Note Therapeutic Exercise Manual Therapy Hot or Cold Pack Mobility: Walking And Moving Limitations -Curent Mobility: Walking And Moving Limitation- Goal Therapeutic Exercise Manual Therapy Hot or Cold Pack Therapeutic Exercise Manual Therapy Hot or Cold Pack Progress Note Manual Therapy Hot or Cold Pack Mobility: Walking And Moving Limitations -Curent Mobility: Walking And Moving Limitation- Goal Therapeutic Exercise Therapeutic Exercise Manual Therapy Hot or Cold Pack Therapeutic Exercise Manual Therapy Hot or Cold Pack Therapeutic Exercise Therapeutic Activities Manual Therapy Hot or Cold Pack Therapeutic Exercise Manual Therapy Hot or Cold Pack PT Evaluation Moderate Complexity Therapeutic Exercise Manual Therapy Hot or Cold Pack Mobility: Walking And Moving Limitations -Curent Mobility: Walking And Moving Limitation- Goal Progress Note Therapeutic Exercise Neuromuscular Re-Ed Manual Therapy Hot or Cold Pack Mobility: Walking And Moving Limitations -Curent Mobility: Walking And Moving Limitation- Goal Mobility: Walking And Moving Limitaion- Discharge Therapeutic Exercise Neuromuscular Re-Ed Manual Therapy Hot or Cold Pack Therapeutic Exercise Neuromuscular Re-Ed Manual Therapy Hot or Cold Pack Therapeutic Exercise Neuromuscular Re-Ed Manual Therapy Hot or Cold Pack Therapeutic Exercise Manual Therapy Hot or Cold Pack Therapeutic Exercise Neuromuscular Re-Ed Manual Therapy Hot or Cold Pack Therapeutic Exercise Manual Therapy Hot or Cold Pack PT Evaluation Moderate Complexity Therapeutic Exercise Manual Therapy Hot or Cold Pack Mobility: Walking And Moving Limitations -Curent Mobility: Walking And Moving Limitation- Goal Advance Directives Directive Yes / No Effective Date File Name No Information Encounters Encounter Description Practice Location Reason(s) For Visit Diagnoses Date Provider Providers Copied on Encounter [facility], [id number], tel:[phone] [place] Pain in left shoulderStiffnes s of left shoulder, not elsewhere classifiedOther specified extrapyramidal and movement disordersOth specific arthropathies, NEC, left shoulder Apr-1 6-201 8 Alexander Booth. [address], [facility], [place]. tel:[phone] Referring Provider: Akin Baird, [address] [place] [address] [address] [place], [address]. tel:[phone] [facility], [id number], tel:[phone] Edu[place] Pain in left shoulderStiffnes s of left shoulder, not elsewhere classifiedOther specified extrapyramidal and movement disordersOth specific arthropathies, NEC, left shoulder Apr-0 9-[address] [facility], [facility] [address], [place], [facility], [place]. tel:[phone] Referring Provider: Akin Baird, [address] [facility] [address] [facility], [place], [address]. tel:[phone] [facility] [address], [place], [place], [id number], [place] tel:[phone] Eduardo Pain in left shoulderStiffnes s of left shoulder, not elsewhere classifiedOther specified extrapyramidal and movement disordersOth specific arthropathies, NEC, left shoulder Mar-2 6-201 8 Lujan-Downey Leobardo. [address] [facility], [address], [place], [place], [facility], [place]. tel:[phone] Referring Provider: Akin Baird, [address] [facility] [address] [facility] [place], [address]. tel:[phone] [facility] [address] [facility], [place], [place], [id number], [place] tel:[phone] [place] Pain in left shoulderStiffnes s of left shoulder, not elsewhere classifiedOther specified extrapyramidal and movement disordersOth specific arthropathies, NEC, left shoulder Mar-2 3-201 8 Lujan-Downey Leobardo. [address] [place] [address], [address], [place], [facility], [place]. tel:[phone] Referring Provider: Akin Baird, [address] [facility] [address] [place], [address]. tel:[phone] [facility] [address] [facility], [place], [place], [id number], [place] tel:[phone] [place] Pain in left shoulderStiffnes s of left shoulder, not elsewhere classifiedOther specified extrapyramidal and movement disordersOth specific arthropathies, NEC, left shoulder Mar-1 9-201 [address] Lujan-Dow[address] [address] [facility], [address], [place], [address], [place]. tel:[phone] Referring Provider: Akin Baird, [address] [facility] [address] [facility], [place], [address]. tel:[phone] [facility] [address], [place], [place], [id number], [place] tel:[phone] [place] No Information 8 Tai-Shayan [address] [facility], [address], [place], [address], [place]. tel:[phone] Referring Provider: Akin Baird, [address] [place] [address] [address] [facility] [place], [address]. tel:[phone] [facility] [address] [place], [place] [address], [place], [place], [id number], [place] tel:[phone] [place] No Information 8 Tai-Shayan Leobardo. [address] [place] [address], [address], [place], [facility], [place]. tel:[phone] Referring Provider: Akin Baird, [address] [place] [address] [address] [facility] [place], [address]. tel:[phone] [address], [place], [place], [id number], [place] tel:[phone] [place] No Information 8 Tai-Shayan Leobardo. [address] [place] [address], [address], [place], [address], [place]. tel:[phone] Referring Provider: Akin Baird, [address] [place] [address] [address] [place], [address]. tel:[phone] [facility] [address] [place], [place] [address], [place], [place], [id number], [place] tel:[phone] [place] No Information 8 Tai-Shayan Leobardo. [address] [place] [address], [address], [place], [address], [place]. tel:[phone] Referring Provider: Akin Baird, [address] [place] [address] [address], [place], [address]. tel:[phone] [facility] [address], [place], [place], [address], [place] tel:[phone] [place] No Information 8 Alexander Booth. [address] [place] [address], [address], [place], [facility], [place]. tel:[phone] Referring Provider: Akin Baird, [address] [place] [address] [address], [place], [address]. tel:[phone] [facility] [address] [facility], [place], [place], [id number], [place] tel:[phone] [place] No Information 8 Alexander Queenla. [address] [place] [address], [address], [place], [address], [place]. tel:[phone] Referring Provider: Akin Baird, [address] [place] [address] [address], [place], [address]. tel:[phone] [facility] [place] [address], [place], [place], [id number], [place] tel:[phone] [place] Pain in left shoulderStiffnes s of left shoulder, not elsewhere classifiedOther specified extrapyramidal and movement disordersOth specific arthropathies, NEC, left shoulder 8 Sandip Arora. . Referring Provider: Akin Baird, [address] [place] [address] [address], [place], [address]. tel:[phone] [facility] [facility], [place], [place], [address], [place] tel:[phone] [place] No Information 8 Alexander Queenla. [address] [place] [address], [address], [place], [address], [place]. tel:[phone] [facility] [facility], [place], [place], [address], [place] tel:[phone] [place] No Information 8 Alexander Queenla. [address] [place] [address], [address], [place], [address], [place]. tel:[phone] [place] [address] [address], [place], [place], [id number], [place] tel:[phone] [place] No Information 9-201 8 Lujan-Shayan Leobardo. [address] [place] [address], [address], [place], [address], [place]. tel:[phone] [place] [address] [address], [place], [place], [address], [place] tel:[phone] [place] No Information 0-201 8 Lujan-Downey Leobardo. [address] [place] [address], [address], [place], [address], [place]. tel:[phone] [place] [address] [address], [place], [place], [address], [place] tel:[phone] [place] No Information 1 2-201 7 Lujan-Downey Leobardo. [address] [place] [address], [address], [place], [address], [place]. tel:[phone] [place] [address] [address], [place], [place], [id number], [place] tel:[phone] Eduardo No Information Dec-0 5-201 7 Lujan-Downey Leobardo. [address] [place] [address], [address], [place], [address], [place]. tel:[phone] [place] [address] [address], [place], [place], [address], [place] tel:[phone] Edu[place] No Information Nov-2 8-201 7 Gary Gramajo. [address] [place] [address], [address], [place], [address], [place]. tel:[phone] [place] [address] [address], [place], [place], [id number], [place] tel:[phone] [place] No Information Nov-2 0-201 7 Lujan-Downey Leobardo. [address] [place] [address], [address], [place], [address], [place]. tel:[phone] [facility] [address] [place] [address] [address], [place], [place], [id number], [place] tel:[phone] [place] Lumbago with sciatica, left sideStiffness of unspecified joint, not elsewhere classifiedMuscle weakness (generalized)Sti ffness of right hip, not elsewhere classifiedOther intervertebral disc degeneration, lumbar region 7 Alexander Booth. [address] [place] [address], [address], [place], [address], [place]. tel:[phone] [address], [id number], tel:[phone] [place] No Information 7 Alexander Booth. [address] [place] [address], [address], [place], [address], [place]. tel:[phone] Referring Provider: Austen Gannon [address] [place] [address], [address]. tel:[phone], [id number], [place] tel:[phone] [place] No Information 7 Gary Gramajo. [address] [place] [address], [address], [place], [address], [place]. tel:[phone] Referring Provider: Austen Gannon [facility] [address], [place], [address]. tel:[phone] [address], [place], [address], [place] tel:[phone] [place] No Information 7 Gary Gramajo. [address] [place] [address], [address], [place], [address], [place]. tel:[phone] Referring Provider: Austen Gannon [address] [place] [address] [address], [place], [address]. tel:[phone] [facility] [address] [place], [place] [address], [place], [place], [id number], tel:[phone] [place] No Information Sep- Gary Gramajo. [address] [place] [address], [address], [place], [facility], . tel:[phone] Referring Provider: Austen Gannon, [address] [place] [address], [place], [address]. tel:[phone] [address], [place], [place], [id number], tel:[phone] Edu[place] No Information Sep- Alexander Booth. [address] [place] [address], [address], [place], [facility], . tel:[phone] Referring Provider: Austen Gannon [address] [place] [address] Suite [facility], [place], [address]. tel:[phone] [address], [place], [place], [address], [place] tel:[phone] Eduardo No Information Sep- Alexander Booth. [address] [place] [address], [address], [place], [facility], [place]. tel:[phone] Referring Provider: Austen Gannon, [address] [place] [address] [address], [place], [address]. tel:[phone] [place] [address] [facility], [place], [id number], [place] tel:[phone] Eduardo No Information Sep- Alexander Booth. [address] [place] [address], [address], [facility], . tel:[phone] Referring Provider: Austen Gannon [address] [place] [address] [address], [place], [address]. tel:[phone] [place] [address] [facility] [address], [place], [place], [address], [place] tel:[phone] [place] Pain in left footOth symptoms and signs involving the musculoskeletal systemUnspecifie d abnormalities of gait and mobilityMyalgiaP lantar fascial fibromatosis Mar- [address] [facility], [address], [place], [facility], [place]. tel:[phone] Referring Provider: Austen Gannon, [address] [facility] [address], [place], [address]. tel:[phone] Family History Family Member Type Diagnosis Age At Onset No Information Payers Payer name Insurance type Covered republican ID Authoriza tion(s) [place] [id number] [facility] CI [id number] Social History Type Description Quantity Date Captured Comments Sex Female Smoking Status No Information Chief Complaint And Reason For Visit No Information Reason For Referral Reason For Referral No Information History Of Present Illness Encounter Date Complaint History Of Prese nt Illness No Information Functional Status Date Functional Assessmen t No Information Instructions Date Instruction Additional Infor mation No Information Assessments Type Assessment Date No Information Patient Care Teams Name Effective Dates (start - stop) Status Members No Information
--- OUTSIDE RECORDS SUMMARY | 2017-11-13 05:00 | XMS_ITS | Continuity of Care Document ---
Author Organization [facility] Address [address] [place] [address] [address] [place] [address] Phone Care Team Providers Care Stave Log Ripsaw Operator Name Role Phone Alexander PT, LARISSAT, Leobardo [...] Diagnoses Date Provider Providers Copied on Encounter [facility], [id number], tel:[phone] Violet Pain in left shoulderStiffnes s of left shoulder, not elsewhere classifiedOther specified extrapyramidal and movement disordersOth specific arthropathies, NEC, left shoulder Apr-1 6-201 8 Alexander Booth. [address], [facility], [place]. tel:[phone] Referring Provider: Akin Baird, [address] [place] [address] [address] [place], [address]. tel:[phone] [facility], [id number], tel:[phone] Eduardo Pain in left shoulderStiffnes s of left shoulder, not elsewhere classifiedOther specified extrapyramidal and movement disordersOth specific arthropathies, NEC, left shoulder Apr-0 9-201 8 Alexander Booth. [address] [facility], [facility] [address], [place], [facility], [place]. tel:[phone] Referring Provider: Akin Baird, [address] [facility] [address] [facility], [place], [address]. tel:[phone] [facility] [address], [place], [place], [id number], [place] tel:[phone] Eduardo Pain in left shoulderStiffnes s of left shoulder, not elsewhere classifiedOther specified extrapyramidal and movement disordersOth specific arthropathies, NEC, left shoulder Mar-2 6-201 8 Lujan-Downey Leobardo. [address] [facility], [address], [place], [facility], [place]. tel:[phone] Referring Provider: Akin Baird, [address] [facility] [address] [facility] [place], [address]. tel:[phone] [facility] [address] [facility], [place], [place], [id number], [place] tel:[phone] Violet Pain in left shoulderStiffnes s of left shoulder, not elsewhere classifiedOther specified extrapyramidal and movement disordersOth specific arthropathies, NEC, left shoulder Mar-2 3-201 8 Lujan-Downey Leobardo. [address] [place] [address], [address], [place], [facility], [place]. tel:[phone] Referring Provider: Akin Baird, [address] [facility] [address] [place], [address]. tel:[phone] [facility] [address] [facility], [place], [place], [id number], [place] tel:[phone] Violet Pain in left shoulderStiffnes s of left shoulder, not elsewhere classifiedOther specified extrapyramidal and movement disordersOth specific arthropathies, NEC, left shoulder Mar-1 9-201 8 Lujan-Downey Leobardo. [address] [facility], [address], [place], [address], [place]. tel:[phone] Referring Provider: Akin Baird, [address] [facility] [address] [facility] B, [place], [address]. tel:[phone] [facility] [address], [place], [place], [id number], [place] tel:[phone] Violet No Information 8 Tai-Shayan Leobardo. [address] [facility], [address], [place], [address], [place]. tel:[phone] Referring Provider: Akin Baird, [address] [place] [address] [address] [facility] [place], [address]. tel:[phone] [facility] [address] [place], [place] [address], [place], [place], [id number], [place] tel:[phone] Violet No Information 8 Tai-Shayan Leobardo. [address] [place] [address], [address], [place], [facility], [place]. tel:[phone] Referring Provider: Akin Baird, [address] [place] [address] [address] [facility] [place], [address]. tel:[phone] [address], [place], [id number], [place] tel:[phone] Violet No Information 8 Tai-Shayan Leobardo. [address] [place] [address], [address], [place], [address], [place]. tel:[phone] Referring Provider: Akin Baird, [address] [place] [address] [address] [place], [address]. tel:[phone] [facility] [address] [place], [place] [address], [place], [place], [address], [place] tel:[phone] Violet No Information 8 Tai-Shayan Leobardo. [address] [place] [address], [address], [place], [address], [place]. tel:[phone] Referring Provider: Akin Baird, [address] [place] [address] [address], [place], [address]. tel:[phone] [facility] [address], [place], [place], [id number], [place] tel:[phone] Violet No Information 8 Alexander Booth. [address] [place] [address], [address], [place], [facility], [place]. tel:[phone] Referring Provider: Akin Baird, [address] [place] [address] [address], [place], [address]. tel:[phone] [facility] [address] [facility], [place], [id number], [place] tel:[phone] Violet No Information 8 Alexander Queenla. [address] [place] [address], [address], [place], [address], [place]. tel:[phone] Referring Provider: Akin Baird, [address] [place] [address] [address], [place], [address]. tel:[phone] [facility] [place] [place] [address], [place], [place], [id number], [place] tel:[phone] Violet Pain in left shoulderStiffnes s of left shoulder, not elsewhere classifiedOther specified extrapyramidal and movement disordersOth specific arthropathies, NEC, left shoulder 8 Sandip Arora. . Referring Provider: Akin Baird, [address] [place] [address] [address], [place], [address]. tel:[phone] [facility] [facility], [place], [address], [place] tel:[phone] Eduardo No Information 8 Alexander Queenla. [address] [place] [address], [address], [place], [address], [place]. tel:[phone] [facility] [facility], [place], [place], [address], [place] tel:[phone] Violet No Information 8 Alexander Queenla. [address] [place] [address], [address], [place], [address], [place]. tel:[phone] [place] [address] [address], [place], [place], [address], [place] tel:[phone] Eduardo No Information 9-201 8 Lujan-Shayan Leobardo. [address] [place] [address], [address], [place], [address], [place]. tel:[phone] [place] [address] [address], [place], [id number], [place] tel:[phone] Violet No Information 0-201 8 Lujan-Downey Leobardo. [address] [place] [address], [address], [place], [address], [place]. tel:[phone] [place] [address] [address], [place], [place], [address], [place] tel:[phone] Violet No Information 1 2-201 7 Lujan-Downey Leobardo. [address] [place] [address], [address], [place], [address], [place]. tel:[phone] [place] [address] [address], [place], [place], [address], [place] tel:[phone] Eduardo No Information Dec-0 5-201 7 Lujan-Downey Leobardo. [address] [place] [address], [address], [place], [address], [place]. tel:[phone] [place] [address] [address], [place], [place], [address], [place] tel:[phone] Eduardo No Information Nov-2 8-201 7 Gary Gramajo. [address] [place] [address], [address], [place], [address], [place]. tel:[phone] [place] [address] [address], [place], [place], [id number], [place] tel:[phone] Violet No Information Nov-2 0-201 7 Lujan-Downey Leobardo. [address] [place] [address], [address], [place], [address], [place]. tel:[phone] [facility] [address] [place] [address] [address], [place], [address], [place] tel:[phone] Eduardo Lumbago with sciatica, left sideStiffness of unspecified joint, not elsewhere classifiedMuscle weakness (generalized)Sti ffness of right hip, not elsewhere classifiedOther intervertebral disc degeneration, lumbar region 7 Alexander Booth. [address] [place] [address], [address], [place], [address], [place]. tel:[phone], [id number], tel:[phone] Violet No Information 7 Alexander Booth. [address] [place] [address], [address], [place], [address], [place]. tel:[phone] Referring Provider: Austen Gannon [address] [place] [address], [address]. tel:[phone], [id number], [place] tel:[phone] Eduardo No Information 7 Gary Gramajo. [address] [place] [address], [address], [place], [address], [place]. tel:[phone] Referring Provider: Austen Gannon [facility] [address], [place], [address]. tel:[phone], [place], [id number], [place] tel:[phone] Eduardo No Information 7 Gary Gramajo. [address] [place] [address], [address], [place], [address], [place]. tel:[phone] Referring Provider: Austen Gannon [address] [place] [address] [address], [place], [address]. tel:[phone] [facility] [address] [place], [place] [address], [place], [place], [address], tel:[phone] Violet No Information Sep- Gary Gramajo. [address] [place] [address], [address], [place], [facility], . tel:[phone] Referring Provider: Austen Gannon, [address] [place] [address], [place], [address]. tel:[phone] [address], [place], [place], [address], tel:[phone] Eduardo No Information Sep- Alexander Booth. [address] [place] [address], [address], [place], [facility], . tel:[phone] Referring Provider: Austen Gannon [address] [place] [address] [address] [facility], [place], [address]. tel:[phone] [address], [place], [place], [id number], [place] tel:[phone] Eduardo No Information Sep- Alexander Booth. [address] [place] [address], [address], [place], [facility], [place]. tel:[phone] Referring Provider: Austen Gannon, [address] [place] [address] [address], [place], [address]. tel:[phone] [address] [place] [address] [facility], [place], [place], [address], [place] tel:[phone] Eduardo No Information Sep- Alexander Booth. [address] [place] [address], [address], [place], [facility], . tel:[phone] Referring Provider: Austen Gannon [address] [place] [address] [address], [place], [address]. tel:[phone] [address] [address] [facility] [address], [place], [place], [id number], [place] tel:[phone] Eduardo Pain in left footOth symptoms and signs involving the musculoskeletal systemUnspecifie d abnormalities of gait and mobilityMyalgiaP lantar fascial fibromatosis Mar- 7 Alexander Booth. [address] [facility], [address], [place], [facility], [place]. tel:[phone] Referring Provider: Austen Gannon, [address] [facility] [address], [place], [address]. tel:[phone] Family History Family Member Type Diagnosis Age At Onset No Information Payers Payer name Insurance type Covered republican ID Authoriza tion(s) [place] [id number] [facility] [place] [id number] Social History Type Description Quantity Date Captured [...]
--- OUTSIDE RECORDS SUMMARY | 2024-02-08 08:00 | XMS_ITS ---
Author Organization [facility] Office Address [address] [facility] [address] [place] [address] Care Team Providers Care Per Diem Rn Name Role Phone AvelarTeo Unavailable [phone] Medications Medication SIG (Take, Route, Frequency, Duration) Notes Start Date End Date Status Losartan Potassium 25 MG TAKE 1 TABLET B Y MOUTH EVERY DAY; Duration: 90 Active Vitamin D (Ergocalciferol) 1.25 MG (94735 UT) TAKE 1 CAPSULE BY MOUTH 1 TIME A WEEK; Duration: 91 Active Calcitriol 0.25 MCG TAKE 1 CAPSULE BY [place] UTH TWICE DAILY; Duration: 90 Active Encounters Encounter Location Date Provider Diagnosis Nathan Sheppard [address] [place] [address] 02/08/2024 Teo Avelar Chronic kidney disea se, stage 3b N18.32 ; Essential (primary) hypertension I10 ; Renal osteodystrophy N25.0 ; Secondary hyperparathyroidism, not elsewhere classified E21.1 ; Type 2 diabetes mellitus with hyperglycemia E11.65 ; Vitamin D deficiency, unspecified E55.9 ; Acute sinusitis, unspecified J01.90 and Malignant neoplasm of nipple and areola, 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 C50.019 Assessments Encounter Date Diagnosis (ICD Code) Assessment Notes Treatment Notes Treatment Clinical Notes Section Notes 02/08/2024 Chronic kidney disease, stage 3b (ICD-10 - N18.32) 02/08/2024 Essential (primary) hypertension (ICD-10 - I10) 02/08/2024 Renal osteodystrophy (ICD-10 - N25.0) 02/08/2024 Secondary hyperparathyroidism , not elsewhere classified (ICD-10 - E21.1) 02/08/2024 Type 2 diabetes mellitus with hyperglycemia (ICD-10 - E11.65) 02/08/2024 Vitamin D deficiency, unspecified (ICD-10 - E55.9) 02/08/2024 Acute sinusitis, unspecified (ICD-10 - J01.90) 02/08/2024 Malignant neoplasm of nipple and areola, 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 :1960 A ge:64 Y S ex:Female Date:02/08/2024 Address:[address] [place], [place] [address] Subjective: * Chief Complaints: * * Medical History: * Medications: T aking Calcitriol 0.25 MCG Capsule TAKE 1 CAPSULE BY MOUTH TWICE DAILY , Taking Vitamin D (Ergocalciferol) 1.25 MG (56342 UT) Capsule TAKE 1 CAPSULE BY MOUTH 1 TIME A WEEK , Taking Losartan Potassium 25 MG Tablet TAKE 1 TABLET BY MOUTH EVERY DAY Objective: * Vitals: Assessment: * Assessment: 1. C hronic kidney disease, stage 3b - N18.32 (Primary) 2 . E ssential (primary) hypertension - I10 3 . R enal osteodystrophy - N25.0 4 .?Secondary hyperparathyroidism, not elsewhere classified - E21.1 5 . T ype 2 diabetes mellitus with hyperglycemia - E11.65 6 . V itamin D deficiency, unspecified - E55.9 7 . A cute sinusitis, unspecified - J01.90 8 . M alignant neoplasm of nipple and areola, 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 - C50.019 Plan: * Treatment: * Billing Information: * Visit Code: 63538 Office Visit, Est Pt., Level 4. * Procedure Codes: * Electronic signature of Raphael Avelar MD on 07/12/2025 at 09:43 AM MACHINE SANDER Sign off status: Pending * Provider: Rusty JIN MD, F.A.C.P, F.A.S.N. Date: 0 02/08/2024 Generated for Printing/Faxing/eTransmitting on: 1 09/12/2024 09:43 AM MACHINE SANDER
--- OUTSIDE RECORDS SUMMARY | 2024-05-02 09:00 | XMS_ITS ---
Author Organization [facility] Office Address [address] [facility] [address] [facility] [address] [place] [address] Care Team Providers Care Glass Installer Name Role Phone Teo Avelar Unavailable [phone] Encounters Encounter Location [place] [address] [place] [address] 05/02/2024 Rusty Avelar Plan Of Treatment Next Appt Details Provider Name:Teo Valentino , 07/17/2025 02:45:00 PM, [address] , [place], [address], Progress Notes * JUDY TORIBIOYUEB:1960 (65 yo F)Acc No.[id number]:05/02/2024 Progress Notes Patient: LOU RINCON Provider: Rusty JIN MD, F.Ian.C.P, F.A.S.N. :1960 A ge:64 Y S ex:Female Date:05/02/2024 Address:[address] [place], [place] [address] Subjective: * Chief Complaints: * * Medical History: Objective: * Vitals: Assessment: Plan: * Treatment: * Billing Information: * Visit Code: * Procedure Codes: * Electronic signature of Raphael Avelar MD on 07/12/2025 at 09:42 AM HOTEL ENGINEER Sign off status: Pending * Provider: Rusty JIN MD, Eran.Ian.C.P, F.A.S.N. Date: Generated for Printing/Faxing/eTransmitting on: 09/12/2024 09:42 AM HOTEL ENGINEER
--- OUTSIDE RECORDS SUMMARY | 2024-05-16 08:45 | XMS_ITS ---
Author Organization [facility] Office Address [address] [facility] [address] [place] [address] Care Team Providers Care Screen Tacker Name Role Phone AvelarTeo Unavailable [phone] Medications Medication SIG (Take, Route, Frequency, Duration) Notes Start Date End Date Status Calcitriol 0.25 MCG TAKE 1 CAPSULE BY [place] UTH TWICE DAILY; Duration: 90 Active Losartan Potassium 25 MG TAKE 1 TABLET B Y MOUTH EVERY DAY; Duration: 90 Active Vitamin D (Ergocalciferol) 1.25 MG (32988 UT) TAKE ONE CAPSULE BY MOUTH WEEKLY; Duration: 91 Active Encounters Encounter Location Date Provider Diagnosis Nathan Sheppard [address] [place] [address] 05/16/2024 Teo Avelar Chronic kidney disea se, stage [...] Treatment Notes Treatment Clinical Notes Section Notes 05/16/2024 Chronic kidney disease, stage 3b (ICD-10 - N18.32) 05/16/2024 Essential (primary) hypertension (ICD-10 - I10) 05/16/2024 Renal osteodystrophy (ICD-10 - N25.0) 05/16/2024 Secondary hyperparathyroidism , not elsewhere classified (ICD-10 - E21.1) 05/16/2024 Type 2 diabetes mellitus with hyperglycemia (ICD-10 - E11.65) 05/16/2024 Vitamin D deficiency, unspecified (ICD-10 - E55.9) 05/16/2024 Acute sinusitis, unspecified (ICD-10 - J01.90) 05/16/2024 Malignant neoplasm of nipple and areola, 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) Plan Of Treatment Next Appt Details Provider Name:Teo Avelar , 07/17/2025 02:45:00 PM, [address] [facility], [place], [address], Progress Notes * MARLEN TORIBIOB:1960 (65 yo F)Acc No.[id number]:05/16/2024 Progress Notes Patient: LOU RINCON Provider: Rusty JIN MD, F.A.C.P, F.A.S.N. :1960 A ge:64 Y S ex:Female Date:05/16/2024 Address:[address] [place], [place] [address] Subjective: * Chief Complaints: * * Medical History: * Medications: T aking Calcitriol 0.25 MCG Capsule TAKE 1 CAPSULE BY MOUTH TWICE DAILY , Taking Vitamin D (Ergocalciferol) 1.25 MG (50068 UT) Capsule TAKE ONE CAPSULE BY MOUTH WEEKLY , Taking Losartan Potassium 25 MG Tablet [...] Treatment: * Billing Information: * Visit Code: 53650 Office Visit, Est Pt., Level 4. * Procedure Codes: * Electronic signature of Raphael Avelar MD on 07/12/2025 at 09:42 AM GLASS CUTTER HAND Sign off status: Pending * Provider: Rusty JIN MD, F.A.C.P, F.A.S.N. Date: 1 Generated for Printing/Faxing/eTransmitting on: 1 09/12/2024 09:42 AM GLASS CUTTER HAND
--- OUTSIDE RECORDS SUMMARY | 2024-06-06 12:15 | XMS_ITS ---
Author Organization [facility] Office Address [address] [facility] [address] [place] [address] Care Team Providers Care Window Display Designer Name Role Phone AvelarTeo Unavailable [phone] Medications Medication SIG (Take, Route, Frequency, Duration) Notes Start Date End Date Status Calcitriol 0.25 MCG TAKE 1 CAPSULE BY [place] UTH TWICE DAILY; Duration: 90 Active Vitamin D (Ergocalciferol) 1.25 MG (66826 UT) TAKE ONE CAPSULE BY MOUTH WEEKLY; Duration: 91 Active Losartan Potassium 25 MG TAKE 1 TABLET B Y MOUTH EVERY DAY; Duration: 90 Active Encounters Encounter Location Date Provider Diagnosis Nathan Sheppard [address] [place] [address] 06/06/2024 Teo Avelar Chronic kidney disea se, stage [...] Treatment Notes Treatment Clinical Notes Section Notes 06/06/2024 Chronic kidney disease, stage 3b (ICD-10 - N18.32) 06/06/2024 Essential (primary) hypertension (ICD-10 - I10) 06/06/2024 Renal osteodystrophy (ICD-10 - N25.0) 06/06/2024 Secondary hyperparathyroidism , not elsewhere classified (ICD-10 - E21.1) 06/06/2024 Type 2 diabetes mellitus with hyperglycemia (ICD-10 - E11.65) 06/06/2024 Vitamin D deficiency, unspecified (ICD-10 - E55.9) 06/06/2024 Acute sinusitis, unspecified (ICD-10 - J01.90) 06/06/2024 Malignant neoplasm of nipple and areola, 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 :1960 A ge:64 Y S ex:Female Date:06/06/2024 Address:[address] [place], [place] [address] Subjective: * Chief Complaints: * * Medical History: * Medications: T aking Calcitriol 0.25 MCG Capsule TAKE 1 CAPSULE BY MOUTH TWICE DAILY , Taking Losartan Potassium 25 MG Tablet TAKE 1 TABLET BY MOUTH EVERY DAY , Taking Vitamin D (Ergocalciferol) 1.25 MG (74312 UT) Capsule TAKE ONE CAPSULE BY MOUTH WEEKLY Objective: * Vitals: Assessment: * Assessment: 1. [...] breast - C50.019 Plan: * Treatment: * Procedure Codes: 9 9496 TRANS CARE MGMT 7 DAY DISCH * Billing Information: * Visit Code: * Procedure Codes: 13803 TRANS CARE MGMT 7 DAY DISCH. * Electronic signature of Raphael Avelar MD on 07/12/2025 at 09:45 AM FRENCH PASTRY COOK Sign off status: Pending * Provider: Rusty JIN MD, F.A.C.P, F.A.S.N. Date: 08/06/2023 Generated for Printing/Faxing/eTransmitting on: 09/12/2024 09:45 AM FRENCH PASTRY COOK
--- OUTSIDE RECORDS SUMMARY | 2024-07-18 08:00 | XMS_ITS ---
Author Organization [facility] Office Address [address] [facility] [address] [place] [address] Care Team Providers Care Mica Parts Sprayer Name Role Phone Teo Avelar Unavailable [phone] Medications Medication SIG (Take, Route, Frequency, Duration) Notes Start Date End Date Status Losartan Potassium 25 MG TAKE 1 TABLET B Y MOUTH EVERY DAY; Duration: 90 Active Calcitriol 0.25 MCG TAKE 1 CAPSULE BY MO UTH TWICE DAILY; Duration: 90 Active Vitamin D (Ergocalciferol) 1.25 MG (99316 UT) TAKE ONE CAPSULE BY MOUTH WEEKLY; Duration: 91 Active Problems Problem Type SNOMED Code ICD Code Onset Dates Problem Status W/U Status Risk Notes Problem Chronic kidney disease stage 4 (768193348) Chronic kidney disease, stage 4 (severe) (N18.4) Active confirmed Encounters Encounter Location Date Provider Diagnosis Nathan Sheppard [address] [place] [address] 07/18/2024 Teo Avelar Chronic kidney disea se, stage 4 (severe) N18.4 ; Essential (primary) hypertension I10 ; Renal osteodystrophy N25.0 ; Secondary hyperparathyroidism, not elsewhere classified E21.1 ; Type 2 diabetes mellitus with hyperglycemia E11.65 ; Vitamin D deficiency, unspecified E55.9 ; Acute sinusitis, unspecified J01.90 and Malignant neoplasm of nipple and areola, 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 C50.019 Assessments Encounter Date Diagnosis (ICD Code) Assessment Notes Treatment Notes Treatment Clinical Notes Section Notes 07/18/2024 Chronic kidney disease, stage 4 (severe) (ICD-10 - N18.4) 07/18/2024 Essential (primary) hypertension (ICD-10 - I10) 07/18/2024 Renal osteodystrophy (ICD-10 - N25.0) 07/18/2024 Secondary hyperparathyroidism , not elsewhere classified (ICD-10 - E21.1) 07/18/2024 Type 2 diabetes mellitus with hyperglycemia (ICD-10 - E11.65) 07/18/2024 Vitamin D deficiency, unspecified (ICD-10 - E55.9) 07/18/2024 Acute sinusitis, unspecified (ICD-10 - J01.90) 07/18/2024 Malignant neoplasm of nipple and areola, 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 :1960 A ge:64 Y S ex:Female Date:07/18/2024 Address:[address] [place], [place] [address] Subjective: * Chief Complaints: * * Medical History: * Medications: T aking Losartan Potassium 25 MG Tablet TAKE 1 TABLET BY MOUTH EVERY DAY , Taking Vitamin D (Ergocalciferol) 1.25 MG (90660 UT) Capsule TAKE ONE CAPSULE BY MOUTH WEEKLY , Taking Calcitriol 0.25 MCG Capsule TAKE 1 CAPSULE BY MOUTH TWICE DAILY Objective: * Vitals: Assessment: * Assessment: 1. C hronic kidney disease, stage 4 (severe) - N18.4 2 . E ssential (primary) hypertension - I10 3 . R enal osteodystrophy - N25.0 4 . S econdary hyperparathyroidism, not elsewhere classified - E21.1 5 . T ype 2 diabetes mellitus with hyperglycemia - E11.65 6 . V itamin D deficiency, unspecified - E55.9 7 . A cute sinusitis, unspecified - J01.90 8 . M alignant neoplasm of nipple and areola, 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 - C50.019 Plan: * Treatment: * Billing Information: * Visit Code: 25044 Office Visit, Est Pt., Level 4. * Procedure Codes: * Electronic signature of Raphael Avelar MD on 07/12/2025 at 09:46 AM ASP NET DEVELOPER Sign off status: Pending * Provider: Rusty JIN MD, F.A.C.P, F.A.S.N. Date: 09/18/2023 Generated for Printing/Faxing/eTransmitting on: 09/12/2024 09:46 AM ASP NET DEVELOPER
--- OUTSIDE RECORDS SUMMARY | 2024-11-07 11:30 | XMS_ITS ---
Author Organization [facility] Office Address [address] [facility] [address] [place] [address] Care Team Providers Care Statistical Developer Name Role Phone Teo Avelar Unavailable [phone] Problems Problem Type SNOMED Code ICD Code Onset Dates Problem Status W/U Status Risk Notes Problem Proteinuria (25802698) Proteinuria, unspecified (R80.9) Active confirmed Problem Hyperuricemia without signs of inflammatory arthritis and tophaceous disease (544633869) Hyperuricemia without signs of inflammatory arthritis and tophaceous disease (E79.0) Active confirmed Problem Gastro-esophageal reflux disease without esophagitis (532998362) Gastro-esophageal reflux disease without esophagitis (K21.9) Active confirmed Encounters Encounter Location Date Provider Diagnosis Nathan Sheppard [address] [place] [address] 11/07/2024 Teo Avelar Chronic kidney disea se, stage 4 (severe) N18.4 ; Essential (primary) hypertension I10 ; Renal osteodystrophy N25.0 ; Secondary hyperparathyroidism, not elsewhere classified E21.1 ; Type 2 diabetes mellitus with hyperglycemia E11.65 ; Vitamin D deficiency, unspecified E55.9 ; Acute sinusitis, unspecified J01.90 ; Malignant neoplasm of nipple and areola, 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 C50.019 ; Proteinuria, unspecified R80.9 ; Hyperuricemia without signs of inflammatory arthritis and tophaceous disease E79.0 and Gastro-esophageal reflux disease without esophagitis K21.9 Assessments Encounter Date Diagnosis (ICD Code) Assessment Notes Treatment Notes Treatment Clinical Notes Section Notes 11/07/2024 Chronic kidney disease, stage 4 (severe) (ICD-10 - N18.4) 11/07/2024 Essential (primary) hypertension (ICD-10 - I10) 11/07/2024 Renal osteodystrophy (ICD-10 - N25.0) 11/07/2024 Secondary hyperparathyroidism , not elsewhere classified (ICD-10 - E21.1) 11/07/2024 Type 2 diabetes mellitus with hyperglycemia (ICD-10 - E11.65) 11/07/2024 Vitamin D deficiency, unspecified (ICD-10 - E55.9) 11/07/2024 Acute sinusitis, unspecified (ICD-10 - J01.90) 11/07/2024 Malignant neoplasm of nipple and areola, 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 :1960 A ge:64 Y S ex:Female Date:11/07/2024 Address:[address] [place], [place] [address] Subjective: * Chief Complaints: Objective: Assessment: * Assessment: 1. C hronic kidney disease, stage 4 (severe) - N18.4 (Primary) 2 . E ssential (primary) hypertension - I10 3 . R enal osteodystrophy - N25.0 ?4. S econdary hyperparathyroidism, not elsewhere classified - E21.1 5 . T ype 2 diabetes mellitus with hyperglycemia - E11.65 6 . V itamin D deficiency, unspecified - E55.9 7 . A cute sinusitis, unspecified - J01.90 8 . M alignant neoplasm of nipple and areola, 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 - C50.019 9. P roteinuria, unspecified - R80.9 1 0. H yperuricemia without signs of inflammatory arthritis and tophaceous disease - E79.0 1 1. G nazia-esophageal reflux disease without esophagitis - K21.9 Plan: * Billing Information: * Visit Code: 01247 Office Visit, Est Pt., Level 5. * Procedure Codes: * Electronic signature of Raphael Avelar MD on 07/12/2025 at 09:48 AM FISH STRAIGHTENER Sign off status: Pending * Provider: Rusty JIN MD, F.A.C.P, F.A.S.N. Date: 0 11/07/2024 Generated for Printing/Faxing/eTransmitting on: 1 09/12/2024 09:48 AM FISH STRAIGHTENER
--- OUTSIDE RECORDS SUMMARY | 2025-01-09 11:45 | XMS_ITS ---
Author Organization [facility] Office Address [address] [facility] [address] [facility] [address] [place] [address] Care Team Providers Care Cafeteria Monitor Name Role Phone Teo Avelar Unavailable [phone] Encounters Encounter [place] [address] [place] [address] 01/09/2025 Rusty Avelar Plan Of Treatment Next Appt Details Provider Name:Teo Valentino , 07/17/2025 02:45:00 PM, [address] , [place], [address], Progress Notes * JUDY TORIBIOYUEB:1960 (65 yo F)Acc No.[id number]:01/09/2025 Progress Notes Patient: LOU RINCON Provider: Rusty JIN MD, F.Ian.C.P, F.A.S.N. :1960 A ge:64 Y S ex:Female Date:01/09/2025 Address:[address] [place], [place] [address] Subjective: * Chief Complaints: * * Medical History: Objective: * Vitals: Assessment: Plan: * Treatment: * Billing Information: * Visit Code: * Procedure Codes: * Electronic signature of Raphael Avelar MD on 07/12/2025 at 09:46 AM POLICY CHANGE CLERKS SUPERVISOR Sign off status: Pending * Provider: Rusty JIN MD, Eran.Ian.C.P, F.A.S.N. Date: 0 01/09/2025 Generated for Printing/Faxing/eTransmitting on: 1 09/12/2024 09:46 AM POLICY CHANGE CLERKS SUPERVISOR
--- OUTSIDE RECORDS SUMMARY | 2025-01-16 10:00 | XMS_ITS ---
Author Organization [facility] Address [address] [place] [address] Care Team Providers Care Machine Technician Name Role Phone Teo Avelar Unavailable [phone] Problems Problem Type SNOMED Code ICD Code Onset Dates Problem Status W/U Status Risk Notes Problem Hyperlipidemia (29572216) Hyperlipidemia, unspecified (E78.5) Active confirmed Problem Coronary artery disease (37754844) CAD (coronary artery disease) (I25.10) Active confirmed Encounters Encounter Location Date Provider Diagnosis Nathan Sheppard [address] [place] [address] 01/16/2025 Teo Avelar Chronic kidney disea se, stage [...] of inflammatory arthritis and tophaceous disease E79.0 ; Gastro-esophageal reflux disease without esophagitis K21.9 ; Hyperlipidemia, unspecified E78.5 and CAD (coronary artery disease) I25.10 Assessments Encounter Date Diagnosis (ICD Code) Assessment Notes Treatment Notes Treatment Clinical Notes Section Notes 01/16/2025 Chronic kidney disease, stage 4 (severe) (ICD-10 - N18.4) 01/16/2025 Essential (primary) hypertension (ICD-10 - I10) 01/16/2025 Renal osteodystrophy (ICD-10 - N25.0) 01/16/2025 Secondary hyperparathyroidism , not elsewhere classified (ICD-10 - E21.1) 01/16/2025 Type 2 diabetes mellitus with hyperglycemia (ICD-10 - E11.65) 01/16/2025 Vitamin D deficiency, unspecified (ICD-10 - E55.9) 01/16/2025 Acute sinusitis, unspecified (ICD-10 - J01.90) 01/16/2025 Malignant neoplasm of nipple and areola, 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) 01/16/2025 Proteinuria, unspecified (ICD-10 - R80.9) 01/16/2025 Hyperuricemia without signs of inflammatory arthritis and tophaceous disease (ICD-10 - E79.0) 01/16/2025 Gastro-esophageal reflux disease without esophagitis (ICD-10 - K21.9) 01/16/2025 Hyperlipidemia, unspecified (ICD-10 - E78.5) 01/16/2025 CAD (coronary artery disease) (ICD-10 - I25.10) Plan Of Treatment Next Appt Details Provider Name:Teo Avelar , 07/17/2025 02:45:00 PM, [id number] [place] [address], [place], [address], Progress Notes * JUDY TORIBIOIDOB:1960 (65 yo F)Acc No.[id number]:01/16/2025 Progress Notes Patient: LOU RINCON Provider: Rusty JIN MD, F.A.C.P, F.A.S.N. :1960 A ge:65 Y S ex:Female Date:01/16/2025 Address:[address] [place], [place] [address] Subjective: * Chief Complaints: * * Medical History: Objective: * Vitals: Assessment: * Assessment: 1. [...] nazia-esophageal reflux disease without esophagitis - K21.9 1 2. H yperlipidemia, unspecified - E78.5 1 3. C AD (coronary artery disease) - I25.10 Plan: * Treatment: * Billing Information: * Visit Code: 98854 Office Visit, Est Pt., Level 4. * Procedure Codes: * Electronic signature of Raphael Avelar MD on 07/12/2025 at 09:42 AM CAREER DEVELOPER Sign off status: Pending * Provider: Rusty JIN MD, F.A.C.P, F.A.S.N. Date: 0 01/16/2025 Generated for Printing/Faxing/eTransmitting on: 09/12/2024 09:42 AM CAREER DEVELOPER
--- OUTSIDE RECORDS SUMMARY | 2025-03-27 09:00 | XMS_ITS ---
Author Organization [facility] Address [address] [facility] [address] [facility] [address] [place] [address] Care Team Providers Care Glove Sewer Name Role Phone Teo Avelar Unavailable [phone] Problems Problem Type SNOMED Code ICD Code Onset Dates Problem Status W/U Status Risk Notes Problem Gout (45285681) Gout, unspecified (M10.9) Active confirmed Problem Glycosuria (39176460) Glycosuria (R81) Active confirmed Problem Acute metabolic acidosis (E87.21) Active confirmed Encounters Encounter Location Date Provider Diagnosis [address] [place] [address] 03/27/2025 Teo Avelar Chronic kidney disea se, stage [...] without esophagitis K21.9 ; Hyperlipidemia, unspecified E78.5 ; CAD (coronary artery disease) I25.10 ; Gout, unspecified M10.9 ; Glycosuria R81 and Acute metabolic acidosis E87.21 Assessments Encounter Date Diagnosis (ICD Code) Assessment Notes Treatment Notes Treatment Clinical Notes Section Notes 03/27/2025 Chronic kidney disease, stage 4 (severe) (ICD-10 - N18.4) 03/27/2025 Essential (primary) hypertension (ICD-10 - I10) 03/27/2025 Renal osteodystrophy (ICD-10 - N25.0) 03/27/2025 Secondary hyperparathyroidism , not elsewhere classified (ICD-10 - E21.1) 03/27/2025 Type 2 diabetes mellitus with hyperglycemia (ICD-10 - E11.65) 03/27/2025 Vitamin D deficiency, unspecified (ICD-10 - E55.9) 03/27/2025 Acute sinusitis, unspecified (ICD-10 - J01.90) 03/27/2025 Malignant neoplasm of nipple and areola, 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) 03/27/2025 Proteinuria, unspecified (ICD-10 - R80.9) 03/27/2025 Hyperuricemia without signs of inflammatory arthritis and tophaceous disease (ICD-10 - E79.0) 03/27/2025 Gastro-esophageal reflux disease without esophagitis (ICD-10 - K21.9) 03/27/2025 Hyperlipidemia, unspecified (ICD-10 - E78.5) 03/27/2025 CAD (coronary artery disease) (ICD-10 - I25.10) 03/27/2025 Gout, unspecified (ICD-10 - M10.9) 03/27/2025 Glycosuria (ICD-10 - R81) 03/27/2025 Acute metabolic acidosis (ICD-10 - E87.21) Plan Of Treatment Next Appt Details Provider Name:Teo Avelar , 07/17/2025 02:45:00 PM, [id number] [place] [address], [address], Progress Notes * TORIBIOMARLENB:1960 (65 yo F)Acc No.[id number]:03/27/2025 Progress Notes Patient: LOU RINCON Provider: Rusty JIN MD, F.A.C.P, F.A.S.N. :1960 A ge:65 Y S ex:Female Date:03/27/2025 Address:[address] [place], [place] [id number] Subjective: * Chief Complaints: Objective: Assessment: * [...] C AD (coronary artery disease) - I25.10 1 4. G out, unspecified - M10.9 1 5. G lycosuria - R81 1 6. A cute metabolic acidosis - E87.21 Plan: * Billing Information: * Visit Code: 07744 Office Visit, Est Pt., Level 4. * Procedure Codes: * Electronic signature of Raphael Avelar MD on 07/12/2025 at 09:46 AM VENDING MECHANIC Sign off status: Pending * Provider: Rusty JIN MD, F.A.C.P, F.A.S.N. Date: 0 03/27/2025 Generated for Printing/Faxing/eTransmitting on: 1 09/12/2024 09:46 AM VENDING MECHANIC
--- OUTSIDE RECORDS SUMMARY | 2025-06-19 12:30 | XMS_ITS ---
Author Organization [facility] Address [address] [facility] [address] [facility] [address] [place] [address] Care Team Providers Care Career Guidance Counselor Name Role Phone Teo Avelar Unavailable [phone] Encounters Encounter Location [place] [address] [place] [address] 06/19/2025 Rusty Avelar Plan Of Treatment Next Appt Details Provider Name:Teo Avelar , 07/17/2025 02:45:00 PM, [address] , [place], [address], Progress Notes * JUDY TORIBIOYUEB:1960 (65 yo F)Acc No.[id number]:06/19/2025 Progress Notes Patient: LOU RINCON Provider: Rusty JIN MD, F.A.C.P, F.A.S.N. :1960 A ge:65 Y S ex:Female Date:06/19/2025 Address:[address] [place], [place] [id number] Subjective: * Chief Complaints: Objective: Assessment: Plan: * Billing Information: * Visit Code: * Procedure Codes: * Electronic signature of Raphael Avelar MD on 07/12/2025 at 09:45 AM SUPERVISOR MAILS Sign off status: Pending * Provider: Rusty JIN MD, F.A.C.P, F.A.S.N. Date: 08/19/2024 Generated for Printing/Faxing/eTransmitting on: 09/12/2024 09:45 AM SUPERVISOR MAILS
--- OUTSIDE RECORDS SUMMARY | 2025-07-12 09:42 | XMS_ITS | Clinical Summary ---
Author Organization [facility] lin Address [address] [facility] [place] [address] Care Team Providers Care Throat Cutter Name Role Phone No, Pcp PRINTING TECHNICIAN Primary Care Provider Unavailabl e Social History Tobacco Use Types Packs/Day Years Used Date Smoking Tobacco: Never Assessed Comments Unknown Sex and Gender Information Value Date Recorded Sex Assigned at Not on file Legal Sex Female 4:15 PM EST Gender Identity Not on file Sexual Orientation Not on file Plan of Treatment Not on file Medical Devices Not on file Insurance MEDICARE Care Teams Throat Cutter Relationship Specialty Start Date End Date No, Pcp, PRINTING TECHNICIAN N/A Do not use PCP - General Family Medicine 06/14/20
--- OUTSIDE RECORDS SUMMARY | 2025-07-12 09:42 | XMS_ITS | Patient Health Record ---
Author Organization [facility] Address [address] [place] [address] Care Team Providers Care Cook Dinner Name Role Phone Teo Avelar Unavailable [phone] Reason For Referral No Information Medications Medication SIG (Take, Route, Frequency, Duration) Notes Start Date End Date Status Allopurinol 200 MG 1 tablet Orally Once a day; Duration: 90 days 01/16/2025 2026 Active Ergocalciferol 1.25 MG (38181 UT) 1 capsule Orally Once a week; Duration: 30 days 03/27/2025 07/24/2025 Active Farxiga 10 MG 1 tablet Orally Once a day; Duration: 90 days 01/16/2025 2026 Active Losartan Potassium 25 MG TAKE 1 TABLET B Y MOUTH EVERY DAY; Duration: 90 Active Allopurinol 100 MG 1 tablet Orally twic e a day; Duration: 90 days 01/16/2025 Active Vitamin D (Ergocalciferol) 1.25 MG (31166 UT) TAKE ONE CAPSULE BY MOUTH WEEKLY; Duration: 13 Active Calcitriol 0.25 MCG TAKE 1 CAPSULE BY MO UT TWICE DAILY; Duration: 90 Active Problems Problem Type SNOMED Code ICD Code Onset Dates Problem Status W/U Status Risk Notes Problem Malignant neoplasm o f nipple and areola of female breast (492850748) Malignant neoplasm of nipple and areola, 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.019) Active confirmed Problem Hyperglycemia due to type 2 diabetes mellitus (961632987520263) Type 2 diabetes mellitus with hyperglycemia (E11.65) Active confirmed Problem Secondary hyperparathyroidism (39382866) Secondary hyperparathyroid ism, not elsewhere classified (E21.1) Active confirmed Problem Vitamin D deficiency (31698939) Vitamin D deficiency, unspecified (E55.9) Active confirmed Problem Hyperlipidemia (72043173) Hyperlipidemia, unspecified (E78.5) Active confirmed Problem Hyperuricemia withou t signs of inflammatory arthritis and tophaceous disease (102362025) Hyperuricemia without signs of inflammatory arthritis and tophaceous disease (E79.0) Active confirmed Problem Essential hypertension (77098364) Essential (primary) hypertension (I10) Active confirmed Problem Acute sinusitis (87391377) Acute sinusitis, unspecified (J01.90) Active confirmed Problem Gastro-esophageal reflux disease without esophagitis (562521287) Gastro-esophagea l reflux disease without esophagitis (K21.9) Active confirmed Problem Gout (91272764) Gout, unspecified (M10.9) Active confirmed Problem Chronic kidney disease stage 4 (686597753) Chronic kidney disease, stage 4 (severe) (N18.4) Active confirmed Problem Renal osteodystrophy (24432178) Renal osteodystrophy (N25.0) Active confirmed Problem Proteinuria (03451367) Proteinuria, unspecified (R80.9) Active confirmed Problem Glycosuria (96793754) Glycosuria (R81) Active c onfirmed Problem Coronary artery disease (63745698) CAD (coronary artery disease) (I25.10) Active confirmed Problem Acute metabolic acidosis (E87.21) Active confirmed Encounters Encounter Location Date Provider Diagnosis [place] [address] 07/18/2024 Teo Avelar Chronic kidney disea se, stage 4 (severe) N18.4 ; Essential (primary) hypertension I10 ; Renal osteodystrophy N25.0 ; Secondary hyperparathyroidism, not elsewhere classified E21.1 ; Type 2 diabetes mellitus with hyperglycemia E11.65 ; Vitamin D deficiency, unspecified E55.9 ; Acute sinusitis, unspecified J01.90 and Malignant neoplasm of nipple and areola, 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 [address]50.[address] [place] [address] 11/07/2024 Teo Avelar Chronic kidney disea se, [...] reflux disease without esophagitis K21.9 [address] [place] [address] 01/16/2025 Teo Avelar Chronic kidney disea se, [...] E78.5 and CAD (coronary artery disease) I25.10 [address] [place] [address] 03/27/2025 Teo Avelar Chronic kidney disea se, [...] Glycosuria R81 and Acute metabolic acidosis E87.21 [facility] [address] [facility] [address] [place] [address] 09/05/2024 Teo Sheppard [address] [place] [address] 01/16/2025 Teo Sheppard [address] [place] [address] 01/16/2025 Te[address] [address] [place] [address] 03/27/2025 Teo Avelar Assessments Encounter Date Diagnosis (ICD Code) Assessment Notes Treatment Notes Treatment Clinical Notes Section Notes 07/18/2024 Chronic kidney disease, stage 4 (severe) (ICD-10 - N18.4) 11/07/2024 Chronic kidney disease, stage 4 (severe) (ICD-10 - N18.4) 01/16/2025 Chronic kidney disease, stage 4 (severe) (ICD-10 - N18.4) 03/27/2025 Chronic kidney disease, stage 4 (severe) (ICD-10 - N18.4) 01/16/2025 Essential (primary) hypertension (ICD-10 - I10) 03/27/2025 Essential (primary) hypertension (ICD-10 - I10) 11/07/2024 Essential (primary) hypertension (ICD-10 - I10) 07/18/2024 Essential (primary) hypertension (ICD-10 - I10) 07/18/2024 Renal osteodystrophy (ICD-10 - N25.0) 11/07/2024 Renal osteodystrophy (ICD-10 - N25.0) 01/16/2025 Renal osteodystrophy (ICD-10 - N25.0) 03/27/2025 Renal osteodystrophy (ICD-10 - N25.0) 03/27/2025 Secondary hyperparathyroidism , not elsewhere classified (ICD-10 - E21.1) 01/16/2025 Secondary hyperparathyroidism , not elsewhere classified (ICD-10 - E21.1) 11/07/2024 Secondary hyperparathyroidism , not elsewhere classified (ICD-10 - E21.1) 07/18/2024 Secondary hyperparathyroidism , not elsewhere classified (ICD-10 - E21.1) 07/18/2024 Type 2 diabetes mellitus with hyperglycemia (ICD-10 - E11.65) 11/07/2024 Type 2 diabetes mellitus with hyperglycemia (ICD-10 - E11.65) 01/16/2025 Type 2 diabetes mellitus with hyperglycemia (ICD-10 - E11.65) 03/27/2025 Type 2 diabetes mellitus with hyperglycemia (ICD-10 - E11.65) 03/27/2025 Vitamin D deficiency, unspecified (ICD-10 - E55.9) 01/16/2025 Vitamin D deficiency, unspecified (ICD-10 - E55.9) 11/07/2024 Vitamin D deficiency, unspecified (ICD-10 - E55.9) 07/18/2024 Vitamin D deficiency, unspecified (ICD-10 - E55.9) 07/18/2024 Acute sinusitis, unspecified (ICD-10 - J01.90) 11/07/2024 Acute sinusitis, unspecified (ICD-10 - J01.90) 01/16/2025 Acute sinusitis, unspecified (ICD-10 - J01.90) 03/27/2025 Acute sinusitis, unspecified (ICD-10 - J01.90) 03/27/2025 Malignant neoplasm of nipple and areola, 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) 01/16/2025 Malignant neoplasm of nipple and areola, 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) 11/07/2024 Malignant neoplasm of nipple and areola, 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) 07/18/2024 Malignant neoplasm of nipple and areola, 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) 11/07/2024 Proteinuria, unspecified (ICD-10 - R80.9) 01/16/2025 Proteinuria, unspecified (ICD-10 - R80.9) 03/27/2025 Proteinuria, unspecified (ICD-10 - R80.9) 03/27/2025 Hyperuricemia without signs of inflammatory arthritis and tophaceous disease (ICD-10 - E79.0) 01/16/2025 Hyperuricemia without signs of inflammatory arthritis and tophaceous disease (ICD-10 - E79.0) 11/07/2024 Hyperuricemia without signs of inflammatory arthritis and tophaceous disease (ICD-10 - E79.0) 11/07/2024 Gastro-esophageal reflux disease without esophagitis (ICD-10 - K21.9) 01/16/2025 Gastro-esophageal reflux disease without esophagitis (ICD-10 - K21.9) 03/27/2025 Gastro-esophageal reflux disease without esophagitis (ICD-10 - K21.9) 03/27/2025 Hyperlipidemia, unspecified (ICD-10 - E78.5) 01/16/2025 Hyperlipidemia, unspecified (ICD-10 - E78.5) 01/16/2025 CAD (coronary artery disease) (ICD-10 - I25.10) 03/27/2025 CAD (coronary artery disease) (ICD-10 - I25.10) 03/27/2025 Gout, unspecified (ICD-10 - M10.9) 03/27/2025 Glycosuria (ICD-10 - R81) 03/27/2025 Acute metabolic acidosis (ICD-10 - E87.21) Plan Of Treatment Next Appt Details Provider Name:Teo Avelar , 07/17/2025 02:45:00 PM, [address] , [place], [address],
--- OUTSIDE RECORDS SUMMARY | 2025-07-12 09:43 | XMS_ITS | Clinical Summary ---
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
--- OUTSIDE RECORDS SUMMARY | 2025-07-12 09:43 | XMS_ITS | Data Portability ---
[facility] Organization [facility] Address [address] [place] [address] Assessment Encounter Date Assessment Date Assessment LastModified by Organization Details LastModified Time 09/14/2017 09/14/2017 1. Counseled regarding prevention of STD's , condom use 2. Pelvic done and wnl. Meds refilled 3. Advised avoidance of tobacco, alcohol, and drugs . 4. Counseled regarding folic acid supplementation , calcium needs and prevention of osteoporosis . 5. BSE reviewed and recommended. 6. Follow up in one year or sooner if needed. deldredsmith Not available 09/18/2017 11:15:30 10/12/2017 10/12/2017 1. Encouraged pt to increase fluids and continue prednisone and antibiotics 2. Diflucan sent out for yeast infection. Told to take Monday after antibiotic is over. 3. Urine results printed out and given to patient. Pt stated she is taking them directly to Dr. Chilel's office now. 4. Urine sent for culture. 5. Will go to ED or back to primary for follow up or if symptoms worsen. deldredsmith Not available 10/12/2017 17:05:17 09/19/2018 09/19/2018 1. Counseled regarding prevention of STD's , condom use 2. Pelvic done and mammogram order given 3. Advised avoidance of tobacco, alcohol, and drugs . 4. Counseled regarding folic acid supplementation , calcium needs and prevention of osteoporosis . 5. BSE reviewed and recommended. 6. Follow up in one year or sooner if needed. 1. Will send meds out for UTI 2. Pt instructed to increase fluids, decrease soda, sugary beverages and caffeinated beverages. 3. To call office if symptoms worsen or do not improve with treatment. deldredsmith Not available 09/19/2018 15:47:29 Plan of Treatment Reminders Order Date Submit Date Provider Last Modified By Organization Details Last Modified Time Details Appointments None recorde d. Lab urinaly sis, dipstic k 2018 019 [email or web address] In-Office Order, Internal Use Only DO Not Attach Compendium DO Not Attach Compendium, Do Not Delete/merge, [id number] 9 16:52:31 culture , urine 2017 018 [facility], [address], [address], [place], [address], 8 16:08:19 urinaly sis, dipstic k 2017 018 [email or web address] In-Office Order, Internal Use Only DO Not Attach Compendium DO Not Attach Compendium, Do Not Delete/merge, [id number] 8 11:18:34 Referral None recorde d. Procedures None recorde d. Surgeries None recorde d. Imaging MAMMO, diagnos tic, digital , bilater al 2019 [facility] (Radiology), [address] [facility] [place], [address], 1 11:35:08 US, breast, bilater al [address] [facility] (Radiology), [address] [facility] [place], [address], 1 11:35:08 MAMMO, screeni ng, bilater al 2018 [address] [facility] [address] [facility] (Radiology), [address] [facility] [place], [address], 9 16:22:22 Medication Orders Macrobi d 100 mg capsule 2018 019 [id number], [address] [place], [place], [phone], 9 15:47:12 Difluca n 150 mg tablet 2017 018 [facility][id number], [address] [place], [place], [place], [id number], 8 17:05:51 Premari n 0.625 mg/gram vaginal cream 2017 018 [id number], [address], [place], [place], [id number], 8 09:41:47 metroni dazole 500 mg tablet 2017 018 [facility][id number], [address], [place], [place], [id number], 8 09:41:46 Patient TargetsNo targets recorded. Patient Instructions Encounter Date Encounter Id Patient Instructions Last Modified By Organization Details Last Modified Time 09/13/2016 [id number] When You Want to Lose Weight: Care Instructions bridenbarkma Not available 09/13/2016 11:48:03 10/12/2017 [id number] When You Want to Lose Weight: Care Instructions deldredsmith Not available 10/12/2017 17:06:49 painful urination (dysuria): care instructions deldredsmith Not available 10/12/2017 11:18:34 vaginal yeast infection: care instructions deldredsmith Not available 10/12/2017 17:05:46 07/07/2020 [id number] breast pain: care instructions deldredsmith Not available 07/07/2020 11:48:12 Reason for Referral None Reported. Results Created Date Observation Date Name Description Value Unit Range Abnormal Flag Note LastModifiedBy Organization Detail LastModifiedTime 10/13/19 18 10/15/2017 cultu re, urine urine culture, routine Final report abnormal Not Available [facility] ([facility]) [address], [place], [address], 10/15/2017 16:08:19 10/13/19 18 10/15/2017 cultu re, urine result 1 Citrob acter koseri abnormal Great er than 100,0 00 colon y formi ng units per mL Not Available [facility] ([facility]) [address], [place], [address], 10/15/2017 16:08:19 10/13/19 18 10/15/2017 cultu re, urine antimicrobia l susceptibili ty Commen t S = Susce ptibl e; I = Inter media te; R = Resis tant P = Posit betty; N = Negat betty MICS are expre ssed in micro grams per mL Antib iotic RSLT# 1 RSLT# 2 RSLT# 3 RSLT# 4 Amoxi cilli n/Cla vulan ic Acid S Cefep dawn S Ceftr iaxon e S Cefur oxime I Cepha lothi n S Cipro floxa jennifer S Ertap enem S Genta micin S Imipe nem S Levof loxac in S Nitro furan toin S Piper acill in R Tetra cycli ne S Tobra mycin S Trime thopr im/[place] lfa S Not Available [facility] ([facility]) [address] [facility], [place], [address], 10/15/2017 16:08:19 10/13/19 18 10/12/2017 urina lysis , dipst ick Leukocytes Trace Not Available In-Offi ce Order Internal Use Only DO Not Attach Compendium DO Not Attach Compendium, Do Not Delete/merge, 10/12/2017 10:34:31 10/13/19 18 10/12/2017 urina lysis , dipst ick Nitrite negati ve Not Available In-Office Order Internal Use Only DO Not Attach Compendium DO Not Attach Compendium, Do Not Delete/merge, 10/12/2017 10:34:31 10/13/19 18 10/12/2017 urina lysis , dipst ick Urobilinogen .2 Not Available In-Of fice Order Internal Use Only DO Not Attach Compendium DO Not Attach Compendium, Do Not Delete/merge, 10/12/2017 10:34:31 10/13/19 18 10/12/2017 urina lysis , dipst ick Protein 300 Not Available In-Office Order Internal Use Only DO Not Attach Compendium DO Not Attach Compendium, Do Not Delete/merge, [facility] 10/12/2017 10:34:31 10/13/19 18 10/12/2017 urina lysis , dipst ick pH 5.5 Not Available In-Office Order Internal Use Only DO Not Attach Compendium DO Not Attach Compendium, Do Not Delete/merge, [facility] 10/12/2017 10:34:31 10/13/19 18 10/12/2017 urina lysis , dipst ick Blood Non-He molyze d: Trace Not Available In-Office Order Internal Use Only DO Not Attach Compendium DO Not Attach Compendium, Do Not Delete/merge, [facility] 10/12/2017 10:34:31 10/13/19 18 10/12/2017 urina lysis , dipst ick Specific [place] 1.030 Not Available In-Off ice Order Internal Use Only DO Not Attach Compendium DO Not Attach Compendium, Do Not Delete/merge, [facility] 10/12/2017 10:34:31 10/13/19 18 10/12/2017 urina lysis , dipst ick Ketone Negati ve Not Available In-Office Order Internal Use Only DO Not Attach Compendium DO Not Attach Compendium, Do Not Delete/merge, [facility] 10/12/2017 10:34:31 10/13/19 18 10/12/2017 urina lysis , dipst ick Bilirubin Negati ve Not Available In-Office Order Internal Use Only DO Not Attach Compendium DO Not Attach Compendium, Do Not Delete/merge, [facility] 10/12/2017 10:34:31 10/13/19 18 10/12/2017 urina lysis , dipst ick Glucose Negati ve Not Available In-Office Order Internal Use Only DO Not Attach Compendium DO Not Attach Compendium, Do Not Delete/merge, 10/12/2017 10:34:31 10/13/19 18 10/12/2017 urina lysis , dipst ick Appearance Slight ly Cloudy Not Available In-Office Order Internal Use Only DO Not Attach Compendium DO Not Attach Compendium, Do Not Delete/merge, [id number] 10/12/2017 10:34:31 10/13/19 18 10/12/2017 urina lysis , dipst ick Color Yellow Not Available In-Office Order Internal Use Only DO Not Attach Compendium DO Not Attach Compendium, Do Not Delete/merge, [id number] 10/12/2017 10:34:31 09/19/19 19 09/19/2018 urina lysis , dipst ick Leukocytes Modera te Not Available In-Office Order Internal Use Only DO Not Attach Compendium DO Not Attach Compendium, Do Not Delete/merge, [facility] 09/19/2018 15:18:22 09/19/19 19 09/19/2018 urina lysis , dipst ick Nitrite negati ve Not Available In-Office Order Internal Use Only DO Not Attach Compendium DO Not Attach Compendium, Do Not Delete/merge, [facility] 09/19/2018 15:18:22 09/19/19 19 09/19/2018 urina lysis , dipst ick Urobilinogen .2 Not Available In-Of fice Order Internal Use Only DO Not Attach Compendium DO Not Attach Compendium, Do Not Delete/merge, [facility] 09/19/2018 15:18:22 09/19/19 19 09/19/2018 urina lysis , dipst ick Protein 300 Not Available In-Office Order Internal Use Only DO Not Attach Compendium DO Not Attach Compendium, Do Not Delete/merge, [facility] 09/19/2018 15:18:22 09/19/19 19 09/19/2018 urina lysis , dipst ick pH 5.0 Not Available In-Office Order Internal Use Only DO Not Attach Compendium DO Not Attach Compendium, Do Not Delete/merge, [id number] 09/19/2018 15:18:22 09/19/19 19 09/19/2018 urina lysis , dipst ick Blood Hemoly zed: Trace Not Available In-Office Order Internal Use Only DO Not Attach Compendium DO Not Attach Compendium, Do Not Delete/merge, [id number] 09/19/2018 15:18:22 09/19/19 19 09/19/2018 urina lysis , dipst ick Specific [place] 1.025 Not Available In-Off ice Order Internal Use Only DO Not Attach Compendium DO Not Attach Compendium, Do Not Delete/merge, [id number] 09/19/2018 15:18:22 09/19/19 19 09/19/2018 urina lysis , dipst ick Ketone Trace Not Available In-Office Order Internal Use Only DO Not Attach Compendium DO Not Attach Compendium, Do Not Delete/merge, [id number] 09/19/2018 15:18:22 09/19/19 19 09/19/2018 urina lysis , dipst ick Bilirubin Small Not Available In-Offic e Order Internal Use Only DO Not Attach Compendium DO Not Attach Compendium, Do Not Delete/merge, [id number] 09/19/2018 15:18:22 09/19/19 19 09/19/2018 urina lysis , dipst ick Glucose 100 Not Available In-Office Order Internal Use Only DO Not Attach Compendium DO Not Attach Compendium, Do Not Delete/merge, [id number] 09/19/2018 15:18:22 09/19/19 19 09/19/2018 urina lysis , dipst ick Appearance Slight ly Cloudy Not Available In-Office Order Internal Use Only DO Not Attach Compendium DO Not Attach Compendium, Do Not Delete/merge, [id number] 09/19/2018 15:18:22 09/19/19 19 09/19/2018 urina lysis , dipst ick Color Dark Yellow Not Available In-Office Order Internal Use Only DO Not Attach Compendium DO Not Attach Compendium, Do Not Delete/merge, [id number] 09/19/2018 15:18:22 07/17/20 19 07/20/2019 cultu re, urine urine culture, routine Final report abnormal Not Available [facility] ([facility]) [address], [place], [address], 07/20/2019 07:09:54 07/17/20 19 07/20/2019 cultu re, urine result 1 Escher ichia coli abnormal Great er than 100,0 00 colon y formi ng units per mL Susce ptibi lity profi le is consi stent with a proba ble ESBL. Cefaz lela with an JONI <=16 predi cts susce ptibi lity to the oral agent s cefac sherley, cefdi aislinn, cefpo doxim e, cefpr ozil, cefur oxime , cepha lexin , and lorac arbef when used for thera py of uncom plica timothy urina ry tract infec tions due to E. coli, Klebs iella pneum oniae , and Prote us mirab ilis. Not Available [facility] ([facility]) [address] [facility], [place], [address], 07/20/2019 07:09:54 07/17/20 19 07/20/2019 cultu re, urine antimicrobia l susceptibili ty Commen t S = Susce ptibl e; I = Inter media te; R = Resis tant P = Posit betty; N = Negat betty MICS are expre ssed in micro grams per mL Antib iotic RSLT# 1 RSLT# 2 RSLT# 3 RSLT# 4 Amoxi cilli n/Cla vulan ic Acid S Ampic illin R Cefaz lela S Cefep dawn S Ceftr iaxon e R Cefur oxime S Cipro floxa jennifer S Ertap enem S Genta micin S Imipe nem S Levof loxac in S Merop enem S Nitro furan toin S Piper acill in/Ta zobac hager S Tetra cycli ne S Tobra mycin S Trime thopr im/[place] lfa S Not Available [facility] ([facility]) [address] [facility], [place], [address], 07/20/2019 07:09:54 08/16/19 17 08/10/2016 shanita AYALA, digit al, bilarie erasuzie No observ ation record ed. kylah Not Available 15:49:45 09/04/19 18 09/04/2017 shanita AYALA bilat erasuize No observ ation record ed. kylah [address] [place], [address], 09/06/2017 15:15:36 05/02/20 19 05/02/2019 MAMMO , scree abelino, bilat eral No observ ation record ed. kylah [facility] (Radiology) [address] [place] [address] [place], [address], 05/02/2019 16:41:49 07/27/20 20 07/27/2020 MAMMO , diagn ostic , digit al, bilat eral No observ ation record ed. [facility] (Radiology) [address] [place] [address] [place], [address], 08/04/2020 12:31:58 08/04/19 21 US, breas t, bilat eral No observ ation record ed. [facility] (Radiology) [address] [place] [address] [place], [address], 08/04/2020 12:31:58 09/27/19 22 09/27/2021 MAMMO , scree abelino, digit al, bilat eral No observ ation record ed. [facility] (Fp) [address], [place], [address], 09/27/2021 14:08:43 09/29/19 22 09/28/2021 MAMMO , diagn ostic , unila teral No observ ation record ed. [address] [place], [address], 09/28/2021 15:29:02 Result Notes None recorded. Problems No Known Problems Procedures Surgical History Date Name Laterality Status Provider Name and Address Organization Details Recorded Time 09/27/19 22 Most Recent Mammogram completed Chantel Bass RN [facility] 09/27/2021 12:26:12 07/31/19 15 Date of Last Pap Smear completed KAMRON Shea - [facility] 09/13/2016 10:33:12 Heart Surgery completed KAMRON Shea - [facility] 09/13/2016 10:31:23 Hysteroscopy completed KAMRON Shea - [facility] 09/13/2016 10:31:32 Orthopedic Surgery completed KAMRON Shea - [facility] 09/13/2016 10:31:53 Imaging Results None recorded. Procedure Notes None recorded. Medical Equipment None Reported. Allergies Allergen ID Allergen Name Allergen Category Reaction Reaction Severity Criticality Documentation Date Start Date Code Code System Note Provider Name and Address Organization Details Recorded Time 94474 acetamino phen / oxycodone medicatio n Not available Not available Not available 09/13/2016 48912 3 RxNorm [place], [place] - [place] 10:29:58 02851 tramadol medicatio n Not available Not available Not available 09/13/2016 43815 RxNoKAMRON [place], [place] - [place] 10:30:23 27727 acetamino phen / hydrocodo ne medicatio n Not available Not available Not available 09/13/2016 99025 2 RxNoKAMRON [place], [place] 10:30:41 Medications Name Sig Start Date Stop Date Status Note LastModified by Organization Details LastModified Time amlodipine besylate 10 mg tabs active Not Available Not Available Not Available ondansetron hcl 4 mg tabs active Not Available Not Available Not Available hydroco/apap tab 5-325mg active Not Available Not Available Not Available metronidazol e 500 mg tabs active Not Available Not Available Not Available baclofen 10 mg tabs active Not Available Not Available Not Available prednisone 20 mg tabs active Not Available Not Available N ot Available irbesartan 300 mg tabs active Not Available Not Available Not Available azithromycin 500 mg tabs active Not Available Not Available Not Available furosemide 20 mg tabs active Not Available Not Available N ot Available sertraline hcl 100 mg tabs active Not Available Not Available Not Available clopidogrel 75 mg tabs active Not Available Not Available N ot Available gabapentin 300 mg caps active Not Available Not Available Not Available humalog 100 unit/ml soln active Not Available Not Available Not Available oxycod/apap tab 5-325mg active Not Available Not Available Not Available azithromycin 250 mg tabs active Not Available Not Available Not Available furosemide 40 mg tablet TAKE 1 TABLET BY MOUTH TWICE DAILY active Not Available Not Available No t Available metolazone 2.5 mg tablet TAKE 1 TABLET BY MOUTH EVERY OTHER DAY active Not Available Not Available No t Available doxycycline hyclate 100 mg capsule active Not Available Not Available N ot Available trazodone 50 mg tablet TAKE 3 TABLETS BY MOUTH EVERY NIGHT AT BEDTIME NEEDED FOR SLEEP active Not Available Not Available No t Available azithromycin 250 mg tablet active Not Available Not Available Not Available metoprolol tartrate 100 mg tablet TK 1 T PO BID active Not Available Not Available No t Available fluconazole 150 mg tablet Take 1 tablet every day by oral route. active Not Available Not Available No t Available atenolol 100 mg tablet active Not Available Not Available No t Available hydrocodone 5 mg-acetamino phen 325 mg tablet TAKE 1 TABLET BY MOUTH EVERY 6 HOURS NEEDED active Not Available Not Available No t Available ondansetron HCl 4 mg tablet active Not Available Not Available Not Available sertraline 100 mg tablet TAKE 1 TABLET BY MOUTH DAILY active Not Available Not Available Not Available clindamycin HCl 150 mg capsule active Not Available Not Available Not Available hydralazine 25 mg tablet active Not Available Not Available Not Available metronidazol e 500 mg tablet Take 1 tablet every 12 hours by oral route as directed for 7 days. 2017 active Not Available Not Available Not Avai lable clopidogrel 75 mg tablet active Not Available Not Available Not Available ciprofloxaci n 250 mg tablet TK 1 T PO BID FOR 4 DAYS active Not Available Not Available No t Available amlodipine 5 mg tablet active Not Available Not Available No t Available allopurinol 100 mg tablet TAKE 2 TABLETS BY MOUTH EVERY DAY active Not Available Not Available No t Available sulfamethoxa zole 800 mg-trimethop rim 160 mg tablet TK 1 T PO BID FOR 5 DAYS active Not Available Not Available No t Available tramadol 50 mg tablet TK 1 T PO Q 8 H PRF PAIN active Not Available Not Available No t Available isosorbide mononitrate ER 120 mg tablet,exten ded release 24 hr active Not Available Not Available Not Available ketorolac 0.5 % eye drops active Not Available Not Available Not Available oxycodone-ac etaminophen 5 mg-325 mg tablet active Not Available Not Available Not Available furosemide 80 mg tablet TAKE 1 TABLET BY MOUTH DAILY FOR 2 DAYS. MAY RESTART TWICE DAILY DOSING IF SWELLING OF LOWER EXTREMITIES OR SHORTNESS OF BREATH. active Not Available Not Available N ot Available OneTouch Ultra Test strips TEST BLOOD SUGAR FOUR TIMES DAILY active Not Available Not Available Not Available sodium bicarbonate 650 mg tablet TAKE 1 TABLET BY MOUTH TWICE DAILY active Not Available Not Available No t Available meclizine 25 mg tablet active Not Available Not Available No t Available baclofen 10 mg tablet TAKE 1 TABLET BY MOUTH THREE TIMES DAILY active Not Available Not Available Not Available amlodipine 10 mg tablet active Not Available Not Available Not Available cephalexin 500 mg capsule TK ONE C PO BID active Not Available Not Available No t Available pantoprazole 40 mg tablet,delay ed release active Not Available Not Available N ot Available metoprolol tartrate 50 mg tablet active Not Available Not Available No t Available nitroglyceri n 0.4 mg sublingual tablet DISSOLVE 1 TABLET UNDER THE TONGUE EVERY 5 MINUTES NEEDED FOR CHEST PAIN active Not Available Not Available N ot Available gabapentin 300 mg capsule TAKE 1 CAPSULE BY MOUTH THREE TIMES DAILY active Not Available Not Available Not Available hydralazine 50 mg tablet active Not Available Not Available Not Available furosemide 20 mg tablet active Not Available Not Available Not Available ergocalcifer ol (vitamin D2) 1,250 mcg (50,000 unit) capsule TAKE 1 CAPSULE BY MOUTH 1 TIME A WEEK active Not Available Not Available Not Available insulin lispro (U-100) 100 unit/mL subcutaneous solution INJECT UP TO 200 UNITS UNDER THE SKIN PER INSULIN PUMP DAILY active Not Available Not Available N ot Available albuterol sulfate HFA 90 mcg/actuatio n aerosol inhaler INL 2 PFS PO Q 4 TO 6 H PRF SOB active Not Available Not Available No t Available sodium polystyrene sulfonate 15 gram oral powder TAKE 30 GM BY MOUTH ONCE A DAY active Not Available Not Available N ot Available calcitriol 0.25 mcg capsule TAKE 1 CAPSULE BY MOUTH EVERY DAY active Not Available Not Available No t Available irbesartan 300 mg tablet active Not Available Not Available Not Available midodrine 10 mg tablet TAKE 1 TABLET BY MOUTH EVERY DAY active Not Available Not Available No t Available ezetimibe 10 mg tablet TAKE 1 TABLET BY MOUTH EVERY DAY active Not Available Not Available No t Available Premarin 0.625 mg/gram vaginal cream Insert 0.5 applicators ful every day by vaginal route as directed. active Not Available Not Available No t Available rosuvastatin 20 mg tablet active Not Available Not Available Not Available rosuvastatin 40 mg tablet active Not Available Not Available Not Available nitrofuranto in monohydrate/ macrocrystal s 100 mg capsule TAKE 1 CAPSULE BY MOUTH EVERY 12 HOURS FOR 7 DAYS active Not Available Not Available N ot Available lactulose 10 gram/15 mL oral solution active Not Available Not Available Not Available ranolazine ER 1,000 mg tablet,exten ded release,12 hr active Not Available Not Available Not Available Eliquis 5 mg tablet TAKE 1 TABLET BY MOUTH TWICE DAILY active Not Available Not Available No t Available Spiriva Respimat 1.25 mcg/actuatio n solution for inhalation active Not Available Not Available N ot Available OneTouch Ultra Blue Test Strip TEST BS QID active Not Available Not Availab le Not Available Dexcom G6 Sensor device CHANGE EVERY 10 DAYS active Not Available Not Available No t Available Wixela Inhub 250 mcg-50 mcg/dose powder for inhalation USE ONE INHALATION TWICE DAILY active Not Available Not Available Not Available COVID-19 test specimen collection USE 1 KIT TODAY DIRECTED active Not Available Not Available No t Available FreeStyle Leonora 2 Sensor kit CHANGE SENSOR EVERY 14 DAYS active Not Available Not Available No t Available Afluria Qd 2019- (36 mos up)(PF)60 mcg (15 mcg x4)/0.5 mL IM syringe ADM 0.5ML IM UTD active Not Available Not Available No t Available Vitals Date Recorded Body height Body weight Body mass index (BMI) Systolic And Diastolic Provider Name and Address Organization Details Last Updated DateTime 09/13/2016 167.64 cm 594255.19 g 38.9 kg/m2 138/70 mm[Hg] Maria Luisa Winters MA [facility] 09/13/2016 10:29:35 Date Recorded Body height Body mass index (BMI) Body weight Systolic And Diastolic Provider Name and Address Organization Details Last Updated DateTime 09/14/2017 167.64 cm 41.2 kg/m2 291327.45 g 126/60 mm[Hg] Maria Luisa Winters MA [facility] 09/14/2017 09:21:22 Date Recorded Body height Body mass index (BMI) Body weight Provider Name and Address Organization Details Last Updated DateTime 09/19/2018 167.64 cm 41.3 kg/m2 275371.79 g Sangeetha Baker MA [facility] 09/19/2018 15:18:01 Date Recorded Body height Body mass index (BMI) Body weight Systolic And Diastolic Provider Name and Address Organization Details Last Updated DateTime 10/12/2017 167.64 cm 40.4 kg/m2 753395.49 g 152/70 mm[Hg] Sangeetha Baker MA [facility] 10/12/2017 10:34:09 Date Recorded Body height Body mass index (BMI) Body weight Provider Name and Address Organization Details Last Updated DateTime 07/07/2020 167.64 cm 40.4 kg/m2 293909.09 g Maria Luisa Winters MA [facility] 07/07/2020 11:46:16 Social History Question Answer Notes LastModified by Organizat ion Details LastModified Time Tobacco Smoking Status Never Smoker Maria Luisa Winters MA null, [facility] 09/13/2016 10:31:11 What Was The Date Of Your Most Recent Tobacco Screening? 10/12/2017 Information n ot available 02/21/2019 Sex: Unknown Functional Status None recorded. Mental Status None recorded. Family History Relationship Description Onset Age of this Age Resolved Age Notes LastModified by Organization Details LastModified Time Mother Malignant neoplasm of breast mraglin Not available 2016 10:31:05 Medical History Condition Response High Blood Pressure Y High Cholesterol Y Gynecological History Statement/Question Response Abnormal Pap Y Sexually Active? N HPV Vaccine N Date of Last Pap Smear 07/31/2014 Sexual Problems? N Current Control Method Hysterectom y Most Recent Mammogram 09/27/2021 LMP Unknown Obstetrics History GPAL:G 0 P 0 0 0 0 Past Encounters Encounter ID Performer Location Encounter Start Date Encounter Closed Date Diagnosis/Indication Diagnosis SNOMED-CT Code Diagnosis ICD10 Code Diagnosis IMO Codes Diagnosis Note [id number] [place] [address] [address] [facility] [address] 09/13/2016 10:18:40 09/13/2016 14:31:36 Gynecologic examination 15165510 Z01.419 History of hysterectomy 077223148 Z90.711 Type 2 edwin betes mellitus 20576078 E11.9 Obesity 689001273 E66.9 [id number] EDIE Reyes ([place] [address]) [address] [place] [address] 09/14/2017 09:08:57 09/18/2017 12:56:53 Menopausal syndrome 976238314 N95.9 Vaginal odor 904789342 N 89.8 Gynecologi c examination 06643458 Z01.941 [id number] EDIE Reyes ([place] [address]) [address] [place] [address] 10/12/2017 10:25:26 10/13/2017 11:44:24 At increased risk of urinary tract infection 225903792 Z91.89 Dysuria 54832565 R30.0 Candidiasis of vagina 72 939992 B37.3 Obesity 820143836 E66.9 [id number] [facility]on [facility]an [facility] [address] [facility] [address] [place] [address] 09/19/2018 15:10:30 09/20/2018 09:03:39 At increased risk of urinary tract infection 413338917 Z91.89 Screening mammography 24 827938 Z12.31 Gynecologi c examination 16070218 Z01.882 [id number] [facility] [address] [facility] [address] [place] [address] 07/07/2020 11:42:25 07/08/2020 13:17:48 Pain of breast 63981010 N64.4 Importance of yearly mammograms and sbe exam discussed with pt. Mammogram and ultrasound order given, pt verbalized understand ing. Health Concerns Section Related Observation LastModified by Organization Detai ls LastModified Time None Recorded Concern Status LastModified by Organization Details LastModified Time None Recorded Advance Directives Directive None Recorded Payers Insurance Date Sequence Insurance Name Policy Number Policy Bullock Covered Member ID Bullock Member ID Guarantor Name 04/06/2023 1 [place] Jennifer Howard [id number] [facility] 04/06/2023 [place] [facility] [id number] Jnenifer Ehrenberg 04/06/2023 1 [place] Jennifer Howard [id number] Jennifer Howard 04/06/2023 2 [employer] [id number] Jennifer Howard [id number] Jennifer Ehrenberg 07/17/2019 1 [facility] [id number] [facility] [id number] Jennifer Howard 04/06/2023 2 [employer] [id number] Jennifer Howard [id number] [facility] Notes Date Note Type Note Provider Name and Address Organization Details Recorded Time 7 text/html Annual GYNReported by PatientHistoryFor history, patient reportsno gynecologic complaints.Genitourinary symptomsFor urinary symptoms, patient reportsno hematuriaandno incontinence. For vulva, patient reportsno genital lesion. For vagina, patient reportsnormal vaginal discharge.Breast symptomsFor breast, patient reportsno breast pain,no breast lump, andno nipple discharge.Endocrine symptomsFor sexual complaints, patient reportsno sexual complaints,no pain during intercourse, andnormal libido. For menopausal symptoms, patient reportsno menopausal symptomsandnormal vaginal lubrication.Psychological symptomsFor psychological symptoms, patient reportsno depression,no anxiety, andno pmdd.Preventative measuresFor preventive measures, patient reportsencourage self breast examination,encourage regular exercise,encourage no tobacco use,encourage regular mammograms starting age 40, andneeds to schedule colonoscopy.ROS as noted in the HPI Patient here for annual exam, no complaints at this time. Had complete hysterectomy in 2013 due to extreme bleeding. Open heart surgery in 1998 and has insulin pump. [facility] Attn: Accounting,[address] [place], [address], [facility] 09/13/2016 11:29:27 8 text/html Annual GYNReported by PatientGenitourinary symptomsFor urinary symptoms, patient reportsno hematuriaandno incontinence. For vulva, patient reportsno genital lesion. For vagina, patient reportsnormal vaginal discharge.Breast symptomsFor breast, patient reportsno breast pain,no breast lump, andno nipple discharge.Endocrine symptomsFor sexual complaints, patient reportsno sexual complaints,no pain during intercourse, andnormal libido. For menopausal symptoms, patient reportsno menopausal symptomsandnormal vaginal lubrication.Psychological symptomsFor psychological symptoms, patient reportsno depression,no anxiety, andno pmdd.Preventative measuresFor preventive measures, patient reportsencourage self breast examination,encourage regular exercise,encourage no tobacco use,encourage regular mammograms starting age 40, andneeds to schedule colonoscopy.ROS as noted in the [facility] Here for annual and renewal of meds. Does have complaint of vaginal odor. Had complete hysterectomy in 2013 due to extreme bleeding. Open heart surgery in 1998 and has insulin pump. ZHANNA Reyes Attn: Accounting[address] [place], [address], [facility] 09/18/2017 11:16:48 8 text/html Pt here for UTI symptoms. States she woke up this morning to burning after she urinates and pressure in the bladder area. Was seen two times earlier in the week at ED and once by Primary yesterday due to pneumonia. Is currently on a zpack until Monday and primary placed her on Prednisone yesterday. Shanon [facility] Attn: Accounting,[address] [place], [address], [facility] 10/12/2017 17:08:01 9 text/html Annual GYNReported by PatientGenitourinary symptomsFor urinary symptoms, patient reportsstress incontinence,burning sensation during urination,increased urinary frequency, andnocturiabut reportsno hematuria. For vulva, patient reportsno genital lesion. For vagina, patient reportsnormal vaginal discharge.Breast symptomsFor breast, patient reportsno breast pain,no breast lump, andno nipple discharge.Endocrine symptomsFor sexual complaints, patient reportsno sexual complaints,no pain during intercourse, andnormal libido. For menopausal symptoms, patient reportsno menopausal symptomsandnormal vaginal lubrication.Psychological symptomsFor psychological symptoms, patient reportsno depression,no anxiety, andno pmdd.Preventative measuresFor preventive measures, patient reportsencourage self breast examination,encourage regular exercise,encourage no tobacco use,encourage regular mammograms starting age 40, andneeds to schedule colonoscopy.ROS as noted in the HPI ZHANNA Reyes Attn: Accounting,[address] [facility], [place], [address], [facility] 09/19/2018 15:48:59 0 text/html OB ProblemReported by PatientHPIFor location, patient reportsupper. For onset/timing, patient reportsintermittent episodes. For duration, patient reportsintermittent. For quality, patient reportsstabbingandache. For severity, patient reportsmild. For alleviating factors, patient reportsnone. For aggravating factors, patient reportsnone. For associated symptoms, patient reportsno abdominal pain,no cramping,no bleeding,no vaginal discharge,no vaginal/vulvar itching or irritation,no dysuria,no frequency,no urgency,no hematuria,no fever,no nausea,no emesis,no constipation,no diarrhea/loose stool,no edema,no visual changes,no headache, andno dizziness.ROS as noted in the HPI phone visit. pt went to [facility] last week for mammogram. They wouldn't do it because pt complained of pain in right under arm area. They told her she needed a bilateral diagnositic mammogram and ultrasound. no other complaints. Shanon Catalan, LUCIUS-JOSEPHINE Attn: Accounting[address] [place], [address], [facility] 07/07/2020 11:50:16 OBGyn Episode No OBEpisode recorded.
--- OUTSIDE RECORDS SUMMARY | 2025-07-12 09:46 | XMS_ITS | Clinical Summary ---
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 Active amLODIPine (NORVASC) 10 mg Oral tablet [...] - 1-dose 75+ series) 01/12/[address] [place] [address] MEDICARE PART A AND B [facility] O Advance Directives For more information, please contact: [phone] * Full Code (Latest Code Status on File) Date Activated Date Inactivated Comments 01/22/2013 10:23 AM 01/24/2013 3:17 PM * Full Code Date Activated Date Inactivated Comments 01/22/2013 6:04 AM 01/22/2013 10:23 AM Care Teams Paper Baler Relationship Specialty Start Date End Date Avila Torres MD PCP - General Internal Medicine 12/20/12
--- OUTSIDE RECORDS SUMMARY | 2025-07-12 09:46 | XMS_ITS | Encounter Summary ---
Author Organization [facility] Address [address] [place] [address] Phone Care Team Providers Care Pattern Room Attendant Name Role Phone Unavailable Primary Care Provider Unavailabl e Encounter Details Date Type Department Care Team (Late st Contact Info) Description 09/08/2023 Nursing Facility [facility] [address] [place] [address] Johnny Toth MD [address] [place] [address] Social History Tobacco Use Types Packs/Day Years [...]
--- OUTSIDE RECORDS SUMMARY | 2025-07-12 09:46 | XMS_ITS | Encounter Summary ---
Author Organization [facility] Address [address] [place] [address] Phone Care Team Providers Care Administration Intern Name Role Phone Unavailable Primary Care Provider Unavailabl e Encounter Details Date Type Department Care Team (Late st Contact Info) Description 09/14/2023 Nursing Facility [facility] [address] [place] [address] Jh Corral, PAC [address] [place] [address] Social History Tobacco Use Types Packs/Day Years Used Date Smoking Tobacco: Never Assessed Comments Unknown Sex and Gender Information Value Date Recorded Sex Assigned at Not on file Legal Sex Female 9:24 PM CDT Gender Identity Not on file Sexual Orientation Not on file documented as of this encounter Progress Notes * Jh Corral, MEGHA - 09/14/2023 12:48 PM CST [facility] PROGRESS NOTE Jennifer Howard is a 63 y.o. female at [facility] for rehabilitation. Prior to coming to rehabilitation facility patient was hospitalized at [facility] from09/01/2023 through 09/05/2023 for acute respiratory [...] none Assessment/Plan: Generalized weakness and deconditioning Receiving prison care and physical therapy rehabilitation 09/14/2023 improving [...] and chronic constipation Continue scheduled MiraLax Had Jo-Ann during hospitalization Dental pain Secondary to dental injury/dental david with resultant pulpitis Oragel ordered Pertsarai p.r.n.. She has that follow-up with her [...] on 09/19/2023 This note was dictated using [employer] fluency dictation system and there may be errors in managing partner digital content marketing [place]. Despite proof reading the note, there may be mistakes and I apologize for those. By: Jh Corral, PAC, 09/14/2023 12:48 PM LIDAR ANALYST R ANALYST documented in this encounter Plan of Treatment Not on file documented as of this encounter Visit Diagnoses Not on filedocumented in this encounter
--- OUTSIDE RECORDS SUMMARY | 2025-07-12 09:46 | XMS_ITS | Encounter Summary ---
Author Organization [facility] Address [address] [place] [address] Phone Care Team Providers Care Unhairing Inspector Name Role Phone Unavailable Primary Care Provider Unavailabl e Encounter Details Date Type Department Care Team (Late st Contact Info) Description 09/06/2023 Nursing Facility [facility] [address] [place] [address] Jh Corral, PAC [address] [place] [address] Other chronic pain (Primary Dx) [...] Corral, PAC - 09/06/2023 12:29 PM CST [facility] PROGRESS NOTE Jennifer Howard is a 63 y.o. female at [facility] for rehabilitation. Prior to coming to rehabilitation facility patient was hospitalized at [facility] from09/01/2023 through 09/05/2023 for acute respiratory [...] none Assessment/Plan: Generalized weakness and deconditioning Receiving halfway care and physical therapy rehabilitation Chronic kidney [...] congestive heart failure Followed by cardiology at [facility] on 09/02/2023 with diastolic dysfunction grade 2 and ejection fraction of 62% Continue Lasix, metoprolol , Imdur 09/06/2023 well controlled Hypertension Continue current regimen Monitor blood pressures Diabetic gastroparesis and chronic constipation Continue scheduled MiraLax Tiffany Busch during hospitalization Dental pain Secondary to [...] skilled therapy This note was dictated using [employer] fluency dictation system and there may be errors in mud jack nozzleman. Despite proof reading the note, there may be mistakes and I apologize for those. By: MEGHA Patel, 09/06/2023 12:45 PM WOMEN SPECIALIST N SPECIALIST documented in this encounter Plan of Treatment Not on file documented as of this encounter Visit Diagnoses Diagnosis Other chronic pain- Primary documented in this encounter
--- OUTSIDE RECORDS SUMMARY | 2025-07-12 09:46 | XMS_ITS | Encounter Summary ---
Author Organization [facility] Address [address] [place] [address] Phone Care Team Providers Care Car Customizer Name Role Phone Unavailable Primary Care Provider Unavailabl e Encounter Details Date Type Department Care Team (Late st Contact Info) Description 09/11/2023 Nursing Facility [facility] [address] [place] [address] Jh Corral, PAC [address] [place] [address] Social History Tobacco Use Types Packs/Day Years Used Date Smoking Tobacco: Never Assessed Comments Unknown Sex and Gender Information Value Date Recorded Sex Assigned at Not on file Legal Sex Female 9:24 PM CDT Gender Identity Not on file Sexual Orientation Not on file documented as of this encounter Progress Notes * Jh Corral, MEGHA - 09/11/2023 2:25 PM CST [facility] PROGRESS NOTE Jennifer Howard is a 63 y.o. female at [facility] for rehabilitation. Prior to coming to rehabilitation facility patient was hospitalized at [facility] from09/01/2023 through 09/05/2023 for acute respiratory [...] none Assessment/Plan: Generalized weakness and deconditioning Receiving [facility] care and physical therapy rehabilitation 09/11/2023 improving [...] congestive heart failure Followed by cardiology at [facility] on 09/02/2023 with diastolic dysfunction grade [...] skilled therapy This note was dictated using [employer] fluency dictation system and there may be errors in dovetail machine operator. Despite proof reading the note, there may be mistakes and I apologize for those. By: MEGHA Patel, 09/11/2023 2:26 PM INFORMATION RESOURCE CONSULTANT RMATION RESOURCE CONSULTANT documented in this encounter Plan of Treatment Not on file documented as of this encounter Visit Diagnoses Not on filedocumented in this encounter
[2025-07-12 09:48] VITALS: BP 111/58; PULSE 59; RESP 20; TEMP 36.4; O2SAT 98
[2025-07-12 10:07] LABS: EDUAAPPEAR Clear; EDUABILI Negative (Negative); EDUABLOOD Negative (Negative); EDUACOLOR1 Yellow; EDUAGLUCOSE 2+ (Negative); EDUAKETONE Negative (Negative); EDUALEUKO Trace (Negative); EDUANITRATE Negative (Negative); EDUAPH 5.5; EDUAPROTEIN Trace (Negative); EDUASPGRAVITY 1.020; EDUAUROBILI 0.2
--- NOTE | 2025-07-12 10:10 | ED.DENTAL ---
HPI - Dental/Oral General Chief complaint: Urogenital-Female Stated complaint: tooth pain/poss uti Time Seen by Provider: 07/12/25 09:55 Source: patient and RN notes reviewed Mode of arrival: ambulatory Limitations: no limitations History of Present Illness HPI Narrative: 65-year-old female patient with history of diabetes complains of broken interior upper tooth x3 days that broke well eating. States this is painful and currently rates it 03/09. She has been taking Tylenol without relief. States her dentist can get her in in 6 days. Denies fever, shortness of breath, difficulty swallowing, facial swelling. She is also complaining dysuria and suprapubic pain after voiding since yesterday. No OTC treatment for urinary symptoms. Related Data Home Medications ?Medication ?Instructions ?Recorded ?Confirmed ?Last Taken ?Type allopurinol 100 mg tablet 200 mg PO DAILY 11/20/20 12/13/23 Unknown History amlodipine 5 mg tablet 5 mg PO DAILY 11/20/20 12/13/23 Unknown History ergocalciferol (vitamin D2) 1,250 1,250 mcg PO DAILY 11/20/20 12/13/23 Unknown History mcg (50,000 unit) capsule ezetimibe 10 mg tablet 10 mg PO DAILY 11/20/20 12/13/23 Unknown History furosemide 40 mg tablet 40 mg PO BID 11/20/20 12/13/23 Unknown History gabapentin 300 mg capsule 300 mg PO BID 11/20/20 12/13/23 Unknown History insulin lispro 100 unit/mL 100 unit subcut DIRECTED 11/20/20 12/13/23 Unknown History subcutaneous solution isosorbide mononitrate 120 mg 120 mg PO DAILY 11/20/20 12/13/23 Unknown History tablet,extended release 24 hr metoprolol tartrate 100 mg tablet 100 mg PO DAILY 11/20/20 12/13/23 Unknown History sertraline 100 mg tablet 100 mg PO DAILY 11/20/20 12/13/23 Unknown History calcitriol 0.25 mcg capsule 0.25 mcg PO DAILY 07/09/23 12/13/23 Unknown History clopidogrel 75 mg tablet 75 mg PO DAILY 07/09/23 12/13/23 Unknown History letrozole 2.5 mg tablet 2.5 mg PO DAILY 07/09/23 12/13/23 Unknown History losartan 25 mg tablet 25 mg PO DAILY 07/09/23 12/13/23 Unknown History trazodone 50 mg tablet 50 mg PO PRN 07/09/23 12/13/23 Unknown History dapagliflozin propanediol 10 mg mg 03/09/25 Unknown History tablet (Farxiga) dulaglutide 0.75 mg/0.5 mL mg subcut 03/09/25 Unknown History [facility] omeprazole 40 mg capsule,delayed mg 03/09/25 Unknown History release Allergies Allergy/AdvReac Type Severity Reaction Status Date / Time codeine Allergy Unknown Unknown Verified 07/12/25 09:54 meperidine AdvReac Mild NAUSEA/VOMI Verified 07/12/25 09:54 TING oxycodone AdvReac Mild Nausea and Verified 07/12/25 09:54 Vomiting PMFSH Past Medical History Medical History Bronchitis Asthma Sleep apnea treated with continuous positive airway pressure (CPAP) Hyperlipidemia Hypertension Heart attack Diabetes Urinary tract infection Surgical History Surgical History S/P cubital tunnel release S/P trigger finger release History of bilateral carpal tunnel release History of cholecystectomy History of hysterectomy History of open heart surgery 5 vessel bypass Family History Family History Sibling Family history of diabetes mellitus in first degree relative Social History Social History Smoking status: Never smoker Alcohol intake: never Gender identity (if verbalized by the patient): Female Comments At time of signature, I have reviewed and agree with nursing past medical, surgical, social and family history unless otherwise noted. Please see nursing chart for further information. There is no relevant family history pertinent to the presenting complaint Exam Narrative: GENERAL: Well-appearing, well-nourished, and in no acute distress. HEAD: Normocephalic, atraumatic. EYES: EOMI. No redness or drainage. Conjunctivae normal. ENT: Mucous membranes pink and moist. Tooth 9 is brown in color with portions missing and jagged. Adjacent gumline is mildly erythematous without edema. No obvious periapical abscess. No facial swelling noted. NECK: Normal AROM. CHEST: No respiratory distress. Clear to auscultation. HEART: Regular rate and rhythm. No murmur appreciated. Normal peripheral pulses. ABDOMEN: Soft, nontender, nondistended, normal active bowel sounds. EXTREMITIES: Normal range of motion. No edema. SKIN: Warm, dry, no rash. Capillary refill normal. Normal skin turgor. NEURO: No focal deficits. Alert and oriented x3. Gait steady. PSYCH: Normal affect. No signs of depression or anxiety. Course Course Level of Care: Express Care Visit Vital Signs Vital signs: Vital Signs Temperature 97.6 F 07/12/25 09:48 Pulse Rate 59 L 07/12/25 09:48 Respiratory Rate 20 07/12/25 09:48 Blood Pressure 111/58 L 07/12/25 09:48 Pulse Oximetry 98 07/12/25 09:48 Oxygen Delivery Room Air 07/12/25 09:48 Temperature 97.6 F 07/12/25 09:48 Pulse Rate 59 L 07/12/25 09:48 Respiratory Rate 20 07/12/25 09:48 Blood Pressure 111/58 L 07/12/25 09:48 Pulse Oximetry 98 07/12/25 09:48 Oxygen Delivery Room Air 07/12/25 09:48 Reviewed MDM MDM Narrative Medical decision making narrative: 65-year-old female patient with history of diabetes complains of broken interior upper tooth x3 days that broke well eating. States this is painful and currently rates it 8/10. She has been taking Tylenol without relief. States her dentist can get her in in 6 days. Denies fever, shortness of breath, difficulty swallowing, facial swelling. She is also complaining dysuria and suprapubic pain after voiding since yesterday. No OTC treatment for urinary symptoms. Upon exam, tooth 9 is broken in jagged. Urinalysis is shows 2+ glucose, trace protein, trace leukocytes. Will treat patient with Augmentin to cover for tooth infection and possible UTI. Urine culture pending. Patient agrees with plan. She will follow-up with her dentist as scheduled. Vital signs stable. Anticipatory guidance given. Differential Diagnosis Differential Diagnosis: UTI, pyelonephritis, dental fracture, dental abscess Lab Data MDM Lab Attestation statement: I personally reviewed the patient's lab results. Labs: Lab Results 07/12/25 Range/Units 10:05 POC Urine Color Yellow POC Urine Clarity Clear POC Urine pH 5.5 POC Ur Specif [place] 1.020 POC Urine Protein Trace (Negative) POC Ur Glucose (UA) 2+ (Negative) POC Urine Ketones Negative (Negative) POC Urine Blood Negative (Negative) POC Urine Nitrite Negative (Negative) POC Urine Bilirubin Negative (Negative) POC Urine Urobilinogen 0.2 POC U Leukocyte Esteras Trace (Negative) Critical Care Time Critical Care Time Critical Care Time: No Discharge Plan Discharge Clinical Impression: Fracture of tooth Qualifiers: Encounter type: initial encounter Fracture type: open Qualified Code(s): S02.5XXB - Fracture of tooth (traumatic), initial encounter for open fracture UTI (urinary tract infection) Qualifiers: Urinary tract infection type: acute cystitis Hematuria presence: without hematuria Qualified Code(s): N30.00 - Acute cystitis without hematuria Patient Disposition: Home Condition: Stable Instructions: Antibiotic Form Additional Instructions: Your urine shows infection today. Take Augmentin as prescribed until gone. Your urine will be sent of for a culture to identify what type of bacteria is causing your infection. If the culture shows that your medication will not get rid of your infection, you will be notified and a new antibiotic will be called in for you. If your symptoms worsen to include fever, sweats, chills, nausea, vomiting, severe abdominal or back pain, please go to the ER for further evaluation. Follow-up with your dentist as soon as possible for further evaluation of your tooth fracture. Patient Language: Kazakh Prescriptions: New amoxicillin-pot clavulanate 875-125 mg tablet 1 tablet PO Q12H 10 Days Qty: 20 0RF No Action trazodone 50 mg tablet 50 mg PO PRN clopidogrel 75 mg tablet 75 mg PO DAILY losartan 25 mg tablet 25 mg PO DAILY letrozole 2.5 mg tablet 2.5 mg PO DAILY calcitriol 0.25 mcg capsule 0.25 mcg PO DAILY omeprazole 40 mg capsule,delayed release(DR/EC) dapagliflozin propanediol [Farxiga] 10 mg tablet Trulicity 0.75 mg/0.5 mL pen injector SUBCUT isosorbide mononitrate 120 mg tablet extended release 24 hr 120 mg PO DAILY ergocalciferol (vitamin D2) 1,250 mcg (50,000 unit) capsule 1,250 mcg PO DAILY furosemide 40 mg tablet 40 mg PO BID gabapentin 300 mg capsule 300 mg PO BID metoprolol tartrate 100 mg tablet 100 mg PO DAILY sertraline 100 mg tablet 100 mg PO DAILY allopurinol 100 mg tablet 200 mg PO DAILY insulin lispro 100 unit/mL solution 100 unit subcut DIRECTED ezetimibe 10 mg tablet 10 mg PO DAILY amlodipine 5 mg tablet 5 mg PO DAILY Follow-up/Referrals: Brittany,MD Zulema [Primary Care Provider, Unknown] Time of Disposition: 10:15
== END 2025-07-12 10:18 | disposition home or self-care (01) ==
PROVIDERS: Emergency Provider Nurse Practitioner; PCP Family Medicine
DX: S02.5XXA Fracture of tooth (traumatic), initial encounter for closed fracture (principal); X58.XXXA Exposure to other specified factors, initial encounter; N30.00 Acute cystitis without hematuria; I10 Essential (primary) hypertension; E11.9 Type 2 diabetes mellitus without complications; Z79.4 Long term (current) use of insulin; Z79.85 Long-term (current) use of injectable non-insulin antidiabetic drugs; I25.2 Old myocardial infarction; E78.5 Hyperlipidemia, unspecified; G47.30 Sleep apnea, unspecified; J45.909 Unspecified asthma, uncomplicated
CPT/HCPCS: 81003; 87086; 87186; 99213; G0463